=== PATIENT | male | born 1975 | race Caucasian/White ===

== ENCOUNTER 2018-06-05 13:57 | Inpatient (IN) | payer MEDICAID, OTHER ==
[~2018-06-05] VITALS: Ht 162.6 cm; Wt 69.9 kg
[2018-06-05] MEDS ORDERED: SODIUM CHLORIDE 0.9% 1,000 ML IV ONE (17:51)
[2018-06-05] MEDS ORDERED: PANTOPRAZOLE SODIUM 40 MG/VIAL IV STA (17:51)
[2018-06-05] MEDS ORDERED: ONDANSETRON HCL 4MG/2ML INJ IV STA (17:51)
[2018-06-05] MEDS ORDERED: MORPHINE SULFATE 4 MG/ML CPJ (NOT FOR IM USE) IV STA (17:51)
[2018-06-05] MEDS ORDERED: FAMOTIDINE 20MG/2ML VIAL IV STA (17:51)
[2018-06-05 18:40] LABS: HEMATOCRIT. 26.5 % (42.0-52.0); HEMOGLOBIN. 8.4 g/dL (14.0-18.0); MEAN CORPUSCULAR HEMOGLOBIN 24.9 pg (28.0-32.0); MEAN CORPUSCULAR VOLUME 78.3 fL (80.0-94.0); MEAN PLATELET VOLUME 8.2 fl (7.4-10.4); RED BLOOD CELL COUNT 3.38 mill/uL (4.7-6.1); RED CELL DISTRIBUTION WIDTH 23.9 % (11.6-14.6)
[2018-06-05 18:44] LABS: CHLORIDE 105 mEq/L (98-107)
[2018-06-05 18:48] LABS: PLATELET 13 x1000/uL (130-400)
[2018-06-05 19:12] LABS: ETHANOL BLOOD 320 mg/dL; INR 1.3; PARTIAL THROMBOPLASTIN TIME 31.5 sec (23.4-31.0); PROTHROMBIN TIME 12.8 sec (9.1-11.1)
[2018-06-05 19:55] LABS: CLARITY URINE CLEAR (CLEAR); COLOR URINE YELLOW (YELLOW); KETONES URINE NEGATIVE (NEGATIVE); LEUKOCYTE ESTERASE URINE NEGATIVE (NEGATIVE); NITRITE URINE NEGATIVE (NEGATIVE); OCCULT BLOOD URINE NEGATIVE (NEGATIVE); PROTEIN URINE NEGATIVE (NEGATIVE); SPECIFIC GRAVITY URINE 1.011 (1.005-1.030)
[2018-06-05 20:18] LABS: PLATELET ESTIMATE MARKEDLY DECREASED
[2018-06-05] MEDS ORDERED: CLONIDINE 0.1MG TABLET PO PRN (20:45)
[2018-06-05] MEDS ORDERED: GUAIFENESIN 200MG/10ML SUGAR FREE UDC PO PRN (20:45)
[2018-06-05] MEDS ORDERED: ACETAMINOPHEN 325MG TABLET PO PRN (20:45)
[2018-06-05] MEDS ORDERED: MVI, ADULT NO.1 10 ML, FOLIC ACID 1 MG, THIAMINE HCL 100 MG in SODIUM CHLORIDE 0.9% 1,0... IV SCH ×4 (20:45)
[2018-06-05] MEDS ORDERED: MAGNESIUM/ALUMINUM HYDROXIDE/SIMETHICONE 30ML UDC PO PRN (20:45)
[2018-06-05] MEDS ORDERED: NA PHOS,M-B/NA PHOS,DI-BA ENEMA 118ML PR PRN (20:45)
[2018-06-05] MEDS ORDERED: NITROGLYCERIN 0.4MG TABLET SL SL PRN (20:45)
[2018-06-05] MEDS ORDERED: ONDANSETRON HCL 4MG/2ML INJ IV PRN (20:45)
[2018-06-05] MEDS ORDERED: KETOROLAC 15MG/ML VIAL IV PRN (20:45)
[2018-06-05] MEDS ORDERED: FILGRASTIM 300 MCG/ML VIAL SUBCUT SCH (20:45)
[2018-06-05] MEDS ORDERED: IPRATROPIUM/ALBUTEROL 0.5-3(2.5)MG/3ML NEB INH PRN (20:45)
[2018-06-05] MEDS ORDERED: ZOLPIDEM TARTRATE 5MG TABLET PO PRN (21:00)
[2018-06-05] MEDS ORDERED: MVI, ADULT NO.1 10 ML, FOLIC ACID 1 MG, THIAMINE HCL 100 MG in SODIUM CHLORIDE 0.9% 1,0... IV NR ×4 (22:00)
[2018-06-06] MEDS: METOPROLOL TARTRATE 25MG TABLET PO SCH ×2 (00:35→09:00)
[2018-06-06] MEDS ORDERED: FILGRASTIM-TBO 300 MCG/0.5 ML SYRINGE SQ SCH (01:00)
[2018-06-06] MEDS: SUCRALFATE 1 G/10 ML UDC PO SCH ×3 (04:15→12:20)
[2018-06-06] MEDS: FAMOTIDINE 20MG TABLET PO SCH ×2 (08:50→09:00)
[2018-06-06 09:00] VITALS: BP 130/67
[2018-06-06 09:50] VITALS: BP 130/67
[2018-06-06 12:00] VITALS: BP 135/73
[2018-06-06 15:44] VITALS: BP 135/73
== END 2018-06-06 16:02 | disposition home or self-care (01) | DRG 241 ==
LOC: ER 13:57 → 6EST 20:26 → ENRESERV 06-06 08:47
PROVIDERS: ADMIT Internal Medicine; ATTEND Internal Medicine
DX: K29.70 Gastritis, unspecified, without bleeding (principal); D61.818 Other pancytopenia; K70.30 Alcoholic cirrhosis of liver without ascites; D63.8 Anemia in other chronic diseases classified elsewhere; F10.120 Alcohol abuse with intoxication, uncomplicated; Y90.8 Blood alcohol level of 240 mg/100 ml or more; F17.210 Nicotine dependence, cigarettes, uncomplicated; Z88.6 Allergy status to analgesic agent; Z88.8 Allergy status to other drugs, medicaments and biological substances; Z79.899 Other long term (current) drug therapy
CPT/HCPCS: 36415; 71045; 74176; 83036; 93005; 96361; 96365; 96366; 96375; 96376; 99285; 99406; C9113; G0482; J1442; J1885; J2270; J2405; J3411; J3490; J7030

== ENCOUNTER 2018-06-22 17:01 | Emergency (ER) | payer MEDICAID ==
[~2018-06-22] VITALS: Ht 165.1 cm; Wt 82.0 kg
[2018-06-22] MEDS ORDERED: MORPHINE SULFATE 4 MG/ML CPJ (NOT FOR IM USE) IV STA (18:52)
[2018-06-22] MEDS ORDERED: ONDANSETRON HCL 4MG/2ML INJ IV STA (18:52)
[2018-06-22] MEDS ORDERED: FAMOTIDINE 20MG/2ML VIAL IV STA (18:52)
[2018-06-22] MEDS ORDERED: FOLIC ACID 1 MG, THIAMINE HCL 100 MG, MVI, ADULT NO.1 10 ML in DEXTROSE 5% WATER 1,000 ML IV ONE ×4 (19:00)
[2018-06-22 19:15] LABS: CHLORIDE 109 mEq/L (98-107)
[2018-06-22 19:18] LABS: HEMATOCRIT. 26.8 % (42.0-52.0); HEMOGLOBIN. 8.4 g/dL (14.0-18.0); MEAN CORPUSCULAR HEMOGLOBIN 24.7 pg (28.0-32.0); MEAN CORPUSCULAR VOLUME 78.8 fL (80.0-94.0); MEAN PLATELET VOLUME 8.1 fl (7.4-10.4); RED BLOOD CELL COUNT 3.41 mill/uL (4.7-6.1); RED CELL DISTRIBUTION WIDTH 23.7 % (11.6-14.6)
[2018-06-22 19:21] LABS: PLATELET 23 x1000/uL (130-400)
[2018-06-22 19:54] LABS: PLATELET ESTIMATE MARKEDLY DECREASED
[2018-06-22 19:58] LABS: CLARITY URINE CLEAR (CLEAR); COLOR URINE YELLOW (YELLOW); KETONES URINE NEGATIVE (NEGATIVE); LEUKOCYTE ESTERASE URINE NEGATIVE (NEGATIVE); NITRITE URINE NEGATIVE (NEGATIVE); OCCULT BLOOD URINE NEGATIVE (NEGATIVE); PH URINE 6.5 (4.5-8.0); PROTEIN URINE NEGATIVE (NEGATIVE); SPECIFIC GRAVITY URINE 1.002 (1.005-1.030); UROBILINOGEN URINE 0.2 E.U./dL (0.2-1.0)
[2018-06-22] MEDS ORDERED: IOHEXOL-300 100 ML BOTTLE ONE (21:26)
[2018-06-22 23:33] VITALS: BP 124/74
== END 2018-06-22 23:38 | disposition home or self-care (01) ==
LOC: ER 17:01
DX: K85.90 Acute pancreatitis without necrosis or infection, unspecified (principal); K70.30 Alcoholic cirrhosis of liver without ascites; D61.818 Other pancytopenia; D64.9 Anemia, unspecified; N28.9 Disorder of kidney and ureter, unspecified; Z87.11 Personal history of peptic ulcer disease; Z88.6 Allergy status to analgesic agent
CPT/HCPCS: 36415; 74177; 80053; 81003; 83690; 85025; 96365; 96366; 96375; 99284; J2270; J2405; J3411; J3490; J7070; Q9967

== ENCOUNTER 2018-07-13 15:50 | Emergency (ER) | payer MEDICAID ==
[~2018-07-13] VITALS: Ht 170.2 cm; Wt 80.0 kg
[2018-07-13] MEDS ORDERED: IBUPROFEN 600MG TABLET PO STA (16:05)
[2018-07-13 16:41] LABS: BASOPHILS % 0.6 % (0.0-2.0); EOSINOPHILS % 0.4 % (0.0-5.0); HEMATOCRIT. 28.5 % (42.0-52.0); LYMPHOCYTES % 20.3 % (20.0-50.0); MEAN CORPUSCULAR HEMOGLOBIN 25.3 pg (28.0-32.0); MEAN CORPUSCULAR VOLUME 80.3 fL (80.0-94.0); MEAN PLATELET VOLUME 8.4 fl (7.4-10.4); MONOCYTES % 7.5 % (2.0-8.0); NEUTROPHILS % 71.2 % (40.0-76.0); RED BLOOD CELL COUNT 3.55 mill/uL (4.7-6.1); RED CELL DISTRIBUTION WIDTH 24.3 % (11.6-14.6)
[2018-07-13 16:42] LABS: PLATELET 21 x1000/uL (130-400)
[2018-07-13 16:46] LABS: CHLORIDE 105 mEq/L (98-107); INR 1.3; PROTHROMBIN TIME 12.8 sec (9.1-11.1)
[2018-07-13 17:07] LABS: ETHANOL BLOOD 434 mg/dL
[2018-07-13] MEDS ORDERED: POTASSIUM CHLORIDE 20MEQ TABLET SR PO ONE (17:45)
[2018-07-14 02:54] VITALS: BP 99/52
== END 2018-07-14 03:04 | disposition home or self-care (01) ==
LOC: ER 15:50
DX: T51.0X1A Toxic effect of ethanol, accidental (unintentional), initial encounter (principal); R10.84 Generalized abdominal pain; D64.9 Anemia, unspecified; Y90.8 Blood alcohol level of 240 mg/100 ml or more; K76.9 Liver disease, unspecified; Z88.6 Allergy status to analgesic agent; Y92.488 Other paved roadways as the place of occurrence of the external cause
CPT/HCPCS: 36415; 74176; 80053; 83690; 85025; 85610; 99284; G0482

== ENCOUNTER 2018-08-05 13:22 | Inpatient (IN) | payer MEDICAID ==
[~2018-08-05] VITALS: Ht 162.6 cm; Wt 63.5 kg
[2018-08-06] MEDS ORDERED: ONDANSETRON HCL 4MG/2ML INJ IV STA (04:56)
[2018-08-06] MEDS ORDERED: SODIUM CHLORIDE 0.9% 1,000 ML IV ONE (04:56)
[2018-08-06 05:30] LABS: HEMATOCRIT. 26.7 % (42.0-52.0); HEMOGLOBIN. 8.4 g/dL (14.0-18.0); MEAN CORPUSCULAR VOLUME 79.8 fL (80.0-94.0); MEAN PLATELET VOLUME 10.7 fl (7.4-10.4); RED BLOOD CELL COUNT 3.35 mill/uL (4.7-6.1); RED CELL DISTRIBUTION WIDTH 22.5 % (11.6-14.6)
[2018-08-06 05:35] LABS: CHLORIDE 110 mEq/L (98-107)
[2018-08-06 05:42] LABS: ETHANOL BLOOD 175 mg/dL
[2018-08-06 05:55] LABS: PLATELET 15 x1000/uL (130-400)
[2018-08-06 06:17] LABS: CLARITY URINE CLEAR (CLEAR); KETONES URINE TRACE (NEGATIVE); LEUKOCYTE ESTERASE URINE 1+ (NEGATIVE); NITRITE URINE POSITIVE (NEGATIVE); OCCULT BLOOD URINE NEGATIVE (NEGATIVE); PROTEIN URINE 2+ (NEGATIVE); SPECIFIC GRAVITY URINE 1.035 (1.005-1.030)
[2018-08-06 06:23] LABS: COLOR URINE AMBER (YELLOW)
[2018-08-06] MEDS ORDERED: ACETAMINOPHEN 325MG TABLET PO SCH (07:36)
[2018-08-06 08:08] LABS: PLATELET ESTIMATE MARKEDLY DECREASED
[2018-08-06] MEDS ORDERED: CEFTRIAXONE 1 G PREMIX 50 ML IV ONE (08:45)
[2018-08-06] MEDS ORDERED: HYDROMORPHONE HCL/PF 2MG/ML CPJ IV PRN (13:15)
[2018-08-06] MEDS ORDERED: CLONIDINE 0.1MG TABLET PO PRN (13:15)
[2018-08-06] MEDS ORDERED: HYDROCODONE/ACETAMINOPHEN 5/325MG TABLET PO PRN (13:15)
[2018-08-06 15:17] VITALS: BP 128/68
[2018-08-06 15:34] VITALS: BP 124/66
[2018-08-06] MEDS ORDERED: LEVOFLOXACIN 500MG PREMIX 100 ML IV SCH (17:00)
[2018-08-06 20:00] VITALS: BP 123/48
[2018-08-07] VITALS: BP 131/68
[2018-08-07 04:00] VITALS: BP 122/66
[2018-08-07] MEDS: ONDANSETRON HCL 4MG/2ML INJ IV PRN ×3 (04:08→20:53)
[2018-08-07 05:54] LABS: HEMATOCRIT. 25.7 % (42.0-52.0); HEMOGLOBIN. 8.2 g/dL (14.0-18.0); MEAN CORPUSCULAR HEMOGLOBIN 25.4 pg (28.0-32.0); MEAN CORPUSCULAR VOLUME 79.5 fL (80.0-94.0); MEAN PLATELET VOLUME 10.6 fl (7.4-10.4); RED BLOOD CELL COUNT 3.23 mill/uL (4.7-6.1); RED CELL DISTRIBUTION WIDTH 22.6 % (11.6-14.6)
[2018-08-07 06:19] LABS: CHLORIDE 105 mEq/L (98-107)
[2018-08-07 06:43] LABS: PLATELET 15 x1000/uL (130-400)
[2018-08-07 08:00] VITALS: BP 132/71
[2018-08-07 12:00] VITALS: BP 138/70
[2018-08-07 13:10] LABS: PLATELET ESTIMATE MARKEDLY DECREASED
[2018-08-07] MEDS ORDERED: POTASSIUM CHLORIDE 20MEQ TABLET SR PO SCH (14:00)
[2018-08-07 16:00] VITALS: BP 125/67
[2018-08-07] MEDS: LEVOFLOXACIN 500MG PREMIX 100 ML IV SCH (17:14)
[2018-08-07 20:00] VITALS: BP 116/65
[2018-08-08] VITALS: BP 111/56
[2018-08-08 04:00] VITALS: BP 99/54
[2018-08-08] MEDS: ONDANSETRON HCL 4MG/2ML INJ IV PRN (09:14)
[2018-08-08 12:00] VITALS: BP 125/79
[2018-08-08 13:34] LABS: BASOPHILS % 0.3 % (0.0-2.0); EOSINOPHILS % 0.7 % (0.0-5.0); HEMATOCRIT. 27.2 % (42.0-52.0); HEMOGLOBIN. 8.5 g/dL (14.0-18.0); LYMPHOCYTES % 14.3 % (20.0-50.0); MEAN CORPUSCULAR HEMOGLOBIN 25.4 pg (28.0-32.0); MEAN CORPUSCULAR VOLUME 81.7 fL (80.0-94.0); MEAN PLATELET VOLUME 11.3 fl (7.4-10.4); MONOCYTES % 10.2 % (2.0-8.0); NEUTROPHILS % 74.5 % (40.0-76.0); RED BLOOD CELL COUNT 3.33 mill/uL (4.7-6.1); RED CELL DISTRIBUTION WIDTH 22.2 % (11.6-14.6)
[2018-08-08 13:48] LABS: PLATELET 17 x1000/uL (130-400)
[2018-08-08 14:00] LABS: CHLORIDE 106 mEq/L (98-107)
[2018-08-08] MEDS: LEVOFLOXACIN 500MG PREMIX 100 ML IV SCH (17:00)
== END 2018-08-08 19:40 | disposition home or self-care (01) | DRG 251 ==
LOC: ER 13:22 → 6EST 08-06 10:19 → ENRESERV 08-06 11:53
PROVIDERS: ADMIT Hospitalist; ATTEND Hospitalist
DX: R10.9 Unspecified abdominal pain (principal); D61.818 Other pancytopenia; E44.1 Mild protein-calorie malnutrition; E83.42 Hypomagnesemia; E87.0 Hyperosmolality and hypernatremia; N39.0 Urinary tract infection, site not specified; K74.60 Unspecified cirrhosis of liver; E83.51 Hypocalcemia; G89.29 Other chronic pain; F10.20 Alcohol dependence, uncomplicated; D72.825 Bandemia; I10 Essential (primary) hypertension; Z87.891 Personal history of nicotine dependence; Z88.6 Allergy status to analgesic agent; Z91.14 Patient's other noncompliance with medication regimen; E87.8 Other disorders of electrolyte and fluid balance, not elsewhere classified
CPT/HCPCS: 36415; 83735; 96361; 96374; 99285; G0482; J0696; J1170; J1956; J2405; J7030; J7040

== ENCOUNTER 2018-08-16 15:00 | Emergency (ER) | payer MEDICAID ==
[~2018-08-16] VITALS: Ht 165.1 cm; Wt 66.0 kg
[2018-08-16 15:05] VITALS: BP 116/72
== END 2018-08-16 17:35 | disposition left against medical advice (07) ==
LOC: ER 15:00
DX: F10.129 Alcohol abuse with intoxication, unspecified (principal); Z53.21 Procedure and treatment not carried out due to patient leaving prior to being seen by health care provider

== ENCOUNTER 2018-08-21 12:55 | Emergency (ER) | payer MEDICAID ==
[~2018-08-21] VITALS: Ht 170.2 cm; Wt 72.0 kg
[2018-08-21] MEDS ORDERED: MORPHINE SULFATE 4 MG/ML CPJ (NOT FOR IM USE) IV STA (13:10)
[2018-08-21] MEDS ORDERED: MAGNESIUM/ALUMINUM HYDROXIDE/SIMETHICONE 30ML UDC PO STA (13:10)
[2018-08-21] MEDS ORDERED: FAMOTIDINE 20MG/2ML VIAL IV STA (13:10)
[2018-08-21] MEDS ORDERED: ONDANSETRON HCL 4MG/2ML INJ IV STA (13:10)
[2018-08-21] MEDS ORDERED: SODIUM CHLORIDE 0.9% 1,000 ML IV ONE (13:10)
[2018-08-21 14:29] LABS: CHLORIDE 110 mEq/L (98-107)
[2018-08-21 14:30] LABS: INR 1.3; PROTHROMBIN TIME 12.7 sec (9.1-11.1)
[2018-08-21 14:34] LABS: HEMATOCRIT. 29.3 % (42.0-52.0); HEMOGLOBIN. 9.2 g/dL (14.0-18.0); MEAN CORPUSCULAR HEMOGLOBIN 24.8 pg (28.0-32.0); MEAN PLATELET VOLUME 8.5 fl (7.4-10.4); RED CELL DISTRIBUTION WIDTH 23.4 % (11.6-14.6)
[2018-08-21 14:48] LABS: ETHANOL BLOOD 428 mg/dL
[2018-08-21 14:51] LABS: PLATELET 22 x1000/uL (130-400)
[2018-08-21 15:40] LABS: PLATELET ESTIMATE MARKEDLY DECREASED
[2018-08-21 16:02] LABS: CLARITY URINE CLEAR (CLEAR); COLOR URINE YELLOW (YELLOW); KETONES URINE NEGATIVE (NEGATIVE); LEUKOCYTE ESTERASE URINE NEGATIVE (NEGATIVE); NITRITE URINE NEGATIVE (NEGATIVE); OCCULT BLOOD URINE NEGATIVE (NEGATIVE); PROTEIN URINE NEGATIVE (NEGATIVE); SPECIFIC GRAVITY URINE 1.002 (1.005-1.030); UROBILINOGEN URINE 0.2 E.U./dL (0.2-1.0)
[2018-08-21 16:13] LABS: *AMPHETAMINES SCREEN URINE NEGATIVE (NEGATIVE); *BENZODIAZEPINES SCREEN URINE NEGATIVE (NEGATIVE); *COCAINE SCREEN URINE NEGATIVE (NEGATIVE); METHADONE URINE SCREEN NEGATIVE (NEGATIVE); OPIATES URINE SCREEN NEGATIVE (NEGATIVE)
[2018-08-21 16:14] LABS: CANNABINOID URINE SCREEN NEGATIVE (NEGATIVE); PHENCYCLIDINE URINE SCREEN NEGATIVE (NEGATIVE)
[2018-08-21 16:17] LABS: *BARBITURATES SCREEN URINE NEGATIVE (NEGATIVE)
[2018-08-21 20:48] VITALS: BP 125/59
== END 2018-08-21 20:49 | disposition home or self-care (01) ==
LOC: ER 12:55
DX: K29.20 Alcoholic gastritis without bleeding (principal); F10.10 Alcohol abuse, uncomplicated; D69.6 Thrombocytopenia, unspecified; D72.819 Decreased white blood cell count, unspecified; D64.9 Anemia, unspecified; E11.9 Type 2 diabetes mellitus without complications; K74.60 Unspecified cirrhosis of liver; Z88.6 Allergy status to analgesic agent
CPT/HCPCS: 36415; 80053; 80305; 81003; 83690; 83880; 84484; 85025; 85610; 87186; 96361; 96374; 96375; 99283; J2270; J2405; J3490; J7030; Z7610

== ENCOUNTER 2018-08-23 11:34 | Emergency (ER) | payer MEDICAID ==
[~2018-08-23] VITALS: Ht 162.6 cm; Wt 70.0 kg
[2018-08-23 12:09] VITALS: BP 135/80
[2018-08-23 16:08] LABS: BASOPHILS % 0.8 % (0.0-2.0); EOSINOPHILS % 0.2 % (0.0-5.0); HEMATOCRIT. 28.2 % (42.0-52.0); LYMPHOCYTES % 29.8 % (20.0-50.0); MEAN CORPUSCULAR HEMOGLOBIN 25.1 pg (28.0-32.0); MEAN CORPUSCULAR VOLUME 79.1 fL (80.0-94.0); MEAN PLATELET VOLUME 8.5 fl (7.4-10.4); MONOCYTES % 6.3 % (2.0-8.0); NEUTROPHILS % 62.9 % (40.0-76.0); RED BLOOD CELL COUNT 3.57 mill/uL (4.7-6.1); RED CELL DISTRIBUTION WIDTH 23.2 % (11.6-14.6)
[2018-08-23 16:10] LABS: CHLORIDE 106 mEq/L (98-107)
[2018-08-23 16:11] LABS: INR 1.3; PROTHROMBIN TIME 12.6 sec (9.1-11.1)
[2018-08-23 16:14] LABS: PLATELET 21 x1000/uL (130-400)
[2018-08-23 16:33] LABS: PLATELET ESTIMATE MARKEDLY DECREASED
[2018-08-23 16:45] LABS: ETHANOL BLOOD 362 mg/dL
[2018-08-23] MEDS ORDERED: DICYCLOMINE 10 MG/5 ML ORAL SYR PO STA (18:32)
[2018-08-23] MEDS ORDERED: MAGNESIUM/ALUMINUM HYDROXIDE/SIMETHICONE 30ML UDC PO STA (18:32)
[2018-08-23] MEDS ORDERED: ONDANSETRON 4MG ODT PO STA (18:32)
[2018-08-23] MEDS ORDERED: VISCOUS LIDOCAINE 2% 15 ML UDC PO STA (18:32)
== END 2018-08-23 20:50 | disposition home or self-care (01) ==
LOC: ER 11:42
DX: F10.229 Alcohol dependence with intoxication, unspecified (principal); R10.9 Unspecified abdominal pain; R51 Headache; M54.9 Dorsalgia, unspecified; E11.9 Type 2 diabetes mellitus without complications; N28.9 Disorder of kidney and ureter, unspecified; D69.6 Thrombocytopenia, unspecified; D64.9 Anemia, unspecified; K74.60 Unspecified cirrhosis of liver; K92.2 Gastrointestinal hemorrhage, unspecified; Z88.6 Allergy status to analgesic agent; W01.0XXA Fall on same level from slipping, tripping and stumbling without subsequent striking against object, initial encounter; Y93.89 Activity, other specified; Y92.89 Other specified places as the place of occurrence of the external cause; Y99.8 Other external cause status; Y90.8 Blood alcohol level of 240 mg/100 ml or more
CPT/HCPCS: 36415; 70450; 80053; 83690; 85025; 85610; 87186; 99284; Q0162

== ENCOUNTER 2018-08-26 11:30 | Emergency (ER) | payer MEDICAID ==
[~2018-08-26] VITALS: Ht 165.1 cm; Wt 61.0 kg
[2018-08-26 12:17] LABS: HEMATOCRIT. 27.8 % (42.0-52.0); HEMOGLOBIN. 8.7 g/dL (14.0-18.0); MEAN CORPUSCULAR HEMOGLOBIN 25.8 pg (28.0-32.0); MEAN CORPUSCULAR VOLUME 82.7 fL (80.0-94.0); MEAN PLATELET VOLUME 8.4 fl (7.4-10.4); RED BLOOD CELL COUNT 3.36 mill/uL (4.7-6.1); RED CELL DISTRIBUTION WIDTH 23.5 % (11.6-14.6)
[2018-08-26 12:25] LABS: CHLORIDE 105 mEq/L (98-107); INR 1.4; PROTHROMBIN TIME 14.2 sec (9.1-11.1)
[2018-08-26 12:28] LABS: ETHANOL BLOOD < 10 mg/dL
[2018-08-26 12:31] LABS: CLARITY URINE CLOUDY (CLEAR); COLOR URINE DARK YELLOW (YELLOW); KETONES URINE TRACE (NEGATIVE); LEUKOCYTE ESTERASE URINE TRACE (NEGATIVE); NITRITE URINE NEGATIVE (NEGATIVE); OCCULT BLOOD URINE TRACE (NEGATIVE); PH URINE 6.5 (4.5-8.0); PROTEIN URINE 2+ (NEGATIVE); SPECIFIC GRAVITY URINE 1.016 (1.005-1.030)
[2018-08-26 12:59] LABS: PLATELET ESTIMATE MARKEDLY DECREASED
[2018-08-26 13:00] LABS: PLATELET 17 x1000/uL (130-400)
[2018-08-26] MEDS ORDERED: LORAZEPAM 1MG TABLET PO ONE (14:00)
[2018-08-26 16:30] VITALS: BP 116/68
== END 2018-08-26 16:37 | disposition home or self-care (01) ==
LOC: ER 11:30
DX: S09.8XXA Other specified injuries of head, initial encounter (principal); F10.239 Alcohol dependence with withdrawal, unspecified; Y90.0 Blood alcohol level of less than 20 mg/100 ml; K74.60 Unspecified cirrhosis of liver; D61.818 Other pancytopenia; K70.9 Alcoholic liver disease, unspecified; E87.6 Hypokalemia; E87.2 Acidosis; D64.9 Anemia, unspecified; D69.6 Thrombocytopenia, unspecified; D72.819 Decreased white blood cell count, unspecified; R55 Syncope and collapse; E11.9 Type 2 diabetes mellitus without complications; K92.2 Gastrointestinal hemorrhage, unspecified; F17.200 Nicotine dependence, unspecified, uncomplicated; W18.39XA Other fall on same level, initial encounter; Y93.89 Activity, other specified; Y92.89 Other specified places as the place of occurrence of the external cause; Y99.8 Other external cause status; Z88.6 Allergy status to analgesic agent
CPT/HCPCS: 36415; 70450; 80053; 81003; 83690; 85025; 85610; 87186; 93005; 99284; Z7610

== ENCOUNTER 2018-09-08 13:55 | Emergency (ER) | payer MEDICAID ==
[~2018-09-08] VITALS: Ht 172.7 cm; Wt 5.0 kg
[2018-09-08 15:58] VITALS: BP 116/59
== END 2018-09-08 18:58 | disposition left against medical advice (07) ==
LOC: ER 13:55
DX: Z53.21 Procedure and treatment not carried out due to patient leaving prior to being seen by health care provider (principal)

== ENCOUNTER 2018-09-09 10:05 | Emergency (ER) | payer MEDICAID ==
[~2018-09-09] VITALS: Ht 162.6 cm; Wt 73.0 kg
[2018-09-09 14:50] VITALS: BP 129/57
== END 2018-09-09 20:08 | disposition left against medical advice (07) ==
LOC: ER 10:05
DX: R10.9 Unspecified abdominal pain (principal); Z53.21 Procedure and treatment not carried out due to patient leaving prior to being seen by health care provider

== ENCOUNTER 2018-10-05 13:05 | Emergency (ER) | payer MEDICAID ==
[~2018-10-05] VITALS: Ht 162.6 cm; Wt 70.0 kg
[2018-10-05 14:13] LABS: CLARITY URINE CLEAR (CLEAR); COLOR URINE DARK YELLOW (YELLOW); KETONES URINE TRACE (NEGATIVE); LEUKOCYTE ESTERASE URINE NEGATIVE (NEGATIVE); NITRITE URINE NEGATIVE (NEGATIVE); OCCULT BLOOD URINE NEGATIVE (NEGATIVE); PROTEIN URINE NEGATIVE (NEGATIVE); SPECIFIC GRAVITY URINE 1.019 (1.005-1.030)
[2018-10-05] MEDS ORDERED: SODIUM CHLORIDE 0.9% 1,000 ML IV ONE (14:21)
[2018-10-05] MEDS ORDERED: FAMOTIDINE 20MG/2ML VIAL IV STA (14:21)
[2018-10-05 14:36] LABS: HEMATOCRIT. 25.5 % (42.0-52.0); MEAN CORPUSCULAR HEMOGLOBIN 24.8 pg (28.0-32.0); MEAN PLATELET VOLUME 8.6 fl (7.4-10.4); RED BLOOD CELL COUNT 3.22 mill/uL (4.7-6.1); RED CELL DISTRIBUTION WIDTH 26.4 % (11.6-14.6)
[2018-10-05 14:43] LABS: CHLORIDE 112 mEq/L (98-107)
[2018-10-05 14:50] LABS: PLATELET 27 x1000/uL (130-400)
[2018-10-05 15:22] LABS: PLATELET ESTIMATE MARKEDLY DECREASED
[2018-10-05 15:44] LABS: ETHANOL BLOOD 431 mg/dL
[2018-10-05 22:40] VITALS: BP 127/84
[2018-10-06 10:57] LABS: *BARBITURATES SCREEN URINE NEGATIVE (NEGATIVE)
[2018-10-06 10:58] LABS: *BENZODIAZEPINES SCREEN URINE PRESUMTIVE POSITIVE (NEGATIVE); *COCAINE SCREEN URINE NEGATIVE (NEGATIVE); METHADONE URINE SCREEN NEGATIVE (NEGATIVE)
[2018-10-06 10:59] LABS: *AMPHETAMINES SCREEN URINE NEGATIVE (NEGATIVE); CANNABINOID URINE SCREEN NEGATIVE (NEGATIVE); OPIATES URINE SCREEN NEGATIVE (NEGATIVE); PHENCYCLIDINE URINE SCREEN NEGATIVE (NEGATIVE)
== END 2018-10-05 22:40 | disposition home or self-care (01) ==
LOC: ER 13:24
DX: K85.90 Acute pancreatitis without necrosis or infection, unspecified (principal); F10.129 Alcohol abuse with intoxication, unspecified; N28.9 Disorder of kidney and ureter, unspecified; Z88.6 Allergy status to analgesic agent; Y90.9 Presence of alcohol in blood, level not specified
CPT/HCPCS: 36415; 80053; 80305; 80320; 81003; 83690; 85025; 96361; 96374; 99283; J3490; J7030; G0480

== ENCOUNTER 2018-10-06 14:15 | Emergency (ER) | payer MEDICAID ==
[~2018-10-06] VITALS: Ht 170.2 cm; Wt 75.0 kg
[2018-10-06] MEDS ORDERED: ONDANSETRON HCL 4MG/2ML INJ IV ONE (15:00)
[2018-10-06] MEDS ORDERED: SODIUM CHLORIDE 0.9% 1,000 ML IV ONE (15:00)
[2018-10-06 15:18] LABS: HEMATOCRIT. 28.4 % (42.0-52.0); HEMOGLOBIN. 8.8 g/dL (14.0-18.0); MEAN CORPUSCULAR HEMOGLOBIN 24.5 pg (28.0-32.0); MEAN PLATELET VOLUME 8.2 fl (7.4-10.4); RED BLOOD CELL COUNT 3.59 mill/uL (4.7-6.1); RED CELL DISTRIBUTION WIDTH 26.4 % (11.6-14.6)
[2018-10-06 15:21] LABS: CHLORIDE 111 mEq/L (98-107)
[2018-10-06 15:26] LABS: PLATELET 25 x1000/uL (130-400)
[2018-10-06 15:55] LABS: PLATELET ESTIMATE MARKEDLY DECREASED
[2018-10-06 16:23] VITALS: BP 153/75
== END 2018-10-06 16:33 | disposition home or self-care (01) ==
LOC: ER 14:15
DX: R53.1 Weakness (principal); D69.6 Thrombocytopenia, unspecified; F10.20 Alcohol dependence, uncomplicated; N28.9 Disorder of kidney and ureter, unspecified; Z88.6 Allergy status to analgesic agent; Y90.9 Presence of alcohol in blood, level not specified
CPT/HCPCS: 36415; 71045; 80053; 83880; 84484; 85025; 93005; 96374; 99284; J2405

== ENCOUNTER 2018-10-09 18:52 | Emergency (ER) | payer MEDICAID ==
[~2018-10-09] VITALS: Ht 162.6 cm; Wt 70.3 kg
[2018-10-09] MEDS ORDERED: ONDANSETRON HCL 4MG/2ML INJ IV STA (23:52)
[2018-10-09] MEDS ORDERED: MORPHINE SULFATE 4 MG/ML CPJ (NOT FOR IM USE) IV STA (23:52)
[2018-10-10 00:18] LABS: HEMATOCRIT. 26.1 % (42.0-52.0); HEMOGLOBIN. 8.2 g/dL (14.0-18.0); MEAN CORPUSCULAR HEMOGLOBIN 24.8 pg (28.0-32.0); MEAN CORPUSCULAR VOLUME 78.7 fL (80.0-94.0); MEAN PLATELET VOLUME 8.5 fl (7.4-10.4); RED BLOOD CELL COUNT 3.31 mill/uL (4.7-6.1); RED CELL DISTRIBUTION WIDTH 26.9 % (11.6-14.6)
[2018-10-10 00:24] LABS: CLARITY URINE CLEAR (CLEAR); COLOR URINE DARK YELLOW (YELLOW); KETONES URINE TRACE (NEGATIVE); LEUKOCYTE ESTERASE URINE NEGATIVE (NEGATIVE); NITRITE URINE NEGATIVE (NEGATIVE); OCCULT BLOOD URINE NEGATIVE (NEGATIVE); PROTEIN URINE NEGATIVE (NEGATIVE); SPECIFIC GRAVITY URINE 1.024 (1.005-1.030)
[2018-10-10 00:25] LABS: PLATELET 21 x1000/uL (130-400)
[2018-10-10 00:26] LABS: CHLORIDE 110 mEq/L (98-107)
[2018-10-10 02:10] LABS: PLATELET ESTIMATE DECREASED
[2018-10-10] MEDS ORDERED: IOHEXOL-300 100 ML BOTTLE ONE (02:24)
[2018-10-10 04:30] VITALS: BP 121/67
== END 2018-10-10 04:56 | disposition home or self-care (01) ==
LOC: ER 18:52
DX: R10.0 Acute abdomen (principal); R11.0 Nausea; R03.0 Elevated blood-pressure reading, without diagnosis of hypertension; F15.10 Other stimulant abuse, uncomplicated; Z87.891 Personal history of nicotine dependence; F10.20 Alcohol dependence, uncomplicated; Y90.9 Presence of alcohol in blood, level not specified
CPT/HCPCS: 36415; 74177; 80053; 81003; 83690; 85025; 96374; 96375; 99284; J2270; J2405; Q9967

== ENCOUNTER 2018-10-12 13:00 | Emergency (ER) | payer MEDICAID ==
[~2018-10-12] VITALS: Ht 162.6 cm; Wt 70.0 kg
[2018-10-12] MEDS ORDERED: FAMOTIDINE 20MG/2ML VIAL IV STA (14:55)
[2018-10-12] MEDS ORDERED: SODIUM CHLORIDE 0.9% 1,000 ML IV ONE (14:55)
[2018-10-12] MEDS ORDERED: ONDANSETRON HCL 4MG/2ML INJ IV STA (14:55)
[2018-10-12 15:40] LABS: CHLORIDE 110 mEq/L (98-107); HEMATOCRIT. 29.3 % (42.0-52.0); HEMOGLOBIN. 9.1 g/dL (14.0-18.0); MEAN CORPUSCULAR HEMOGLOBIN 24.7 pg (28.0-32.0); MEAN CORPUSCULAR VOLUME 79.4 fL (80.0-94.0); MEAN PLATELET VOLUME 10.2 fl (7.4-10.4); RED CELL DISTRIBUTION WIDTH 26.9 % (11.6-14.6)
[2018-10-12 15:41] LABS: INR 1.2; PROTHROMBIN TIME 12.3 sec (9.6-11.0)
[2018-10-12 15:43] LABS: CLARITY URINE CLEAR (CLEAR); COLOR URINE YELLOW (YELLOW); KETONES URINE NEGATIVE (NEGATIVE); LEUKOCYTE ESTERASE URINE NEGATIVE (NEGATIVE); NITRITE URINE NEGATIVE (NEGATIVE); OCCULT BLOOD URINE NEGATIVE (NEGATIVE); PH URINE 6.5 (4.5-8.0); PROTEIN URINE NEGATIVE (NEGATIVE); SPECIFIC GRAVITY URINE 1.006 (1.005-1.030); UROBILINOGEN URINE 0.2 E.U./dL (0.2-1.0)
[2018-10-12 15:43] LABS: PLATELET 19 x1000/uL (130-400)
[2018-10-12 15:52] LABS: *AMPHETAMINES SCREEN URINE NEGATIVE (NEGATIVE); *BARBITURATES SCREEN URINE NEGATIVE (NEGATIVE); *BENZODIAZEPINES SCREEN URINE NEGATIVE (NEGATIVE); *COCAINE SCREEN URINE NEGATIVE (NEGATIVE)
[2018-10-12 15:53] LABS: CANNABINOID URINE SCREEN NEGATIVE (NEGATIVE); METHADONE URINE SCREEN NEGATIVE (NEGATIVE); OPIATES URINE SCREEN NEGATIVE (NEGATIVE); PHENCYCLIDINE URINE SCREEN NEGATIVE (NEGATIVE)
[2018-10-12 15:54] LABS: ETHANOL BLOOD 440 mg/dL
[2018-10-12 16:21] LABS: PLATELET ESTIMATE MARKEDLY DECREASED
[2018-10-12 21:10] VITALS: BP 112/62
== END 2018-10-12 21:20 | disposition home or self-care (01) ==
LOC: ER 13:00
DX: K29.20 Alcoholic gastritis without bleeding (principal); F10.229 Alcohol dependence with intoxication, unspecified; Y90.8 Blood alcohol level of 240 mg/100 ml or more; M25.561 Pain in right knee; D61.818 Other pancytopenia; F17.210 Nicotine dependence, cigarettes, uncomplicated; F15.10 Other stimulant abuse, uncomplicated
CPT/HCPCS: 36415; 71045; 73562; 80053; 80305; 80320; 81003; 83690; 84484; 85025; 85610; 93005; 93971; 96361; 96374; 96375; 99284; J2405; J3490; J7030; Z7610; G0480

== ENCOUNTER 2018-10-14 17:27 | Emergency (ER) | payer MEDICAID ==
[~2018-10-14] VITALS: Ht 162.6 cm; Wt 69.0 kg
[2018-10-14] MEDS ORDERED: LORAZEPAM 2MG/ML CPJ IV ONE (19:15)
[2018-10-14] MEDS ORDERED: FOLIC ACID 1 MG, THIAMINE HCL 100 MG, MVI, ADULT NO.1 10 ML in DEXTROSE 5% WATER 1,000 ML IV ONE ×4 (19:15)
[2018-10-14] MEDS ORDERED: FAMOTIDINE 20MG/2ML VIAL IV ONE (19:15)
[2018-10-14 19:48] LABS: *AMPHETAMINES SCREEN URINE NEGATIVE (NEGATIVE); *BARBITURATES SCREEN URINE NEGATIVE (NEGATIVE); *BENZODIAZEPINES SCREEN URINE NEGATIVE (NEGATIVE); *COCAINE SCREEN URINE NEGATIVE (NEGATIVE); METHADONE URINE SCREEN NEGATIVE (NEGATIVE); OPIATES URINE SCREEN NEGATIVE (NEGATIVE); PHENCYCLIDINE URINE SCREEN NEGATIVE (NEGATIVE)
[2018-10-14 19:49] LABS: CANNABINOID URINE SCREEN NEGATIVE (NEGATIVE)
[2018-10-14 20:16] LABS: CHLORIDE 110 mEq/L (98-107)
[2018-10-14 20:19] LABS: INR 1.2; PARTIAL THROMBOPLASTIN TIME 31.1 sec (23.4-31.0); PROTHROMBIN TIME 12.7 sec (9.6-11.0)
[2018-10-14 20:20] LABS: BASOPHILS % 0.4 % (0.0-2.0); EOSINOPHILS % 0.2 % (0.0-5.0); HEMATOCRIT. 27.2 % (42.0-52.0); HEMOGLOBIN. 8.7 g/dL (14.0-18.0); LYMPHOCYTES % 27.4 % (20.0-50.0); MEAN CORPUSCULAR HEMOGLOBIN 25.2 pg (28.0-32.0); MEAN CORPUSCULAR VOLUME 78.5 fL (80.0-94.0); MEAN PLATELET VOLUME 8.3 fl (7.4-10.4); MONOCYTES % 6.3 % (2.0-8.0); NEUTROPHILS % 65.7 % (40.0-76.0); RED BLOOD CELL COUNT 3.47 mill/uL (4.7-6.1); RED CELL DISTRIBUTION WIDTH 26.8 % (11.6-14.6)
[2018-10-14 20:32] LABS: PLATELET 14 x1000/uL (130-400)
[2018-10-14 20:36] LABS: ETHANOL BLOOD 432 mg/dL
[2018-10-14] MEDS ORDERED: MAGNESIUM/ALUMINUM HYDROXIDE/SIMETHICONE 30ML UDC PO ONE (21:45)
[2018-10-14] MEDS ORDERED: ONDANSETRON 4MG ODT PO ONE (21:45)
[2018-10-14 22:35] VITALS: BP 118/69
== END 2018-10-14 22:43 | disposition home or self-care (01) ==
LOC: ER 17:27
DX: F10.229 Alcohol dependence with intoxication, unspecified (principal); D72.819 Decreased white blood cell count, unspecified; D53.9 Nutritional anemia, unspecified; D69.6 Thrombocytopenia, unspecified; F15.10 Other stimulant abuse, uncomplicated; N28.9 Disorder of kidney and ureter, unspecified; K76.9 Liver disease, unspecified; Z87.11 Personal history of peptic ulcer disease; Z88.6 Allergy status to analgesic agent; Y90.8 Blood alcohol level of 240 mg/100 ml or more
CPT/HCPCS: 36415; 71045; 80053; 80305; 80320; 83690; 83735; 83880; 84484; 85025; 85610; 85730; 93005; 96365; 96366; 96375; 99284; J2060; J3411; J3490; J7070; Q0162; Z7610; G0480

== ENCOUNTER 2018-10-25 11:58 | Emergency (ER) | payer MEDICAID ==
[~2018-10-25] VITALS: Ht 162.6 cm; Wt 70.0 kg
[2018-10-25] MEDS ORDERED: ONDANSETRON HCL 4MG/2ML INJ IV STA (15:24)
[2018-10-25] MEDS ORDERED: SODIUM CHLORIDE 0.9% 1,000 ML IV ONE (15:24)
[2018-10-25] MEDS ORDERED: MORPHINE SULFATE 4 MG/ML CPJ (NOT FOR IM USE) IV ONE (15:30)
[2018-10-25] MEDS ORDERED: FAMOTIDINE 20MG/2ML VIAL IV ONE (15:30)
[2018-10-25 16:09] LABS: CHLORIDE 114 mEq/L (98-107); HEMATOCRIT. 28.3 % (42.0-52.0); HEMOGLOBIN. 9.2 g/dL (14.0-18.0); MEAN CORPUSCULAR HEMOGLOBIN 26.3 pg (28.0-32.0); MEAN CORPUSCULAR VOLUME 81.5 fL (80.0-94.0); MEAN PLATELET VOLUME 9.1 fl (7.4-10.4); RED BLOOD CELL COUNT 3.48 mill/uL (4.7-6.1); RED CELL DISTRIBUTION WIDTH 25.1 % (11.6-14.6)
[2018-10-25 16:11] LABS: PLATELET 37 x1000/uL (130-400)
[2018-10-25 16:13] LABS: ETHANOL BLOOD 60 mg/dL
[2018-10-25 16:15] LABS: INR 1.3; PARTIAL THROMBOPLASTIN TIME 34.5 sec (23.4-31.0); PROTHROMBIN TIME 12.7 sec (9.6-11.0)
[2018-10-25 16:37] LABS: PLATELET ESTIMATE MARKEDLY DECREASED
[2018-10-25 16:56] LABS: CLARITY URINE CLEAR (CLEAR); COLOR URINE DARK YELLOW (YELLOW); KETONES URINE TRACE (NEGATIVE); LEUKOCYTE ESTERASE URINE NEGATIVE (NEGATIVE); NITRITE URINE NEGATIVE (NEGATIVE); OCCULT BLOOD URINE NEGATIVE (NEGATIVE); PROTEIN URINE NEGATIVE (NEGATIVE); SPECIFIC GRAVITY URINE 1.023 (1.005-1.030)
[2018-10-25 17:05] LABS: *BARBITURATES SCREEN URINE NEGATIVE (NEGATIVE); *BENZODIAZEPINES SCREEN URINE PRESUMTIVE POSITIVE (NEGATIVE); *COCAINE SCREEN URINE NEGATIVE (NEGATIVE)
[2018-10-25 17:06] LABS: *AMPHETAMINES SCREEN URINE NEGATIVE (NEGATIVE); CANNABINOID URINE SCREEN NEGATIVE (NEGATIVE); METHADONE URINE SCREEN NEGATIVE (NEGATIVE); OPIATES URINE SCREEN NEGATIVE (NEGATIVE); PHENCYCLIDINE URINE SCREEN NEGATIVE (NEGATIVE)
[2018-10-25 17:27] VITALS: BP 115/85
== END 2018-10-25 19:02 | disposition home or self-care (01) ==
LOC: ER 12:14
DX: K29.20 Alcoholic gastritis without bleeding (principal); F10.20 Alcohol dependence, uncomplicated; D61.818 Other pancytopenia; N28.9 Disorder of kidney and ureter, unspecified; Z79.899 Other long term (current) drug therapy; Y90.9 Presence of alcohol in blood, level not specified
CPT/HCPCS: 36415; 71045; 80053; 80305; 80320; 81003; 83880; 84484; 85025; 85610; 85730; 93005; 96361; 96374; 96375; 99284; J2270; J2405; J3490; J7030; G0480

== ENCOUNTER 2018-10-26 15:43 | Emergency (ER) | payer MEDICAID ==
[~2018-10-26] VITALS: Ht 167.6 cm; Wt 75.0 kg
[2018-10-26 16:48] LABS: HEMATOCRIT. 27.3 % (42.0-52.0); HEMOGLOBIN. 8.7 g/dL (14.0-18.0); MEAN CORPUSCULAR HEMOGLOBIN 25.8 pg (28.0-32.0); MEAN CORPUSCULAR VOLUME 80.4 fL (80.0-94.0); MEAN PLATELET VOLUME 8.7 fl (7.4-10.4); RED BLOOD CELL COUNT 3.39 mill/uL (4.7-6.1); RED CELL DISTRIBUTION WIDTH 25.1 % (11.6-14.6)
[2018-10-26 16:49] LABS: PLATELET 47 x1000/uL (130-400)
[2018-10-26 16:50] LABS: CHLORIDE 114 mEq/L (98-107)
[2018-10-26 16:54] LABS: ETHANOL BLOOD 130 mg/dL
[2018-10-26 17:14] LABS: PLATELET ESTIMATE MARKEDLY DECREASED
[2018-10-26 19:19] LABS: CLARITY URINE CLEAR (CLEAR); COLOR URINE YELLOW (YELLOW); KETONES URINE NEGATIVE (NEGATIVE); LEUKOCYTE ESTERASE URINE NEGATIVE (NEGATIVE); NITRITE URINE NEGATIVE (NEGATIVE); OCCULT BLOOD URINE NEGATIVE (NEGATIVE); PROTEIN URINE NEGATIVE (NEGATIVE); SPECIFIC GRAVITY URINE 1.014 (1.005-1.030); UROBILINOGEN URINE 0.2 E.U./dL (0.2-1.0)
[2018-10-26 19:43] LABS: *AMPHETAMINES SCREEN URINE NEGATIVE (NEGATIVE); *BARBITURATES SCREEN URINE NEGATIVE (NEGATIVE)
[2018-10-26 19:44] LABS: *BENZODIAZEPINES SCREEN URINE PRESUMTIVE POSITIVE (NEGATIVE); *COCAINE SCREEN URINE NEGATIVE (NEGATIVE); CANNABINOID URINE SCREEN NEGATIVE (NEGATIVE); METHADONE URINE SCREEN NEGATIVE (NEGATIVE); OPIATES URINE SCREEN NEGATIVE (NEGATIVE); PHENCYCLIDINE URINE SCREEN NEGATIVE (NEGATIVE)
[2018-10-27 01:41] VITALS: BP 128/72
== END 2018-10-27 02:07 | disposition home or self-care (01) ==
LOC: ER 15:58
DX: F10.20 Alcohol dependence, uncomplicated (principal); R45.851 Suicidal ideations; R44.0 Auditory hallucinations; Y90.6 Blood alcohol level of 120-199 mg/100 ml; F15.10 Other stimulant abuse, uncomplicated; D64.9 Anemia, unspecified; D69.6 Thrombocytopenia, unspecified; D72.819 Decreased white blood cell count, unspecified
CPT/HCPCS: 36415; 80305; 80320; 99283; G0480

== ENCOUNTER 2018-10-29 17:39 | Emergency (ER) | payer MEDICAID ==
[~2018-10-29] VITALS: Ht 162.6 cm; Wt 70.0 kg
[2018-10-29] MEDS ORDERED: ONDANSETRON 4MG ODT PO STA (19:02)
[2018-10-29] MEDS ORDERED: MAGNESIUM/ALUMINUM HYDROXIDE/SIMETHICONE 30ML UDC PO ONE (19:15)
[2018-10-29] MEDS ORDERED: VISCOUS LIDOCAINE 2% 15 ML UDC PO ONE (19:15)
[2018-10-29] MEDS ORDERED: SODIUM CHLORIDE 0.9% 1,000 ML IV ONE (19:17)
[2018-10-29 19:35] LABS: BASOPHILS % 1.1 % (0.0-2.0); EOSINOPHILS % 0.9 % (0.0-5.0); HEMATOCRIT. 26.6 % (42.0-52.0); HEMOGLOBIN. 8.5 g/dL (14.0-18.0); LYMPHOCYTES % 25.6 % (20.0-50.0); MEAN CORPUSCULAR HEMOGLOBIN 25.4 pg (28.0-32.0); MEAN CORPUSCULAR VOLUME 79.4 fL (80.0-94.0); MEAN PLATELET VOLUME 8.5 fl (7.4-10.4); NEUTROPHILS % 62.4 % (40.0-76.0); RED BLOOD CELL COUNT 3.35 mill/uL (4.7-6.1); RED CELL DISTRIBUTION WIDTH 24.6 % (11.6-14.6)
[2018-10-29 19:36] LABS: CHLORIDE 116 mEq/L (98-107)
[2018-10-29 19:40] LABS: INR 1.3; PLATELET 44 x1000/uL (130-400); PROTHROMBIN TIME 12.7 sec (9.6-11.0)
[2018-10-29 20:26] LABS: CLARITY URINE CLEAR (CLEAR); COLOR URINE YELLOW (YELLOW); KETONES URINE NEGATIVE (NEGATIVE); LEUKOCYTE ESTERASE URINE NEGATIVE (NEGATIVE); NITRITE URINE NEGATIVE (NEGATIVE); OCCULT BLOOD URINE NEGATIVE (NEGATIVE); PROTEIN URINE NEGATIVE (NEGATIVE); SPECIFIC GRAVITY URINE 1.006 (1.005-1.030); UROBILINOGEN URINE 0.2 E.U./dL (0.2-1.0)
[2018-10-30] MEDS ORDERED: SODIUM CHLORIDE 0.9% 1,000 ML IV NR (00:45)
[2018-10-30 05:20] VITALS: BP 112/68
== END 2018-10-30 05:31 | disposition home or self-care (01) ==
LOC: ER 17:39
DX: F10.129 Alcohol abuse with intoxication, unspecified (principal); D69.6 Thrombocytopenia, unspecified; R10.9 Unspecified abdominal pain; Y90.9 Presence of alcohol in blood, level not specified; Z87.19 Personal history of other diseases of the digestive system; Z88.6 Allergy status to analgesic agent
CPT/HCPCS: 36415; 80053; 81003; 83690; 85025; 85610; 96360; 96361; 99284; J7030; Q0162; Z7610

== ENCOUNTER 2018-12-26 08:34 | Inpatient (IN) | payer MEDICAID ==
[~2018-12-26] VITALS: Ht 162.6 cm; Wt 66.7 kg
[2018-12-26 09:52] LABS: HEMATOCRIT. 26.4 % (42.0-52.0); HEMOGLOBIN. 8.4 g/dL (14.0-18.0); MEAN CORPUSCULAR HEMOGLOBIN 25.2 pg (28.0-32.0); MEAN CORPUSCULAR VOLUME 78.8 fL (80.0-94.0); MEAN PLATELET VOLUME 8.4 fl (7.4-10.4); RED BLOOD CELL COUNT 3.36 mill/uL (4.7-6.1); RED CELL DISTRIBUTION WIDTH 24.5 % (11.6-14.6)
[2018-12-26 09:53] LABS: CHLORIDE 112 mEq/L (98-107)
[2018-12-26 10:03] LABS: INR 1.3; PROTHROMBIN TIME 13.4 sec (9.6-11.0)
[2018-12-26 10:07] LABS: ETHANOL BLOOD 501 mg/dL
[2018-12-26 10:25] LABS: PLATELET 27 x1000/uL (130-400)
[2018-12-26 11:04] LABS: CLARITY URINE CLEAR (CLEAR); COLOR URINE YELLOW (YELLOW); KETONES URINE NEGATIVE (NEGATIVE); LEUKOCYTE ESTERASE URINE NEGATIVE (NEGATIVE); NITRITE URINE NEGATIVE (NEGATIVE); OCCULT BLOOD URINE NEGATIVE (NEGATIVE); PH URINE 6.5 (4.5-8.0); PROTEIN URINE NEGATIVE (NEGATIVE); SPECIFIC GRAVITY URINE 1.003 (1.005-1.030); UROBILINOGEN URINE 0.2 E.U./dL (0.2-1.0)
[2018-12-26 11:35] LABS: PLATELET ESTIMATE MARKEDLY DECREASED
[2018-12-26] MEDS ORDERED: SODIUM CHLORIDE 0.9% 1,000 ML IV ONE (12:24)
[2018-12-26] MEDS ORDERED: LORAZEPAM 2MG/ML CPJ IV ONE (12:30)
[2018-12-26] MEDS ORDERED: SODIUM CHLORIDE 0.9% 1,000 ML IV SCH (13:56)
[2018-12-26] MEDS ORDERED: MAGNESIUM/ALUMINUM HYDROXIDE/SIMETHICONE 30ML UDC PO PRN (14:00)
[2018-12-26] MEDS ORDERED: DIPHENHYDRAMINE 50MG/ML VIAL IV PRN (14:00)
[2018-12-26] MEDS ORDERED: CLONIDINE 0.1MG TABLET PO PRN (14:00)
[2018-12-26 14:32] LABS: PHOSPHORUS 3.6 mg/dL (2.5-4.9)
[2018-12-26] MEDS ORDERED: MVI, ADULT NO.1 10 ML, FOLIC ACID 1 MG, THIAMINE HCL 100 MG in SODIUM CHLORIDE 0.9% 1,0... IV ONE ×4 (15:00)
[2018-12-26 16:08] VITALS: BP 108/57
[2018-12-26 17:18] VITALS: BP 108/57
[2018-12-26] MEDS ORDERED: FERR-71 PO (17:26)
[2018-12-26] MEDS ORDERED: FAMO-135 PO (17:26)
[2018-12-26 20:00] VITALS: BP 135/69
[2018-12-26] MEDS: FAMOTIDINE 20MG/2ML VIAL IV SCH (21:27)
[2018-12-27] VITALS: BP 123/62
[2018-12-27 04:00] VITALS: BP 109/58
[2018-12-27 06:11] LABS: HEMATOCRIT. 23.2 % (42.0-52.0); HEMOGLOBIN. 7.4 g/dL (14.0-18.0); MEAN CORPUSCULAR HEMOGLOBIN 24.9 pg (28.0-32.0); MEAN CORPUSCULAR VOLUME 78.5 fL (80.0-94.0); MEAN PLATELET VOLUME 8.5 fl (7.4-10.4); RED BLOOD CELL COUNT 2.96 mill/uL (4.7-6.1); RED CELL DISTRIBUTION WIDTH 24.4 % (11.6-14.6)
[2018-12-27 06:13] LABS: CHLORIDE 111 mEq/L (98-107)
[2018-12-27] MEDS: ONDANSETRON HCL 4MG/2ML INJ IV PRN ×2 (06:50→14:10)
[2018-12-27 07:02] LABS: PLATELET 16 x1000/uL (130-400)
[2018-12-27 08:00] VITALS: BP 100/55
[2018-12-27] MEDS: FAMOTIDINE 20MG/2ML VIAL IV SCH ×2 (08:57→21:28)
[2018-12-27] MEDS ORDERED: POTASSIUM CHLORIDE 20MEQ TABLET SR PO NR (09:30)
[2018-12-27] MEDS: DEXT 5%/0.45% NACL KCL 20MEQ/L 1,000 ML IV SCH (11:17)
[2018-12-27 11:47] VITALS: BP 111/70
[2018-12-27 14:01] LABS: PLATELET ESTIMATE MARKEDLY DECREASED
[2018-12-27] MEDS: CHLORDIAZEPOXIDE 25MG CAPSULE PO SCH ×2 (15:56→21:28)
[2018-12-27 16:26] VITALS: BP 120/65
[2018-12-27 20:00] VITALS: BP 111/69
[2018-12-28] VITALS: BP 114/61
[2018-12-28 04:00] VITALS: BP 112/61
[2018-12-28] MEDS: ONDANSETRON HCL 4MG/2ML INJ IV PRN ×2 (05:28→22:01)
[2018-12-28] MEDS: CHLORDIAZEPOXIDE 25MG CAPSULE PO SCH ×3 (05:28→21:52)
[2018-12-28 06:59] LABS: HEMATOCRIT. 23.8 % (42.0-52.0); HEMOGLOBIN. 7.8 g/dL (14.0-18.0); MEAN CORPUSCULAR HEMOGLOBIN 25.3 pg (28.0-32.0); MEAN CORPUSCULAR VOLUME 77.6 fL (80.0-94.0); MEAN PLATELET VOLUME 8.2 fl (7.4-10.4); RED BLOOD CELL COUNT 3.07 mill/uL (4.7-6.1); RED CELL DISTRIBUTION WIDTH 23.9 % (11.6-14.6)
[2018-12-28 07:27] LABS: CHLORIDE 106 mEq/L (98-107)
[2018-12-28 08:00] LABS: PLATELET 14 x1000/uL (130-400)
[2018-12-28] MEDS: FAMOTIDINE 20MG/2ML VIAL IV SCH ×2 (08:45→21:52)
[2018-12-28] MEDS: DEXT 5%/0.45% NACL KCL 20MEQ/L 1,000 ML IV SCH (08:45)
[2018-12-28] MEDS ORDERED: POTASSIUM CHLORIDE 20MEQ/PACKET PO NR (09:15)
[2018-12-28] MEDS: ACETAMINOPHEN 325MG TABLET PO PRN (10:51)
[2018-12-28 12:00] VITALS: BP 107/66
[2018-12-28] MEDS ORDERED: POTASSIUM CHLORIDE 20MEQ/PACKET PO SCH (12:00)
[2018-12-28 16:00] VITALS: BP 120/61
[2018-12-28 16:50] LABS: PLATELET ESTIMATE MARKEDLY DECREASED
[2018-12-28 20:00] VITALS: BP 105/63
[2018-12-29] VITALS: BP 111/63
[2018-12-29] MEDS: LORAZEPAM 2MG/ML CPJ IV PRN ×2 (01:51→22:36)
[2018-12-29] MEDS: DEXT 5%/0.45% NACL KCL 20MEQ/L 1,000 ML IV SCH ×2 (03:22→15:58)
[2018-12-29 04:00] VITALS: BP 109/71
[2018-12-29] MEDS: CHLORDIAZEPOXIDE 25MG CAPSULE PO SCH ×3 (05:38→22:36)
[2018-12-29 06:18] LABS: CHLORIDE 109 mEq/L (98-107)
[2018-12-29 06:31] LABS: HEMATOCRIT. 23.7 % (42.0-52.0); HEMOGLOBIN. 7.7 g/dL (14.0-18.0); MEAN CORPUSCULAR HEMOGLOBIN 25.5 pg (28.0-32.0); MEAN CORPUSCULAR VOLUME 78.6 fL (80.0-94.0); MEAN PLATELET VOLUME 8.5 fl (7.4-10.4); RED BLOOD CELL COUNT 3.02 mill/uL (4.7-6.1); RED CELL DISTRIBUTION WIDTH 23.5 % (11.6-14.6)
[2018-12-29 08:00] VITALS: BP 103/58
[2018-12-29 08:39] LABS: PLATELET 15 x1000/uL (130-400)
[2018-12-29] MEDS: FAMOTIDINE 20MG TABLET PO SCH ×2 (09:05→17:57)
[2018-12-29] MEDS: ACETAMINOPHEN 325MG TABLET PO PRN (09:05)
[2018-12-29] MEDS ORDERED: MAGNESIUM 2 G PREMIX 50 ML IV NR (11:00)
[2018-12-29 11:31] VITALS: BP 104/64
[2018-12-29] MEDS ORDERED: FOLIC ACID 1 MG, THIAMINE HCL 100 MG, MVI, ADULT NO.1 10 ML in DEXTROSE 5% WATER 1,000 ML IV NR ×4 (15:00)
[2018-12-29 16:28] VITALS: BP 110/65
[2018-12-29 17:52] LABS: PLATELET ESTIMATE MARKEDLY DECREASED
[2018-12-29 20:00] VITALS: BP 100/69
[2018-12-30] VITALS (7 sets, daily range): BP systolic 99–122; BP diastolic 55–97
[2018-12-30] MEDS: ONDANSETRON HCL 4MG/2ML INJ IV PRN ×2 (02:08→15:24)
[2018-12-30] MEDS: DEXT 5%/0.45% NACL KCL 20MEQ/L 1,000 ML IV SCH ×3 (05:23→18:30)
[2018-12-30] MEDS: CHLORDIAZEPOXIDE 25MG CAPSULE PO SCH ×2 (05:23→13:06)
[2018-12-30 06:09] LABS: HEMOGLOBIN. 7.8 g/dL (14.0-18.0); MEAN CORPUSCULAR HEMOGLOBIN 25.3 pg (28.0-32.0); MEAN CORPUSCULAR VOLUME 78.1 fL (80.0-94.0); MEAN PLATELET VOLUME 8.6 fl (7.4-10.4); RED BLOOD CELL COUNT 3.08 mill/uL (4.7-6.1); RED CELL DISTRIBUTION WIDTH 23.8 % (11.6-14.6)
[2018-12-30 06:19] LABS: PLATELET 17 x1000/uL (130-400)
[2018-12-30 06:37] LABS: CHLORIDE 108 mEq/L (98-107)
[2018-12-30 06:51] LABS: PHOSPHORUS 4.8 mg/dL (2.5-4.9)
[2018-12-30] MEDS: FAMOTIDINE 20MG TABLET PO SCH ×2 (08:53→17:00)
[2018-12-31 05:20] LABS: PLATELET ESTIMATE MARKEDLY DECREASED
[2019-01-10] MEDS ORDERED: FERR325T23 MT (18:33)
[2019-01-10] MEDS ORDERED: FAMO-135 MT (18:33)
== END 2018-12-30 23:25 | disposition home or self-care (01) | DRG 775 ==
LOC: ER 08:34 → 8WST 13:01 → EDBEDREQ 13:03 → ENRESERV 15:15 → 8WST 12-30 08:27
PROVIDERS: ADMIT Internal Medicine; ATTEND Internal Medicine
DX: F10.239 Alcohol dependence with withdrawal, unspecified (principal); F10.229 Alcohol dependence with intoxication, unspecified; G92 Toxic encephalopathy; D61.818 Other pancytopenia; K74.60 Unspecified cirrhosis of liver; E83.42 Hypomagnesemia; Z87.11 Personal history of peptic ulcer disease; Z88.8 Allergy status to other drugs, medicaments and biological substances
CPT/HCPCS: 36415; 74176; 80048; 80320; 83735; 84100; 96361; 96365; 96375; 97162; 99285; J2060; J2405; J3411; J3475; J3490; J7030; J7070; G0480

== ENCOUNTER 2019-01-07 12:41 | Emergency (ER) | payer MEDICAID ==
[~2019-01-07] VITALS: Ht 165.1 cm; Wt 68.0 kg
[~2019-01-07 12:41] MED LIST: FAMO-135 PO; FERR-71 PO
[2019-01-07 14:06] LABS: HEMATOCRIT. 24.4 % (42.0-52.0); HEMOGLOBIN. 7.7 g/dL (14.0-18.0); MEAN CORPUSCULAR HEMOGLOBIN 24.7 pg (28.0-32.0); MEAN CORPUSCULAR VOLUME 78.4 fL (80.0-94.0); MEAN PLATELET VOLUME 8.6 fl (7.4-10.4); PLATELET 51 x1000/uL (130-400); RED BLOOD CELL COUNT 3.11 mill/uL (4.7-6.1); RED CELL DISTRIBUTION WIDTH 24.6 % (11.6-14.6)
[2019-01-07 14:09] LABS: CHLORIDE 116 mEq/L (98-107)
[2019-01-07 14:10] LABS: CLARITY URINE CLEAR (CLEAR); COLOR URINE YELLOW (YELLOW); KETONES URINE NEGATIVE (NEGATIVE); LEUKOCYTE ESTERASE URINE NEGATIVE (NEGATIVE); NITRITE URINE NEGATIVE (NEGATIVE); OCCULT BLOOD URINE NEGATIVE (NEGATIVE); PROTEIN URINE NEGATIVE (NEGATIVE); SPECIFIC GRAVITY URINE 1.006 (1.005-1.030); UROBILINOGEN URINE 0.2 E.U./dL (0.2-1.0)
[2019-01-07 14:11] LABS: INR 1.3; PROTHROMBIN TIME 13.1 sec (9.6-11.0)
[2019-01-07] MEDS ORDERED: SODIUM CHLORIDE 0.9% 1,000 ML IV ONE (14:11)
[2019-01-07] MEDS ORDERED: ONDANSETRON HCL 4MG/2ML INJ IV STA (14:11)
[2019-01-07] MEDS ORDERED: FAMOTIDINE 20MG/2ML VIAL IV ONE (14:15)
[2019-01-07] MEDS ORDERED: LORAZEPAM 2MG/ML CPJ IV ONE ×2 (14:15→18:00)
[2019-01-07] MEDS ORDERED: MAGNESIUM/ALUMINUM HYDROXIDE/SIMETHICONE 30ML UDC PO ONE (14:15)
[2019-01-07 14:24] LABS: *AMPHETAMINES SCREEN URINE NEGATIVE (NEGATIVE); *BARBITURATES SCREEN URINE NEGATIVE (NEGATIVE); *BENZODIAZEPINES SCREEN URINE PRESUMTIVE POSITIVE (NEGATIVE); *COCAINE SCREEN URINE NEGATIVE (NEGATIVE); METHADONE URINE SCREEN NEGATIVE (NEGATIVE)
[2019-01-07 14:25] LABS: CANNABINOID URINE SCREEN NEGATIVE (NEGATIVE); OPIATES URINE SCREEN NEGATIVE (NEGATIVE); PHENCYCLIDINE URINE SCREEN NEGATIVE (NEGATIVE)
[2019-01-07 14:51] LABS: ETHANOL BLOOD 428 mg/dL
[2019-01-07 14:54] LABS: PLATELET ESTIMATE DECREASED
[2019-01-07 19:30] VITALS: BP 131/74
[2019-01-10] MEDS ORDERED: FAMO-135 MT (18:33)
[2019-01-10] MEDS ORDERED: FERR325T23 MT (18:33)
== END 2019-01-07 21:31 | disposition home or self-care (01) ==
LOC: ER 12:41
DX: K29.20 Alcoholic gastritis without bleeding (principal); D61.818 Other pancytopenia; K76.9 Liver disease, unspecified; F10.20 Alcohol dependence, uncomplicated; Y90.8 Blood alcohol level of 240 mg/100 ml or more; Z88.6 Allergy status to analgesic agent; Z87.11 Personal history of peptic ulcer disease
CPT/HCPCS: 36415; 71045; 80053; 80305; 80320; 81003; 83690; 85025; 85610; 93005; 96361; 96374; 96375; 96376; 99284; J2060; J2405; J3490; J7030; G0480

== ENCOUNTER 2019-01-08 15:54 | Emergency (ER) | payer MEDICAID ==
[~2019-01-08] VITALS: Ht 170.2 cm; Wt 75.0 kg
[2019-01-08] MEDS ORDERED: ONDANSETRON HCL 4MG/2ML INJ IV STA (16:47)
[2019-01-08] MEDS ORDERED: SODIUM CHLORIDE 0.9% 1,000 ML IV ONE ×2 (16:47→18:10)
[2019-01-08] MEDS ORDERED: MORPHINE SULFATE 4 MG/ML CPJ (NOT FOR IM USE) IV STA (16:47)
[2019-01-08] MEDS ORDERED: MAGNESIUM/ALUMINUM HYDROXIDE/SIMETHICONE 30ML UDC PO ONE (17:00)
[2019-01-08] MEDS ORDERED: FAMOTIDINE 20MG/2ML VIAL IV ONE (17:00)
[2019-01-08 17:10] LABS: CHLORIDE 113 mEq/L (98-107)
[2019-01-08 17:19] LABS: *AMPHETAMINES SCREEN URINE NEGATIVE (NEGATIVE); *BARBITURATES SCREEN URINE NEGATIVE (NEGATIVE); *BENZODIAZEPINES SCREEN URINE PRESUMTIVE POSITIVE (NEGATIVE); *COCAINE SCREEN URINE NEGATIVE (NEGATIVE); CANNABINOID URINE SCREEN NEGATIVE (NEGATIVE); METHADONE URINE SCREEN NEGATIVE (NEGATIVE); OPIATES URINE SCREEN NEGATIVE (NEGATIVE); PHENCYCLIDINE URINE SCREEN NEGATIVE (NEGATIVE)
[2019-01-08 17:25] LABS: ETHANOL BLOOD 352 mg/dL
[2019-01-08] MEDS ORDERED: LORAZEPAM 2MG/ML CPJ IV ONE (18:15)
[2019-01-08 18:30] LABS: HEMATOCRIT. 23.6 % (42.0-52.0); HEMOGLOBIN. 7.4 g/dL (14.0-18.0); MEAN CORPUSCULAR HEMOGLOBIN 24.6 pg (28.0-32.0); MEAN CORPUSCULAR VOLUME 78.1 fL (80.0-94.0); MEAN PLATELET VOLUME 9.3 fl (7.4-10.4); RED BLOOD CELL COUNT 3.02 mill/uL (4.7-6.1); RED CELL DISTRIBUTION WIDTH 25.2 % (11.6-14.6)
[2019-01-08 18:34] LABS: PLATELET 24 x1000/uL (130-400)
[2019-01-08 19:46] LABS: PLATELET ESTIMATE MARKEDLY DECREASED
[2019-01-09 00:30] VITALS: BP 131/74
[2019-01-10] MEDS ORDERED: FAMO-135 MT (18:33)
[2019-01-10] MEDS ORDERED: FERR325T23 MT (18:33)
== END 2019-01-09 00:33 | disposition home or self-care (01) ==
LOC: ER 15:54
DX: K29.20 Alcoholic gastritis without bleeding (principal); F10.20 Alcohol dependence, uncomplicated; D69.6 Thrombocytopenia, unspecified; D61.818 Other pancytopenia; Z88.6 Allergy status to analgesic agent; Z79.899 Other long term (current) drug therapy; Y90.9 Presence of alcohol in blood, level not specified
CPT/HCPCS: 36415; 71045; 80053; 80305; 80320; 83690; 84484; 85025; 96361; 96374; 96375; 99284; J2060; J2270; J2405; J3490; J7030; Z7610; G0480

== ENCOUNTER 2019-01-09 17:17 | Emergency (ER) | payer MEDICAID ==
[~2019-01-09] VITALS: Ht 170.2 cm; Wt 68.0 kg
[2019-01-09 17:26] VITALS: BP 150/90
[2019-01-10] MEDS ORDERED: FERR325T23 MT (18:33)
[2019-01-10] MEDS ORDERED: FAMO-135 MT (18:33)
== END 2019-01-09 19:00 | disposition home or self-care (01) ==
LOC: ER 17:17
DX: B35.6 Tinea cruris (principal); K76.9 Liver disease, unspecified; N28.9 Disorder of kidney and ureter, unspecified; F10.20 Alcohol dependence, uncomplicated; Z87.19 Personal history of other diseases of the digestive system; Z86.2 Personal history of diseases of the blood and blood-forming organs and certain disorders involving the immune mechanism; Z87.11 Personal history of peptic ulcer disease; Z88.6 Allergy status to analgesic agent; Y90.9 Presence of alcohol in blood, level not specified
CPT/HCPCS: 99283

== ENCOUNTER 2019-01-16 00:12 | Emergency (ER) | payer MEDICAID ==
[~2019-01-16] VITALS: Ht 152.4 cm; Wt 65.0 kg
[~2019-01-16 00:12] MED LIST changes: +FAMO-135 MT; +FERR325T23 MT
[2019-01-16] MEDS ORDERED: MAGNESIUM/ALUMINUM HYDROXIDE/SIMETHICONE 30ML UDC PO STA (03:57)
[2019-01-16] MEDS ORDERED: VISCOUS LIDOCAINE 2% 15 ML UDC PO STA (03:57)
[2019-01-16] MEDS ORDERED: ONDANSETRON 4MG ODT PO ONE (04:00)
[2019-01-16 04:17] LABS: HEMATOCRIT. 25.6 % (42.0-52.0); HEMOGLOBIN. 8.2 g/dL (14.0-18.0); MEAN CORPUSCULAR HEMOGLOBIN 26.1 pg (28.0-32.0); MEAN CORPUSCULAR VOLUME 81.6 fL (80.0-94.0); MEAN PLATELET VOLUME 8.4 fl (7.4-10.4); RED BLOOD CELL COUNT 3.14 mill/uL (4.7-6.1); RED CELL DISTRIBUTION WIDTH 26.8 % (11.6-14.6)
[2019-01-16 04:22] LABS: CHLORIDE 120 mEq/L (98-107)
[2019-01-16 04:40] LABS: PLATELET 28 x1000/uL (130-400)
[2019-01-16] MEDS ORDERED: SODIUM CHLORIDE 0.9% 1,000 ML IV ONE (04:45)
[2019-01-16] MEDS ORDERED: POTASSIUM CHLORIDE 20MEQ TABLET SR PO SCH (04:47)
[2019-01-16 05:55] LABS: PLATELET ESTIMATE DECREASED
[2019-01-16 06:32] VITALS: BP 110/65
== END 2019-01-16 06:42 | disposition home or self-care (01) ==
LOC: ER 00:12
DX: K29.20 Alcoholic gastritis without bleeding (principal); F10.288 Alcohol dependence with other alcohol-induced disorder; Y90.9 Presence of alcohol in blood, level not specified; D61.818 Other pancytopenia; E87.8 Other disorders of electrolyte and fluid balance, not elsewhere classified; F17.210 Nicotine dependence, cigarettes, uncomplicated; Z88.6 Allergy status to analgesic agent; Z79.899 Other long term (current) drug therapy; Z87.11 Personal history of peptic ulcer disease; Z87.19 Personal history of other diseases of the digestive system; D64.9 Anemia, unspecified
CPT/HCPCS: 36415; 80053; 83690; 85025; 99284; Q0162; Z7610

== ENCOUNTER 2019-01-16 23:59 | Emergency (ER) | payer MEDICAID ==
[~2019-01-16] VITALS: Ht 154.9 cm; Wt 64.0 kg
[2019-01-17] MEDS ORDERED: ACETAMINOPHEN 325MG TABLET PO ONE (03:00)
[2019-01-17 06:01] VITALS: BP 109/79
== END 2019-01-17 07:25 | disposition home or self-care (01) ==
LOC: ER 23:59
DX: M25.562 Pain in left knee (principal); M25.561 Pain in right knee; Z59.0 Homelessness; F17.200 Nicotine dependence, unspecified, uncomplicated; Z79.899 Other long term (current) drug therapy; Z88.6 Allergy status to analgesic agent
CPT/HCPCS: 99283

== ENCOUNTER 2019-01-23 15:50 | Emergency (ER) | payer MEDICAID ==
[~2019-01-23] VITALS: Ht 167.6 cm; Wt 68.0 kg
[2019-01-23 15:54] VITALS: BP 104/60
== END 2019-01-23 23:55 | disposition left against medical advice (07) ==
LOC: ER 15:50
DX: Z53.21 Procedure and treatment not carried out due to patient leaving prior to being seen by health care provider (principal)

== ENCOUNTER 2019-01-25 16:39 | Emergency (ER) | payer MEDICAID ==
[~2019-01-25] VITALS: Ht 167.6 cm; Wt 69.0 kg
[2019-01-25 16:42] VITALS: BP 125/86
== END 2019-01-25 18:43 | disposition left against medical advice (07) ==
LOC: ER 16:39
DX: Z53.21 Procedure and treatment not carried out due to patient leaving prior to being seen by health care provider (principal)

== ENCOUNTER 2019-01-25 23:54 | Emergency (ER) | payer MEDICAID ==
[~2019-01-25] VITALS: Ht 157.5 cm; Wt 70.0 kg
[2019-01-26] MEDS ORDERED: ACETAMINOPHEN 325MG TABLET PO ONE (04:15)
[2019-01-26 07:31] VITALS: BP 130/73
== END 2019-01-26 07:35 | disposition home or self-care (01) ==
LOC: ER 23:54
DX: S80.02XA Contusion of left knee, initial encounter (principal); R60.0 Localized edema; K74.60 Unspecified cirrhosis of liver; Z88.6 Allergy status to analgesic agent; W01.0XXA Fall on same level from slipping, tripping and stumbling without subsequent striking against object, initial encounter; W22.8XXA Striking against or struck by other objects, initial encounter; Z91.81 History of falling; Y93.89 Activity, other specified; Y92.512 Supermarket, store or market as the place of occurrence of the external cause
CPT/HCPCS: 73562; 73590; 73610; 93971; 99284

== ENCOUNTER 2019-01-27 07:04 | Emergency (ER) | payer MEDICAID ==
[~2019-01-27] VITALS: Ht 162.6 cm; Wt 73.0 kg
[2019-01-27] MEDS ORDERED: FAMOTIDINE 20MG/2ML VIAL IV STA (07:38)
[2019-01-27 08:26] LABS: CLARITY URINE CLEAR (CLEAR); COLOR URINE ORANGE (YELLOW); KETONES URINE TRACE (NEGATIVE); LEUKOCYTE ESTERASE URINE TRACE (NEGATIVE); NITRITE URINE NEGATIVE (NEGATIVE); OCCULT BLOOD URINE 3+ (NEGATIVE); PROTEIN URINE TRACE (NEGATIVE); SPECIFIC GRAVITY URINE 1.025 (1.005-1.030)
[2019-01-27 08:28] LABS: MEAN CORPUSCULAR HEMOGLOBIN 26.4 pg (28.0-32.0); MEAN PLATELET VOLUME 8.8 fl (7.4-10.4); RED BLOOD CELL COUNT 3.41 mill/uL (4.7-6.1); RED CELL DISTRIBUTION WIDTH 25.7 % (11.6-14.6)
[2019-01-27 08:33] LABS: CHLORIDE 114 mEq/L (98-107)
[2019-01-27 08:35] LABS: INR 1.2; PROTHROMBIN TIME 12.6 sec (9.6-11.0)
[2019-01-27 08:46] LABS: PLATELET 13 x1000/uL (130-400)
[2019-01-27] MEDS ORDERED: PANTOPRAZOLE SODIUM 40 MG/VIAL IV STA (09:00)
[2019-01-27 09:28] LABS: PLATELET ESTIMATE MARKEDLY DECREASED
[2019-01-27] MEDS ORDERED: FLUCONAZOLE 100MG TABLET PO ONE (10:30)
[2019-01-27] MEDS ORDERED: POTASSIUM CHLORIDE 20MEQ TABLET SR PO ONE (11:00)
[2019-01-27] MEDS ORDERED: PANTOPRAZOLE 80 MG in SODIUM CHLORIDE 0.9% 100 ML IV SCH (11:00)
[2019-01-27 11:15] VITALS: BP 120/84
== END 2019-01-27 11:28 | disposition home or self-care (01) ==
LOC: ER 07:11 → CANBEDREQ 11:08 → ER 11:28
DX: K92.2 Gastrointestinal hemorrhage, unspecified (principal); D61.818 Other pancytopenia; K74.60 Unspecified cirrhosis of liver; Z88.6 Allergy status to analgesic agent
CPT/HCPCS: 36415; 71045; 80053; 81003; 82270; 83690; 85025; 85610; 93005; 96374; 96375; 99284; C9113; J3490; J7050

== ENCOUNTER 2019-01-27 21:09 | Inpatient (IN) | payer MEDICAID ==
[~2019-01-27] VITALS: Ht 162.6 cm; Wt 72.6 kg
[2019-01-28] MEDS ORDERED: ONDANSETRON HCL 4MG/2ML INJ IV STA (06:37)
[2019-01-28] MEDS ORDERED: SODIUM CHLORIDE 0.9% 500 ML IV ONE (06:37)
[2019-01-28] MEDS ORDERED: PANTOPRAZOLE SODIUM 40 MG/VIAL IV ONE (06:45)
[2019-01-28] MEDS ORDERED: LORAZEPAM 2MG/ML CPJ IV ONE (06:45)
[2019-01-28 07:28] LABS: CLARITY URINE CLEAR (CLEAR); COLOR URINE DARK YELLOW (YELLOW); KETONES URINE TRACE (NEGATIVE); LEUKOCYTE ESTERASE URINE TRACE (NEGATIVE); NITRITE URINE NEGATIVE (NEGATIVE); OCCULT BLOOD URINE NEGATIVE (NEGATIVE); PH URINE 5.5 (4.5-8.0); PROTEIN URINE NEGATIVE (NEGATIVE); SPECIFIC GRAVITY URINE 1.018 (1.005-1.030)
[2019-01-28 07:53] LABS: *BARBITURATES SCREEN URINE NEGATIVE (NEGATIVE); *BENZODIAZEPINES SCREEN URINE PRESUMTIVE POSITIVE (NEGATIVE); *COCAINE SCREEN URINE NEGATIVE (NEGATIVE)
[2019-01-28 07:54] LABS: *AMPHETAMINES SCREEN URINE NEGATIVE (NEGATIVE); CANNABINOID URINE SCREEN NEGATIVE (NEGATIVE); METHADONE URINE SCREEN NEGATIVE (NEGATIVE); OPIATES URINE SCREEN NEGATIVE (NEGATIVE); PHENCYCLIDINE URINE SCREEN NEGATIVE (NEGATIVE)
[2019-01-28 08:18] LABS: CHLORIDE 116 mEq/L (98-107); HEMATOCRIT. 26.5 % (42.0-52.0); HEMOGLOBIN. 8.4 g/dL (14.0-18.0); MEAN CORPUSCULAR VOLUME 81.8 fL (80.0-94.0); MEAN PLATELET VOLUME 8.8 fl (7.4-10.4); RED BLOOD CELL COUNT 3.24 mill/uL (4.7-6.1); RED CELL DISTRIBUTION WIDTH 25.5 % (11.6-14.6)
[2019-01-28 08:22] LABS: INR 1.3; PLATELET 12 x1000/uL (130-400); PROTHROMBIN TIME 13.1 sec (9.6-11.0)
[2019-01-28 08:23] LABS: ETHANOL BLOOD 278 mg/dL
[2019-01-28] MEDS ORDERED: POTASSIUM CHLORIDE 20MEQ TABLET SR PO ONE (08:45)
[2019-01-28 08:48] LABS: PLATELET ESTIMATE MARKEDLY DECREASED
[2019-01-28] MEDS ORDERED: DOCUSATE SODIUM 100MG CAPSULE PO PRN (09:30)
[2019-01-28] MEDS ORDERED: NA PHOS,M-B/NA PHOS,DI-BA ENEMA 118ML PR PRN (09:30)
[2019-01-28] MEDS ORDERED: DIPHENHYDRAMINE 50MG/ML VIAL IV PRN (09:30)
[2019-01-28] MEDS ORDERED: MAGNESIUM/ALUMINUM HYDROXIDE/SIMETHICONE 30ML UDC PO PRN (09:30)
[2019-01-28] MEDS ORDERED: ACETAMINOPHEN 650MG SUPP PR PRN (09:30)
[2019-01-28] MEDS ORDERED: ONDANSETRON HCL 4MG/2ML INJ IV PRN (09:30)
[2019-01-28] MEDS ORDERED: ACETAMINOPHEN 325MG TABLET PO PRN (09:30)
[2019-01-28] MEDS ORDERED: GUAIFENESIN 200MG/10ML SUGAR FREE UDC PO PRN (09:30)
[2019-01-28] MEDS ORDERED: ACETAMINOPHEN 650MG/20.3ML UDC GT PRN (09:30)
[2019-01-28] MEDS ORDERED: CLONIDINE 0.1MG TABLET PO PRN (09:30)
[2019-01-28 11:03] VITALS: BP 110/74
[2019-01-28 11:47] VITALS: BP 110/74
[2019-01-28 16:08] VITALS: BP 114/64
[2019-01-28] MEDS ORDERED: PNEUMOCOCCAL 23-VAL P-SAC VAC 0.5 ML IM ONE (17:00)
[2019-01-28] MEDS ORDERED: DEXTROSE 5% WATER 1,000 ML IV SCH (19:30)
[2019-01-28 20:00] VITALS: BP 111/56
[2019-01-28 23:37] LABS: HEMATOCRIT. 25.3 % (42.0-52.0); HEMOGLOBIN. 8.2 g/dL (14.0-18.0); MEAN CORPUSCULAR HEMOGLOBIN 26.3 pg (28.0-32.0); MEAN CORPUSCULAR VOLUME 81.5 fL (80.0-94.0); MEAN PLATELET VOLUME 11.1 fl (7.4-10.4); RED CELL DISTRIBUTION WIDTH 25.4 % (11.6-14.6)
[2019-01-29] VITALS: BP 156/86
[2019-01-29 00:24] LABS: PLATELET 20 x1000/uL (130-400)
[2019-01-29 03:28] LABS: PLATELET ESTIMATE DECREASED
[2019-01-29 04:00] VITALS: BP 122/68
[2019-01-29 07:28] LABS: HEMATOCRIT. 25.7 % (42.0-52.0); HEMOGLOBIN. 8.4 g/dL (14.0-18.0); MEAN CORPUSCULAR HEMOGLOBIN 26.4 pg (28.0-32.0); MEAN CORPUSCULAR VOLUME 80.8 fL (80.0-94.0); MEAN PLATELET VOLUME 11.2 fl (7.4-10.4); RED BLOOD CELL COUNT 3.18 mill/uL (4.7-6.1); RED CELL DISTRIBUTION WIDTH 25.6 % (11.6-14.6)
[2019-01-29 07:38] LABS: CHLORIDE 107 mEq/L (98-107)
[2019-01-29 07:45] LABS: LDL CHOLESTEROL 33 mg/dL (5-100)
[2019-01-29 07:47] LABS: HDL CHOLESTEROL 54 mg/dL (40-59)
[2019-01-29 08:05] VITALS: BP 114/49
[2019-01-29 09:37] LABS: PLATELET ESTIMATE MARKEDLY DECREASED
[2019-01-29 09:38] LABS: PLATELET 20 x1000/uL (130-400)
[2019-01-29] MEDS ORDERED: FOLIC ACID 1MG TABLET PO SCH (11:00)
[2019-01-29] MEDS ORDERED: THIAMINE HCL 100MG TABLET PO SCH (11:00)
[2019-01-29 12:20] VITALS: BP 126/50
[2019-01-29 13:45] VITALS: BP 126/50
[2019-01-29 13:56] LABS: HEMATOCRIT 28.5 % (42.0-52.0); HEMOGLOBIN 9.2 g/dL (14.0-18.0)
== END 2019-01-29 14:57 | disposition home or self-care (01) | DRG 775 ==
LOC: ER 21:09 → EDBEDREQ 01-28 09:02 → ENRESERV 01-28 09:42 → EDBEDREQSVC 01-28 09:52 → 5WST 01-28 11:10
PROVIDERS: ADMIT Family Medicine; ATTEND Family Medicine
DX: F10.229 Alcohol dependence with intoxication, unspecified (principal); D69.6 Thrombocytopenia, unspecified; I85.10 Secondary esophageal varices without bleeding; K74.60 Unspecified cirrhosis of liver; D64.9 Anemia, unspecified; D72.819 Decreased white blood cell count, unspecified; F32.9 Major depressive disorder, single episode, unspecified; F41.9 Anxiety disorder, unspecified; Z88.6 Allergy status to analgesic agent; Z87.11 Personal history of peptic ulcer disease; Z79.899 Other long term (current) drug therapy
CPT/HCPCS: 36415; 80061; 80305; 80320; 85014; 85018; 86850; 86900; 90732; 96374; 99285; C9113; J2060; J2405; J7030; J7040; J7070; G0480

== ENCOUNTER 2019-01-30 14:22 | Emergency (ER) | payer MEDICAID ==
[~2019-01-30] VITALS: Ht 165.1 cm; Wt 80.0 kg
[~2019-01-30 14:22] MED LIST changes: -FAMO-135 PO; -FERR-71 PO
[2019-01-30] MEDS ORDERED: SODIUM CHLORIDE 0.9% 1000ML BAG (SEPSIS BOLUS) IV ONE (15:15)
[2019-01-30 15:47] LABS: HEMATOCRIT. 25.7 % (42.0-52.0); HEMOGLOBIN. 8.5 g/dL (14.0-18.0); MEAN CORPUSCULAR HEMOGLOBIN 26.9 pg (28.0-32.0); MEAN CORPUSCULAR VOLUME 81.6 fL (80.0-94.0); MEAN PLATELET VOLUME 8.8 fl (7.4-10.4); RED BLOOD CELL COUNT 3.15 mill/uL (4.7-6.1); RED CELL DISTRIBUTION WIDTH 25.8 % (11.6-14.6)
[2019-01-30 15:48] LABS: CHLORIDE 109 mEq/L (98-107)
[2019-01-30 15:52] LABS: ETHANOL BLOOD 263 mg/dL
[2019-01-30 15:56] LABS: PLATELET 13 x1000/uL (130-400)
[2019-01-30 17:16] LABS: CLARITY URINE CLEAR (CLEAR); COLOR URINE DARK YELLOW (YELLOW); KETONES URINE TRACE (NEGATIVE); LEUKOCYTE ESTERASE URINE NEGATIVE (NEGATIVE); NITRITE URINE NEGATIVE (NEGATIVE); OCCULT BLOOD URINE 2+ (NEGATIVE); PH URINE 6.5 (4.5-8.0); PROTEIN URINE NEGATIVE (NEGATIVE); SPECIFIC GRAVITY URINE 1.018 (1.005-1.030)
[2019-01-30 17:25] LABS: PLATELET ESTIMATE MARKEDLY DECREASED
[2019-01-30] MEDS ORDERED: CHLORDIAZEPOXIDE 25MG CAPSULE PO ONE ×2 (18:04→19:00)
[2019-01-31] VITALS: BP 124/50
== END 2019-01-31 00:13 | disposition home or self-care (01) ==
LOC: ER 14:22
DX: T51.0X1A Toxic effect of ethanol, accidental (unintentional), initial encounter (principal); D69.6 Thrombocytopenia, unspecified; R53.1 Weakness; R50.9 Fever, unspecified; R42 Dizziness and giddiness; Z87.19 Personal history of other diseases of the digestive system; Z79.899 Other long term (current) drug therapy; Z88.6 Allergy status to analgesic agent; Y92.89 Other specified places as the place of occurrence of the external cause
CPT/HCPCS: 36415; 71045; 80053; 80320; 81003; 83605; 85025; 86850; 86900; 86901; 87040; 96360; 96361; 99284; J7030; G0480

== ENCOUNTER 2019-02-03 13:41 | Emergency (ER) | payer MEDICAID ==
[~2019-02-03] VITALS: Ht 167.6 cm; Wt 69.0 kg
[2019-02-03] MEDS ORDERED: SODIUM CHLORIDE 0.9% 1,000 ML IV ONE (14:25)
[2019-02-03] MEDS ORDERED: FAMOTIDINE 20MG/2ML VIAL IV ONE (14:30)
[2019-02-03 14:59] LABS: CHLORIDE 109 mEq/L (98-107); HEMATOCRIT. 25.9 % (42.0-52.0); HEMOGLOBIN. 8.5 g/dL (14.0-18.0); INR 1.3; MEAN CORPUSCULAR HEMOGLOBIN 26.5 pg (28.0-32.0); MEAN CORPUSCULAR VOLUME 80.8 fL (80.0-94.0); PROTHROMBIN TIME 12.7 sec (9.6-11.0)
[2019-02-03] MEDS ORDERED: ONDANSETRON HCL 4MG/2ML INJ IV ONE ×2 (15:00→21:15)
[2019-02-03 15:35] LABS: PLATELET 16 x1000/uL (130-400)
[2019-02-03 17:07] LABS: PLATELET ESTIMATE MARKEDLY DECREASED
[2019-02-03 21:35] VITALS: BP 101/62
== END 2019-02-03 21:40 | disposition home or self-care (01) ==
LOC: ER 13:41
DX: F10.229 Alcohol dependence with intoxication, unspecified (principal); Y90.8 Blood alcohol level of 240 mg/100 ml or more; D61.818 Other pancytopenia; R11.0 Nausea; R10.13 Epigastric pain; F17.200 Nicotine dependence, unspecified, uncomplicated; F15.10 Other stimulant abuse, uncomplicated; I10 Essential (primary) hypertension; Z88.6 Allergy status to analgesic agent
CPT/HCPCS: 36415; 80053; 80320; 83690; 85025; 85610; 93005; 96374; 96375; 96376; 99284; J2405; J3490; J7030; G0480

== ENCOUNTER 2019-02-06 22:16 | Emergency (ER) | payer MEDICAID ==
[~2019-02-06] VITALS: Ht 170.2 cm; Wt 73.0 kg
[2019-02-07] MEDS ORDERED: SODIUM CHLORIDE 0.9% 1,000 ML IV ONE (01:29)
[2019-02-07] MEDS ORDERED: ONDANSETRON HCL 4MG/2ML INJ IV STA (01:29)
[2019-02-07 02:03] LABS: HEMATOCRIT. 28.4 % (42.0-52.0); HEMOGLOBIN. 9.2 g/dL (14.0-18.0); MEAN CORPUSCULAR HEMOGLOBIN 26.6 pg (28.0-32.0); MEAN CORPUSCULAR VOLUME 81.7 fL (80.0-94.0); MEAN PLATELET VOLUME 8.9 fl (7.4-10.4); RED BLOOD CELL COUNT 3.47 mill/uL (4.7-6.1); RED CELL DISTRIBUTION WIDTH 26.5 % (11.6-14.6)
[2019-02-07 02:09] LABS: CHLORIDE 113 mEq/L (98-107)
[2019-02-07 02:13] LABS: INR 1.3; PROTHROMBIN TIME 13.1 sec (9.6-11.0)
[2019-02-07 02:14] LABS: PLATELET 30 x1000/uL (130-400)
[2019-02-07] MEDS ORDERED: ONDANSETRON HCL 4MG/2ML INJ IV ONE (03:30)
[2019-02-07] MEDS ORDERED: FAMOTIDINE 20MG/2ML VIAL IV ONE (03:30)
[2019-02-07] MEDS: FOLIC ACID 1 MG, THIAMINE HCL 100 MG, MVI, ADULT NO.1 10 ML in DEXTROSE 5% WATER 1,000 ML IV NR ×8 (04:00→07:15)
[2019-02-07 05:51] LABS: ATYPICAL LYMPHOCYTES 1
[2019-02-07 05:52] LABS: PLATELET ESTIMATE DECREASED
[2019-02-07 10:37] VITALS: BP 110/57
== END 2019-02-07 10:43 | disposition home or self-care (01) ==
LOC: ER 22:16
DX: D72.819 Decreased white blood cell count, unspecified (principal); D61.818 Other pancytopenia; D69.6 Thrombocytopenia, unspecified; F10.229 Alcohol dependence with intoxication, unspecified; I10 Essential (primary) hypertension; F15.10 Other stimulant abuse, uncomplicated; Y90.8 Blood alcohol level of 240 mg/100 ml or more; Z88.6 Allergy status to analgesic agent; Z87.19 Personal history of other diseases of the digestive system; Z79.899 Other long term (current) drug therapy
CPT/HCPCS: 36415; 80053; 80320; 83690; 85025; 85610; 96365; 96366; 96375; 96376; 99283; J2405; J3411; J3490; J7030; J7070; G0480

== ENCOUNTER 2019-02-08 14:53 | Emergency (ER) | payer MEDICAID ==
[~2019-02-08] VITALS: Ht 167.6 cm; Wt 80.0 kg
[2019-02-08] MEDS ORDERED: ONDANSETRON HCL 4MG/2ML INJ IV STA (16:16)
[2019-02-08 16:49] LABS: HEMATOCRIT. 28.2 % (42.0-52.0); HEMOGLOBIN. 9.2 g/dL (14.0-18.0); MEAN CORPUSCULAR HEMOGLOBIN 26.5 pg (28.0-32.0); MEAN CORPUSCULAR VOLUME 81.2 fL (80.0-94.0); MEAN PLATELET VOLUME 8.8 fl (7.4-10.4); RED BLOOD CELL COUNT 3.47 mill/uL (4.7-6.1)
[2019-02-08 16:51] LABS: CHLORIDE 111 mEq/L (98-107)
[2019-02-08 16:56] LABS: PLATELET 27 x1000/uL (130-400)
[2019-02-08 17:18] LABS: PLATELET ESTIMATE MARKEDLY DECREASED
[2019-02-08 22:25] VITALS: BP 119/68
== END 2019-02-08 22:28 | disposition home or self-care (01) ==
LOC: ER 14:53
DX: R10.9 Unspecified abdominal pain (principal); G89.29 Other chronic pain; F10.229 Alcohol dependence with intoxication, unspecified; Y90.9 Presence of alcohol in blood, level not specified; K70.9 Alcoholic liver disease, unspecified; D69.6 Thrombocytopenia, unspecified; F17.210 Nicotine dependence, cigarettes, uncomplicated; Z71.6 Tobacco abuse counseling
CPT/HCPCS: 36415; 80053; 83690; 85025; 93005; 96374; 99284; 99406; J2405

== ENCOUNTER 2019-02-09 11:47 | Emergency (ER) | payer MEDICAID ==
[~2019-02-09] VITALS: Ht 170.2 cm; Wt 75.0 kg
[~2019-02-09 11:47] MED LIST changes: +FAMO-135 PO; +FERR-71 PO
[2019-02-09] MEDS ORDERED: MORPHINE SULFATE 4 MG/ML CPJ (NOT FOR IM USE) IV STA (12:46)
[2019-02-09] MEDS ORDERED: SODIUM CHLORIDE 0.9% 1,000 ML IV ONE (12:46)
[2019-02-09] MEDS ORDERED: FAMOTIDINE 20MG/2ML VIAL IV STA (12:46)
[2019-02-09] MEDS ORDERED: ONDANSETRON HCL 4MG/2ML INJ IV STA (12:46)
[2019-02-09 13:10] LABS: HEMATOCRIT. 28.2 % (42.0-52.0); HEMOGLOBIN. 9.1 g/dL (14.0-18.0); MEAN CORPUSCULAR HEMOGLOBIN 26.3 pg (28.0-32.0); MEAN CORPUSCULAR VOLUME 81.2 fL (80.0-94.0); MEAN PLATELET VOLUME 8.2 fl (7.4-10.4); RED BLOOD CELL COUNT 3.47 mill/uL (4.7-6.1); RED CELL DISTRIBUTION WIDTH 26.1 % (11.6-14.6)
[2019-02-09 13:11] LABS: CHLORIDE 108 mEq/L (98-107)
[2019-02-09 13:14] LABS: INR 1.3; PROTHROMBIN TIME 12.8 sec (9.6-11.0)
[2019-02-09 13:21] LABS: PLATELET 22 x1000/uL (130-400)
[2019-02-09 13:24] LABS: CLARITY URINE CLEAR (CLEAR); COLOR URINE AMBER (YELLOW); KETONES URINE TRACE (NEGATIVE); LEUKOCYTE ESTERASE URINE NEGATIVE (NEGATIVE); NITRITE URINE NEGATIVE (NEGATIVE); OCCULT BLOOD URINE NEGATIVE (NEGATIVE); PH URINE 6.5 (4.5-8.0); PROTEIN URINE NEGATIVE (NEGATIVE); SPECIFIC GRAVITY URINE 1.016 (1.005-1.030)
[2019-02-09 13:34] LABS: ETHANOL BLOOD 405 mg/dL
[2019-02-09 13:47] LABS: METHADONE URINE SCREEN NEGATIVE (NEGATIVE); OPIATES URINE SCREEN NEGATIVE (NEGATIVE)
[2019-02-09 13:48] LABS: PHENCYCLIDINE URINE SCREEN NEGATIVE (NEGATIVE)
[2019-02-09 13:49] LABS: *AMPHETAMINES SCREEN URINE NEGATIVE (NEGATIVE); *BARBITURATES SCREEN URINE NEGATIVE (NEGATIVE); *BENZODIAZEPINES SCREEN URINE PRESUMTIVE POSITIVE (NEGATIVE); *COCAINE SCREEN URINE NEGATIVE (NEGATIVE); CANNABINOID URINE SCREEN NEGATIVE (NEGATIVE)
[2019-02-09 13:58] LABS: PLATELET ESTIMATE MARKEDLY DECREASED
[2019-02-09 14:44] VITALS: BP 130/95
== END 2019-02-09 15:09 | disposition home or self-care (01) ==
LOC: ER 11:47
DX: D61.818 Other pancytopenia (principal); F10.20 Alcohol dependence, uncomplicated; Y90.8 Blood alcohol level of 240 mg/100 ml or more; K70.9 Alcoholic liver disease, unspecified
CPT/HCPCS: 36415; 71045; 80053; 80305; 80320; 81003; 83690; 85025; 85610; 86850; 86900; 86901; 93005; 96374; 96375; 99284; J2270; J2405; J3490; J7030; G0480

== ENCOUNTER 2019-02-22 16:45 | Emergency (ER) | payer MEDICAID ==
[~2019-02-22] VITALS: Ht 157.5 cm; Wt 89.0 kg
[~2019-02-22 16:45] MED LIST changes: -FAMO-135 PO; -FERR-71 PO
[2019-02-23 00:30] VITALS: BP 113/66
== END 2019-02-23 00:30 | disposition home or self-care (01) ==
LOC: ER 16:45
DX: R18.8 Other ascites (principal); N50.89 Other specified disorders of the male genital organs; K76.9 Liver disease, unspecified; F10.20 Alcohol dependence, uncomplicated; Z88.6 Allergy status to analgesic agent; Y90.9 Presence of alcohol in blood, level not specified
CPT/HCPCS: 76870; 93976; 99284

== ENCOUNTER 2019-03-02 10:18 | Emergency (ER) | payer MEDICAID ==
[~2019-03-02] VITALS: Ht 162.6 cm; Wt 72.0 kg
[2019-03-02 11:02] LABS: CHLORIDE 108 mEq/L (98-107)
[2019-03-02 11:05] LABS: BASOPHILS % 0.7 % (0.0-2.0); EOSINOPHILS % 0.9 % (0.0-5.0); HEMATOCRIT. 26.5 % (42.0-52.0); HEMOGLOBIN. 8.9 g/dL (14.0-18.0); LYMPHOCYTES % 32.4 % (20.0-50.0); MEAN CORPUSCULAR HEMOGLOBIN 28.3 pg (28.0-32.0); MEAN CORPUSCULAR VOLUME 84.6 fL (80.0-94.0); MEAN PLATELET VOLUME 8.4 fl (7.4-10.4); RED BLOOD CELL COUNT 3.13 mill/uL (4.7-6.1); RED CELL DISTRIBUTION WIDTH 26.1 % (11.6-14.6)
[2019-03-02 11:08] LABS: PLATELET 39 x1000/uL (130-400)
[2019-03-02 11:21] LABS: ETHANOL BLOOD 425 mg/dL
[2019-03-02] MEDS ORDERED: POTASSIUM CHLORIDE 20MEQ TABLET SR PO ONE (12:00)
[2019-03-02 13:45] LABS: PLATELET ESTIMATE MARKEDLY DECREASED
[2019-03-02 14:51] VITALS: BP 133/84
== END 2019-03-02 15:19 | disposition home or self-care (01) ==
LOC: ER 10:18
DX: F10.229 Alcohol dependence with intoxication, unspecified (principal); Y90.8 Blood alcohol level of 240 mg/100 ml or more
CPT/HCPCS: 36415; 80320; 99283; G0480

== ENCOUNTER 2019-03-11 13:23 | Emergency (ER) | payer MEDICAID ==
[~2019-03-11] VITALS: Ht 162.6 cm; Wt 66.0 kg
[~2019-03-11 13:23] MED LIST changes: -FAMO-135 MT; +FERR324T4 PO; -FERR325T23 MT; +FOLI-43 MT; +OMEP20TA15 PO; +ONDA4TAB5 MT; +TRAZ-213 MT
[2019-03-11] MEDS ORDERED: SODIUM CHLORIDE 0.9% 1,000 ML IV ONE (14:47)
[2019-03-11] MEDS ORDERED: FAMOTIDINE 20MG/2ML VIAL IV STA (14:47)
[2019-03-11] MEDS ORDERED: MORPHINE SULFATE 4 MG/ML CPJ (NOT FOR IM USE) IV STA (14:47)
[2019-03-11] MEDS ORDERED: MAGNESIUM/ALUMINUM HYDROXIDE/SIMETHICONE 30ML UDC PO STA (14:47)
[2019-03-11 15:09] LABS: CHLORIDE 113 mEq/L (98-107)
[2019-03-11 15:10] LABS: INR 1.2; PROTHROMBIN TIME 12.5 sec (9.6-11.0)
[2019-03-11 15:20] LABS: BASOPHILS % 0.7 % (0.0-2.0); EOSINOPHILS % 0.8 % (0.0-5.0); HEMATOCRIT. 25.2 % (42.0-52.0); HEMOGLOBIN. 8.6 g/dL (14.0-18.0); LYMPHOCYTES % 33.7 % (20.0-50.0); MEAN CORPUSCULAR VOLUME 87.8 fL (80.0-94.0); MEAN PLATELET VOLUME 8.5 fl (7.4-10.4); MONOCYTES % 12.7 % (2.0-8.0); NEUTROPHILS % 52.1 % (40.0-76.0); RED BLOOD CELL COUNT 2.87 mill/uL (4.7-6.1); RED CELL DISTRIBUTION WIDTH 26.1 % (11.6-14.6)
[2019-03-11 15:30] LABS: PLATELET 33 x1000/uL (130-400)
[2019-03-11 16:36] LABS: PLATELET ESTIMATE MARKEDLY DECREASED
[2019-03-11 17:29] VITALS: BP 122/85
== END 2019-03-11 17:40 | disposition home or self-care (01) ==
LOC: ER 13:31
DX: R10.13 Epigastric pain (principal); R19.7 Diarrhea, unspecified; R03.0 Elevated blood-pressure reading, without diagnosis of hypertension; E87.5 Hyperkalemia; D69.6 Thrombocytopenia, unspecified; D72.819 Decreased white blood cell count, unspecified; Z59.0 Homelessness
CPT/HCPCS: 36415; 80053; 83690; 85025; 85610; 96374; 96375; 99283; J2270; J3490; J7030

== ENCOUNTER 2019-03-14 15:58 | Emergency (ER) | payer MEDICAID, SELFPAY ==
[~2019-03-14] VITALS: Ht 170.2 cm; Wt 70.0 kg
[2019-03-15] MEDS ORDERED: ONDANSETRON HCL 4MG/2ML INJ IV STA (06:35)
[2019-03-15] MEDS ORDERED: OXYCODONE HCL/ACETAMINOPHEN 5/325MG TABLET PO ONE (06:45)
[2019-03-15 06:54] LABS: HEMATOCRIT. 27.6 % (42.0-52.0); HEMOGLOBIN. 9.3 g/dL (14.0-18.0); MEAN CORPUSCULAR HEMOGLOBIN 29.7 pg (28.0-32.0); MEAN CORPUSCULAR VOLUME 88.3 fL (80.0-94.0); MEAN PLATELET VOLUME 8.6 fl (7.4-10.4); RED BLOOD CELL COUNT 3.13 mill/uL (4.7-6.1)
[2019-03-15 06:59] LABS: CHLORIDE 110 mEq/L (98-107)
[2019-03-15 07:04] LABS: PLATELET 34 x1000/uL (130-400)
[2019-03-15 07:11] LABS: INR 1.2; PROTHROMBIN TIME 12.5 sec (9.6-11.0)
[2019-03-15 07:33] LABS: CLARITY URINE CLEAR (CLEAR); COLOR URINE YELLOW (YELLOW); KETONES URINE NEGATIVE (NEGATIVE); LEUKOCYTE ESTERASE URINE NEGATIVE (NEGATIVE); NITRITE URINE NEGATIVE (NEGATIVE); OCCULT BLOOD URINE NEGATIVE (NEGATIVE); PH URINE 6.5 (4.5-8.0); PROTEIN URINE NEGATIVE (NEGATIVE); SPECIFIC GRAVITY URINE 1.009 (1.005-1.030)
[2019-03-15 07:54] LABS: PLATELET ESTIMATE MARKEDLY DECREASED
[2019-03-15 08:00] VITALS: BP 148/76
== END 2019-03-15 08:24 | disposition home or self-care (01) ==
LOC: ER 15:58
DX: R10.31 Right lower quadrant pain (principal)
CPT/HCPCS: 36415; 74176; 80053; 81003; 83690; 85025; 85610; 96374; 99284; J2405

== ENCOUNTER 2019-03-22 14:24 | Emergency (ER) | payer MEDICAID, SELFPAY ==
[~2019-03-22] VITALS: Ht 172.7 cm; Wt 70.0 kg
[2019-03-22] MEDS ORDERED: SODIUM CHLORIDE 0.9% 1,000 ML IV ONE (17:39)
[2019-03-22] MEDS ORDERED: ONDANSETRON HCL 4MG/2ML INJ IV STA (17:39)
[2019-03-22] MEDS ORDERED: FAMOTIDINE 20MG/2ML VIAL IV STA (17:39)
[2019-03-22] MEDS ORDERED: PANTOPRAZOLE SODIUM 40 MG/VIAL IV STA (17:39)
[2019-03-22 17:59] LABS: BASOPHILS % 0.8 % (0.0-2.0); EOSINOPHILS % 0.5 % (0.0-5.0); HEMATOCRIT. 27.9 % (42.0-52.0); HEMOGLOBIN. 9.2 g/dL (14.0-18.0); LYMPHOCYTES % 30.7 % (20.0-50.0); MEAN CORPUSCULAR HEMOGLOBIN 30.4 pg (28.0-32.0); MEAN CORPUSCULAR VOLUME 91.8 fL (80.0-94.0); MEAN PLATELET VOLUME 8.3 fl (7.4-10.4); MONOCYTES % 5.7 % (2.0-8.0); NEUTROPHILS % 62.3 % (40.0-76.0); RED BLOOD CELL COUNT 3.04 mill/uL (4.7-6.1); RED CELL DISTRIBUTION WIDTH 23.9 % (11.6-14.6)
[2019-03-22 18:04] LABS: CHLORIDE 114 mEq/L (98-107)
[2019-03-22 18:07] LABS: INR 1.2; PLATELET 20 x1000/uL (130-400); PROTHROMBIN TIME 12.4 sec (9.6-11.0)
[2019-03-22] MEDS ORDERED: TRAMADOL 50MG TABLET PO ONE (18:15)
[2019-03-22 18:27] LABS: ETHANOL BLOOD 344 mg/dL
[2019-03-22 18:39] LABS: CLARITY URINE CLEAR (CLEAR); COLOR URINE YELLOW (YELLOW); KETONES URINE NEGATIVE (NEGATIVE); LEUKOCYTE ESTERASE URINE NEGATIVE (NEGATIVE); NITRITE URINE NEGATIVE (NEGATIVE); OCCULT BLOOD URINE NEGATIVE (NEGATIVE); PROTEIN URINE NEGATIVE (NEGATIVE); SPECIFIC GRAVITY URINE 1.012 (1.005-1.030); UROBILINOGEN URINE 0.2 E.U./dL (0.2-1.0)
[2019-03-22 18:48] LABS: *AMPHETAMINES SCREEN URINE NEGATIVE (NEGATIVE)
[2019-03-22 18:49] LABS: *BARBITURATES SCREEN URINE NEGATIVE (NEGATIVE); *BENZODIAZEPINES SCREEN URINE PRESUMTIVE POSITIVE (NEGATIVE); *COCAINE SCREEN URINE NEGATIVE (NEGATIVE); METHADONE URINE SCREEN NEGATIVE (NEGATIVE); OPIATES URINE SCREEN NEGATIVE (NEGATIVE); PHENCYCLIDINE URINE SCREEN NEGATIVE (NEGATIVE)
[2019-03-22 18:50] LABS: CANNABINOID URINE SCREEN NEGATIVE (NEGATIVE)
[2019-03-22] MEDS ORDERED: MAGNESIUM OXIDE 400MG TABLET PO SCH (19:00)
[2019-03-22] MEDS ORDERED: POTASSIUM CHLORIDE 20MEQ TABLET SR PO ONE (19:00)
[2019-03-22] MEDS ORDERED: FAMOTIDINE 20MG TABLET PO ONE (19:00)
[2019-03-22 22:15] VITALS: BP 150/73
== END 2019-03-22 22:15 | disposition home or self-care (01) ==
LOC: ER 14:24
DX: R10.12 Left upper quadrant pain (principal); F10.229 Alcohol dependence with intoxication, unspecified; Y90.8 Blood alcohol level of 240 mg/100 ml or more; K70.30 Alcoholic cirrhosis of liver without ascites; K85.90 Acute pancreatitis without necrosis or infection, unspecified; F15.10 Other stimulant abuse, uncomplicated; R03.0 Elevated blood-pressure reading, without diagnosis of hypertension; D72.819 Decreased white blood cell count, unspecified; E87.6 Hypokalemia; E83.42 Hypomagnesemia; D69.6 Thrombocytopenia, unspecified; D64.9 Anemia, unspecified; Z71.41 Alcohol abuse counseling and surveillance of alcoholic
CPT/HCPCS: 36415; 74018; 76705; 80053; 80305; 80320; 81003; 83690; 83735; 85025; 85610; 86850; 86900; 86901; 99284; J7030; G0480

== ENCOUNTER 2019-03-23 12:22 | Emergency (ER) | payer MEDICAID ==
[~2019-03-23] VITALS: Ht 167.6 cm; Wt 73.0 kg
[2019-03-23 13:00] LABS: BASOPHILS % 0.6 % (0.0-2.0); EOSINOPHILS % 0.5 % (0.0-5.0); HEMATOCRIT. 23.9 % (42.0-52.0); HEMOGLOBIN. 8.2 g/dL (14.0-18.0); LYMPHOCYTES % 24.5 % (20.0-50.0); MEAN CORPUSCULAR HEMOGLOBIN 31.1 pg (28.0-32.0); MEAN CORPUSCULAR VOLUME 91.4 fL (80.0-94.0); MEAN PLATELET VOLUME 8.2 fl (7.4-10.4); MONOCYTES % 8.1 % (2.0-8.0); NEUTROPHILS % 66.3 % (40.0-76.0); RED BLOOD CELL COUNT 2.62 mill/uL (4.7-6.1); RED CELL DISTRIBUTION WIDTH 23.9 % (11.6-14.6)
[2019-03-23 13:02] LABS: PLATELET 16 x1000/uL (130-400)
[2019-03-23 13:07] LABS: INR 1.3
[2019-03-23 13:08] LABS: CHLORIDE 111 mEq/L (98-107)
[2019-03-23 13:23] LABS: ETHANOL BLOOD 324 mg/dL
[2019-03-23 13:41] LABS: PLATELET ESTIMATE MARKEDLY DECREASED
[2019-03-23] MEDS ORDERED: CHLORDIAZEPOXIDE 25MG CAPSULE PO ONE (18:15)
[2019-03-23 21:39] VITALS: BP 123/70
== END 2019-03-23 21:44 | disposition home or self-care (01) ==
LOC: ER 12:22
DX: R04.0 Epistaxis (principal); F10.229 Alcohol dependence with intoxication, unspecified; D69.6 Thrombocytopenia, unspecified; Y90.8 Blood alcohol level of 240 mg/100 ml or more; K76.9 Liver disease, unspecified; Z87.11 Personal history of peptic ulcer disease; Z88.6 Allergy status to analgesic agent
CPT/HCPCS: 36415; 80053; 80320; 85025; 85610; 86850; 86900; 86901; 99283; Z7610; G0480

== ENCOUNTER 2019-03-31 15:53 | Emergency (ER) | payer MEDICAID ==
[~2019-03-31] VITALS: Ht 162.6 cm; Wt 74.0 kg
[2019-03-31 16:09] VITALS: BP 111/77
== END 2019-03-31 22:00 | disposition left against medical advice (07) ==
LOC: ER 15:53
DX: R10.9 Unspecified abdominal pain (principal); Z53.21 Procedure and treatment not carried out due to patient leaving prior to being seen by health care provider

== ENCOUNTER 2019-04-03 15:25 | Emergency (ER) | payer MEDICAID ==
[~2019-04-03] VITALS: Ht 170.2 cm; Wt 75.0 kg
[2019-04-03] MEDS ORDERED: SODIUM CHLORIDE 0.9% 1,000 ML IV ONE (17:26)
[2019-04-03 18:31] LABS: CLARITY URINE CLEAR (CLEAR); COLOR URINE YELLOW (YELLOW); KETONES URINE NEGATIVE (NEGATIVE); LEUKOCYTE ESTERASE URINE NEGATIVE (NEGATIVE); NITRITE URINE NEGATIVE (NEGATIVE); OCCULT BLOOD URINE NEGATIVE (NEGATIVE); PH URINE 6.5 (4.5-8.0); PROTEIN URINE NEGATIVE (NEGATIVE); SPECIFIC GRAVITY URINE 1.004 (1.005-1.030); UROBILINOGEN URINE 0.2 E.U./dL (0.2-1.0)
[2019-04-03 18:44] LABS: *AMPHETAMINES SCREEN URINE NEGATIVE (NEGATIVE); *BARBITURATES SCREEN URINE NEGATIVE (NEGATIVE); *BENZODIAZEPINES SCREEN URINE PRESUMTIVE POSITIVE (NEGATIVE)
[2019-04-03 18:45] LABS: *COCAINE SCREEN URINE NEGATIVE (NEGATIVE); CANNABINOID URINE SCREEN NEGATIVE (NEGATIVE); METHADONE URINE SCREEN NEGATIVE (NEGATIVE); OPIATES URINE SCREEN NEGATIVE (NEGATIVE); PHENCYCLIDINE URINE SCREEN NEGATIVE (NEGATIVE)
[2019-04-03 18:51] LABS: HEMATOCRIT. 26.2 % (42.0-52.0); HEMOGLOBIN. 8.7 g/dL (14.0-18.0); MEAN CORPUSCULAR HEMOGLOBIN 30.2 pg (28.0-32.0); MEAN CORPUSCULAR VOLUME 91.1 fL (80.0-94.0); MEAN PLATELET VOLUME 8.2 fl (7.4-10.4); RED BLOOD CELL COUNT 2.88 mill/uL (4.7-6.1); RED CELL DISTRIBUTION WIDTH 19.1 % (11.6-14.6)
[2019-04-03 18:54] LABS: PLATELET 20 x1000/uL (130-400)
[2019-04-03 18:55] LABS: CHLORIDE 112 mEq/L (98-107)
[2019-04-03 18:57] LABS: INR 1.2; PARTIAL THROMBOPLASTIN TIME 30.6 sec (23.4-31.0); PROTHROMBIN TIME 12.3 sec (9.6-11.0)
[2019-04-03 19:27] LABS: ETHANOL BLOOD 387 mg/dL
[2019-04-03] MEDS ORDERED: TRAMADOL 50MG TABLET PO ONE (19:30)
[2019-04-03 19:44] LABS: PLATELET ESTIMATE MARKEDLY DECREASED
[2019-04-03 20:56] VITALS: BP 136/80
== END 2019-04-03 20:59 | disposition home or self-care (01) ==
LOC: ER 15:55
DX: F10.229 Alcohol dependence with intoxication, unspecified (principal); K70.9 Alcoholic liver disease, unspecified; Y90.8 Blood alcohol level of 240 mg/100 ml or more; F15.10 Other stimulant abuse, uncomplicated; D69.6 Thrombocytopenia, unspecified; D72.819 Decreased white blood cell count, unspecified; Z59.0 Homelessness
CPT/HCPCS: 36415; 71045; 80053; 80305; 80320; 81003; 83690; 85025; 85610; 85730; 93005; 99284; J7030; Z7610; G0480

== ENCOUNTER 2019-04-07 09:39 | Emergency (ER) | payer MEDICAID ==
[~2019-04-07] VITALS: Ht 165.1 cm; Wt 73.0 kg
[2019-04-07 10:33] VITALS: BP 117/72
== END 2019-04-07 10:41 | disposition home or self-care (01) ==
LOC: ER 09:39
DX: R53.1 Weakness (principal); R11.0 Nausea; D64.9 Anemia, unspecified; F10.20 Alcohol dependence, uncomplicated; Y90.0 Blood alcohol level of less than 20 mg/100 ml
CPT/HCPCS: 99283; Z7610

== ENCOUNTER 2019-04-16 16:26 | Emergency (ER) | payer MEDICAID ==
[~2019-04-16] VITALS: Ht 167.6 cm; Wt 65.0 kg
[2019-04-16] MEDS ORDERED: VISCOUS LIDOCAINE 2% 15 ML UDC PO STA (18:12)
[2019-04-16] MEDS ORDERED: FAMOTIDINE 20MG/2ML VIAL IV STA (18:12)
[2019-04-16] MEDS ORDERED: MAGNESIUM/ALUMINUM HYDROXIDE/SIMETHICONE 30ML UDC PO STA (18:12)
[2019-04-16] MEDS ORDERED: SODIUM CHLORIDE 0.9% 1,000 ML IV ONE (18:12)
[2019-04-16 18:50] LABS: HEMATOCRIT. 25.3 % (42.0-52.0); HEMOGLOBIN. 8.2 g/dL (14.0-18.0); MEAN CORPUSCULAR HEMOGLOBIN 29.3 pg (28.0-32.0); MEAN CORPUSCULAR VOLUME 90.8 fL (80.0-94.0); MEAN PLATELET VOLUME 8.5 fl (7.4-10.4); RED BLOOD CELL COUNT 2.79 mill/uL (4.7-6.1); RED CELL DISTRIBUTION WIDTH 17.4 % (11.6-14.6)
[2019-04-16 18:53] LABS: CHLORIDE 113 mEq/L (98-107)
[2019-04-16 19:01] LABS: PLATELET 20 x1000/uL (130-400)
[2019-04-16 19:29] LABS: CLARITY URINE CLEAR (CLEAR); COLOR URINE YELLOW (YELLOW); KETONES URINE NEGATIVE (NEGATIVE); LEUKOCYTE ESTERASE URINE NEGATIVE (NEGATIVE); NITRITE URINE NEGATIVE (NEGATIVE); OCCULT BLOOD URINE NEGATIVE (NEGATIVE); PH URINE 6.5 (4.5-8.0); PROTEIN URINE NEGATIVE (NEGATIVE); SPECIFIC GRAVITY URINE 1.009 (1.005-1.030)
[2019-04-16 20:24] LABS: PLATELET ESTIMATE MARKEDLY DECREASED
[2019-04-16 22:11] VITALS: BP 124/61
== END 2019-04-16 22:16 | disposition home or self-care (01) ==
LOC: ER 16:26
DX: R10.13 Epigastric pain (principal); D64.9 Anemia, unspecified; F17.290 Nicotine dependence, other tobacco product, uncomplicated; K76.9 Liver disease, unspecified; Z88.6 Allergy status to analgesic agent; Z79.899 Other long term (current) drug therapy; Z88.8 Allergy status to other drugs, medicaments and biological substances
CPT/HCPCS: 36415; 80053; 81003; 83690; 85025; 96374; 99283; 99406; J3490; J7030

== ENCOUNTER 2019-04-22 14:43 | Emergency (ER) | payer MEDICAID ==
[~2019-04-22] VITALS: Ht 167.6 cm; Wt 75.0 kg
[2019-04-22] MEDS ORDERED: SODIUM CHLORIDE 0.9% 1,000 ML IV ONE (15:19)
[2019-04-22] MEDS ORDERED: MAGNESIUM/ALUMINUM HYDROXIDE/SIMETHICONE 30ML UDC PO STA (15:19)
[2019-04-22] MEDS ORDERED: FAMOTIDINE 20MG/2ML VIAL IV STA (15:19)
[2019-04-22] MEDS ORDERED: ONDANSETRON HCL 4MG/2ML INJ IV STA (15:19)
[2019-04-22] MEDS ORDERED: VISCOUS LIDOCAINE 2% 15 ML UDC PO STA (15:19)
[2019-04-22 15:57] LABS: HEMATOCRIT. 24.4 % (42.0-52.0); MEAN CORPUSCULAR VOLUME 88.7 fL (80.0-94.0); MEAN PLATELET VOLUME 9.9 fl (7.4-10.4); RED BLOOD CELL COUNT 2.76 mill/uL (4.7-6.1); RED CELL DISTRIBUTION WIDTH 17.2 % (11.6-14.6)
[2019-04-22 16:03] LABS: CHLORIDE 111 mEq/L (98-107); PLATELET 17 x1000/uL (130-400)
[2019-04-22 17:18] LABS: CLARITY URINE CLEAR (CLEAR); COLOR URINE YELLOW (YELLOW); KETONES URINE NEGATIVE (NEGATIVE); LEUKOCYTE ESTERASE URINE NEGATIVE (NEGATIVE); NITRITE URINE NEGATIVE (NEGATIVE); OCCULT BLOOD URINE NEGATIVE (NEGATIVE); PROTEIN URINE NEGATIVE (NEGATIVE); SPECIFIC GRAVITY URINE 1.005 (1.005-1.030)
[2019-04-22 18:51] LABS: ATYPICAL LYMPHOCYTES 4; PLATELET ESTIMATE MARKEDLY DECREASED
[2019-04-22 23:45] VITALS: BP 125/80
== END 2019-04-23 00:07 | disposition home or self-care (01) ==
LOC: ER 14:54
DX: R11.2 Nausea with vomiting, unspecified (principal); R10.13 Epigastric pain; D64.9 Anemia, unspecified; K76.9 Liver disease, unspecified; F10.10 Alcohol abuse, uncomplicated; Z79.899 Other long term (current) drug therapy; Z88.6 Allergy status to analgesic agent; Z88.8 Allergy status to other drugs, medicaments and biological substances
CPT/HCPCS: 36415; 80053; 81003; 83690; 85025; 96361; 96374; 96375; 99283; J2405; J3490; J7030

== ENCOUNTER 2019-04-28 18:02 | Emergency (ER) | payer MEDICAID ==
[~2019-04-28] VITALS: Ht 162.6 cm; Wt 73.0 kg
[2019-04-28] MEDS ORDERED: MAGNESIUM/ALUMINUM HYDROXIDE/SIMETHICONE 30ML UDC PO STA ×2 (20:19)
[2019-04-28] MEDS ORDERED: VISCOUS LIDOCAINE 2% 15 ML UDC PO STA (20:19)
[2019-04-28] MEDS ORDERED: FAMOTIDINE 20MG/2ML VIAL IV STA (20:19)
[2019-04-28] MEDS ORDERED: SODIUM CHLORIDE 0.9% 1,000 ML IV ONE (20:19)
[2019-04-28 21:45] LABS: HEMATOCRIT. 23.4 % (42.0-52.0); HEMOGLOBIN. 7.6 g/dL (14.0-18.0); MEAN CORPUSCULAR HEMOGLOBIN 28.3 pg (28.0-32.0); MEAN CORPUSCULAR VOLUME 87.5 fL (80.0-94.0); MEAN PLATELET VOLUME 10.4 fl (7.4-10.4); RED BLOOD CELL COUNT 2.68 mill/uL (4.7-6.1); RED CELL DISTRIBUTION WIDTH 17.5 % (11.6-14.6)
[2019-04-28 21:46] LABS: CHLORIDE 115 mEq/L (98-107)
[2019-04-28 21:55] LABS: PLATELET 13 x1000/uL (130-400)
[2019-04-28 22:35] LABS: CLARITY URINE CLEAR (CLEAR); COLOR URINE YELLOW (YELLOW); KETONES URINE NEGATIVE (NEGATIVE); LEUKOCYTE ESTERASE URINE NEGATIVE (NEGATIVE); NITRITE URINE NEGATIVE (NEGATIVE); OCCULT BLOOD URINE NEGATIVE (NEGATIVE); PH URINE 6.5 (4.5-8.0); PROTEIN URINE NEGATIVE (NEGATIVE); SPECIFIC GRAVITY URINE 1.011 (1.005-1.030)
[2019-04-29 01:30] VITALS: BP 119/68
[2019-04-29 04:05] LABS: PLATELET ESTIMATE MARKEDLY DECREASED
== END 2019-04-29 01:30 | disposition home or self-care (01) ==
LOC: ER 18:02
DX: R11.2 Nausea with vomiting, unspecified (principal); R10.13 Epigastric pain; F10.20 Alcohol dependence, uncomplicated; Y90.9 Presence of alcohol in blood, level not specified; K70.9 Alcoholic liver disease, unspecified; Z87.19 Personal history of other diseases of the digestive system
CPT/HCPCS: 36415; 80053; 81003; 83690; 85025; 96374; 99283; J3490; J7030

== ENCOUNTER 2019-04-29 15:04 | Emergency (ER) | payer MEDICAID ==
[~2019-04-29] VITALS: Ht 167.6 cm; Wt 66.0 kg
[2019-04-29] MEDS ORDERED: SODIUM CHLORIDE 0.9% 1,000 ML IV ONE (15:54)
[2019-04-29] MEDS ORDERED: FAMOTIDINE 20MG/2ML VIAL IV STA (15:54)
[2019-04-29 16:05] LABS: CLARITY URINE CLEAR (CLEAR); COLOR URINE YELLOW (YELLOW); KETONES URINE NEGATIVE (NEGATIVE); LEUKOCYTE ESTERASE URINE NEGATIVE (NEGATIVE); NITRITE URINE NEGATIVE (NEGATIVE); OCCULT BLOOD URINE NEGATIVE (NEGATIVE); PH URINE 6.5 (4.5-8.0); PROTEIN URINE NEGATIVE (NEGATIVE); SPECIFIC GRAVITY URINE 1.003 (1.005-1.030); UROBILINOGEN URINE 0.2 E.U./dL (0.2-1.0)
[2019-04-29 16:21] LABS: HEMATOCRIT. 24.3 % (42.0-52.0); HEMOGLOBIN. 7.9 g/dL (14.0-18.0); MEAN CORPUSCULAR HEMOGLOBIN 28.2 pg (28.0-32.0); MEAN CORPUSCULAR VOLUME 87.1 fL (80.0-94.0); MEAN PLATELET VOLUME 10.4 fl (7.4-10.4); RED BLOOD CELL COUNT 2.79 mill/uL (4.7-6.1); RED CELL DISTRIBUTION WIDTH 17.5 % (11.6-14.6)
[2019-04-29 16:23] LABS: CHLORIDE 112 mEq/L (98-107)
[2019-04-29 16:24] LABS: INR 1.3; PROTHROMBIN TIME 12.8 sec (9.6-11.0)
[2019-04-29 16:33] LABS: PLATELET 16 x1000/uL (130-400)
[2019-04-29 17:15] VITALS: BP 112/75
[2019-04-29 20:24] LABS: PLATELET ESTIMATE MARKEDLY DECREASED
== END 2019-04-29 17:54 | disposition home or self-care (01) ==
LOC: ER 15:13
DX: K29.20 Alcoholic gastritis without bleeding (principal); D61.818 Other pancytopenia; F10.20 Alcohol dependence, uncomplicated; Y90.9 Presence of alcohol in blood, level not specified; K70.30 Alcoholic cirrhosis of liver without ascites; R03.0 Elevated blood-pressure reading, without diagnosis of hypertension; F15.10 Other stimulant abuse, uncomplicated; Z87.891 Personal history of nicotine dependence
CPT/HCPCS: 36415; 80053; 81003; 83690; 85025; 85610; 93005; 96361; 96374; 99284; J3490; J7030

== ENCOUNTER 2019-05-01 07:33 | Emergency (ER) | payer MEDICAID ==
[~2019-05-01] VITALS: Ht 162.6 cm; Wt 70.0 kg
[2019-05-01 07:38] VITALS: BP 138/70
== END 2019-05-01 08:29 | disposition home or self-care (01) ==
LOC: ER 07:33
DX: R04.0 Epistaxis (principal); R03.0 Elevated blood-pressure reading, without diagnosis of hypertension
CPT/HCPCS: 30901; 99284; A4217; Z7610

== ENCOUNTER 2019-05-05 09:55 | Inpatient (IN) | payer MEDICAID ==
[~2019-05-05] VITALS: Ht 162.6 cm; Wt 68.0 kg
[2019-05-05] MEDS ORDERED: SODIUM CHLORIDE 0.9% 1,000 ML IV ONE (10:28)
[2019-05-05 11:07] LABS: BASOPHILS % 0.7 % (0.0-2.0); HEMATOCRIT. 24.7 % (42.0-52.0); LYMPHOCYTES % 9.3 % (20.0-50.0); MEAN CORPUSCULAR VOLUME 86.6 fL (80.0-94.0); MEAN PLATELET VOLUME 9.7 fl (7.4-10.4); MONOCYTES % 7.4 % (2.0-8.0); NEUTROPHILS % 82.6 % (40.0-76.0); RED BLOOD CELL COUNT 2.86 mill/uL (4.7-6.1); RED CELL DISTRIBUTION WIDTH 17.8 % (11.6-14.6)
[2019-05-05 11:12] LABS: INR 1.2; PROTHROMBIN TIME 12.2 sec (9.6-11.0)
[2019-05-05 11:13] LABS: CHLORIDE 107 mEq/L (98-107)
[2019-05-05 11:23] LABS: PLATELET 20 x1000/uL (130-400)
[2019-05-05] MEDS ORDERED: POTASSIUM CHLORIDE 20MEQ TABLET SR PO ONE (11:45)
[2019-05-05 11:53] LABS: PLATELET ESTIMATE MARKEDLY DECREASED
[2019-05-05 11:55] LABS: *BARBITURATES SCREEN URINE NEGATIVE (NEGATIVE); *BENZODIAZEPINES SCREEN URINE NEGATIVE (NEGATIVE); *COCAINE SCREEN URINE NEGATIVE (NEGATIVE); METHADONE URINE SCREEN NEGATIVE (NEGATIVE); OPIATES URINE SCREEN NEGATIVE (NEGATIVE)
[2019-05-05 11:56] LABS: *AMPHETAMINES SCREEN URINE NEGATIVE (NEGATIVE); CANNABINOID URINE SCREEN NEGATIVE (NEGATIVE); PHENCYCLIDINE URINE SCREEN NEGATIVE (NEGATIVE)
[2019-05-05 12:49] LABS: ETHANOL BLOOD 409 mg/dL
[2019-05-05] MEDS ORDERED: PANTOPRAZOLE SODIUM 40 MG/VIAL IV ONE (14:00)
[2019-05-05] MEDS: SODIUM CHLORIDE 0.45% 1,000 ML IV SCH (17:44)
[2019-05-05] MEDS ORDERED: GUAIFENESIN 200MG/10ML SUGAR FREE UDC PO PRN (17:45)
[2019-05-05] MEDS ORDERED: MAGNESIUM/ALUMINUM HYDROXIDE/SIMETHICONE 30ML UDC PO PRN (17:45)
[2019-05-05] MEDS ORDERED: IPRATROPIUM/ALBUTEROL 0.5-3(2.5)MG/3ML NEB HHN PRN (17:45)
[2019-05-05] MEDS ORDERED: CLONIDINE 0.1MG TABLET PO PRN (17:45)
[2019-05-05] MEDS ORDERED: HYDRALAZINE 20MG/ML VIAL IV PRN (17:45)
[2019-05-05] MEDS ORDERED: DEXTROSE 50% WATER 50ML SYRINGE IV PRN (17:45)
[2019-05-05] MEDS ORDERED: FOLIC ACID 1 MG, THIAMINE HCL 100 MG, MVI, ADULT NO.1 10 ML in DEXTROSE 5% WATER 1,000 ML IV ONE ×4 (18:00)
[2019-05-05 20:00] VITALS: BP 134/69
[2019-05-05] MEDS ORDERED: MVI, ADULT NO.1 10 ML, FOLIC ACID 1 MG, THIAMINE HCL 100 MG in SODIUM CHLORIDE 0.9% 1,0... IV SCH ×4 (21:00)
[2019-05-05] MEDS: PROPRANOLOL HCL 10MG TABLET PO SCH ×2 (21:00→22:16)
[2019-05-05 21:24] VITALS: BP 134/69
[2019-05-05] MEDS: SODIUM CHLORIDE 0.9% INJ 3ML FLUSH IVF SCH (22:17)
[2019-05-05] MEDS ORDERED: INFLUENZA VIRUS VACCINE(AFLURIA) 0.5ML SYR IM ONE (23:00)
[2019-05-06] VITALS (10 sets, daily range): BP systolic 110–138; BP diastolic 54–71
[2019-05-06] MEDS: PANTOPRAZOLE SODIUM 40 MG/VIAL IV SCH ×3 (02:52→15:22)
[2019-05-06] MEDS: SODIUM CHLORIDE 0.9% INJ 3ML FLUSH IVF SCH ×3 (06:15→22:14)
[2019-05-06] MEDS: SODIUM CHLORIDE 0.45% 1,000 ML IV SCH (06:46)
[2019-05-06 07:23] LABS: HEMATOCRIT. 23.1 % (42.0-52.0); HEMOGLOBIN. 7.4 g/dL (14.0-18.0); MEAN CORPUSCULAR HEMOGLOBIN 28.2 pg (28.0-32.0); MEAN CORPUSCULAR VOLUME 88.8 fL (80.0-94.0); MEAN PLATELET VOLUME 10.4 fl (7.4-10.4); RED CELL DISTRIBUTION WIDTH 17.7 % (11.6-14.6)
[2019-05-06 07:39] LABS: CHLORIDE 115 mEq/L (98-107)
[2019-05-06] MEDS: PROPRANOLOL HCL 10MG TABLET PO SCH ×2 (08:26→22:14)
[2019-05-06] MEDS: MORPHINE SULFATE 2 MG/ML CPJ (NOT FOR IM USE) IV PRN ×2 (08:31→22:15)
[2019-05-06] MEDS: ONDANSETRON HCL 4MG/2ML INJ IV PRN ×2 (10:10→22:15)
[2019-05-06] MEDS: LORAZEPAM 2MG/ML CPJ IV PRN (11:35)
[2019-05-06 21:03] LABS: PLATELET ESTIMATE MARKEDLY DECREASED
[2019-05-06 21:07] LABS: PLATELET 14 x1000/uL (130-400)
[2019-05-06] MEDS: MVI, ADULT NO.1 10 ML, FOLIC ACID 1 MG, THIAMINE HCL 100 MG in SODIUM CHLORIDE 0.9% 1,0... IV SCH ×4 (22:13)
[2019-05-07] VITALS: BP 133/71
[2019-05-07] MEDS: PANTOPRAZOLE SODIUM 40 MG/VIAL IV SCH ×2 (03:16→13:36)
[2019-05-07 04:00] VITALS: BP 136/69
[2019-05-07] MEDS: SODIUM CHLORIDE 0.9% INJ 3ML FLUSH IVF SCH ×3 (06:31→21:46)
[2019-05-07 07:58] LABS: CHLORIDE 106 mEq/L (98-107)
[2019-05-07] MEDS: MORPHINE SULFATE 2 MG/ML CPJ (NOT FOR IM USE) IV PRN (08:00)
[2019-05-07] MEDS: PROPRANOLOL HCL 10MG TABLET PO SCH ×2 (08:00→21:42)
[2019-05-07 08:11] VITALS: BP 131/71
[2019-05-07 08:18] LABS: HEMATOCRIT. 25.5 % (42.0-52.0); HEMOGLOBIN. 8.3 g/dL (14.0-18.0); MEAN CORPUSCULAR HEMOGLOBIN 28.8 pg (28.0-32.0); MEAN CORPUSCULAR VOLUME 88.3 fL (80.0-94.0); RED BLOOD CELL COUNT 2.89 mill/uL (4.7-6.1); RED CELL DISTRIBUTION WIDTH 17.4 % (11.6-14.6)
[2019-05-07 09:04] LABS: PLATELET 17 x1000/uL (130-400)
[2019-05-07] MEDS ORDERED: POTASSIUM CHLORIDE 20MEQ TABLET SR PO NR (09:30)
[2019-05-07] MEDS: ONDANSETRON HCL 4MG/2ML INJ IV PRN (09:37)
[2019-05-07] MEDS: SODIUM CHLORIDE 0.45% 1,000 ML IV SCH ×2 (09:37→19:18)
[2019-05-07 10:37] LABS: PLATELET ESTIMATE MARKEDLY DECREASED
[2019-05-07 12:09] VITALS: BP 131/71
[2019-05-07 14:21] LABS: TOTAL IRON BINDING CAPACITY 311 ug/dL (250-450)
[2019-05-07 15:58] VITALS: BP 115/68
[2019-05-07 20:00] VITALS: BP 140/76
[2019-05-07] MEDS: MVI, ADULT NO.1 10 ML, FOLIC ACID 1 MG, THIAMINE HCL 100 MG in SODIUM CHLORIDE 0.9% 1,0... IV SCH ×4 (23:09)
[2019-05-08] VITALS (9 sets, daily range): BP systolic 96–138; BP diastolic 41–86
[2019-05-08] MEDS: LORAZEPAM 2MG/ML CPJ IV PRN ×9 (02:12→19:36)
[2019-05-08] MEDS: DIPHENHYDRAMINE 50MG/ML VIAL IV PRN (02:13)
[2019-05-08] MEDS: PANTOPRAZOLE SODIUM 40 MG/VIAL IV SCH ×2 (02:13→14:53)
[2019-05-08] MEDS ORDERED: LORAZEPAM 2MG/ML CPJ IV SCH (03:15)
[2019-05-08] MEDS: SODIUM CHLORIDE 0.45% 1,000 ML IV SCH ×2 (04:42→15:47)
[2019-05-08] MEDS: SODIUM CHLORIDE 0.9% INJ 3ML FLUSH IVF SCH ×3 (04:44→22:27)
[2019-05-08 07:17] LABS: BASOPHILS % 0.2 % (0.0-2.0); EOSINOPHILS % 0.1 % (0.0-5.0); HEMATOCRIT. 32.8 % (42.0-52.0); HEMOGLOBIN. 10.7 g/dL (14.0-18.0); LYMPHOCYTES % 7.9 % (20.0-50.0); MEAN CORPUSCULAR HEMOGLOBIN 28.5 pg (28.0-32.0); MEAN CORPUSCULAR VOLUME 87.7 fL (80.0-94.0); MEAN PLATELET VOLUME 9.3 fl (7.4-10.4); MONOCYTES % 11.2 % (2.0-8.0); NEUTROPHILS % 80.6 % (40.0-76.0); PLATELET 54 x1000/uL (130-400); RED BLOOD CELL COUNT 3.74 mill/uL (4.7-6.1); RED CELL DISTRIBUTION WIDTH 17.9 % (11.6-14.6)
[2019-05-08 07:21] LABS: CHLORIDE 106 mEq/L (98-107)
[2019-05-08] MEDS: PROPRANOLOL HCL 10MG TABLET PO SCH ×2 (09:00→21:00)
[2019-05-08] MEDS: LACTULOSE 20G/30ML UDC PO SCH ×2 (14:00→22:00)
[2019-05-08] MEDS: CHLORDIAZEPOXIDE 5 MG CAPSULE PO SCH ×2 (14:00→22:00)
[2019-05-08] MEDS: RIFAXIMIN 550 MG TABLET PO SCH ×2 (14:00→21:00)
[2019-05-08] MEDS ORDERED: LACTULOSE 300 ML in WATER FOR IRRIGATION,STERILE 700 ML IR SCH (21:30)
[2019-05-08] MEDS ORDERED: PHENYTOIN SODIUM 500 MG in SODIUM CHLORIDE 0.9% 100 ML IV SCH (23:00)
[2019-05-08] MEDS: MVI, ADULT NO.1 10 ML, FOLIC ACID 1 MG, THIAMINE HCL 100 MG in SODIUM CHLORIDE 0.9% 1,0... IV SCH ×4 (23:26)
[2019-05-09] VITALS (12 sets, daily range): BP systolic 95–136; BP diastolic 60–97
[2019-05-09] MEDS: LORAZEPAM 2MG/ML CPJ IV PRN ×8 (00:46→23:24)
[2019-05-09] MEDS: SODIUM CHLORIDE 0.45% 1,000 ML IV SCH (01:44)
[2019-05-09] MEDS: PANTOPRAZOLE SODIUM 40 MG/VIAL IV SCH ×2 (02:55→13:08)
[2019-05-09] MEDS: DIPHENHYDRAMINE 50MG/ML VIAL IV PRN ×2 (02:55→22:00)
[2019-05-09] MEDS: ONDANSETRON HCL 4MG/2ML INJ IV PRN ×2 (03:59→23:24)
[2019-05-09] MEDS: CHLORDIAZEPOXIDE 5 MG CAPSULE PO SCH ×3 (05:00→20:56)
[2019-05-09] MEDS: LACTULOSE 20G/30ML UDC PO SCH ×3 (05:00→17:42)
[2019-05-09] MEDS: SODIUM CHLORIDE 0.9% INJ 3ML FLUSH IVF SCH ×3 (05:00→20:58)
[2019-05-09 07:23] LABS: BASOPHILS % 0.7 % (0.0-2.0); EOSINOPHILS % 0.5 % (0.0-5.0); HEMATOCRIT. 29.6 % (42.0-52.0); HEMOGLOBIN. 9.6 g/dL (14.0-18.0); MEAN CORPUSCULAR HEMOGLOBIN 28.8 pg (28.0-32.0); MEAN CORPUSCULAR VOLUME 88.6 fL (80.0-94.0); MEAN PLATELET VOLUME 8.9 fl (7.4-10.4); MONOCYTES % 14.8 % (2.0-8.0); RED BLOOD CELL COUNT 3.34 mill/uL (4.7-6.1); RED CELL DISTRIBUTION WIDTH 18.3 % (11.6-14.6)
[2019-05-09 07:25] LABS: CHLORIDE 118 mEq/L (98-107)
[2019-05-09] MEDS ORDERED: POTASSIUM CHLORIDE INJ 40 MEQ in DEXT 5% WATER 250 ML IV ONE (08:00)
[2019-05-09 08:03] LABS: PLATELET 48 x1000/uL (130-400)
[2019-05-09] MEDS ORDERED: POTASSIUM CHLORIDE 20MEQ/PACKET NG SCH (08:30)
[2019-05-09] MEDS: RIFAXIMIN 550 MG TABLET PO SCH ×2 (09:04→20:59)
[2019-05-09] MEDS: PROPRANOLOL HCL 10MG TABLET PO SCH ×2 (09:04→20:55)
[2019-05-09] MEDS ORDERED: POTASSIUM CHLORIDE 20MEQ/PACKET PO NR (10:13)
[2019-05-09] MEDS: DEXT 5%/0.45% NACL 1000ML 1,000 ML IV SCH ×2 (10:18→21:20)
[2019-05-09 15:50] LABS: PLATELET ESTIMATE MARKEDLY DECREASED
[2019-05-09] MEDS: MVI, ADULT NO.1 10 ML, FOLIC ACID 1 MG, THIAMINE HCL 100 MG in SODIUM CHLORIDE 0.9% 1,0... IV SCH ×4 (20:59)
[2019-05-10] VITALS (16 sets, daily range): BP systolic 106–143; BP diastolic 54–92
[2019-05-10] MEDS: PANTOPRAZOLE SODIUM 40 MG/VIAL IV SCH ×2 (00:39→16:56)
[2019-05-10] MEDS: LORAZEPAM 2MG/ML CPJ IV PRN ×3 (02:12→16:56)
[2019-05-10] MEDS: DIPHENHYDRAMINE 50MG/ML VIAL IV PRN (02:13)
[2019-05-10] MEDS: SODIUM CHLORIDE 0.9% INJ 3ML FLUSH IVF SCH ×3 (04:29→22:23)
[2019-05-10] MEDS: CHLORDIAZEPOXIDE 5 MG CAPSULE PO SCH ×3 (04:29→22:22)
[2019-05-10 06:30] LABS: CHLORIDE 126 mEq/L (98-107)
[2019-05-10 07:13] LABS: HEMATOCRIT. 29.3 % (42.0-52.0); HEMOGLOBIN. 9.2 g/dL (14.0-18.0); MEAN CORPUSCULAR HEMOGLOBIN 28.6 pg (28.0-32.0); MEAN CORPUSCULAR VOLUME 91.3 fL (80.0-94.0); MEAN PLATELET VOLUME 8.7 fl (7.4-10.4); RED BLOOD CELL COUNT 3.21 mill/uL (4.7-6.1); RED CELL DISTRIBUTION WIDTH 19.5 % (11.6-14.6)
[2019-05-10] MEDS ORDERED: POTASSIUM CHLORIDE 20MEQ TABLET SR PO NR (08:30)
[2019-05-10] MEDS: LACTULOSE 20G/30ML UDC PO SCH ×2 (08:42→16:55)
[2019-05-10] MEDS: PROPRANOLOL HCL 10MG TABLET PO SCH ×2 (08:44→20:31)
[2019-05-10] MEDS: DOCUSATE SODIUM 100MG CAPSULE PO PRN (08:45)
[2019-05-10 09:00] LABS: PLATELET 42 x1000/uL (130-400)
[2019-05-10] MEDS: RIFAXIMIN 550 MG TABLET PO SCH ×2 (09:01→20:29)
[2019-05-10] MEDS: DEXTROSE 5% WATER 1,000 ML IV SCH (09:05)
[2019-05-10 11:41] LABS: ATYPICAL LYMPHOCYTES 1; PLATELET ESTIMATE MARKEDLY DECREASED
[2019-05-10] MEDS: MVI, ADULT NO.1 10 ML, FOLIC ACID 1 MG, THIAMINE HCL 100 MG in SODIUM CHLORIDE 0.9% 1,0... IV SCH ×4 (20:30)
[2019-05-10] MEDS: ONDANSETRON HCL 4MG/2ML INJ IV PRN (20:32)
[2019-05-11] VITALS (12 sets, daily range): BP systolic 88–125; BP diastolic 50–86
[2019-05-11] MEDS: PANTOPRAZOLE SODIUM 40 MG/VIAL IV SCH ×2 (01:08→14:14)
[2019-05-11] MEDS: LORAZEPAM 2MG/ML CPJ IV PRN ×2 (01:08→08:55)
[2019-05-11] MEDS: CHLORDIAZEPOXIDE 5 MG CAPSULE PO SCH ×2 (06:05→14:14)
[2019-05-11] MEDS: SODIUM CHLORIDE 0.9% INJ 3ML FLUSH IVF SCH ×2 (06:06→14:14)
[2019-05-11] MEDS: DEXTROSE 5% WATER 1,000 ML IV SCH ×2 (06:07→11:18)
[2019-05-11 07:52] LABS: HEMOGLOBIN. 9.5 g/dL (14.0-18.0); MEAN CORPUSCULAR HEMOGLOBIN 28.8 pg (28.0-32.0); MEAN CORPUSCULAR VOLUME 90.6 fL (80.0-94.0); MEAN PLATELET VOLUME 8.8 fl (7.4-10.4); RED BLOOD CELL COUNT 3.31 mill/uL (4.7-6.1); RED CELL DISTRIBUTION WIDTH 19.3 % (11.6-14.6)
[2019-05-11 08:10] LABS: CHLORIDE 119 mEq/L (98-107)
[2019-05-11 08:23] LABS: PLATELET 36 x1000/uL (130-400)
[2019-05-11] MEDS: LACTULOSE 20G/30ML UDC PO SCH ×2 (08:55→16:47)
[2019-05-11] MEDS: PROPRANOLOL HCL 10MG TABLET PO SCH ×2 (08:56→20:59)
[2019-05-11] MEDS: RIFAXIMIN 550 MG TABLET PO SCH ×2 (08:56→20:59)
[2019-05-11 09:11] LABS: NUCLEATED RED BLOOD CELLS 1 /100 WBC; PLATELET ESTIMATE MARKEDLY DECREASED
[2019-05-11] MEDS ORDERED: POTASSIUM CHLORIDE INJ 40 MEQ in DEXT 5% WATER 250 ML IV SCH (11:00)
[2019-05-11] MEDS: MVI, ADULT NO.1 10 ML, FOLIC ACID 1 MG, THIAMINE HCL 100 MG in SODIUM CHLORIDE 0.9% 1,0... IV SCH ×4 (20:39)
[2019-05-12] VITALS (11 sets, daily range): BP systolic 98–122; BP diastolic 60–78
[2019-05-12] MEDS: PANTOPRAZOLE SODIUM 40 MG/VIAL IV SCH ×2 (02:53→14:39)
[2019-05-12] MEDS: SODIUM CHLORIDE 0.9% INJ 3ML FLUSH IVF SCH ×4 (05:34→20:54)
[2019-05-12] MEDS: PROPRANOLOL HCL 10MG TABLET PO SCH ×2 (08:44→20:52)
[2019-05-12] MEDS: CHLORDIAZEPOXIDE 5 MG CAPSULE PO SCH ×2 (08:50→16:54)
[2019-05-12] MEDS: RIFAXIMIN 550 MG TABLET PO SCH ×2 (08:50→20:52)
[2019-05-12] MEDS: LACTULOSE 20G/30ML UDC PO SCH ×2 (08:51→16:55)
[2019-05-12 08:59] LABS: BASOPHILS % 0.7 % (0.0-2.0); EOSINOPHILS % 0.9 % (0.0-5.0); HEMOGLOBIN. 9.6 g/dL (14.0-18.0); LYMPHOCYTES % 15.7 % (20.0-50.0); MEAN CORPUSCULAR HEMOGLOBIN 28.4 pg (28.0-32.0); MEAN CORPUSCULAR VOLUME 88.5 fL (80.0-94.0); MEAN PLATELET VOLUME 9.5 fl (7.4-10.4); MONOCYTES % 11.6 % (2.0-8.0); NEUTROPHILS % 71.1 % (40.0-76.0); RED BLOOD CELL COUNT 3.39 mill/uL (4.7-6.1); RED CELL DISTRIBUTION WIDTH 20.1 % (11.6-14.6)
[2019-05-12 09:04] LABS: CHLORIDE 111 mEq/L (98-107)
[2019-05-12 09:05] LABS: PLATELET 37 x1000/uL (130-400)
[2019-05-12] MEDS ORDERED: POTASSIUM CHLORIDE 20MEQ/PACKET NG NR (09:45)
[2019-05-12] MEDS ORDERED: POTASSIUM CHLORIDE INJ 40 MEQ in DEXT 5% WATER 250 ML IV ONE (11:30)
[2019-05-12 12:23] LABS: PLATELET ESTIMATE MARKEDLY DECREASED
[2019-05-12] MEDS ORDERED: MAGNESIUM 2 G PREMIX 50 ML IV NR (14:00)
[2019-05-12] MEDS: DEXTROSE 5% WATER 1,000 ML IV SCH (14:39)
[2019-05-12] MEDS: MVI, ADULT NO.1 10 ML, FOLIC ACID 1 MG, THIAMINE HCL 100 MG in SODIUM CHLORIDE 0.9% 1,0... IV SCH ×4 (21:39)
[2019-05-13] VITALS (16 sets, daily range): BP systolic 103–130; BP diastolic 53–78
[2019-05-13] MEDS: PANTOPRAZOLE SODIUM 40 MG/VIAL IV SCH ×2 (03:31→13:55)
[2019-05-13] MEDS: SODIUM CHLORIDE 0.9% INJ 3ML FLUSH IVF SCH ×3 (06:27→22:00)
[2019-05-13 06:52] LABS: HEMATOCRIT. 27.5 % (42.0-52.0); HEMOGLOBIN. 8.9 g/dL (14.0-18.0); MEAN CORPUSCULAR HEMOGLOBIN 29.2 pg (28.0-32.0); MEAN CORPUSCULAR VOLUME 89.8 fL (80.0-94.0); MEAN PLATELET VOLUME 10.5 fl (7.4-10.4); RED BLOOD CELL COUNT 3.06 mill/uL (4.7-6.1); RED CELL DISTRIBUTION WIDTH 20.5 % (11.6-14.6)
[2019-05-13 07:15] LABS: CHLORIDE 108 mEq/L (98-107)
[2019-05-13 07:36] LABS: PLATELET 16 x1000/uL (130-400)
[2019-05-13] MEDS: CHLORDIAZEPOXIDE 5 MG CAPSULE PO SCH ×2 (08:49→16:51)
[2019-05-13] MEDS: RIFAXIMIN 550 MG TABLET PO SCH ×2 (08:49→23:26)
[2019-05-13] MEDS: PROPRANOLOL HCL 10MG TABLET PO SCH ×2 (08:49→23:21)
[2019-05-13] MEDS: LACTULOSE 20G/30ML UDC PO SCH ×2 (08:50→16:52)
[2019-05-13 10:24] LABS: PLATELET ESTIMATE MARKEDLY DECREASED
[2019-05-13] MEDS ORDERED: POTASSIUM CHLORIDE 20MEQ TABLET SR PO NR (11:00)
[2019-05-13] MEDS: ACETAMINOPHEN 325MG TABLET PO PRN ×2 (12:20→19:52)
[2019-05-13] MEDS: DEXTROSE 5% WATER 1,000 ML IV SCH ×2 (15:22→15:47)
[2019-05-13] MEDS: MVI, ADULT NO.1 10 ML, FOLIC ACID 1 MG, THIAMINE HCL 100 MG in SODIUM CHLORIDE 0.9% 1,0... IV SCH ×4 (23:22)
[2019-05-14] VITALS (12 sets, daily range): BP systolic 99–138; BP diastolic 54–88
[2019-05-14] MEDS: PANTOPRAZOLE SODIUM 40 MG/VIAL IV SCH ×2 (02:19→13:49)
[2019-05-14] MEDS: LEVOFLOXACIN 500MG PREMIX 100 ML IV SCH (02:19)
[2019-05-14] MEDS: SODIUM CHLORIDE 0.9% INJ 3ML FLUSH IVF SCH ×3 (05:01→20:46)
[2019-05-14] MEDS: DEXTROSE 5% WATER 1,000 ML IV SCH (05:44)
[2019-05-14 07:22] LABS: CHLORIDE 102 mEq/L (98-107)
[2019-05-14 07:53] LABS: BASOPHILS % 0.5 % (0.0-2.0); EOSINOPHILS % 0.1 % (0.0-5.0); HEMATOCRIT. 30.5 % (42.0-52.0); HEMOGLOBIN. 9.9 g/dL (14.0-18.0); MEAN CORPUSCULAR HEMOGLOBIN 28.9 pg (28.0-32.0); MEAN CORPUSCULAR VOLUME 89.1 fL (80.0-94.0); MEAN PLATELET VOLUME 10.7 fl (7.4-10.4); MONOCYTES % 13.2 % (2.0-8.0); NEUTROPHILS % 77.2 % (40.0-76.0); RED BLOOD CELL COUNT 3.42 mill/uL (4.7-6.1); RED CELL DISTRIBUTION WIDTH 20.1 % (11.6-14.6)
[2019-05-14 08:15] LABS: PLATELET 45 x1000/uL (130-400)
[2019-05-14] MEDS: CHLORDIAZEPOXIDE 5 MG CAPSULE PO SCH ×2 (08:44→16:30)
[2019-05-14] MEDS: PROPRANOLOL HCL 10MG TABLET PO SCH ×2 (08:44→20:46)
[2019-05-14] MEDS: RIFAXIMIN 550 MG TABLET PO SCH ×2 (08:44→20:46)
[2019-05-14] MEDS: ACETAMINOPHEN 325MG TABLET PO PRN (08:45)
[2019-05-14] MEDS: LACTULOSE 20G/30ML UDC PO SCH ×2 (08:46→16:31)
[2019-05-14] MEDS: DEXT 5%/0.45% NACL 1000ML 1,000 ML IV SCH (16:31)
[2019-05-14] MEDS: MVI, ADULT NO.1 10 ML, FOLIC ACID 1 MG, THIAMINE HCL 100 MG in SODIUM CHLORIDE 0.9% 1,0... IV SCH ×4 (20:46)
[2019-05-15] VITALS (12 sets, daily range): BP systolic 78–117; BP diastolic 37–72
[2019-05-15] MEDS: PANTOPRAZOLE SODIUM 40 MG/VIAL IV SCH ×2 (01:17→15:54)
[2019-05-15] MEDS: LEVOFLOXACIN 500MG PREMIX 100 ML IV SCH (01:18)
[2019-05-15] MEDS: SODIUM CHLORIDE 0.9% INJ 3ML FLUSH IVF SCH ×3 (05:06→21:31)
[2019-05-15] MEDS: PROPRANOLOL HCL 10MG TABLET PO SCH ×2 (09:00→21:00)
[2019-05-15] MEDS: LACTULOSE 20G/30ML UDC PO SCH ×2 (09:20→17:29)
[2019-05-15] MEDS: DOCUSATE SODIUM 100MG CAPSULE PO PRN (09:20)
[2019-05-15] MEDS: CHLORDIAZEPOXIDE 5 MG CAPSULE PO SCH ×2 (09:20→17:29)
[2019-05-15] MEDS: ACETAMINOPHEN 325MG TABLET PO PRN (09:22)
[2019-05-15] MEDS: RIFAXIMIN 550 MG TABLET PO SCH ×2 (09:29→21:31)
[2019-05-15] MEDS: MVI, ADULT NO.1 10 ML, FOLIC ACID 1 MG, THIAMINE HCL 100 MG in SODIUM CHLORIDE 0.9% 1,0... IV SCH ×4 (21:31)
[2019-05-16] VITALS (10 sets, daily range): BP systolic 89–123; BP diastolic 49–78
[2019-05-16] MEDS: PANTOPRAZOLE SODIUM 40 MG/VIAL IV SCH ×2 (02:06→13:53)
[2019-05-16] MEDS: LEVOFLOXACIN 500MG PREMIX 100 ML IV SCH (02:06)
[2019-05-16] MEDS: ONDANSETRON HCL 4MG/2ML INJ IV PRN (03:34)
[2019-05-16] MEDS: SODIUM CHLORIDE 0.9% INJ 3ML FLUSH IVF SCH ×2 (05:27→14:00)
[2019-05-16] MEDS: DEXT 5%/0.45% NACL 1000ML 1,000 ML IV SCH (07:48)
[2019-05-16] MEDS: RIFAXIMIN 550 MG TABLET PO SCH (08:36)
[2019-05-16] MEDS: CHLORDIAZEPOXIDE 5 MG CAPSULE PO SCH ×2 (08:36→16:35)
[2019-05-16] MEDS: LACTULOSE 20G/30ML UDC PO SCH ×2 (08:36→16:35)
[2019-05-16] MEDS: PROPRANOLOL HCL 10MG TABLET PO SCH (09:00)
== END 2019-05-16 17:15 | disposition home or self-care (01) | DRG 282 ==
LOC: ER 09:55 → 6WST 14:59 → EDBEDREQ 15:02 → ENRESERV 16:54 → CANRESERV 16:54 → ENRESERV 17:21 → 5EST 05-08 16:05
PROVIDERS: ADMIT Internal Medicine; ATTEND Internal Medicine
PROC: 30233N1 Transfusion of Nonautologous Red Blood Cells into Peripheral Vein, Percutaneous Approach (ICD-10-PCS; 2019-05-06)
PROC: 30233R1 Transfusion of Nonautologous Platelets into Peripheral Vein, Percutaneous Approach (ICD-10-PCS; principal; 2019-05-13)
DX: K85.20 Alcohol induced acute pancreatitis without necrosis or infection (principal); D61.818 Other pancytopenia; F10.231 Alcohol dependence with withdrawal delirium; E46 Unspecified protein-calorie malnutrition; E72.20 Disorder of urea cycle metabolism, unspecified; K29.20 Alcoholic gastritis without bleeding; D69.6 Thrombocytopenia, unspecified; E88.09 Other disorders of plasma-protein metabolism, not elsewhere classified; G31.2 Degeneration of nervous system due to alcohol; K76.6 Portal hypertension; F10.229 Alcohol dependence with intoxication, unspecified; K70.30 Alcoholic cirrhosis of liver without ascites; E87.6 Hypokalemia; K64.9 Unspecified hemorrhoids; I10 Essential (primary) hypertension; D63.8 Anemia in other chronic diseases classified elsewhere; K29.50 Unspecified chronic gastritis without bleeding; K59.00 Constipation, unspecified; F17.210 Nicotine dependence, cigarettes, uncomplicated; Y90.8 Blood alcohol level of 240 mg/100 ml or more; S90.512A Abrasion, left ankle, initial encounter; W18.39XA Other fall on same level, initial encounter; E87.0 Hyperosmolality and hypernatremia; G47.00 Insomnia, unspecified; G62.1 Alcoholic polyneuropathy; Z88.9 Allergy status to unspecified drugs, medicaments and biological substances; Y93.89 Activity, other specified; Y92.89 Other specified places as the place of occurrence of the external cause; Y99.8 Other external cause status; Z59.0 Homelessness; Z88.6 Allergy status to analgesic agent; Z68.25 Body mass index [BMI] 25.0-25.9, adult
CPT/HCPCS: 36415; 80048; 80305; 80320; 82140; 82270; 82728; 82962; 83540; 83550; 83605; 83735; 86850; 86900; 86920; 90686; 92610; 95816; 96361; 96374; 96376; 99285; C9113; J1165; J1200; J1956; J2060; J2270; J2405; J3411; J3475; J3480; J3490; J7030; J7040; J7050; J7060; J7070; P9016; P9034; G0480

== ENCOUNTER 2019-06-13 10:04 | Emergency (ER) | payer MEDICAID, OTHER ==
[~2019-06-13] VITALS: Ht 157.5 cm; Wt 54.0 kg
[2019-06-13 12:48] VITALS: BP 131/74
== END 2019-06-13 13:04 | disposition home or self-care (01) ==
LOC: ER 10:04
DX: L03.115 Cellulitis of right lower limb (principal); I10 Essential (primary) hypertension; F15.10 Other stimulant abuse, uncomplicated; F10.20 Alcohol dependence, uncomplicated; Z87.891 Personal history of nicotine dependence; Z88.6 Allergy status to analgesic agent; Z88.3 Allergy status to other anti-infective agents; Y90.9 Presence of alcohol in blood, level not specified; Z79.899 Other long term (current) drug therapy
CPT/HCPCS: 99282; 99283

== ENCOUNTER 2019-06-19 14:08 | Emergency (ER) | payer OTHER ==
[~2019-06-19] VITALS: Ht 165.1 cm; Wt 90.0 kg
[2019-06-19] MEDS ORDERED: FAMOTIDINE 20MG/2ML VIAL IV STA (21:47)
[2019-06-19] MEDS ORDERED: SODIUM CHLORIDE 0.9% 1,000 ML IV ONE (21:47)
[2019-06-19] MEDS ORDERED: ONDANSETRON HCL 4MG/2ML INJ IV STA (21:47)
[2019-06-19 22:33] LABS: HEMATOCRIT. 28.3 % (42.0-52.0); HEMOGLOBIN. 9.2 g/dL (14.0-18.0); MEAN CORPUSCULAR HEMOGLOBIN 28.3 pg (28.0-32.0); MEAN PLATELET VOLUME 8.5 fl (7.4-10.4); RED BLOOD CELL COUNT 3.25 mill/uL (4.7-6.1); RED CELL DISTRIBUTION WIDTH 20.1 % (11.6-14.6)
[2019-06-19 22:37] LABS: CHLORIDE 113 mEq/L (98-107); INR 1.2; PLATELET 19 x1000/uL (130-400); PROTHROMBIN TIME 12.5 sec (9.6-11.0)
[2019-06-19 22:42] LABS: ETHANOL BLOOD 166 mg/dL
[2019-06-19 22:53] LABS: PLATELET ESTIMATE MARKEDLY DECREASED
[2019-06-19 23:54] VITALS: BP 141/71
== END 2019-06-19 23:35 | disposition home or self-care (01) ==
LOC: ER 14:08
DX: F10.129 Alcohol abuse with intoxication, unspecified (principal); Y90.6 Blood alcohol level of 120-199 mg/100 ml; G89.29 Other chronic pain; R10.13 Epigastric pain; D61.818 Other pancytopenia
CPT/HCPCS: 36415; 80053; 80320; 83690; 85025; 85610; 86850; 86900; 86901; 96374; 96375; 99283; J2405; J3490; J7030; Z7610; G0480

== ENCOUNTER 2019-07-05 11:45 | Inpatient (IN) | payer OTHER ==
[~2019-07-05] VITALS: Ht 162.6 cm; Wt 68.9 kg
[~2019-07-05 11:45] MED LIST changes: -TRAZ-213 MT; +TRAZ-252 MT
[2019-07-05] MEDS ORDERED: SODIUM CHLORIDE 0.9% 1,000 ML IV ONE (22:06)
[2019-07-05] MEDS ORDERED: ONDANSETRON HCL 4MG/2ML INJ IV STA (22:06)
[2019-07-05] MEDS ORDERED: MORPHINE SULFATE 4 MG/ML CPJ (NOT FOR IM USE) IV STA (22:06)
[2019-07-05 23:08] LABS: HEMATOCRIT. 29.4 % (42.0-52.0); HEMOGLOBIN. 9.6 g/dL (14.0-18.0); MEAN CORPUSCULAR HEMOGLOBIN 27.4 pg (28.0-32.0); MEAN PLATELET VOLUME 8.8 fl (7.4-10.4); RED CELL DISTRIBUTION WIDTH 17.5 % (11.6-14.6)
[2019-07-05 23:11] LABS: PLATELET 13 x1000/uL (130-400)
[2019-07-05 23:12] LABS: INR 1.3; PARTIAL THROMBOPLASTIN TIME 31.3 sec (23.4-31.0); PROTHROMBIN TIME 13.3 sec (9.6-11.0)
[2019-07-05 23:13] LABS: CHLORIDE 111 mEq/L (98-107)
[2019-07-05 23:28] LABS: PLATELET ESTIMATE MARKEDLY DECREASED
[2019-07-05] MEDS ORDERED: PANTOPRAZOLE SODIUM 40 MG/VIAL IV ONE (23:30)
[2019-07-05 23:45] LABS: CLARITY URINE CLEAR (CLEAR); COLOR URINE DARK YELLOW (YELLOW); KETONES URINE 1+ (NEGATIVE); LEUKOCYTE ESTERASE URINE NEGATIVE (NEGATIVE); NITRITE URINE NEGATIVE (NEGATIVE); OCCULT BLOOD URINE TRACE (NEGATIVE); PH URINE 6.5 (4.5-8.0); PROTEIN URINE TRACE (NEGATIVE); SPECIFIC GRAVITY URINE 1.022 (1.005-1.030)
[2019-07-06 05:27] LABS: HEMATOCRIT 27.6 % (42.0-52.0); HEMOGLOBIN 9.1 g/dL (14.0-18.0); MEAN CORPUSCULAR HEMOGLOBIN 27.7 pg (28.0-32.0); MEAN CORPUSCULAR VOLUME 84.5 fL (80.0-94.0); RED BLOOD CELL COUNT 3.27 mill/uL (4.7-6.1); RED CELL DISTRIBUTION WIDTH 17.1 % (11.6-14.6)
[2019-07-06 05:36] LABS: PLATELET 17 x1000/uL (130-400)
[2019-07-06 16:00] VITALS: BP 145/75
[2019-07-06] MEDS ORDERED: ONDANSETRON HCL 4MG/2ML INJ IV PRN (16:30)
[2019-07-06] MEDS: PANTOPRAZOLE SODIUM 40 MG/VIAL IV SCH (17:36)
[2019-07-06 18:00] VITALS: BP 140/72
[2019-07-06] MEDS ORDERED: MVI, ADULT NO.1 10 ML, FOLIC ACID 1 MG, THIAMINE HCL 100 MG in SODIUM CHLORIDE 0.9% 1,0... IV SCH ×4 (18:00)
[2019-07-06 20:00] VITALS: BP 116/56
[2019-07-06] MEDS ORDERED: PNEUMOCOCCAL 23-VAL P-SAC VAC 0.5 ML IM ONE (21:00)
[2019-07-06] MEDS ORDERED: INFLUENZA VIRUS VACCINE(AFLURIA) 0.5ML SYR IM ONE (21:00)
[2019-07-06] MEDS ORDERED: ZOLPIDEM TARTRATE 5MG TABLET PO PRN (23:00)
[2019-07-07 00:45] VITALS: BP 123/73
[2019-07-07 04:00] VITALS: BP 122/63
[2019-07-07 07:44] LABS: HEMATOCRIT. 26.9 % (42.0-52.0); HEMOGLOBIN. 8.9 g/dL (14.0-18.0); MEAN CORPUSCULAR HEMOGLOBIN 27.6 pg (28.0-32.0); MEAN CORPUSCULAR VOLUME 83.6 fL (80.0-94.0); RED BLOOD CELL COUNT 3.21 mill/uL (4.7-6.1); RED CELL DISTRIBUTION WIDTH 16.6 % (11.6-14.6)
[2019-07-07 08:00] VITALS: BP 117/55
[2019-07-07 08:32] LABS: PLATELET 17 x1000/uL (130-400)
[2019-07-07] MEDS: PANTOPRAZOLE SODIUM 40 MG/VIAL IV SCH (09:13)
[2019-07-07] MEDS: MORPHINE SULFATE 2 MG/ML CPJ (NOT FOR IM USE) IV PRN (11:41)
[2019-07-07 12:08] VITALS: BP 102/51
[2019-07-07 13:02] LABS: PLATELET ESTIMATE MARKEDLY DECREASED
[2019-07-07 15:12] VITALS: BP 94/44
[2019-07-07 20:00] VITALS: BP 113/67
[2019-07-07] MEDS ORDERED: TRAZODONE HCL 50MG TABLET PO SCH (21:00)
[2019-07-08] VITALS: BP 112/59
[2019-07-08] MEDS: MORPHINE SULFATE 2 MG/ML CPJ (NOT FOR IM USE) IV PRN ×2 (03:25→11:15)
[2019-07-08 04:00] VITALS: BP 112/53
[2019-07-08 07:41] LABS: BASOPHILS % 0.4 % (0.0-2.0); HEMATOCRIT. 27.3 % (42.0-52.0); LYMPHOCYTES % 15.3 % (20.0-50.0); MEAN CORPUSCULAR HEMOGLOBIN 27.7 pg (28.0-32.0); MEAN CORPUSCULAR VOLUME 84.3 fL (80.0-94.0); MONOCYTES % 9.1 % (2.0-8.0); NEUTROPHILS % 74.2 % (40.0-76.0); RED BLOOD CELL COUNT 3.24 mill/uL (4.7-6.1); RED CELL DISTRIBUTION WIDTH 16.5 % (11.6-14.6)
[2019-07-08 07:54] LABS: PLATELET 20 x1000/uL (130-400)
[2019-07-08 07:55] LABS: CHLORIDE 106 mEq/L (98-107)
[2019-07-08 08:00] VITALS: BP 114/59
[2019-07-08] MEDS: PANTOPRAZOLE SODIUM 40 MG/VIAL IV SCH (09:00)
[2019-07-08 12:00] VITALS: BP 118/58
[2019-07-08 16:00] VITALS: BP 111/62
[2019-07-08 16:18] VITALS: BP 111/62
== END 2019-07-08 17:33 | disposition home or self-care (01) | DRG 241 ==
LOC: ER 11:45 → 6WST 07-06 01:02 → EDBEDREQTM 07-06 01:03 → EDBEDREQ 07-06 01:03 → ENRESERV 07-06 13:41
PROVIDERS: ADMIT Internal Medicine; ATTEND Internal Medicine
DX: K29.71 Gastritis, unspecified, with bleeding (principal); D61.818 Other pancytopenia; K70.30 Alcoholic cirrhosis of liver without ascites; E88.09 Other disorders of plasma-protein metabolism, not elsewhere classified; K86.0 Alcohol-induced chronic pancreatitis; R16.1 Splenomegaly, not elsewhere classified; F10.20 Alcohol dependence, uncomplicated; D50.0 Iron deficiency anemia secondary to blood loss (chronic); F17.200 Nicotine dependence, unspecified, uncomplicated; I10 Essential (primary) hypertension; Z95.1 Presence of aortocoronary bypass graft; Z88.6 Allergy status to analgesic agent; Z88.8 Allergy status to other drugs, medicaments and biological substances; Z71.41 Alcohol abuse counseling and surveillance of alcoholic
CPT/HCPCS: 36415; 71045; 74176; 80048; 80053; 80076; 81003; 82270; 85025; 85027; 86850; 86900; 90686; 90732; 93005; 93970; 96374; 99285; C9113; J2270; J2405; J3411; J3490; J7030; J7040

== ENCOUNTER 2019-07-17 15:54 | Emergency (ER) | payer OTHER ==
[~2019-07-17] VITALS: Ht 172.7 cm; Wt 70.0 kg
[~2019-07-17 15:54] MED LIST changes: +TRAZ-213 MT; -TRAZ-252 MT
[2019-07-17] MEDS ORDERED: SODIUM CHLORIDE 0.9% 1,000 ML IV ONE (23:29)
[2019-07-17] MEDS ORDERED: FAMOTIDINE 20MG/2ML VIAL IV STA (23:29)
[2019-07-17] MEDS ORDERED: ONDANSETRON HCL 4MG/2ML INJ IV STA (23:29)
[2019-07-18 00:43] LABS: BASOPHILS % 1.5 % (0.0-2.0); EOSINOPHILS % 0.5 % (0.0-5.0); HEMATOCRIT. 33.3 % (42.0-52.0); HEMOGLOBIN. 10.6 g/dL (14.0-18.0); LYMPHOCYTES % 38.5 % (20.0-50.0); MEAN CORPUSCULAR HEMOGLOBIN 26.4 pg (28.0-32.0); MEAN CORPUSCULAR VOLUME 82.6 fL (80.0-94.0); MEAN PLATELET VOLUME 8.5 fl (7.4-10.4); MONOCYTES % 10.3 % (2.0-8.0); NEUTROPHILS % 49.2 % (40.0-76.0); RED BLOOD CELL COUNT 4.03 mill/uL (4.7-6.1); RED CELL DISTRIBUTION WIDTH 18.2 % (11.6-14.6)
[2019-07-18 00:46] LABS: PLATELET 38 x1000/uL (130-400)
[2019-07-18 00:47] LABS: CHLORIDE 113 mEq/L (98-107)
[2019-07-18 00:48] LABS: INR 1.2; PROTHROMBIN TIME 12.6 sec (9.6-11.0)
[2019-07-18 01:11] LABS: CLARITY URINE CLEAR (CLEAR); COLOR URINE DARK YELLOW (YELLOW); KETONES URINE TRACE (NEGATIVE); LEUKOCYTE ESTERASE URINE NEGATIVE (NEGATIVE); NITRITE URINE NEGATIVE (NEGATIVE); OCCULT BLOOD URINE NEGATIVE (NEGATIVE); PROTEIN URINE TRACE (NEGATIVE); SPECIFIC GRAVITY URINE 1.021 (1.005-1.030)
[2019-07-18 02:30] VITALS: BP 115/61
== END 2019-07-18 02:30 | disposition home or self-care (01) ==
LOC: ER 15:54
DX: K29.20 Alcoholic gastritis without bleeding (principal); R10.9 Unspecified abdominal pain; D61.818 Other pancytopenia; K70.9 Alcoholic liver disease, unspecified; F10.20 Alcohol dependence, uncomplicated; Y90.0 Blood alcohol level of less than 20 mg/100 ml; Z79.899 Other long term (current) drug therapy; Z88.6 Allergy status to analgesic agent; Z88.3 Allergy status to other anti-infective agents
CPT/HCPCS: 36415; 74176; 80053; 81003; 83690; 85025; 85610; 96361; 96374; 96375; 99284; J2405; J3490; J7030

== ENCOUNTER 2019-07-18 16:58 | Emergency (ER) | payer OTHER ==
[~2019-07-18] VITALS: Ht 170.2 cm; Wt 73.0 kg
[~2019-07-18 16:58] MED LIST changes: -TRAZ-213 MT; +TRAZ-252 MT
[2019-07-18 17:01] VITALS: BP 135/73
[2019-07-19] MEDS ORDERED: ONDANSETRON 4MG ODT PO STA (00:17)
[2019-07-19] MEDS ORDERED: VISCOUS LIDOCAINE 2% 15 ML UDC PO ONE (00:30)
[2019-07-19] MEDS ORDERED: MAGNESIUM/ALUMINUM HYDROXIDE/SIMETHICONE 30ML UDC PO ONE (00:30)
== END 2019-07-19 01:14 | disposition home or self-care (01) ==
LOC: ER 16:58
DX: K29.70 Gastritis, unspecified, without bleeding (principal); F10.20 Alcohol dependence, uncomplicated; Y90.9 Presence of alcohol in blood, level not specified
CPT/HCPCS: 99284; Q0162

== ENCOUNTER 2019-07-23 13:45 | Inpatient (IN) | payer OTHER ==
[~2019-07-23] VITALS: Ht 162.6 cm; Wt 68.1 kg
[2019-07-23] MEDS ORDERED: SODIUM CHLORIDE 0.9% 1,000 ML IV ONE (19:33)
[2019-07-23] MEDS ORDERED: ONDANSETRON HCL 4MG/2ML INJ IV STA (19:33)
[2019-07-23] MEDS ORDERED: PANTOPRAZOLE SODIUM 40 MG/VIAL IV STA (19:33)
[2019-07-23] MEDS ORDERED: MORPHINE SULFATE 4 MG/ML CPJ (NOT FOR IM USE) IV STA (19:33)
[2019-07-23 20:31] LABS: BASOPHILS % 0.6 % (0.0-2.0); EOSINOPHILS % 0.3 % (0.0-5.0); HEMATOCRIT. 32.7 % (42.0-52.0); HEMOGLOBIN. 10.4 g/dL (14.0-18.0); LYMPHOCYTES % 31.2 % (20.0-50.0); MEAN CORPUSCULAR HEMOGLOBIN 26.4 pg (28.0-32.0); MEAN CORPUSCULAR VOLUME 82.5 fL (80.0-94.0); MEAN PLATELET VOLUME 10.1 fl (7.4-10.4); MONOCYTES % 7.3 % (2.0-8.0); NEUTROPHILS % 60.6 % (40.0-76.0); RED BLOOD CELL COUNT 3.96 mill/uL (4.7-6.1); RED CELL DISTRIBUTION WIDTH 19.1 % (11.6-14.6)
[2019-07-23 20:37] LABS: CHLORIDE 110 mEq/L (98-107)
[2019-07-23 20:38] LABS: PLATELET 27 x1000/uL (130-400)
[2019-07-23 20:40] LABS: INR 1.3; PARTIAL THROMBOPLASTIN TIME 32.3 sec (23.4-31.0); PROTHROMBIN TIME 13.6 sec (9.6-11.0)
[2019-07-23 23:02] LABS: CLARITY URINE CLEAR (CLEAR); COLOR URINE DK YELLOW (YELLOW); KETONES URINE NEGATIVE (NEGATIVE); LEUKOCYTE ESTERASE URINE NEGATIVE (NEGATIVE); NITRITE URINE NEGATIVE (NEGATIVE); OCCULT BLOOD URINE NEGATIVE (NEGATIVE); PH URINE 6.5 (4.5-8.0); PROTEIN URINE NEGATIVE (NEGATIVE); SPECIFIC GRAVITY URINE 1.016 (1.005-1.030)
[2019-07-24] MEDS ORDERED: ONDANSETRON HCL 4MG/2ML INJ IV PRN (10:15)
[2019-07-24] MEDS: MORPHINE SULFATE 2 MG/ML CPJ (NOT FOR IM USE) IV PRN ×3 (10:28→23:11)
[2019-07-24] MEDS ORDERED: DOCUSATE SODIUM 100MG CAPSULE PO PRN (14:30)
[2019-07-24] MEDS ORDERED: MORPHINE SULFATE 2 MG/ML CPJ (NOT FOR IM USE) IV PRN (14:30)
[2019-07-24] MEDS ORDERED: CLONIDINE 0.1MG TABLET PO PRN (14:30)
[2019-07-24 16:00] VITALS: BP 158/68
[2019-07-24 16:25] VITALS: BP 158/68
[2019-07-24] MEDS: PANTOPRAZOLE SODIUM 40 MG/VIAL IV SCH (17:45)
[2019-07-24] MEDS: ONDANSETRON HCL 4MG/2ML INJ IV PRN ×2 (17:46→23:09)
[2019-07-24] MEDS: SODIUM CHLORIDE 0.9% 1,000 ML IV SCH (18:42)
[2019-07-24 20:00] VITALS: BP 154/57
[2019-07-24 23:34] LABS: CREATINE KINASE 325 IU/L (39-308)
[2019-07-24 23:35] LABS: CREATINE KINASE MB FRACTION 3.9 ng/mL (0.5-3.6)
[2019-07-25] VITALS: BP 149/67
[2019-07-25] MEDS: SODIUM CHLORIDE 0.9% 1,000 ML IV SCH ×3 (01:59→21:36)
[2019-07-25 04:00] VITALS: BP 160/86
[2019-07-25] MEDS: ONDANSETRON HCL 4MG/2ML INJ IV PRN ×4 (06:02→23:35)
[2019-07-25] MEDS: MORPHINE SULFATE 2 MG/ML CPJ (NOT FOR IM USE) IV PRN ×3 (06:03→23:44)
[2019-07-25 06:33] LABS: HEMATOCRIT. 25.9 % (42.0-52.0); HEMOGLOBIN. 8.7 g/dL (14.0-18.0); MEAN CORPUSCULAR HEMOGLOBIN 27.6 pg (28.0-32.0); MEAN CORPUSCULAR VOLUME 82.6 fL (80.0-94.0); MEAN PLATELET VOLUME 10.4 fl (7.4-10.4); RED BLOOD CELL COUNT 3.14 mill/uL (4.7-6.1); RED CELL DISTRIBUTION WIDTH 18.4 % (11.6-14.6)
[2019-07-25 07:18] LABS: CHLORIDE 108 mEq/L (98-107)
[2019-07-25 07:28] LABS: CREATINE KINASE 297 IU/L (39-308)
[2019-07-25 07:30] LABS: CREATINE KINASE MB FRACTION 3.7 ng/mL (0.5-3.6)
[2019-07-25 08:16] LABS: PLATELET 14 x1000/uL (130-400)
[2019-07-25] MEDS: PANTOPRAZOLE SODIUM 40 MG/VIAL IV SCH ×2 (09:44→21:36)
[2019-07-25] MEDS ORDERED: POTASSIUM CHLORIDE INJ 40 MEQ in DEXT 5% WATER 250 ML IV NR (11:30)
[2019-07-25 17:03] LABS: PLATELET ESTIMATE MARKEDLY DECREASED
[2019-07-25 20:00] VITALS: BP 119/58
[2019-07-26] VITALS (10 sets, daily range): BP systolic 117–147; BP diastolic 54–77
[2019-07-26 01:22] LABS: HEMATOCRIT 25.6 % (42.0-52.0); HEMOGLOBIN 8.4 g/dL (14.0-18.0); MEAN CORPUSCULAR HEMOGLOBIN 27.2 pg (28.0-32.0); MEAN CORPUSCULAR VOLUME 83.4 fL (80.0-94.0); RED BLOOD CELL COUNT 3.08 mill/uL (4.7-6.1); RED CELL DISTRIBUTION WIDTH 18.2 % (11.6-14.6)
[2019-07-26 01:47] LABS: PLATELET 16 x1000/uL (130-400)
[2019-07-26 06:05] LABS: HEMATOCRIT. 25.5 % (42.0-52.0); HEMOGLOBIN. 8.4 g/dL (14.0-18.0); MEAN CORPUSCULAR HEMOGLOBIN 27.5 pg (28.0-32.0); MEAN CORPUSCULAR VOLUME 83.2 fL (80.0-94.0); MEAN PLATELET VOLUME 10.5 fl (7.4-10.4); RED BLOOD CELL COUNT 3.07 mill/uL (4.7-6.1); RED CELL DISTRIBUTION WIDTH 18.6 % (11.6-14.6)
[2019-07-26 06:09] LABS: CHLORIDE 107 mEq/L (98-107)
[2019-07-26 06:13] LABS: PLATELET 14 x1000/uL (130-400)
[2019-07-26] MEDS: SODIUM CHLORIDE 0.9% 1,000 ML IV SCH ×2 (06:52→17:12)
[2019-07-26] MEDS: PANTOPRAZOLE SODIUM 40 MG/VIAL IV SCH ×2 (09:24→21:41)
[2019-07-26] MEDS ORDERED: POTASSIUM CHLORIDE 20MEQ TABLET SR PO SCH (10:30)
[2019-07-26 11:22] LABS: PLATELET ESTIMATE MARKEDLY DECREASED
[2019-07-26 12:27] LABS: HEMATOCRIT 25.4 % (42.0-52.0); HEMOGLOBIN 8.4 g/dL (14.0-18.0); MEAN CORPUSCULAR HEMOGLOBIN 27.8 pg (28.0-32.0); MEAN CORPUSCULAR VOLUME 84.4 fL (80.0-94.0); RED BLOOD CELL COUNT 3.02 mill/uL (4.7-6.1); RED CELL DISTRIBUTION WIDTH 18.4 % (11.6-14.6)
[2019-07-26] MEDS: LACTULOSE 20G/30ML UDC PO SCH ×2 (12:34→18:05)
[2019-07-26 12:37] LABS: PLATELET 16 x1000/uL (130-400)
[2019-07-26] MEDS: MORPHINE SULFATE 2 MG/ML CPJ (NOT FOR IM USE) IV PRN (12:57)
[2019-07-26 19:38] LABS: HEMATOCRIT 25.6 % (42.0-52.0); HEMOGLOBIN 8.2 g/dL (14.0-18.0); MEAN CORPUSCULAR HEMOGLOBIN 26.9 pg (28.0-32.0); MEAN CORPUSCULAR VOLUME 83.6 fL (80.0-94.0); RED BLOOD CELL COUNT 3.07 mill/uL (4.7-6.1); RED CELL DISTRIBUTION WIDTH 19.4 % (11.6-14.6)
[2019-07-26 19:45] LABS: PLATELET 22 x1000/uL (130-400)
[2019-07-26] MEDS: FOLIC ACID 1 MG, THIAMINE HCL 100 MG, MVI, ADULT NO.1 10 ML in DEXTROSE 5% WATER 1,000 ML IV SCH ×4 (21:41)
[2019-07-26] MEDS: LORAZEPAM 2MG/ML CPJ IM PRN (21:42)
[2019-07-26] MEDS: CHLORDIAZEPOXIDE 25MG CAPSULE PO SCH (21:42)
[2019-07-26] MEDS ORDERED: HALOPERIDOL LACTATE 5MG/ML VIAL IM PRN (23:15)
[2019-07-26] MEDS ORDERED: DIPHENHYDRAMINE 50MG/ML VIAL IV NR (23:19)
[2019-07-26] MEDS: LORAZEPAM 2MG/ML CPJ IV NR (23:36)
[2019-07-27] VITALS (12 sets, daily range): BP systolic 110–145; BP diastolic 61–98
[2019-07-27] MEDS ORDERED: DILTIAZEM HCL 5MG/ML 5ML VIAL IV NR (00:15)
[2019-07-27] MEDS ORDERED: LORAZEPAM 2MG/ML CPJ IV NR (01:30)
[2019-07-27] MEDS: LORAZEPAM 2MG/ML CPJ IV NR (01:44)
[2019-07-27] MEDS ORDERED: CHLORPROMAZINE HCL 25MG/1ML AMP IM NR (03:00)
[2019-07-27] MEDS: CHLORDIAZEPOXIDE 25MG CAPSULE PO SCH ×3 (05:26→21:01)
[2019-07-27] MEDS: LORAZEPAM 2MG/ML CPJ IM PRN (06:39)
[2019-07-27 08:51] LABS: HEMATOCRIT. 23.9 % (42.0-52.0); HEMOGLOBIN. 7.9 g/dL (14.0-18.0); MEAN CORPUSCULAR HEMOGLOBIN 27.5 pg (28.0-32.0); MEAN CORPUSCULAR VOLUME 83.2 fL (80.0-94.0); MEAN PLATELET VOLUME 8.5 fl (7.4-10.4); RED BLOOD CELL COUNT 2.87 mill/uL (4.7-6.1)
[2019-07-27] MEDS: PANTOPRAZOLE SODIUM 40 MG/VIAL IV SCH ×2 (09:00→09:10)
[2019-07-27] MEDS: LACTULOSE 20G/30ML UDC PO SCH ×3 (09:00→17:28)
[2019-07-27 09:02] LABS: CHLORIDE 111 mEq/L (98-107)
[2019-07-27 09:13] LABS: PLATELET 16 x1000/uL (130-400)
[2019-07-27] MEDS: LORAZEPAM 2MG/ML CPJ IV PRN ×3 (10:23→20:52)
[2019-07-27] MEDS: DILTIAZEM HCL 120MG CAPSULE CD 24HR PO SCH ×2 (11:00→15:06)
[2019-07-27] MEDS ORDERED: POTASSIUM CHLORIDE INJ 40 MEQ in DEXT 5% WATER 500 ML IV NR (11:30)
[2019-07-27] MEDS ORDERED: SORBITOL 70% SOLN 30ML PO SCH (13:45)
[2019-07-27 18:17] LABS: NUCLEATED RED BLOOD CELLS 1 /100 WBC; PLATELET ESTIMATE MARKEDL
[2019-07-27 19:24] LABS: CHLORIDE 112 mEq/L (98-107)
[2019-07-27] MEDS: RIFAXIMIN 550 MG TABLET NG SCH (20:11)
[2019-07-27] MEDS: FOLIC ACID 1 MG, THIAMINE HCL 100 MG, MVI, ADULT NO.1 10 ML in DEXTROSE 5% WATER 1,000 ML IV SCH ×4 (20:11)
[2019-07-28] VITALS (12 sets, daily range): BP systolic 91–128; BP diastolic 48–73
[2019-07-28] MEDS: LORAZEPAM 2MG/ML CPJ IV PRN (00:38)
[2019-07-28] MEDS: CHLORDIAZEPOXIDE 25MG CAPSULE PO SCH ×3 (05:05→20:49)
[2019-07-28 09:05] LABS: HEMATOCRIT 25.1 % (42.0-52.0); HEMOGLOBIN 8.1 g/dL (14.0-18.0); MEAN CORPUSCULAR HEMOGLOBIN 27.2 pg (28.0-32.0); MEAN CORPUSCULAR VOLUME 84.7 fL (80.0-94.0); RED BLOOD CELL COUNT 2.96 mill/uL (4.7-6.1); RED CELL DISTRIBUTION WIDTH 20.2 % (11.6-14.6)
[2019-07-28 09:13] LABS: PLATELET 23 x1000/uL (130-400)
[2019-07-28 09:24] LABS: CHLORIDE 108 mEq/L (98-107)
[2019-07-28] MEDS: LACTULOSE 20G/30ML UDC PO SCH ×3 (10:59→18:04)
[2019-07-28] MEDS: ACETAMINOPHEN 325MG TABLET PO PRN (11:00)
[2019-07-28] MEDS: PANTOPRAZOLE SODIUM 40 MG/VIAL IV SCH ×2 (11:00→20:48)
[2019-07-28] MEDS: DILTIAZEM HCL 120MG CAPSULE CD 24HR PO SCH (11:00)
[2019-07-28] MEDS: DEXTROSE 5% WATER 1,000 ML IV SCH ×2 (11:01→22:20)
[2019-07-28] MEDS: RIFAXIMIN 550 MG TABLET NG SCH ×2 (11:07→20:54)
[2019-07-28] MEDS ORDERED: POTASSIUM CHLORIDE 20MEQ TABLET SR PO NR (11:15)
[2019-07-28] MEDS ORDERED: POTASSIUM CHLORIDE INJ 40 MEQ in DEXT 5% WATER 250 ML IV NR (13:00)
[2019-07-28] MEDS: FOLIC ACID 1 MG, THIAMINE HCL 100 MG, MVI, ADULT NO.1 10 ML in DEXTROSE 5% WATER 1,000 ML IV SCH ×4 (20:48)
[2019-07-29] VITALS (14 sets, daily range): BP systolic 101–148; BP diastolic 56–108
[2019-07-29] MEDS: CHLORDIAZEPOXIDE 25MG CAPSULE PO SCH ×3 (05:59→21:22)
[2019-07-29 07:51] LABS: CHLORIDE 111 mEq/L (98-107)
[2019-07-29 08:02] LABS: HEMATOCRIT 25.2 % (42.0-52.0); HEMOGLOBIN 8.3 g/dL (14.0-18.0); MEAN CORPUSCULAR HEMOGLOBIN 27.7 pg (28.0-32.0); MEAN CORPUSCULAR VOLUME 83.6 fL (80.0-94.0); RED BLOOD CELL COUNT 3.02 mill/uL (4.7-6.1); RED CELL DISTRIBUTION WIDTH 20.9 % (11.6-14.6)
[2019-07-29] MEDS: PANTOPRAZOLE SODIUM 40 MG/VIAL IV SCH ×2 (08:20→21:22)
[2019-07-29] MEDS: RIFAXIMIN 550 MG TABLET NG SCH ×2 (08:20→21:22)
[2019-07-29] MEDS: DILTIAZEM HCL 120MG CAPSULE CD 24HR PO SCH (08:21)
[2019-07-29] MEDS: LACTULOSE 20G/30ML UDC PO SCH ×3 (08:22→17:30)
[2019-07-29] MEDS: MORPHINE SULFATE 2 MG/ML CPJ (NOT FOR IM USE) IV PRN (08:54)
[2019-07-29] MEDS: DEXTROSE 5% WATER 1,000 ML IV SCH (13:29)
[2019-07-29] MEDS ORDERED: POTASSIUM CHLORIDE INJ 40 MEQ in DEXT 5% WATER 250 ML IV NR (14:30)
[2019-07-29 15:34] LABS: PLATELET 24 x1000/uL (130-400)
[2019-07-29] MEDS: ONDANSETRON HCL 4MG/2ML INJ IV PRN (17:27)
[2019-07-29] MEDS: FOLIC ACID 1 MG, THIAMINE HCL 100 MG, MVI, ADULT NO.1 10 ML in DEXTROSE 5% WATER 1,000 ML IV SCH ×4 (22:53)
[2019-07-30] VITALS (12 sets, daily range): BP systolic 98–117; BP diastolic 40–73
[2019-07-30] MEDS: DEXTROSE 5% WATER 1,000 ML IV SCH ×2 (01:00→13:38)
[2019-07-30] MEDS: ACETAMINOPHEN 325MG TABLET PO PRN ×2 (03:14→22:19)
[2019-07-30] MEDS: ONDANSETRON HCL 4MG/2ML INJ IV PRN ×2 (03:14→22:19)
[2019-07-30] MEDS: CHLORDIAZEPOXIDE 25MG CAPSULE PO SCH ×3 (05:19→22:08)
[2019-07-30 08:14] LABS: HEMATOCRIT. 25.9 % (42.0-52.0); HEMOGLOBIN. 8.5 g/dL (14.0-18.0); MEAN CORPUSCULAR HEMOGLOBIN 27.3 pg (28.0-32.0); MEAN PLATELET VOLUME 8.9 fl (7.4-10.4); RED BLOOD CELL COUNT 3.11 mill/uL (4.7-6.1); RED CELL DISTRIBUTION WIDTH 21.4 % (11.6-14.6)
[2019-07-30 08:38] LABS: CHLORIDE 110 mEq/L (98-107)
[2019-07-30 08:39] LABS: PLATELET 22 x1000/uL (130-400)
[2019-07-30] MEDS: DILTIAZEM HCL 120MG CAPSULE CD 24HR PO SCH (09:00)
[2019-07-30] MEDS: LACTULOSE 20G/30ML UDC PO SCH ×3 (09:30→16:05)
[2019-07-30] MEDS: RIFAXIMIN 550 MG TABLET NG SCH ×2 (09:31→22:08)
[2019-07-30] MEDS: PANTOPRAZOLE SODIUM 40 MG/VIAL IV SCH ×2 (09:31→22:07)
[2019-07-30 10:13] LABS: PLATELET ESTIMATE MARKEDLY DECREASED
[2019-07-31] VITALS (14 sets, daily range): BP systolic 92–140; BP diastolic 44–73
[2019-07-31] MEDS: FOLIC ACID 1 MG, THIAMINE HCL 100 MG, MVI, ADULT NO.1 10 ML in DEXTROSE 5% WATER 1,000 ML IV SCH ×8 (00:13→21:40)
[2019-07-31] MEDS: DEXTROSE 5% WATER 1,000 ML IV SCH ×2 (03:40→17:24)
[2019-07-31 06:12] LABS: HEMATOCRIT. 25.5 % (42.0-52.0); HEMOGLOBIN. 8.3 g/dL (14.0-18.0); MEAN CORPUSCULAR HEMOGLOBIN 27.3 pg (28.0-32.0); MEAN CORPUSCULAR VOLUME 83.7 fL (80.0-94.0); MEAN PLATELET VOLUME 10.5 fl (7.4-10.4); RED BLOOD CELL COUNT 3.05 mill/uL (4.7-6.1); RED CELL DISTRIBUTION WIDTH 20.8 % (11.6-14.6)
[2019-07-31] MEDS: CHLORDIAZEPOXIDE 25MG CAPSULE PO SCH ×3 (06:16→21:41)
[2019-07-31] MEDS: ONDANSETRON HCL 4MG/2ML INJ IV PRN (06:16)
[2019-07-31 06:17] LABS: CHLORIDE 111 mEq/L (98-107)
[2019-07-31 07:37] LABS: PLATELET 28 x1000/uL (130-400)
[2019-07-31] MEDS: DILTIAZEM HCL 120MG CAPSULE CD 24HR PO SCH (09:00)
[2019-07-31] MEDS: LACTULOSE 20G/30ML UDC PO SCH ×3 (09:04→17:23)
[2019-07-31] MEDS: PANTOPRAZOLE SODIUM 40 MG/VIAL IV SCH ×2 (09:04→21:41)
[2019-07-31] MEDS: RIFAXIMIN 550 MG TABLET NG SCH ×2 (09:04→21:41)
[2019-07-31 09:17] LABS: PLATELET ESTIMATE MARKEDLY DECREASED
[2019-07-31] MEDS: ACETAMINOPHEN 325MG TABLET PO PRN (09:20)
[2019-08-01] VITALS (13 sets, daily range): BP systolic 90–128; BP diastolic 50–78
[2019-08-01] MEDS: ONDANSETRON HCL 4MG/2ML INJ IV PRN ×2 (02:09→22:53)
[2019-08-01] MEDS: LACTULOSE 20G/30ML UDC PO SCH ×3 (09:22→18:26)
[2019-08-01] MEDS: RIFAXIMIN 550 MG TABLET NG SCH ×2 (09:22→22:45)
[2019-08-01] MEDS: PANTOPRAZOLE SODIUM 40 MG/VIAL IV SCH ×2 (09:22→22:45)
[2019-08-01] MEDS: DILTIAZEM HCL 120MG CAPSULE CD 24HR PO SCH (09:23)
[2019-08-01] MEDS: DEXTROSE 5% WATER 1,000 ML IV SCH (11:20)
[2019-08-01] MEDS: ACETAMINOPHEN 325MG TABLET PO PRN (13:27)
[2019-08-01 18:51] LABS: HEMATOCRIT. 25.9 % (42.0-52.0); HEMOGLOBIN. 8.5 g/dL (14.0-18.0); MEAN CORPUSCULAR VOLUME 82.7 fL (80.0-94.0); MEAN PLATELET VOLUME 9.7 fl (7.4-10.4); RED BLOOD CELL COUNT 3.14 mill/uL (4.7-6.1); RED CELL DISTRIBUTION WIDTH 20.6 % (11.6-14.6)
[2019-08-01 18:56] LABS: CHLORIDE 110 mEq/L (98-107)
[2019-08-01 18:57] LABS: PLATELET 32 x1000/uL (130-400)
[2019-08-01 19:15] LABS: PLATELET ESTIMATE MARKEDLY DECREASED
[2019-08-01] MEDS: FOLIC ACID 1 MG, THIAMINE HCL 100 MG, MVI, ADULT NO.1 10 ML in DEXTROSE 5% WATER 1,000 ML IV SCH ×4 (23:21)
[2019-08-02] VITALS (11 sets, daily range): BP systolic 88–138; BP diastolic 46–65
[2019-08-02 07:24] LABS: HEMATOCRIT. 25.7 % (42.0-52.0); HEMOGLOBIN. 8.3 g/dL (14.0-18.0); MEAN CORPUSCULAR HEMOGLOBIN 26.8 pg (28.0-32.0); MEAN PLATELET VOLUME 10.2 fl (7.4-10.4); RED CELL DISTRIBUTION WIDTH 20.5 % (11.6-14.6)
[2019-08-02 08:18] LABS: CHLORIDE 111 mEq/L (98-107)
[2019-08-02] MEDS: LACTULOSE 20G/30ML UDC PO SCH ×3 (09:00→16:07)
[2019-08-02] MEDS: ONDANSETRON HCL 4MG/2ML INJ IV PRN (09:24)
[2019-08-02] MEDS: PANTOPRAZOLE SODIUM 40 MG/VIAL IV SCH (09:24)
[2019-08-02] MEDS: RIFAXIMIN 550 MG TABLET NG SCH (09:24)
[2019-08-02] MEDS: DILTIAZEM HCL 120MG CAPSULE CD 24HR PO SCH (09:25)
[2019-08-02 13:00] LABS: PLATELET ESTIMATE MARKEDLY DECREASED
[2019-08-02 13:01] LABS: PLATELET 36 x1000/uL (130-400)
== END 2019-08-02 18:01 | disposition home or self-care (01) | DRG 660 ==
LOC: ER 13:52 → 5WST 21:27 → ENRESERV 07-24 14:48 → 5WST 07-26 23:12 → 5EST 07-27 03:15
PROVIDERS: ADMIT Internal Medicine; ATTEND Internal Medicine
PROC: 30233N1 Transfusion of Nonautologous Red Blood Cells into Peripheral Vein, Percutaneous Approach (ICD-10-PCS; principal; 2019-07-26)
DX: D61.818 Other pancytopenia (principal); E87.8 Other disorders of electrolyte and fluid balance, not elsewhere classified; I85.10 Secondary esophageal varices without bleeding; K29.21 Alcoholic gastritis with bleeding; I47.1 Supraventricular tachycardia; E44.1 Mild protein-calorie malnutrition; I48.91 Unspecified atrial fibrillation; K76.6 Portal hypertension; K72.90 Hepatic failure, unspecified without coma; K70.30 Alcoholic cirrhosis of liver without ascites; K86.0 Alcohol-induced chronic pancreatitis; E87.6 Hypokalemia; F10.20 Alcohol dependence, uncomplicated; R04.0 Epistaxis; R16.1 Splenomegaly, not elsewhere classified; R07.89 Other chest pain; Z88.6 Allergy status to analgesic agent; Z88.5 Allergy status to narcotic agent
CPT/HCPCS: 36415; 71045; 74176; 80048; 80053; 81003; 82140; 82270; 82550; 82553; 82962; 83735; 83880; 84484; 85025; 85027; 85049; 86850; 86900; 93005; 93306; 96361; 96374; 96375; 96376; 97116; 97162; 99285; A6261; C9113; J1200; J1630; J2060; J2270; J2405; J3230; J3411; J3480; J3490; J7030; J7060; J7070; P9034

== ENCOUNTER 2019-08-12 12:03 | Emergency (ER) | payer OTHER ==
[~2019-08-12] VITALS: Ht 165.1 cm; Wt 78.0 kg
[2019-08-12] MEDS ORDERED: SODIUM CHLORIDE 0.9% 1,000 ML IV ONE (15:54)
[2019-08-12] MEDS ORDERED: FAMOTIDINE 20MG/2ML VIAL IV STA (15:54)
[2019-08-12] MEDS ORDERED: MAGNESIUM/ALUMINUM HYDROXIDE/SIMETHICONE 30ML UDC PO STA (15:54)
[2019-08-12] MEDS ORDERED: MORPHINE SULFATE 4 MG/ML CPJ (NOT FOR IM USE) IV STA (15:54)
[2019-08-12 16:28] LABS: HEMATOCRIT. 25.8 % (42.0-52.0); HEMOGLOBIN. 8.2 g/dL (14.0-18.0); MEAN CORPUSCULAR HEMOGLOBIN 25.2 pg (28.0-32.0); MEAN CORPUSCULAR VOLUME 79.1 fL (80.0-94.0); MEAN PLATELET VOLUME 8.6 fl (7.4-10.4); RED BLOOD CELL COUNT 3.26 mill/uL (4.7-6.1); RED CELL DISTRIBUTION WIDTH 21.3 % (11.6-14.6)
[2019-08-12 16:34] LABS: INR 1.2; PROTHROMBIN TIME 12.6 sec (9.6-11.0)
[2019-08-12 16:35] LABS: PLATELET 29 x1000/uL (130-400)
[2019-08-12 16:37] LABS: CHLORIDE 115 mEq/L (98-107)
[2019-08-12 16:43] LABS: CLARITY URINE CLEAR (CLEAR); COLOR URINE YELLOW (YELLOW); KETONES URINE NEGATIVE (NEGATIVE); LEUKOCYTE ESTERASE URINE NEGATIVE (NEGATIVE); NITRITE URINE NEGATIVE (NEGATIVE); OCCULT BLOOD URINE NEGATIVE (NEGATIVE); PROTEIN URINE NEGATIVE (NEGATIVE); SPECIFIC GRAVITY URINE 1.009 (1.005-1.030); UROBILINOGEN URINE 0.2 E.U./dL (0.2-1.0)
[2019-08-12 16:46] LABS: ETHANOL BLOOD 218 mg/dL
[2019-08-12 17:08] LABS: *AMPHETAMINES SCREEN URINE PRESUMTIVE POSITIVE (NEGATIVE); *BARBITURATES SCREEN URINE NEGATIVE (NEGATIVE); *BENZODIAZEPINES SCREEN URINE PRESUMTIVE POSITIVE (NEGATIVE); *COCAINE SCREEN URINE NEGATIVE (NEGATIVE)
[2019-08-12 17:09] LABS: CANNABINOID URINE SCREEN NEGATIVE (NEGATIVE); METHADONE URINE SCREEN NEGATIVE (NEGATIVE); OPIATES URINE SCREEN NEGATIVE (NEGATIVE); PHENCYCLIDINE URINE SCREEN NEGATIVE (NEGATIVE)
[2019-08-12 17:23] LABS: ATYPICAL LYMPHOCYTES 1; PLATELET ESTIMATE MARKEDLY DECREASED
[2019-08-12 19:23] VITALS: BP 120/70
== END 2019-08-12 19:25 | disposition home or self-care (01) ==
LOC: ER 12:03
DX: R10.84 Generalized abdominal pain (principal); D72.818 Other decreased white blood cell count; D69.6 Thrombocytopenia, unspecified; F10.10 Alcohol abuse, uncomplicated; Y90.7 Blood alcohol level of 200-239 mg/100 ml; Z88.6 Allergy status to analgesic agent
CPT/HCPCS: 36415; 74176; 80053; 80305; 80320; 81003; 83690; 85025; 85610; 96374; 96375; 99284; J2270; J3490; J7030; G0480

== ENCOUNTER 2019-08-15 11:35 | Emergency (ER) | payer OTHER ==
[~2019-08-15] VITALS: Ht 162.6 cm; Wt 75.0 kg
[2019-08-15 15:31] LABS: HEMATOCRIT. 26.8 % (42.0-52.0); HEMOGLOBIN. 8.5 g/dL (14.0-18.0); MEAN CORPUSCULAR HEMOGLOBIN 25.1 pg (28.0-32.0); MEAN CORPUSCULAR VOLUME 79.3 fL (80.0-94.0); MEAN PLATELET VOLUME 8.9 fl (7.4-10.4); RED BLOOD CELL COUNT 3.38 mill/uL (4.7-6.1)
[2019-08-15 15:38] LABS: CHLORIDE 113 mEq/L (98-107)
[2019-08-15 15:42] LABS: INR 1.2; PROTHROMBIN TIME 12.3 sec (9.6-11.0)
[2019-08-15 15:43] LABS: ETHANOL BLOOD 128 mg/dL
[2019-08-15 15:57] LABS: PLATELET 33 x1000/uL (130-400)
[2019-08-15 16:24] LABS: CLARITY URINE CLEAR (CLEAR); COLOR URINE DARK YELLOW (YELLOW); KETONES URINE NEGATIVE (NEGATIVE); LEUKOCYTE ESTERASE URINE NEGATIVE (NEGATIVE); NITRITE URINE NEGATIVE (NEGATIVE); OCCULT BLOOD URINE NEGATIVE (NEGATIVE); PH URINE 6.5 (4.5-8.0); PROTEIN URINE NEGATIVE (NEGATIVE); SPECIFIC GRAVITY URINE 1.021 (1.005-1.030)
[2019-08-15 16:50] LABS: *AMPHETAMINES SCREEN URINE NEGATIVE (NEGATIVE); *BARBITURATES SCREEN URINE NEGATIVE (NEGATIVE); *BENZODIAZEPINES SCREEN URINE PRESUMTIVE POSITIVE (NEGATIVE); *COCAINE SCREEN URINE NEGATIVE (NEGATIVE); METHADONE URINE SCREEN NEGATIVE (NEGATIVE); OPIATES URINE SCREEN NEGATIVE (NEGATIVE)
[2019-08-15 16:51] LABS: CANNABINOID URINE SCREEN NEGATIVE (NEGATIVE); PHENCYCLIDINE URINE SCREEN NEGATIVE (NEGATIVE)
[2019-08-15 17:09] LABS: PLATELET ESTIMATE MARKEDLY DECREASED
[2019-08-15] MEDS ORDERED: TRAMADOL 50MG TABLET PO ONE (17:30)
[2019-08-15 17:53] VITALS: BP 125/89
== END 2019-08-15 17:57 | disposition left against medical advice (07) ==
LOC: ER 11:35
DX: R10.84 Generalized abdominal pain (principal); F10.20 Alcohol dependence, uncomplicated; Z59.0 Homelessness; Z88.6 Allergy status to analgesic agent; Z88.3 Allergy status to other anti-infective agents; Z79.899 Other long term (current) drug therapy; Y90.9 Presence of alcohol in blood, level not specified
CPT/HCPCS: 36415; 80053; 80305; 80320; 81003; 85025; 99283; G0480

== ENCOUNTER 2019-08-17 16:40 | Emergency (ER) | payer MEDICAID, OTHER ==
[~2019-08-17] VITALS: Ht 157.5 cm; Wt 57.0 kg
[2019-08-17] MEDS ORDERED: ONDANSETRON HCL 4MG/2ML INJ IV STA (20:18)
[2019-08-17] MEDS ORDERED: MAGNESIUM/ALUMINUM HYDROXIDE/SIMETHICONE 30ML UDC PO STA (20:18)
[2019-08-17] MEDS ORDERED: FAMOTIDINE 20MG/2ML VIAL IV STA (20:18)
[2019-08-17] MEDS ORDERED: VISCOUS LIDOCAINE 2% 15 ML UDC PO STA (20:18)
[2019-08-17] MEDS ORDERED: FOLIC ACID 1 MG, THIAMINE HCL 100 MG, MVI, ADULT NO.1 10 ML in DEXTROSE 5% WATER 1,000 ML IV ONE ×4 (20:30)
[2019-08-17 21:06] LABS: INR 1.2; PROTHROMBIN TIME 12.7 sec (9.6-11.0)
[2019-08-17 21:08] LABS: CHLORIDE 117 mEq/L (98-107)
[2019-08-17 21:10] LABS: HEMOGLOBIN. 8.4 g/dL (14.0-18.0); MEAN CORPUSCULAR HEMOGLOBIN 24.8 pg (28.0-32.0); MEAN CORPUSCULAR VOLUME 79.3 fL (80.0-94.0); MEAN PLATELET VOLUME 8.3 fl (7.4-10.4); RED CELL DISTRIBUTION WIDTH 22.6 % (11.6-14.6)
[2019-08-17 21:12] LABS: ETHANOL BLOOD 245 mg/dL
[2019-08-17 21:19] LABS: PLATELET 27 x1000/uL (130-400)
[2019-08-17 21:58] LABS: PLATELET ESTIMATE MARKEDLY DECREASED
[2019-08-17] MEDS ORDERED: VISCOUS LIDOCAINE 2% 15 ML UDC MM STA (22:34)
[2019-08-17] MEDS ORDERED: MAGNESIUM/ALUMINUM HYDROXIDE/SIMETHICONE 30ML UDC PO ONE (22:45)
[2019-08-17 23:12] VITALS: BP 100/54
[2019-09-06] MEDS ORDERED: FOLI-43 PO (14:13)
[2019-09-06] MEDS ORDERED: LACT10SO7 PO (14:13)
[2019-09-06] MEDS ORDERED: THIA100T72 PO (14:13)
[2019-09-06] MEDS ORDERED: PROP10TA10 PO (14:13)
[2019-12-14] MEDS ORDERED: L25 MT (11:52)
[2019-12-14] MEDS ORDERED: THIA100T72 PO (11:52)
== END 2019-08-17 23:13 | disposition home or self-care (01) ==
LOC: ER 16:40
DX: F10.229 Alcohol dependence with intoxication, unspecified (principal); Y90.8 Blood alcohol level of 240 mg/100 ml or more; D72.819 Decreased white blood cell count, unspecified; D69.6 Thrombocytopenia, unspecified; D61.818 Other pancytopenia; K70.30 Alcoholic cirrhosis of liver without ascites
CPT/HCPCS: 36415; 71045; 80053; 80320; 83690; 85025; 85610; 99284; J3411; J3490; J7070; G0480

== ENCOUNTER 2019-08-19 18:09 | Emergency (ER) | payer OTHER ==
[~2019-08-19] VITALS: Ht 165.1 cm; Wt 69.0 kg
[2019-08-19] MEDS ORDERED: VISCOUS LIDOCAINE 2% 15 ML UDC PO ONE (22:15)
[2019-08-19] MEDS ORDERED: MAGNESIUM/ALUMINUM HYDROXIDE/SIMETHICONE 30ML UDC PO ONE (22:15)
[2019-08-19 23:07] VITALS: BP 135/75
== END 2019-08-19 23:08 | disposition home or self-care (01) ==
LOC: ER 18:09
DX: K27.9 Peptic ulcer, site unspecified, unspecified as acute or chronic, without hemorrhage or perforation (principal); F10.20 Alcohol dependence, uncomplicated; Y90.9 Presence of alcohol in blood, level not specified; K70.9 Alcoholic liver disease, unspecified; Z79.899 Other long term (current) drug therapy; Z88.8 Allergy status to other drugs, medicaments and biological substances; Z88.6 Allergy status to analgesic agent
CPT/HCPCS: 93005; 99283

== ENCOUNTER 2019-08-21 17:19 | Emergency (ER) | payer OTHER ==
[~2019-08-21] VITALS: Ht 162.6 cm; Wt 66.0 kg
[2019-08-21] MEDS ORDERED: ONDANSETRON 4MG ODT PO ONE (21:15)
[2019-08-21 21:31] LABS: CLARITY URINE CLEAR (CLEAR); COLOR URINE DARK YELLOW (YELLOW); KETONES URINE TRACE (NEGATIVE); LEUKOCYTE ESTERASE URINE NEGATIVE (NEGATIVE); NITRITE URINE NEGATIVE (NEGATIVE); OCCULT BLOOD URINE NEGATIVE (NEGATIVE); PROTEIN URINE NEGATIVE (NEGATIVE)
[2019-08-21 21:33] LABS: BASOPHILS % 0.6 % (0.0-2.0); EOSINOPHILS % 0.4 % (0.0-5.0); HEMOGLOBIN. 8.6 g/dL (14.0-18.0); LYMPHOCYTES % 34.8 % (20.0-50.0); MEAN CORPUSCULAR HEMOGLOBIN 24.4 pg (28.0-32.0); MEAN CORPUSCULAR VOLUME 76.7 fL (80.0-94.0); MEAN PLATELET VOLUME 8.8 fl (7.4-10.4); MONOCYTES % 12.1 % (2.0-8.0); NEUTROPHILS % 52.1 % (40.0-76.0); RED BLOOD CELL COUNT 3.52 mill/uL (4.7-6.1); RED CELL DISTRIBUTION WIDTH 21.9 % (11.6-14.6)
[2019-08-21 21:35] LABS: PLATELET 30 x1000/uL (130-400)
[2019-08-21 21:36] LABS: CHLORIDE 113 mEq/L (98-107)
[2019-08-21 21:39] LABS: INR 1.3; PROTHROMBIN TIME 12.9 sec (9.6-11.0)
[2019-08-22] MEDS ORDERED: SODIUM CHLORIDE 0.9% 1,000 ML IV ONE (00:16)
[2019-08-22] MEDS ORDERED: ONDANSETRON HCL 4MG/2ML INJ IV STA (00:16)
[2019-08-22] MEDS ORDERED: MORPHINE SULFATE 4 MG/ML CPJ (NOT FOR IM USE) IV STA (00:16)
[2019-08-22] MEDS ORDERED: ONDANSETRON 4MG ODT PO ONE (09:30)
[2019-08-22 10:06] VITALS: BP 116/65
== END 2019-08-22 11:47 | disposition home or self-care (01) ==
LOC: ER 17:19
DX: T51.0X1A Toxic effect of ethanol, accidental (unintentional), initial encounter (principal); K29.20 Alcoholic gastritis without bleeding; R11.2 Nausea with vomiting, unspecified; Y90.8 Blood alcohol level of 240 mg/100 ml or more; Z79.899 Other long term (current) drug therapy; Z88.6 Allergy status to analgesic agent; Z88.3 Allergy status to other anti-infective agents; Y92.89 Other specified places as the place of occurrence of the external cause
CPT/HCPCS: 36415; 80053; 80320; 81003; 83690; 85025; 85610; 96361; 96374; 96375; 96376; 99285; J2270; J2405; J7030; Q0162; G0480

== ENCOUNTER 2019-08-23 14:20 | Emergency (ER) | payer OTHER ==
[~2019-08-23] VITALS: Ht 162.6 cm; Wt 70.0 kg
[2019-08-23] MEDS ORDERED: ONDANSETRON HCL 4MG/2ML INJ IV STA (15:54)
[2019-08-23] MEDS ORDERED: FAMOTIDINE 20MG/2ML VIAL IV ONE (16:00)
[2019-08-23 16:30] LABS: BASOPHILS % 0.6 % (0.0-2.0); EOSINOPHILS % 0.4 % (0.0-5.0); HEMATOCRIT. 27.3 % (42.0-52.0); HEMOGLOBIN. 8.7 g/dL (14.0-18.0); LYMPHOCYTES % 33.7 % (20.0-50.0); MEAN CORPUSCULAR HEMOGLOBIN 24.6 pg (28.0-32.0); MEAN CORPUSCULAR VOLUME 77.1 fL (80.0-94.0); MEAN PLATELET VOLUME 8.5 fl (7.4-10.4); MONOCYTES % 7.8 % (2.0-8.0); NEUTROPHILS % 57.5 % (40.0-76.0); RED BLOOD CELL COUNT 3.54 mill/uL (4.7-6.1); RED CELL DISTRIBUTION WIDTH 21.9 % (11.6-14.6)
[2019-08-23 16:33] LABS: PLATELET 23 x1000/uL (130-400)
[2019-08-23 16:38] LABS: CHLORIDE 113 mEq/L (98-107)
[2019-08-23 16:41] LABS: CLARITY URINE CLEAR (CLEAR); COLOR URINE YELLOW (YELLOW); KETONES URINE NEGATIVE (NEGATIVE); LEUKOCYTE ESTERASE URINE NEGATIVE (NEGATIVE); NITRITE URINE NEGATIVE (NEGATIVE); OCCULT BLOOD URINE NEGATIVE (NEGATIVE); PROTEIN URINE NEGATIVE (NEGATIVE); SPECIFIC GRAVITY URINE 1.002 (1.005-1.030); UROBILINOGEN URINE 0.2 E.U./dL (0.2-1.0)
[2019-08-23 17:56] VITALS: BP 113/77
== END 2019-08-23 18:00 | disposition home or self-care (01) ==
LOC: ER 14:20
DX: R10.13 Epigastric pain (principal); K92.1 Melena; R19.7 Diarrhea, unspecified; R11.0 Nausea; D50.9 Iron deficiency anemia, unspecified; R03.0 Elevated blood-pressure reading, without diagnosis of hypertension; D72.819 Decreased white blood cell count, unspecified; F10.20 Alcohol dependence, uncomplicated; Y90.9 Presence of alcohol in blood, level not specified; Z87.19 Personal history of other diseases of the digestive system
CPT/HCPCS: 36415; 80053; 81003; 83690; 85025; 96374; 96375; 99284; J2405; J3490

== ENCOUNTER 2019-08-25 12:04 | Emergency (ER) | payer MEDICAID, OTHER ==
[~2019-08-25] VITALS: Ht 172.7 cm; Wt 75.0 kg
[2019-08-25 18:34] LABS: BASOPHILS % 0.8 % (0.0-2.0); EOSINOPHILS % 0.1 % (0.0-5.0); HEMATOCRIT. 29.5 % (42.0-52.0); HEMOGLOBIN. 9.5 g/dL (14.0-18.0); LYMPHOCYTES % 38.5 % (20.0-50.0); MEAN CORPUSCULAR HEMOGLOBIN 24.8 pg (28.0-32.0); MEAN CORPUSCULAR VOLUME 76.7 fL (80.0-94.0); MEAN PLATELET VOLUME 8.2 fl (7.4-10.4); MONOCYTES % 6.5 % (2.0-8.0); NEUTROPHILS % 54.1 % (40.0-76.0); RED BLOOD CELL COUNT 3.85 mill/uL (4.7-6.1); RED CELL DISTRIBUTION WIDTH 22.1 % (11.6-14.6)
[2019-08-25 18:39] LABS: PLATELET 27 x1000/uL (130-400)
[2019-08-25 18:41] LABS: CHLORIDE 110 mEq/L (98-107)
[2019-08-25 18:43] LABS: INR 1.2; PARTIAL THROMBOPLASTIN TIME 31.3 sec (23.4-31.0)
[2019-08-25 23:20] LABS: CLARITY URINE CLEAR (CLEAR); COLOR URINE DARK YELLOW (YELLOW); KETONES URINE TRACE (NEGATIVE); LEUKOCYTE ESTERASE URINE NEGATIVE (NEGATIVE); NITRITE URINE NEGATIVE (NEGATIVE); OCCULT BLOOD URINE NEGATIVE (NEGATIVE); PROTEIN URINE TRACE (NEGATIVE); SPECIFIC GRAVITY URINE 1.022 (1.005-1.030)
[2019-08-25] MEDS ORDERED: FAMOTIDINE 20MG/2ML VIAL IV ONE (23:45)
[2019-08-26] MEDS ORDERED: PANTOPRAZOLE SODIUM 40 MG/VIAL IV ONE (02:15)
[2019-08-26] MEDS ORDERED: PANTOPRAZOLE 80 MG in SODIUM CHLORIDE 0.9% 100 ML IV SCH ×2 (02:15→03:30)
[2019-08-26] MEDS ORDERED: SODIUM CHLORIDE 0.9% 1,000 ML IV ONE (03:15)
[2019-08-26] MEDS ORDERED: LORAZEPAM 2MG/ML CPJ IV SCH (03:15)
[2019-08-26] MEDS ORDERED: CHLORDIAZEPOXIDE 25MG CAPSULE PO SCH (03:15)
[2019-08-26] MEDS ORDERED: ONDANSETRON 4MG ODT PO SCH (03:30)
[2019-08-26 04:43] VITALS: BP 132/65
[2019-09-06] MEDS ORDERED: PROP10TA10 PO (14:13)
[2019-09-06] MEDS ORDERED: LACT10SO7 PO (14:13)
[2019-09-06] MEDS ORDERED: FOLI-43 PO (14:13)
[2019-09-06] MEDS ORDERED: THIA100T72 PO (14:13)
[2019-12-14] MEDS ORDERED: THIA100T72 PO (11:52)
[2019-12-14] MEDS ORDERED: L25 MT (11:52)
== END 2019-08-26 04:44 | disposition home or self-care (01) ==
LOC: ER 12:26
DX: K29.20 Alcoholic gastritis without bleeding (principal); D61.818 Other pancytopenia; F10.10 Alcohol abuse, uncomplicated; Y90.8 Blood alcohol level of 240 mg/100 ml or more; Z88.6 Allergy status to analgesic agent
CPT/HCPCS: 36415; 80053; 80320; 81003; 83690; 85025; 85610; 85730; 96361; 96374; 96375; 99285; C9113; J2060; J3490; Q0162; J7050; G0480

== ENCOUNTER 2019-08-28 16:54 | Emergency (ER) | payer OTHER ==
[~2019-08-28] VITALS: Ht 160 cm; Wt 79.0 kg
[2019-08-28] MEDS ORDERED: VISCOUS LIDOCAINE 2% 15 ML UDC PO STA (21:25)
[2019-08-28] MEDS ORDERED: DICYCLOMINE 10 MG/5 ML ORAL SYR PO STA (21:25)
[2019-08-28] MEDS ORDERED: MAGNESIUM/ALUMINUM HYDROXIDE/SIMETHICONE 30ML UDC PO STA (21:25)
[2019-08-28 22:07] LABS: HEMATOCRIT. 26.9 % (42.0-52.0); HEMOGLOBIN. 8.7 g/dL (14.0-18.0); MEAN CORPUSCULAR HEMOGLOBIN 25.2 pg (28.0-32.0); MEAN CORPUSCULAR VOLUME 77.7 fL (80.0-94.0); MEAN PLATELET VOLUME 8.8 fl (7.4-10.4); RED BLOOD CELL COUNT 3.46 mill/uL (4.7-6.1); RED CELL DISTRIBUTION WIDTH 23.3 % (11.6-14.6)
[2019-08-28 22:09] LABS: PLATELET 14 x1000/uL (130-400)
[2019-08-28 22:13] LABS: CHLORIDE 110 mEq/L (98-107)
[2019-08-28 22:18] LABS: ETHANOL BLOOD 298 mg/dL
[2019-08-28 23:17] LABS: PLATELET ESTIMATE MARKEDLY DECREASED
[2019-08-29] MEDS ORDERED: ACETAMINOPHEN WITH CODEINE 300/30MG TABLET PO ONE (03:00)
[2019-08-29] MEDS ORDERED: FAMOTIDINE 20MG TABLET PO ONE (03:00)
[2019-08-29] MEDS ORDERED: CHLORDIAZEPOXIDE 25MG CAPSULE PO ONE (03:00)
[2019-08-29 03:15] VITALS: BP 109/59
== END 2019-08-29 03:23 | disposition home or self-care (01) ==
LOC: ER 16:54
DX: R10.13 Epigastric pain (principal); F10.129 Alcohol abuse with intoxication, unspecified; Y90.8 Blood alcohol level of 240 mg/100 ml or more; K70.9 Alcoholic liver disease, unspecified; D64.9 Anemia, unspecified; E87.6 Hypokalemia
CPT/HCPCS: 36415; 80053; 80320; 85025; 99285; G0480

== ENCOUNTER 2019-08-29 12:09 | Emergency (ER) | payer OTHER ==
[~2019-08-29] VITALS: Ht 172.7 cm; Wt 75.0 kg
[2019-08-29] MEDS ORDERED: MAGNESIUM/ALUMINUM HYDROXIDE/SIMETHICONE 30ML UDC PO STA (13:23)
[2019-08-29] MEDS ORDERED: VISCOUS LIDOCAINE 2% 15 ML UDC PO STA (13:23)
[2019-08-29] MEDS ORDERED: FAMOTIDINE 20MG TABLET PO ONE (13:30)
[2019-08-29 19:25] VITALS: BP 120/68
== END 2019-08-29 19:00 | disposition home or self-care (01) ==
LOC: ER 12:09
DX: K29.20 Alcoholic gastritis without bleeding (principal); F10.129 Alcohol abuse with intoxication, unspecified; R10.9 Unspecified abdominal pain; F10.10 Alcohol abuse, uncomplicated; Z88.6 Allergy status to analgesic agent; Z88.3 Allergy status to other anti-infective agents; Z79.899 Other long term (current) drug therapy; Y90.9 Presence of alcohol in blood, level not specified
CPT/HCPCS: 93005; 99285

== ENCOUNTER 2019-08-29 20:32 | Emergency (ER) | payer OTHER ==
[~2019-08-29] VITALS: Ht 162.6 cm; Wt 75.0 kg
[2019-08-29 20:55] VITALS: BP 131/68
== END 2019-08-30 01:00 | disposition home or self-care (01) ==
LOC: ER 20:32
DX: K29.20 Alcoholic gastritis without bleeding (principal); K70.30 Alcoholic cirrhosis of liver without ascites; Z88.6 Allergy status to analgesic agent
CPT/HCPCS: 99283

== ENCOUNTER 2019-09-07 03:55 | Emergency (ER) | payer OTHER ==
[~2019-09-07] VITALS: Ht 162.6 cm; Wt 70.0 kg
[~2019-09-07 03:55] MED LIST changes: +FOLI-43 PO; +LACT10SO7 PO; +PROP10TA10 PO; +THIA100T72 PO
[2019-09-07 06:45] LABS: HEMATOCRIT. 25.5 % (42.0-52.0); HEMOGLOBIN. 8.3 g/dL (14.0-18.0); MEAN CORPUSCULAR HEMOGLOBIN 24.7 pg (28.0-32.0); MEAN CORPUSCULAR VOLUME 76.1 fL (80.0-94.0); MEAN PLATELET VOLUME 8.6 fl (7.4-10.4); RED BLOOD CELL COUNT 3.35 mill/uL (4.7-6.1); RED CELL DISTRIBUTION WIDTH 23.9 % (11.6-14.6)
[2019-09-07 06:49] LABS: CHLORIDE 106 mEq/L (98-107)
[2019-09-07 06:50] LABS: PLATELET 19 x1000/uL (130-400)
[2019-09-07 07:03] LABS: INR 1.4
[2019-09-07 07:26] LABS: PLATELET ESTIMATE MARKEDLY DECREASED
[2019-09-07 07:32] LABS: CLARITY URINE CLEAR (CLEAR); COLOR URINE YELLOW (YELLOW); KETONES URINE NEGATIVE (NEGATIVE); LEUKOCYTE ESTERASE URINE NEGATIVE (NEGATIVE); NITRITE URINE NEGATIVE (NEGATIVE); OCCULT BLOOD URINE NEGATIVE (NEGATIVE); PROTEIN URINE NEGATIVE (NEGATIVE); SPECIFIC GRAVITY URINE 1.003 (1.005-1.030); UROBILINOGEN URINE 0.2 E.U./dL (0.2-1.0)
[2019-09-07 08:13] VITALS: BP 112/76
== END 2019-09-07 08:13 | disposition home or self-care (01) ==
LOC: ER 03:55
DX: R10.84 Generalized abdominal pain (principal); F10.229 Alcohol dependence with intoxication, unspecified; Y90.9 Presence of alcohol in blood, level not specified; K70.9 Alcoholic liver disease, unspecified; S09.90XA Unspecified injury of head, initial encounter; W01.10XA Fall on same level from slipping, tripping and stumbling with subsequent striking against unspecified object, initial encounter; Y93.89 Activity, other specified; Y92.89 Other specified places as the place of occurrence of the external cause; D61.818 Other pancytopenia
CPT/HCPCS: 36415; 74176; 80053; 81003; 85025; 99285

== ENCOUNTER 2019-09-10 14:44 | Emergency (ER) | payer MEDICAID, OTHER ==
[~2019-09-10] VITALS: Ht 167.6 cm; Wt 80.0 kg
[2019-09-10] MEDS ORDERED: PANTOPRAZOLE SODIUM 40 MG/VIAL IV STA (19:32)
[2019-09-10] MEDS ORDERED: SODIUM CHLORIDE 0.9% 1,000 ML IV ONE (19:32)
[2019-09-10] MEDS ORDERED: FAMOTIDINE 20MG/2ML VIAL IV STA (19:32)
[2019-09-10] MEDS ORDERED: ONDANSETRON HCL 4MG/2ML INJ IV STA (19:32)
[2019-09-10 20:15] LABS: HEMATOCRIT. 24.3 % (42.0-52.0); HEMOGLOBIN. 7.6 g/dL (14.0-18.0); MEAN CORPUSCULAR HEMOGLOBIN 24.3 pg (28.0-32.0); MEAN CORPUSCULAR VOLUME 77.5 fL (80.0-94.0); MEAN PLATELET VOLUME 9.4 fl (7.4-10.4); RED BLOOD CELL COUNT 3.14 mill/uL (4.7-6.1); RED CELL DISTRIBUTION WIDTH 23.9 % (11.6-14.6)
[2019-09-10 20:19] LABS: CLARITY URINE CLEAR (CLEAR); COLOR URINE YELLOW (YELLOW); KETONES URINE NEGATIVE (NEGATIVE); LEUKOCYTE ESTERASE URINE NEGATIVE (NEGATIVE); NITRITE URINE NEGATIVE (NEGATIVE); OCCULT BLOOD URINE NEGATIVE (NEGATIVE); PH URINE 5.5 (4.5-8.0); PROTEIN URINE NEGATIVE (NEGATIVE); SPECIFIC GRAVITY URINE 1.019 (1.005-1.030); UROBILINOGEN URINE 0.2 E.U./dL (0.2-1.0)
[2019-09-10 20:21] LABS: CHLORIDE 119 mEq/L (98-107)
[2019-09-10 20:24] LABS: ETHANOL BLOOD 287 mg/dL
[2019-09-10 20:45] LABS: INR 1.2; PROTHROMBIN TIME 12.7 sec (9.6-11.0)
[2019-09-10 20:48] LABS: *COCAINE SCREEN URINE NEGATIVE (NEGATIVE); CANNABINOID URINE SCREEN NEGATIVE (NEGATIVE); METHADONE URINE SCREEN NEGATIVE (NEGATIVE); OPIATES URINE SCREEN NEGATIVE (NEGATIVE); PHENCYCLIDINE URINE SCREEN NEGATIVE (NEGATIVE)
[2019-09-10 20:49] LABS: *AMPHETAMINES SCREEN URINE NEGATIVE (NEGATIVE); *BARBITURATES SCREEN URINE NEGATIVE (NEGATIVE); *BENZODIAZEPINES SCREEN URINE PRESUMTIVE POSITIVE (NEGATIVE)
[2019-09-10 21:08] LABS: PLATELET ESTIMATE MARKEDLY DECREASED
[2019-09-10 21:09] LABS: PLATELET 28 x1000/uL (130-400)
[2019-09-10 22:09] VITALS: BP 107/82
== END 2019-09-10 22:21 | disposition home or self-care (01) ==
LOC: ER 14:44
DX: R10.13 Epigastric pain (principal); F10.129 Alcohol abuse with intoxication, unspecified; Z79.899 Other long term (current) drug therapy; Z88.6 Allergy status to analgesic agent; Z88.3 Allergy status to other anti-infective agents; Y90.8 Blood alcohol level of 240 mg/100 ml or more
CPT/HCPCS: 36415; 70450; 74176; 80053; 80305; 80320; 81003; 83690; 85025; 85610; 96361; 96374; 96375; 99284; C9113; J2405; J3490; J7030; G0480

== ENCOUNTER 2019-09-12 15:51 | Emergency (ER) | payer MEDICAID ==
[~2019-09-12] VITALS: Ht 162.6 cm; Wt 70.0 kg
[2019-09-12 18:18] VITALS: BP 101/54
[2019-09-12] MEDS ORDERED: MAGNESIUM/ALUMINUM HYDROXIDE/SIMETHICONE 30ML UDC PO ONE (18:30)
[2019-09-12] MEDS ORDERED: FAMOTIDINE 20MG TABLET PO ONE (18:30)
[2019-09-12] MEDS ORDERED: ONDANSETRON 4MG ODT PO ONE (18:30)
[2019-09-12] MEDS ORDERED: FOLIC ACID 1 MG, THIAMINE HCL 100 MG, MVI, ADULT NO.1 10 ML in DEXTROSE 5% WATER 1,000 ML IV ONE ×4 (18:30)
[2019-09-12 18:59] LABS: CHLORIDE 115 mEq/L (98-107)
[2019-09-12 19:00] LABS: HEMATOCRIT. 25.1 % (42.0-52.0); HEMOGLOBIN. 7.9 g/dL (14.0-18.0); MEAN PLATELET VOLUME 8.9 fl (7.4-10.4); RED CELL DISTRIBUTION WIDTH 23.9 % (11.6-14.6)
[2019-09-12 19:31] LABS: PLATELET 29 x1000/uL (130-400)
[2019-09-12 20:00] LABS: ETHANOL BLOOD 328 mg/dL
[2019-09-12 20:47] LABS: PLATELET ESTIMATE MARKEDLY DECREASED
== END 2019-09-12 23:46 | disposition home or self-care (01) ==
LOC: ER 15:51
DX: R10.9 Unspecified abdominal pain (principal); D61.818 Other pancytopenia; F10.229 Alcohol dependence with intoxication, unspecified; Y90.8 Blood alcohol level of 240 mg/100 ml or more; Z79.899 Other long term (current) drug therapy; Z88.6 Allergy status to analgesic agent; Z88.3 Allergy status to other anti-infective agents
CPT/HCPCS: 36415; 80053; 80320; 83690; 85025; 96365; 99284; J3411; J3490; J7070; Q0162; G0480

== ENCOUNTER 2019-09-20 10:15 | Emergency (ER) | payer MEDICAID ==
[~2019-09-20] VITALS: Ht 170.2 cm; Wt 72.0 kg
[2019-09-20 10:20] VITALS: BP 114/68
[2019-09-20 11:52] LABS: CLARITY URINE TURBID (CLEAR); COLOR URINE DK YELLOW (YELLOW); KETONES URINE NEGATIVE (NEGATIVE); LEUKOCYTE ESTERASE URINE NEGATIVE (NEGATIVE); NITRITE URINE NEGATIVE (NEGATIVE); OCCULT BLOOD URINE NEGATIVE (NEGATIVE); PROTEIN URINE 2+ (NEGATIVE)
[2019-09-20 13:03] LABS: *AMPHETAMINES SCREEN URINE NEGATIVE (NEGATIVE); *BARBITURATES SCREEN URINE NEGATIVE (NEGATIVE); *BENZODIAZEPINES SCREEN URINE PRESUMTIVE POSITIVE (NEGATIVE); *COCAINE SCREEN URINE NEGATIVE (NEGATIVE); OPIATES URINE SCREEN NEGATIVE (NEGATIVE)
[2019-09-20 13:04] LABS: CANNABINOID URINE SCREEN NEGATIVE (NEGATIVE); PHENCYCLIDINE URINE SCREEN NEGATIVE (NEGATIVE)
[2019-09-20 16:53] LABS: METHADONE URINE SCREEN NEGATIVE (NEGATIVE)
== END 2019-09-20 13:24 | disposition home or self-care (01) ==
LOC: ER 10:15
DX: S09.8XXA Other specified injuries of head, initial encounter (principal); M25.561 Pain in right knee; W01.198A Fall on same level from slipping, tripping and stumbling with subsequent striking against other object, initial encounter; Y93.89 Activity, other specified; Y92.512 Supermarket, store or market as the place of occurrence of the external cause
CPT/HCPCS: 80305; 81003; 99285

== ENCOUNTER 2019-09-20 14:57 | Emergency (ER) | payer MEDICAID ==
[~2019-09-20] VITALS: Ht 167.6 cm; Wt 67.0 kg
[2019-09-20 15:30] VITALS: BP 128/70
== END 2019-09-20 20:24 | disposition home or self-care (01) ==
LOC: ER 14:57
DX: M25.561 Pain in right knee (principal); Z91.81 History of falling
CPT/HCPCS: 73560; 99283

== ENCOUNTER 2019-09-28 17:29 | Emergency (ER) | payer MEDICAID ==
[~2019-09-28] VITALS: Ht 167.6 cm; Wt 78.0 kg
[2019-09-28] MEDS ORDERED: ONDANSETRON 4MG ODT PO ONE (22:00)
[2019-09-28 22:45] LABS: HEMATOCRIT. 30.2 % (42.0-52.0); HEMOGLOBIN. 9.6 g/dL (14.0-18.0); MEAN CORPUSCULAR HEMOGLOBIN 24.2 pg (28.0-32.0); MEAN PLATELET VOLUME 8.5 fl (7.4-10.4); RED BLOOD CELL COUNT 3.97 mill/uL (4.7-6.1); RED CELL DISTRIBUTION WIDTH 24.1 % (11.6-14.6)
[2019-09-28 22:47] LABS: PLATELET 44 x1000/uL (130-400)
[2019-09-28 22:51] LABS: PLATELET ESTIMATE MARKEDLY DECREASED
[2019-09-28 22:52] LABS: CHLORIDE 115 mEq/L (98-107)
[2019-09-28 23:12] LABS: ETHANOL BLOOD 359 mg/dL
[2019-09-28 23:42] LABS: CLARITY URINE CLEAR (CLEAR); COLOR URINE YELLOW (YELLOW); KETONES URINE NEGATIVE (NEGATIVE); LEUKOCYTE ESTERASE URINE NEGATIVE (NEGATIVE); NITRITE URINE NEGATIVE (NEGATIVE); OCCULT BLOOD URINE NEGATIVE (NEGATIVE); PROTEIN URINE NEGATIVE (NEGATIVE); SPECIFIC GRAVITY URINE 1.015 (1.005-1.030); UROBILINOGEN URINE 0.2 E.U./dL (0.2-1.0)
[2019-09-29 00:39] LABS: *AMPHETAMINES SCREEN URINE NEGATIVE (NEGATIVE); *BARBITURATES SCREEN URINE NEGATIVE (NEGATIVE); *BENZODIAZEPINES SCREEN URINE PRESUMTIVE POSITIVE (NEGATIVE); *COCAINE SCREEN URINE NEGATIVE (NEGATIVE); CANNABINOID URINE SCREEN NEGATIVE (NEGATIVE); METHADONE URINE SCREEN NEGATIVE (NEGATIVE); PHENCYCLIDINE URINE SCREEN NEGATIVE (NEGATIVE)
[2019-09-29 00:40] LABS: OPIATES URINE SCREEN NEGATIVE (NEGATIVE)
[2019-09-29 02:00] VITALS: BP 125/74
== END 2019-09-29 03:14 | disposition home or self-care (01) ==
LOC: ER 17:29
DX: F10.229 Alcohol dependence with intoxication, unspecified (principal); K76.9 Liver disease, unspecified; M54.9 Dorsalgia, unspecified; Z88.6 Allergy status to analgesic agent; Z88.3 Allergy status to other anti-infective agents; Z79.899 Other long term (current) drug therapy; Y90.8 Blood alcohol level of 240 mg/100 ml or more
CPT/HCPCS: 36415; 73610; 80053; 80305; 80320; 81003; 83690; 85025; 87086; 99284; Q0162; G0480

== ENCOUNTER 2019-10-01 12:36 | Emergency (ER) | payer MEDICAID ==
[~2019-10-01] VITALS: Ht 162.6 cm; Wt 74.3 kg
[2019-10-01 17:31] VITALS: BP 137/62
== END 2019-10-01 17:37 | disposition home or self-care (01) ==
LOC: ER 12:36
DX: M25.572 Pain in left ankle and joints of left foot (principal); Z87.11 Personal history of peptic ulcer disease; Z87.19 Personal history of other diseases of the digestive system; Z79.899 Other long term (current) drug therapy; Z88.8 Allergy status to other drugs, medicaments and biological substances; Z88.6 Allergy status to analgesic agent; W01.0XXA Fall on same level from slipping, tripping and stumbling without subsequent striking against object, initial encounter; Y93.89 Activity, other specified; Y92.89 Other specified places as the place of occurrence of the external cause; Y99.8 Other external cause status
CPT/HCPCS: 99283

== ENCOUNTER 2019-10-14 17:01 | Emergency (ER) | payer MEDICAID ==
[~2019-10-14] VITALS: Ht 162.6 cm; Wt 70.0 kg
[2019-10-14] MEDS ORDERED: TRAMADOL 50MG TABLET PO ONE (21:45)
[2019-10-14 21:53] VITALS: BP 133/69
== END 2019-10-15 00:05 | disposition home or self-care (01) ==
LOC: ER 17:01
DX: S20.212A Contusion of left front wall of thorax, initial encounter (principal); R06.00 Dyspnea, unspecified; J06.9 Acute upper respiratory infection, unspecified; F10.129 Alcohol abuse with intoxication, unspecified; Z88.6 Allergy status to analgesic agent; Z79.899 Other long term (current) drug therapy; Y04.0XXA Assault by unarmed brawl or fight, initial encounter; Y93.89 Activity, other specified; Y92.89 Other specified places as the place of occurrence of the external cause; Y99.8 Other external cause status; Y90.9 Presence of alcohol in blood, level not specified
CPT/HCPCS: 71250; 99284

== ENCOUNTER 2019-10-20 18:41 | Emergency (ER) | payer MEDICAID ==
[~2019-10-20] VITALS: Ht 167.6 cm; Wt 70.0 kg
[2019-10-21 06:00] VITALS: BP 102/61
== END 2019-10-21 06:52 | disposition home or self-care (01) ==
LOC: ER 18:41
DX: F10.229 Alcohol dependence with intoxication, unspecified (principal); K70.30 Alcoholic cirrhosis of liver without ascites; Y90.9 Presence of alcohol in blood, level not specified; Z71.41 Alcohol abuse counseling and surveillance of alcoholic; Z87.19 Personal history of other diseases of the digestive system; Z79.899 Other long term (current) drug therapy; Z88.6 Allergy status to analgesic agent; Z88.8 Allergy status to other drugs, medicaments and biological substances
CPT/HCPCS: 99285

== ENCOUNTER 2019-10-22 17:45 | Emergency (ER) | payer MEDICAID ==
[~2019-10-22] VITALS: Ht 162.6 cm; Wt 73.0 kg
[2019-10-22] MEDS ORDERED: ONDANSETRON 4MG ODT PO STA (18:10)
[2019-10-22] MEDS ORDERED: MAGNESIUM/ALUMINUM HYDROXIDE/SIMETHICONE 30ML UDC PO STA (18:10)
[2019-10-22 19:57] LABS: HEMATOCRIT. 30.1 % (42.0-52.0); HEMOGLOBIN. 9.8 g/dL (14.0-18.0); MEAN CORPUSCULAR HEMOGLOBIN 25.8 pg (28.0-32.0); MEAN CORPUSCULAR VOLUME 79.8 fL (80.0-94.0); MEAN PLATELET VOLUME 8.8 fl (7.4-10.4); RED BLOOD CELL COUNT 3.77 mill/uL (4.7-6.1); RED CELL DISTRIBUTION WIDTH 27.8 % (11.6-14.6)
[2019-10-22 19:59] LABS: CHLORIDE 108 mEq/L (98-107)
[2019-10-22 20:04] LABS: INR 1.3; PROTHROMBIN TIME 14.3 sec (9.6-11.0)
[2019-10-22 20:12] LABS: CLARITY URINE CLEAR (CLEAR); COLOR URINE YELLOW (YELLOW); KETONES URINE NEGATIVE (NEGATIVE); LEUKOCYTE ESTERASE URINE NEGATIVE (NEGATIVE); NITRITE URINE NEGATIVE (NEGATIVE); OCCULT BLOOD URINE NEGATIVE (NEGATIVE); PROTEIN URINE NEGATIVE (NEGATIVE); SPECIFIC GRAVITY URINE 1.009 (1.005-1.030)
[2019-10-22 20:21] LABS: ETHANOL BLOOD 443 mg/dL
[2019-10-22 21:04] LABS: PLATELET ESTIMATE MARKEDLY DECREASED
[2019-10-22 21:05] LABS: PLATELET 18 x1000/uL (130-400)
[2019-10-22 21:23] LABS: *BARBITURATES SCREEN URINE NEGATIVE (NEGATIVE); *BENZODIAZEPINES SCREEN URINE NEGATIVE (NEGATIVE); *COCAINE SCREEN URINE NEGATIVE (NEGATIVE)
[2019-10-22 21:25] LABS: *AMPHETAMINES SCREEN URINE NEGATIVE (NEGATIVE); CANNABINOID URINE SCREEN NEGATIVE (NEGATIVE); METHADONE URINE SCREEN NEGATIVE (NEGATIVE); OPIATES URINE SCREEN NEGATIVE (NEGATIVE); PHENCYCLIDINE URINE SCREEN NEGATIVE (NEGATIVE)
[2019-10-23 06:34] VITALS: BP 135/78
== END 2019-10-23 06:36 | disposition home or self-care (01) ==
LOC: ER 17:45
DX: F10.229 Alcohol dependence with intoxication, unspecified (principal); K70.30 Alcoholic cirrhosis of liver without ascites; Y90.8 Blood alcohol level of 240 mg/100 ml or more; R10.9 Unspecified abdominal pain; S01.81XA Laceration without foreign body of other part of head, initial encounter; M54.2 Cervicalgia; Z71.41 Alcohol abuse counseling and surveillance of alcoholic; W01.10XA Fall on same level from slipping, tripping and stumbling with subsequent striking against unspecified object, initial encounter; Y93.89 Activity, other specified; Y92.89 Other specified places as the place of occurrence of the external cause; Z87.19 Personal history of other diseases of the digestive system; Z87.11 Personal history of peptic ulcer disease
CPT/HCPCS: 12011; 36415; 70450; 71045; 72125; 76700; 80053; 80305; 80320; 81003; 83690; 85025; 85610; 93005; 99285; Q0162; G0480

== ENCOUNTER 2019-10-25 13:04 | Emergency (ER) | payer MEDICAID ==
[~2019-10-25] VITALS: Ht 167.6 cm; Wt 70.0 kg
[2019-10-25] MEDS ORDERED: SODIUM CHLORIDE 0.9% 1,000 ML IV ONE (14:23)
[2019-10-25] MEDS ORDERED: FAMOTIDINE 20MG/2ML VIAL IV ONE (14:30)
[2019-10-25 14:41] LABS: HEMATOCRIT. 27.2 % (42.0-52.0); HEMOGLOBIN. 8.8 g/dL (14.0-18.0); MEAN CORPUSCULAR HEMOGLOBIN 25.9 pg (28.0-32.0); MEAN CORPUSCULAR VOLUME 79.8 fL (80.0-94.0); MEAN PLATELET VOLUME 8.5 fl (7.4-10.4); RED BLOOD CELL COUNT 3.41 mill/uL (4.7-6.1)
[2019-10-25 14:43] LABS: CHLORIDE 107 mEq/L (98-107)
[2019-10-25 14:45] LABS: PLATELET 13 x1000/uL (130-400)
[2019-10-25 15:03] LABS: ETHANOL BLOOD 529 mg/dL
[2019-10-25 16:26] LABS: PLATELET ESTIMATE MARKEDLY DECREASED
[2019-10-25 20:10] VITALS: BP 122/61
== END 2019-10-25 20:10 | disposition home or self-care (01) ==
LOC: ER 13:13
DX: F10.129 Alcohol abuse with intoxication, unspecified (principal); Y90.8 Blood alcohol level of 240 mg/100 ml or more; R03.0 Elevated blood-pressure reading, without diagnosis of hypertension; D61.818 Other pancytopenia; K70.10 Alcoholic hepatitis without ascites
CPT/HCPCS: 36415; 71045; 80053; 80320; 83690; 85025; 96374; 99285; J3490; J7030; G0480

== ENCOUNTER 2019-10-29 13:48 | Inpatient (IN) | payer MEDICAID ==
[~2019-10-29] VITALS: Ht 162.6 cm; Wt 64.4 kg
[2019-10-29] MEDS ORDERED: SODIUM CHLORIDE 0.9% 1,000 ML IV ONE (14:30)
[2019-10-29] MEDS ORDERED: LORAZEPAM 2MG/ML CPJ IV ONE (14:30)
[2019-10-29 15:10] LABS: HEMATOCRIT. 31.9 % (42.0-52.0); HEMOGLOBIN. 10.3 g/dL (14.0-18.0); MEAN CORPUSCULAR HEMOGLOBIN 26.3 pg (28.0-32.0); MEAN CORPUSCULAR VOLUME 81.2 fL (80.0-94.0); MEAN PLATELET VOLUME 8.2 fl (7.4-10.4); RED BLOOD CELL COUNT 3.93 mill/uL (4.7-6.1); RED CELL DISTRIBUTION WIDTH 28.3 % (11.6-14.6)
[2019-10-29 15:13] LABS: CHLORIDE 107 mEq/L (98-107)
[2019-10-29 15:18] LABS: INR 1.3; PROTHROMBIN TIME 14.3 sec (9.6-11.0)
[2019-10-29 15:40] LABS: PLATELET 13 x1000/uL (130-400)
[2019-10-29] MEDS ORDERED: CHLORDIAZEPOXIDE 25MG CAPSULE PO ONE (16:45)
[2019-10-29 17:13] LABS: PLATELET ESTIMATE MARKEDLY DECREASED
[2019-10-29 17:21] LABS: CLARITY URINE CLOUDY (CLEAR); COLOR URINE DARK YELLOW (YELLOW); KETONES URINE TRACE (NEGATIVE); LEUKOCYTE ESTERASE URINE 1+ (NEGATIVE); NITRITE URINE POSITIVE (NEGATIVE); OCCULT BLOOD URINE TRACE (NEGATIVE); PH URINE 5.5 (4.5-8.0); PROTEIN URINE 2+ (NEGATIVE); SPECIFIC GRAVITY URINE 1.036 (1.005-1.030)
[2019-10-29] MEDS ORDERED: IPRATROPIUM/ALBUTEROL 0.5-3(2.5)MG/3ML NEB HHN PRN (21:15)
[2019-10-29] MEDS ORDERED: ACETAMINOPHEN 325MG TABLET PO PRN (21:15)
[2019-10-29] MEDS ORDERED: CLONIDINE 0.1MG TABLET PO PRN (21:15)
[2019-10-29] MEDS ORDERED: LORAZEPAM 2MG/ML CPJ IV PRN (21:15)
[2019-10-29] MEDS ORDERED: PANTOPRAZOLE SODIUM 40 MG/VIAL IV NR (21:45)
[2019-10-29] MEDS ORDERED: MVI, ADULT NO.1 10 ML, FOLIC ACID 1 MG, THIAMINE HCL 100 MG in SODIUM CHLORIDE 0.9% 1,0... IV NR ×4 (22:00)
[2019-10-29 23:41] LABS: HEMATOCRIT 26.6 % (42.0-52.0); HEMOGLOBIN 8.6 g/dL (14.0-18.0); MEAN CORPUSCULAR HEMOGLOBIN 26.5 pg (28.0-32.0); MEAN CORPUSCULAR VOLUME 82.3 fL (80.0-94.0); RED BLOOD CELL COUNT 3.23 mill/uL (4.7-6.1); RED CELL DISTRIBUTION WIDTH 27.1 % (11.6-14.6)
[2019-10-29 23:47] LABS: PLATELET 15 x1000/uL (130-400)
[2019-10-30 00:14] LABS: AMYLASE 82 IU/L (25-115)
[2019-10-30 00:19] LABS: CREATINE KINASE 277 IU/L (39-308)
[2019-10-30] MEDS ORDERED: CHLORDIAZEPOXIDE 25MG CAPSULE PO SCH (03:00)
[2019-10-30 05:01] LABS: HEMATOCRIT. 25.8 % (42.0-52.0); HEMOGLOBIN. 8.3 g/dL (14.0-18.0); MEAN CORPUSCULAR HEMOGLOBIN 26.4 pg (28.0-32.0); MEAN CORPUSCULAR VOLUME 82.3 fL (80.0-94.0); MEAN PLATELET VOLUME 11.8 fl (7.4-10.4); RED BLOOD CELL COUNT 3.14 mill/uL (4.7-6.1); RED CELL DISTRIBUTION WIDTH 27.2 % (11.6-14.6)
[2019-10-30 05:04] LABS: PLATELET 13 x1000/uL (130-400)
[2019-10-30 05:28] LABS: CHLORIDE 111 mEq/L (98-107)
[2019-10-30 05:38] LABS: CREATINE KINASE 276 IU/L (39-308)
[2019-10-30 06:34] LABS: PLATELET ESTIMATE MARKEDLY DECREASED
[2019-10-30] MEDS: SODIUM CHLORIDE 0.45% 1,000 ML IV SCH ×2 (06:57→18:51)
[2019-10-30] MEDS: PANTOPRAZOLE SODIUM 40 MG/VIAL IV SCH ×2 (09:00→17:13)
[2019-10-30] MEDS: CHLORDIAZEPOXIDE 25MG CAPSULE PO SCH ×2 (10:14→18:50)
[2019-10-30 14:15] LABS: *AMPHETAMINES SCREEN URINE NEGATIVE (NEGATIVE); *BARBITURATES SCREEN URINE NEGATIVE (NEGATIVE)
[2019-10-30 14:16] LABS: *BENZODIAZEPINES SCREEN URINE PRESUMTIVE POSITIVE (NEGATIVE); *COCAINE SCREEN URINE NEGATIVE (NEGATIVE); CANNABINOID URINE SCREEN NEGATIVE (NEGATIVE); METHADONE URINE SCREEN NEGATIVE (NEGATIVE); OPIATES URINE SCREEN NEGATIVE (NEGATIVE); PHENCYCLIDINE URINE SCREEN NEGATIVE (NEGATIVE)
[2019-10-31] VITALS (9 sets, daily range): BP systolic 93–132; BP diastolic 45–73
[2019-10-31] MEDS: LACTULOSE 20G/30ML UDC PO SCH ×3 (01:31→17:11)
[2019-10-31] MEDS: SODIUM CHLORIDE 0.45% 1,000 ML IV SCH ×2 (01:35→18:42)
[2019-10-31] MEDS: PROPRANOLOL HCL 10MG TABLET PO SCH ×3 (01:41→20:49)
[2019-10-31] MEDS: CHLORDIAZEPOXIDE 25MG CAPSULE PO SCH ×3 (01:51→17:11)
[2019-10-31 04:06] LABS: HIV SCREEN 4G Non Reactive (Non Reactive)
[2019-10-31 07:20] LABS: CHLORIDE 105 mEq/L (98-107)
[2019-10-31 07:26] LABS: PHOSPHORUS 3.7 mg/dL (2.5-4.9)
[2019-10-31 07:27] LABS: HEMATOCRIT. 24.9 % (42.0-52.0); HEMOGLOBIN. 8.2 g/dL (14.0-18.0); MEAN CORPUSCULAR HEMOGLOBIN 26.8 pg (28.0-32.0); MEAN CORPUSCULAR VOLUME 81.6 fL (80.0-94.0); MEAN PLATELET VOLUME 11.3 fl (7.4-10.4); RED BLOOD CELL COUNT 3.05 mill/uL (4.7-6.1); RED CELL DISTRIBUTION WIDTH 27.5 % (11.6-14.6)
[2019-10-31 08:53] LABS: PLATELET 17 x1000/uL (130-400)
[2019-10-31] MEDS ORDERED: MAGNESIUM 4 G PREMIX 100 ML IV NR (09:00)
[2019-10-31] MEDS ORDERED: POTASSIUM CHLORIDE 20MEQ TABLET SR PO NR (12:00)
[2019-10-31 14:13] LABS: PLATELET ESTIMATE MARKEDLY DECREASED
[2019-10-31] MEDS: PANTOPRAZOLE SODIUM 40 MG/VIAL IV SCH (17:12)
[2019-10-31] MEDS: CEFTRIAXONE 1 G PREMIX 50 ML IV SCH (20:48)
[2019-10-31] MEDS: TRAZODONE HCL 50MG TABLET PO SCH (20:49)
[2019-11-01] VITALS (8 sets, daily range): BP systolic 89–113; BP diastolic 47–87
[2019-11-01] MEDS: LACTULOSE 20G/30ML UDC PO SCH ×3 (01:10→18:16)
[2019-11-01] MEDS: CHLORDIAZEPOXIDE 25MG CAPSULE PO SCH ×3 (01:13→18:16)
[2019-11-01 07:22] LABS: HEMATOCRIT. 25.9 % (42.0-52.0); HEMOGLOBIN. 8.1 g/dL (14.0-18.0); MEAN CORPUSCULAR HEMOGLOBIN 26.9 pg (28.0-32.0); MEAN CORPUSCULAR VOLUME 85.7 fL (80.0-94.0); RED BLOOD CELL COUNT 3.02 mill/uL (4.7-6.1)
[2019-11-01 07:35] LABS: PLATELET 15 x1000/uL (130-400)
[2019-11-01 07:45] LABS: CHLORIDE 111 mEq/L (98-107)
[2019-11-01] MEDS: PROPRANOLOL HCL 10MG TABLET PO SCH ×2 (09:10→22:09)
[2019-11-01] MEDS: PANTOPRAZOLE SODIUM 40 MG/VIAL IV SCH ×2 (09:10→18:17)
[2019-11-01 12:09] LABS: PLATELET ESTIMATE MARKEDLY DECREASED
[2019-11-01] MEDS: TRAZODONE HCL 50MG TABLET PO SCH (22:09)
[2019-11-01] MEDS: CEFTRIAXONE 1 G PREMIX 50 ML IV SCH (22:09)
[2019-11-02] MEDS: LACTULOSE 20G/30ML UDC PO SCH ×3 (01:08→17:49)
[2019-11-02] MEDS: CHLORDIAZEPOXIDE 25MG CAPSULE PO SCH ×3 (01:08→17:49)
[2019-11-02] MEDS: SODIUM CHLORIDE 0.45% 1,000 ML IV SCH ×2 (01:08→09:00)
[2019-11-02] MEDS: TRAMADOL 50MG TABLET PO PRN (01:08)
[2019-11-02 03:55] VITALS: BP 127/71
[2019-11-02 07:14] LABS: HEMOGLOBIN. 8.4 g/dL (14.0-18.0); MEAN CORPUSCULAR HEMOGLOBIN 26.9 pg (28.0-32.0); MEAN CORPUSCULAR VOLUME 83.3 fL (80.0-94.0); MEAN PLATELET VOLUME 8.9 fl (7.4-10.4); RED BLOOD CELL COUNT 3.12 mill/uL (4.7-6.1); RED CELL DISTRIBUTION WIDTH 27.6 % (11.6-14.6)
[2019-11-02 07:46] LABS: CHLORIDE 110 mEq/L (98-107)
[2019-11-02 10:06] LABS: INR 1.4
[2019-11-02] MEDS: PANTOPRAZOLE SODIUM 40 MG/VIAL IV SCH ×2 (10:07→17:49)
[2019-11-02] MEDS: PROPRANOLOL HCL 10MG TABLET PO SCH ×2 (10:08→21:44)
[2019-11-02 10:37] LABS: PLATELET ESTIMATE MARKEDLY DECREASED
[2019-11-02 10:38] LABS: PLATELET 13 x1000/uL (130-400)
[2019-11-02 12:00] VITALS: BP 105/67
[2019-11-02 16:00] VITALS: BP 138/75
[2019-11-02 16:04] VITALS: BP 138/75
[2019-11-02 20:00] VITALS: BP 121/71
[2019-11-02] MEDS: CEFTRIAXONE 1 G PREMIX 50 ML IV SCH (20:00)
[2019-11-02] MEDS: RIFAXIMIN 550 MG TABLET PO SCH (21:43)
[2019-11-02] MEDS: TRAZODONE HCL 50MG TABLET PO SCH (21:43)
[2019-11-03] VITALS: BP 122/69
[2019-11-03] MEDS: LACTULOSE 20G/30ML UDC PO SCH ×4 (00:26→23:40)
[2019-11-03] MEDS: TRAMADOL 50MG TABLET PO PRN ×2 (00:41→20:30)
[2019-11-03] MEDS: CHLORDIAZEPOXIDE 25MG CAPSULE PO SCH ×3 (01:16→17:16)
[2019-11-03 04:00] VITALS: BP 130/64
[2019-11-03 07:13] LABS: HEMATOCRIT. 28.7 % (42.0-52.0); HEMOGLOBIN. 9.1 g/dL (14.0-18.0); MEAN CORPUSCULAR HEMOGLOBIN 27.1 pg (28.0-32.0); MEAN CORPUSCULAR VOLUME 85.3 fL (80.0-94.0); MEAN PLATELET VOLUME 8.5 fl (7.4-10.4); RED BLOOD CELL COUNT 3.37 mill/uL (4.7-6.1)
[2019-11-03 07:35] LABS: PLATELET 18 x1000/uL (130-400)
[2019-11-03 07:47] LABS: CHLORIDE 112 mEq/L (98-107)
[2019-11-03 08:00] VITALS: BP 105/60
[2019-11-03] MEDS: PANTOPRAZOLE SODIUM 40 MG/VIAL IV SCH ×2 (09:00→20:22)
[2019-11-03] MEDS: RIFAXIMIN 550 MG TABLET PO SCH ×2 (09:09→20:29)
[2019-11-03] MEDS: PROPRANOLOL HCL 10MG TABLET PO SCH ×2 (09:14→20:30)
[2019-11-03 10:03] LABS: PLATELET ESTIMATE MARKEDLY DECREASED
[2019-11-03] MEDS ORDERED: LEVOFLOXACIN 250MG TABLET PO SCH (11:00)
[2019-11-03 12:00] VITALS: BP 100/59
[2019-11-03] MEDS: LEVOFLOXACIN 500MG TABLET PO SCH (12:33)
[2019-11-03 16:00] VITALS: BP 95/58
[2019-11-03 20:00] VITALS: BP 123/74
[2019-11-03] MEDS: TRAZODONE HCL 50MG TABLET PO SCH (20:30)
[2019-11-03] MEDS: SODIUM CHLORIDE 0.45% 1,000 ML IV SCH ×2 (21:30→22:30)
[2019-11-04] VITALS: BP 106/67
[2019-11-04] MEDS: CHLORDIAZEPOXIDE 25MG CAPSULE PO SCH ×2 (01:13→09:08)
[2019-11-04 04:00] VITALS: BP 99/49
[2019-11-04 06:58] LABS: CHLORIDE 112 mEq/L (98-107)
[2019-11-04 07:20] LABS: HEMATOCRIT. 26.4 % (42.0-52.0); HEMOGLOBIN. 8.5 g/dL (14.0-18.0); MEAN CORPUSCULAR HEMOGLOBIN 27.2 pg (28.0-32.0); MEAN CORPUSCULAR VOLUME 84.9 fL (80.0-94.0); MEAN PLATELET VOLUME 9.4 fl (7.4-10.4); RED BLOOD CELL COUNT 3.11 mill/uL (4.7-6.1); RED CELL DISTRIBUTION WIDTH 27.7 % (11.6-14.6)
[2019-11-04 08:00] VITALS: BP_SYST 98
[2019-11-04 08:03] LABS: PLATELET 17 x1000/uL (130-400)
[2019-11-04] MEDS: PANTOPRAZOLE SODIUM 40 MG/VIAL IV SCH ×2 (09:00→16:52)
[2019-11-04] MEDS: PROPRANOLOL HCL 10MG TABLET PO SCH ×2 (09:00→21:00)
[2019-11-04] MEDS: LACTULOSE 20G/30ML UDC PO SCH ×2 (09:08→15:56)
[2019-11-04] MEDS: RIFAXIMIN 550 MG TABLET PO SCH ×2 (09:09→21:24)
[2019-11-04] MEDS: SODIUM CHLORIDE 0.45% 1,000 ML IV SCH (11:00)
[2019-11-04 11:04] LABS: PLATELET ESTIMATE MARKEDLY DECREASED
[2019-11-04 12:00] VITALS: BP 110/61
[2019-11-04] MEDS: LEVOFLOXACIN 500MG TABLET PO SCH (15:15)
[2019-11-04 16:00] VITALS: BP 135/60
[2019-11-04 20:00] VITALS: BP_SYST 126; BP_SYST 95; BP_DIAS 52; BP_DIAS 62
[2019-11-04] MEDS: TRAZODONE HCL 50MG TABLET PO SCH (21:24)
[2019-11-05] VITALS: BP_SYST 100; BP_SYST 110; BP_DIAS 56; BP_DIAS 58
[2019-11-05] MEDS: LACTULOSE 20G/30ML UDC PO SCH ×3 (02:08→16:50)
[2019-11-05 04:00] VITALS: BP 90/50
[2019-11-05 07:21] LABS: HEMATOCRIT. 25.7 % (42.0-52.0); HEMOGLOBIN. 8.2 g/dL (14.0-18.0); MEAN CORPUSCULAR HEMOGLOBIN 27.1 pg (28.0-32.0); MEAN PLATELET VOLUME 9.8 fl (7.4-10.4); RED BLOOD CELL COUNT 3.03 mill/uL (4.7-6.1); RED CELL DISTRIBUTION WIDTH 27.7 % (11.6-14.6)
[2019-11-05 07:39] LABS: PLATELET 17 x1000/uL (130-400)
[2019-11-05 07:41] LABS: CHLORIDE 111 mEq/L (98-107)
[2019-11-05 08:00] VITALS: BP 101/52
[2019-11-05] MEDS: PROPRANOLOL HCL 10MG TABLET PO SCH (08:08)
[2019-11-05] MEDS: RIFAXIMIN 550 MG TABLET PO SCH (08:08)
[2019-11-05] MEDS: PANTOPRAZOLE SODIUM 40 MG/VIAL IV SCH ×2 (08:09→16:50)
[2019-11-05] MEDS: LEVOFLOXACIN 500MG TABLET PO SCH (11:38)
[2019-11-05 12:00] VITALS: BP 98/52
[2019-11-05] MEDS: SODIUM CHLORIDE 0.45% 1,000 ML IV SCH (12:14)
[2019-11-05 13:31] LABS: PLATELET ESTIMATE MARKEDLY DECREASED
[2019-11-05] MEDS ORDERED: LACT10SO7 PO (14:42)
[2019-11-05 15:56] VITALS: BP 100/60
[2019-11-05 16:00] VITALS: BP 100/60
[2019-12-14] MEDS ORDERED: THIA100T72 PO (11:52)
[2019-12-14] MEDS ORDERED: L25 MT (11:52)
== END 2019-11-05 20:00 | disposition home or self-care (01) | DRG 279 ==
LOC: ER 13:48 → EDBEDREQ 17:36 → ENRESERV 10-30 22:30 → 5WST 10-30 23:29
PROVIDERS: ADMIT Internal Medicine; ATTEND Internal Medicine
PROC: 30233R1 Transfusion of Nonautologous Platelets into Peripheral Vein, Percutaneous Approach (ICD-10-PCS; principal; 2019-10-30)
DX: K72.90 Hepatic failure, unspecified without coma (principal); I85.11 Secondary esophageal varices with bleeding; K85.20 Alcohol induced acute pancreatitis without necrosis or infection; D61.818 Other pancytopenia; K27.4 Chronic or unspecified peptic ulcer, site unspecified, with hemorrhage; K70.30 Alcoholic cirrhosis of liver without ascites; E88.09 Other disorders of plasma-protein metabolism, not elsewhere classified; K76.6 Portal hypertension; R16.1 Splenomegaly, not elsewhere classified; Y90.9 Presence of alcohol in blood, level not specified; E87.6 Hypokalemia; I86.8 Varicose veins of other specified sites; D63.8 Anemia in other chronic diseases classified elsewhere; K21.9 Gastro-esophageal reflux disease without esophagitis; F10.20 Alcohol dependence, uncomplicated; Z79.899 Other long term (current) drug therapy; Z88.6 Allergy status to analgesic agent; Z88.8 Allergy status to other drugs, medicaments and biological substances; Z91.5 Personal history of self-harm
CPT/HCPCS: 36415; 71045; 76700; 80048; 80053; 80076; 80305; 80320; 81003; 82140; 82150; 82248; 82270; 82550; 83735; 84100; 84145; 85025; 85027; 85049; 86850; 86900; 86945; 87389; 96365; 96366; 96375; 99285; C9113; J0696; J2060; J3411; J3475; J3490; J7030; P9034

== ENCOUNTER 2019-11-14 13:25 | Emergency (ER) | payer MEDICAID ==
[~2019-11-14] VITALS: Ht 160 cm; Wt 67.0 kg
[2019-11-14] MEDS ORDERED: VISCOUS LIDOCAINE 2% 15 ML UDC PO STA (14:22)
[2019-11-14] MEDS ORDERED: MAGNESIUM/ALUMINUM HYDROXIDE/SIMETHICONE 30ML UDC PO STA (14:22)
[2019-11-14] MEDS ORDERED: FAMOTIDINE 20MG TABLET PO ONE (14:30)
[2019-11-14 14:37] LABS: HEMATOCRIT. 27.2 % (42.0-52.0); HEMOGLOBIN. 8.8 g/dL (14.0-18.0); MEAN CORPUSCULAR HEMOGLOBIN 26.9 pg (28.0-32.0); MEAN CORPUSCULAR VOLUME 83.7 fL (80.0-94.0); PLATELET 54 x1000/uL (130-400); RED BLOOD CELL COUNT 3.25 mill/uL (4.7-6.1); RED CELL DISTRIBUTION WIDTH 25.6 % (11.6-14.6)
[2019-11-14 14:44] LABS: CHLORIDE 116 mEq/L (98-107)
[2019-11-14 15:04] LABS: ETHANOL BLOOD 317 mg/dL
[2019-11-14 15:05] LABS: PLATELET ESTIMATE DECREASED
[2019-11-14] MEDS ORDERED: ONDANSETRON 4MG ODT PO ONE (16:15)
[2019-11-14 16:37] VITALS: BP 124/77
[2019-12-14] MEDS ORDERED: L25 MT (11:52)
[2019-12-14] MEDS ORDERED: THIA100T72 PO (11:52)
== END 2019-11-14 16:38 | disposition home or self-care (01) ==
LOC: ER 13:25
DX: K29.20 Alcoholic gastritis without bleeding (principal); F10.129 Alcohol abuse with intoxication, unspecified; D61.818 Other pancytopenia; Z88.6 Allergy status to analgesic agent; Z88.3 Allergy status to other anti-infective agents; Z79.899 Other long term (current) drug therapy; Y90.8 Blood alcohol level of 240 mg/100 ml or more
CPT/HCPCS: 36415; 80053; 80320; 83690; 85025; 93005; 99284; Q0162; G0480

== ENCOUNTER 2019-11-20 13:23 | Inpatient (IN) | payer MEDICAID ==
[~2019-11-20] VITALS: Ht 162.6 cm; Wt 67.6 kg
[2019-11-20 15:29] LABS: HEMATOCRIT 26.7 % (42.0-52.0); HEMOGLOBIN 8.7 g/dL (14.0-18.0); MEAN CORPUSCULAR HEMOGLOBIN 27.1 pg (28.0-32.0); MEAN CORPUSCULAR VOLUME 83.3 fL (80.0-94.0); RED BLOOD CELL COUNT 3.21 mill/uL (4.7-6.1); RED CELL DISTRIBUTION WIDTH 24.7 % (11.6-14.6)
[2019-11-20 15:33] LABS: CHLORIDE 112 mEq/L (98-107)
[2019-11-20 15:35] LABS: INR 1.2; PARTIAL THROMBOPLASTIN TIME 31.7 sec (23.4-31.0); PROTHROMBIN TIME 13.2 sec (9.6-11.0)
[2019-11-20 15:47] LABS: ETHANOL BLOOD 372 mg/dL
[2019-11-20] MEDS ORDERED: FAMOTIDINE 20MG/2ML VIAL IV ONE (17:00)
[2019-11-20] MEDS ORDERED: LORAZEPAM 2MG/ML CPJ IV PRN (17:15)
[2019-11-20] MEDS ORDERED: THIAMINE HCL 100MG TABLET PO SCH (17:15)
[2019-11-20] MEDS ORDERED: FOLIC ACID 1 MG, MVI, ADULT NO.1 10 ML in DEXTROSE 5% WATER 1,000 ML IV NR ×3 (18:00)
[2019-11-21 00:47] VITALS: BP 134/82
[2019-11-21 04:30] VITALS: BP 129/59
[2019-11-21 06:58] LABS: HEMATOCRIT. 27.6 % (42.0-52.0); HEMOGLOBIN. 8.8 g/dL (14.0-18.0); MEAN CORPUSCULAR HEMOGLOBIN 27.1 pg (28.0-32.0); MEAN CORPUSCULAR VOLUME 84.6 fL (80.0-94.0); MEAN PLATELET VOLUME 8.6 fl (7.4-10.4); RED BLOOD CELL COUNT 3.26 mill/uL (4.7-6.1); RED CELL DISTRIBUTION WIDTH 24.5 % (11.6-14.6)
[2019-11-21 08:00] VITALS: BP_SYST 123; BP_SYST 124; BP_DIAS 51; BP_DIAS 73
[2019-11-21 08:23] LABS: PLATELET 15 x1000/uL (130-400)
[2019-11-21] MEDS: PANTOPRAZOLE SODIUM 40 MG/VIAL IV SCH ×2 (08:43→17:56)
[2019-11-21] MEDS: ONDANSETRON HCL 4MG/2ML INJ IV PRN ×2 (08:48→17:56)
[2019-11-21 10:51] LABS: PLATELET 18 x1000/uL (130-400)
[2019-11-21 12:00] VITALS: BP 111/64
[2019-11-21] MEDS ORDERED: POTASSIUM CHLORIDE 20MEQ TABLET SR PO SCH (12:30)
[2019-11-21] MEDS: CHLORDIAZEPOXIDE 25MG CAPSULE PO SCH ×2 (13:31→22:13)
[2019-11-21 16:00] VITALS: BP 113/58
[2019-11-21 16:25] LABS: CHLORIDE 107 mEq/L (98-107)
[2019-11-21 17:25] LABS: HEMATOCRIT 26.8 % (42.0-52.0); HEMOGLOBIN 8.8 g/dL (14.0-18.0)
[2019-11-21 17:56] LABS: PLATELET ESTIMATE MARKEDLY DECREASED
[2019-11-21] MEDS: LACTULOSE 20G/30ML UDC PO SCH ×2 (17:56→22:13)
[2019-11-21] MEDS ORDERED: FOLIC ACID 1 MG, THIAMINE HCL 100 MG, MVI, ADULT NO.1 10 ML in DEXTROSE 5% WATER 1,000 ML IV SCH ×4 (18:00)
[2019-11-21] MEDS: FOLIC ACID 1 MG, MVI, ADULT NO.1 10 ML in DEXTROSE 5% WATER 1,000 ML IV SCH ×3 (18:44)
[2019-11-21] MEDS: OCTREOTIDE 1,000 MCG in SODIUM CHLORIDE 0.9% 98 ML IV SCH (18:44)
[2019-11-21 20:00] VITALS: BP 107/57
[2019-11-22] VITALS: BP 105/64
[2019-11-22] MEDS: ONDANSETRON HCL 4MG/2ML INJ IV PRN (00:37)
[2019-11-22] MEDS: PHENYLEPHRINE/SHK LV/MO/PET,WH RECTAL OINT 57GM PR SCH ×4 (00:37→18:00)
[2019-11-22] MEDS: MORPHINE SULFATE 2 MG/ML CPJ (NOT FOR IM USE) IV PRN (00:38)
[2019-11-22 01:14] LABS: HEMATOCRIT 26.4 % (42.0-52.0); HEMOGLOBIN 8.6 g/dL (14.0-18.0)
[2019-11-22 04:00] VITALS: BP 140/83
[2019-11-22] MEDS: LACTULOSE 20G/30ML UDC PO SCH ×3 (05:36→20:57)
[2019-11-22] MEDS: CHLORDIAZEPOXIDE 25MG CAPSULE PO SCH ×3 (05:37→21:01)
[2019-11-22 06:27] LABS: CHLORIDE 107 mEq/L (98-107)
[2019-11-22 06:28] LABS: INR 1.3; PARTIAL THROMBOPLASTIN TIME 33.4 sec (23.4-31.0); PROTHROMBIN TIME 14.1 sec (9.6-11.0)
[2019-11-22 06:46] LABS: HEMATOCRIT. 26.9 % (42.0-52.0); HEMOGLOBIN. 8.7 g/dL (14.0-18.0); MEAN CORPUSCULAR HEMOGLOBIN 27.4 pg (28.0-32.0); MEAN CORPUSCULAR VOLUME 84.3 fL (80.0-94.0); MEAN PLATELET VOLUME 10.9 fl (7.4-10.4); RED BLOOD CELL COUNT 3.19 mill/uL (4.7-6.1); RED CELL DISTRIBUTION WIDTH 23.6 % (11.6-14.6)
[2019-11-22 06:56] LABS: PLATELET 20 x1000/uL (130-400)
[2019-11-22 08:00] VITALS: BP 97/55
[2019-11-22] MEDS: PANTOPRAZOLE SODIUM 40 MG/VIAL IV SCH ×2 (08:58→18:01)
[2019-11-22 11:56] VITALS: BP 118/59
[2019-11-22] MEDS ORDERED: POTASSIUM CHLORIDE INJ 40 MEQ in DEXT 5% WATER 250 ML IV ONE (12:30)
[2019-11-22 12:51] LABS: HEMATOCRIT 26.3 % (42.0-52.0); HEMOGLOBIN 8.5 g/dL (14.0-18.0)
[2019-11-22 16:21] LABS: PLATELET ESTIMATE MARKEDLY DECREASED
[2019-11-22] MEDS ORDERED: ACETAMINOPHEN 325MG TABLET PO PRN ×2 (16:30)
[2019-11-22] MEDS: OCTREOTIDE 1,000 MCG in SODIUM CHLORIDE 0.9% 98 ML IV SCH (17:57)
[2019-11-22] MEDS: FOLIC ACID 1 MG, MVI, ADULT NO.1 10 ML in DEXTROSE 5% WATER 1,000 ML IV SCH ×3 (18:00)
[2019-11-22] MEDS ORDERED: CEFTRIAXONE 1 G PREMIX 50 ML IV SCH (18:00)
[2019-11-22 20:47] VITALS: BP 110/64
[2019-11-23] VITALS (14 sets, daily range): BP systolic 102–139; BP diastolic 42–72
[2019-11-23 00:45] LABS: CLARITY URINE CLEAR (CLEAR); COLOR URINE YELLOW (YELLOW); KETONES URINE NEGATIVE (NEGATIVE); LEUKOCYTE ESTERASE URINE TRACE (NEGATIVE); NITRITE URINE NEGATIVE (NEGATIVE); OCCULT BLOOD URINE NEGATIVE (NEGATIVE); PROTEIN URINE NEGATIVE (NEGATIVE); SPECIFIC GRAVITY URINE 1.007 (1.005-1.030)
[2019-11-23] MEDS: PHENYLEPHRINE/SHK LV/MO/PET,WH RECTAL OINT 57GM PR SCH ×4 (01:02→18:51)
[2019-11-23] MEDS: CHLORDIAZEPOXIDE 25MG CAPSULE PO SCH ×4 (06:00→22:21)
[2019-11-23] MEDS: LACTULOSE 20G/30ML UDC PO SCH ×5 (06:00→22:22)
[2019-11-23 07:20] LABS: HEMOGLOBIN. 8.1 g/dL (14.0-18.0); MEAN CORPUSCULAR HEMOGLOBIN 27.3 pg (28.0-32.0); MEAN PLATELET VOLUME 8.8 fl (7.4-10.4); RED BLOOD CELL COUNT 2.98 mill/uL (4.7-6.1); RED CELL DISTRIBUTION WIDTH 22.7 % (11.6-14.6)
[2019-11-23 07:38] LABS: CHLORIDE 110 mEq/L (98-107); PLATELET 24 x1000/uL (130-400)
[2019-11-23] MEDS: PANTOPRAZOLE SODIUM 40 MG/VIAL IV SCH ×2 (09:55→14:38)
[2019-11-23] MEDS: OCTREOTIDE 1,000 MCG in SODIUM CHLORIDE 0.9% 98 ML IV SCH (10:11)
[2019-11-23] MEDS ORDERED: POTASSIUM CHLORIDE INJ 40 MEQ in DEXT 5% WATER 250 ML IV SCH (12:00)
[2019-11-23 13:51] LABS: PLATELET ESTIMATE MARKEDLY DECREASED
[2019-11-23] MEDS: FOLIC ACID 1 MG, MVI, ADULT NO.1 10 ML in DEXTROSE 5% WATER 1,000 ML IV SCH ×3 (18:50)
[2019-11-23] MEDS: CEFTRIAXONE 1 G PREMIX 50 ML IV SCH ×2 (20:02)
[2019-11-23] MEDS: MORPHINE SULFATE 2 MG/ML CPJ (NOT FOR IM USE) IV PRN (20:07)
[2019-11-24] VITALS (11 sets, daily range): BP systolic 102–131; BP diastolic 61–75
[2019-11-24] MEDS: PHENYLEPHRINE/SHK LV/MO/PET,WH RECTAL OINT 57GM PR SCH ×4 (00:45→18:39)
[2019-11-24] MEDS: OCTREOTIDE 1,000 MCG in SODIUM CHLORIDE 0.9% 98 ML IV SCH (04:46)
[2019-11-24] MEDS: LACTULOSE 20G/30ML UDC PO SCH ×2 (05:40→13:29)
[2019-11-24] MEDS: MORPHINE SULFATE 2 MG/ML CPJ (NOT FOR IM USE) IV PRN (05:40)
[2019-11-24] MEDS: CHLORDIAZEPOXIDE 25MG CAPSULE PO SCH ×2 (05:40→13:28)
[2019-11-24 06:23] LABS: HEMATOCRIT. 27.4 % (42.0-52.0); HEMOGLOBIN. 8.8 g/dL (14.0-18.0); MEAN CORPUSCULAR HEMOGLOBIN 27.8 pg (28.0-32.0); MEAN CORPUSCULAR VOLUME 86.4 fL (80.0-94.0); MEAN PLATELET VOLUME 8.6 fl (7.4-10.4); RED BLOOD CELL COUNT 3.18 mill/uL (4.7-6.1); RED CELL DISTRIBUTION WIDTH 22.8 % (11.6-14.6)
[2019-11-24 06:32] LABS: CHLORIDE 107 mEq/L (98-107)
[2019-11-24] MEDS: PANTOPRAZOLE SODIUM 40 MG/VIAL IV SCH ×2 (09:51→17:08)
[2019-11-24] MEDS ORDERED: FENTANYL CITRATE/PF 50MCG/ML 2ML VIAL ONE (11:12)
[2019-11-24] MEDS ORDERED: MIDAZOLAM HCL 5 MG/5 ML VIAL ONE (11:12)
[2019-11-24] MEDS ORDERED: MIDAZOLAM HCL 5 MG/5 ML VIAL IV ONE (11:50)
[2019-11-24 13:01] LABS: PLATELET ESTIMATE MARKEDLY DECREASED
[2019-11-24 13:02] LABS: PLATELET 29 x1000/uL (130-400)
[2019-11-24] MEDS ORDERED: LACT10SO7 PO (13:51)
[2019-11-24] MEDS ORDERED: THIA100T72 PO (13:51)
[2019-11-24] MEDS ORDERED: FOLI-43 MT (13:51)
[2019-11-24] MEDS ORDERED: OMEP20TA15 PO (13:51)
[2019-11-24] MEDS ORDERED: CEPH-569 MT (13:51)
[2019-12-14] MEDS ORDERED: THIA100T72 PO (11:52)
[2019-12-14] MEDS ORDERED: L25 MT (11:52)
== END 2019-11-24 19:10 | disposition home or self-care (01) | DRG 720 ==
LOC: ER 13:23 → 6WST 16:49 → EDBEDREQTM 16:54 → EDBEDREQ 16:54 → ENRESERV 23:54
PROVIDERS: ADMIT Internal Medicine; ATTEND Internal Medicine
PROC: 0DJ08ZZ Inspection of Upper Intestinal Tract, Via Natural or Artificial Opening Endoscopic (ICD-10-PCS; principal; 2019-11-24)
DX: A41.9 Sepsis, unspecified organism (principal); D61.818 Other pancytopenia; K22.6 Gastro-esophageal laceration-hemorrhage syndrome; E44.0 Moderate protein-calorie malnutrition; K29.71 Gastritis, unspecified, with bleeding; N39.0 Urinary tract infection, site not specified; F10.239 Alcohol dependence with withdrawal, unspecified; K76.6 Portal hypertension; K70.30 Alcoholic cirrhosis of liver without ascites; E87.6 Hypokalemia; F41.9 Anxiety disorder, unspecified; Y90.8 Blood alcohol level of 240 mg/100 ml or more; I86.8 Varicose veins of other specified sites; K44.9 Diaphragmatic hernia without obstruction or gangrene; K31.89 Other diseases of stomach and duodenum; K21.9 Gastro-esophageal reflux disease without esophagitis; I85.10 Secondary esophageal varices without bleeding; K76.9 Liver disease, unspecified; R16.1 Splenomegaly, not elsewhere classified; Z88.8 Allergy status to other drugs, medicaments and biological substances; Z79.899 Other long term (current) drug therapy; Z71.41 Alcohol abuse counseling and surveillance of alcoholic; Z03.818 Encounter for observation for suspected exposure to other biological agents ruled out
CPT/HCPCS: 36415; 80048; 80076; 80320; 81003; 82140; 84484; 85014; 85018; 85025; 85027; 86850; 86900; 86945; 99285; C9113; J0696; J2250; J2270; J2354; J2405; J3010; J3480; J3490; J7050; J7060; J7070; P9034; U0003; G0480

== ENCOUNTER 2019-11-30 12:35 | Emergency (ER) | payer MEDICAID ==
[~2019-11-30] VITALS: Ht 170.2 cm; Wt 75.0 kg
[~2019-11-30 12:35] MED LIST changes: +CEPH-569 MT; -FERR324T4 PO; -PROP10TA10 PO
[2019-11-30 12:52] VITALS: BP 124/67
[2019-11-30] MEDS ORDERED: DICYCLOMINE 10 MG/5 ML ORAL SYR PO STA (13:35)
[2019-11-30] MEDS ORDERED: VISCOUS LIDOCAINE 2% 15 ML UDC PO STA (13:35)
[2019-11-30] MEDS ORDERED: MAGNESIUM/ALUMINUM HYDROXIDE/SIMETHICONE 30ML UDC PO STA (13:35)
[2019-11-30 15:49] LABS: HEMATOCRIT. 25.6 % (42.0-52.0); HEMOGLOBIN. 8.2 g/dL (14.0-18.0); MEAN CORPUSCULAR HEMOGLOBIN 26.9 pg (28.0-32.0); MEAN CORPUSCULAR VOLUME 84.2 fL (80.0-94.0); MEAN PLATELET VOLUME 8.5 fl (7.4-10.4); RED BLOOD CELL COUNT 3.04 mill/uL (4.7-6.1); RED CELL DISTRIBUTION WIDTH 23.7 % (11.6-14.6)
[2019-11-30 15:54] LABS: CHLORIDE 117 mEq/L (98-107)
[2019-11-30 15:55] LABS: PLATELET 16 x1000/uL (130-400)
[2019-11-30 15:56] LABS: INR 1.2; PROTHROMBIN TIME 13.1 sec (9.6-11.0)
[2019-11-30 16:12] LABS: ETHANOL BLOOD 335 mg/dL
[2019-11-30 16:42] LABS: PLATELET ESTIMATE MARKEDLY DECREASED
[2019-11-30 17:14] LABS: *AMPHETAMINES SCREEN URINE NEGATIVE (NEGATIVE); *BARBITURATES SCREEN URINE NEGATIVE (NEGATIVE)
[2019-11-30 17:15] LABS: *BENZODIAZEPINES SCREEN URINE PRESUMTIVE POSITIVE (NEGATIVE); *COCAINE SCREEN URINE NEGATIVE (NEGATIVE); CANNABINOID URINE SCREEN NEGATIVE (NEGATIVE); METHADONE URINE SCREEN NEGATIVE (NEGATIVE); OPIATES URINE SCREEN NEGATIVE (NEGATIVE); PHENCYCLIDINE URINE SCREEN NEGATIVE (NEGATIVE)
[2019-12-14] MEDS ORDERED: THIA100T72 PO (11:52)
[2019-12-14] MEDS ORDERED: L25 MT (11:52)
== END 2019-11-30 17:06 | disposition home or self-care (01) ==
LOC: ER 12:35
DX: F10.229 Alcohol dependence with intoxication, unspecified (principal); Y90.8 Blood alcohol level of 240 mg/100 ml or more; K21.9 Gastro-esophageal reflux disease without esophagitis; Z79.899 Other long term (current) drug therapy; Z88.6 Allergy status to analgesic agent
CPT/HCPCS: 36415; 80053; 80305; 80320; 85025; 99284; G0480

== ENCOUNTER 2019-12-01 13:22 | Emergency (ER) | payer MEDICAID ==
[~2019-12-01] VITALS: Ht 172.7 cm; Wt 81.0 kg
[2019-12-01] MEDS ORDERED: ONDANSETRON HCL 4MG/2ML INJ IV STA (14:54)
[2019-12-01] MEDS ORDERED: SODIUM CHLORIDE 0.9% 1,000 ML IV ONE (14:54)
[2019-12-01 15:31] LABS: CHLORIDE 118 mEq/L (98-107)
[2019-12-01 15:36] LABS: HEMATOCRIT. 25.9 % (42.0-52.0); HEMOGLOBIN. 8.4 g/dL (14.0-18.0); MEAN CORPUSCULAR HEMOGLOBIN 26.9 pg (28.0-32.0); MEAN CORPUSCULAR VOLUME 82.7 fL (80.0-94.0); MEAN PLATELET VOLUME 9.2 fl (7.4-10.4); RED BLOOD CELL COUNT 3.14 mill/uL (4.7-6.1); RED CELL DISTRIBUTION WIDTH 23.3 % (11.6-14.6)
[2019-12-01 15:46] LABS: PLATELET 21 x1000/uL (130-400)
[2019-12-01 16:45] LABS: PLATELET ESTIMATE MARKEDLY DECREASED
[2019-12-01 20:32] VITALS: BP 109/65
[2019-12-14] MEDS ORDERED: L25 MT (11:52)
[2019-12-14] MEDS ORDERED: THIA100T72 PO (11:52)
== END 2019-12-01 20:32 | disposition home or self-care (01) ==
LOC: ER 13:30
DX: F10.229 Alcohol dependence with intoxication, unspecified (principal); Y90.8 Blood alcohol level of 240 mg/100 ml or more; K21.9 Gastro-esophageal reflux disease without esophagitis; D61.818 Other pancytopenia; Z79.899 Other long term (current) drug therapy; Z88.6 Allergy status to analgesic agent; Z88.3 Allergy status to other anti-infective agents
CPT/HCPCS: 36415; 70450; 80053; 80320; 84484; 85025; 93005; 96361; 96374; 99285; J2405; J7030; G0480

== ENCOUNTER 2019-12-02 17:00 | Emergency (ER) | payer MEDICAID ==
[~2019-12-02] VITALS: Ht 167.6 cm; Wt 68.0 kg
[2019-12-02 20:30] VITALS: BP 132/64
[2019-12-14] MEDS ORDERED: THIA100T72 PO (11:52)
[2019-12-14] MEDS ORDERED: L25 MT (11:52)
== END 2019-12-02 20:32 | disposition home or self-care (01) ==
LOC: ER 17:00
DX: K70.9 Alcoholic liver disease, unspecified (principal); F10.229 Alcohol dependence with intoxication, unspecified; K21.9 Gastro-esophageal reflux disease without esophagitis; K76.9 Liver disease, unspecified; K74.60 Unspecified cirrhosis of liver; F17.200 Nicotine dependence, unspecified, uncomplicated; Z88.5 Allergy status to narcotic agent; Z79.899 Other long term (current) drug therapy; Z88.8 Allergy status to other drugs, medicaments and biological substances; Y90.9 Presence of alcohol in blood, level not specified
CPT/HCPCS: 99283

== ENCOUNTER 2019-12-03 19:11 | Emergency (ER) | payer MEDICAID ==
[~2019-12-03] VITALS: Ht 167.6 cm; Wt 59.0 kg
[2019-12-03 20:08] LABS: CLARITY URINE CLEAR (CLEAR); COLOR URINE YELLOW (YELLOW); KETONES URINE NEGATIVE (NEGATIVE); LEUKOCYTE ESTERASE URINE NEGATIVE (NEGATIVE); NITRITE URINE NEGATIVE (NEGATIVE); OCCULT BLOOD URINE NEGATIVE (NEGATIVE); PROTEIN URINE NEGATIVE (NEGATIVE); SPECIFIC GRAVITY URINE 1.006 (1.005-1.030); UROBILINOGEN URINE 0.2 E.U./dL (0.2-1.0)
[2019-12-03 20:26] LABS: *AMPHETAMINES SCREEN URINE NEGATIVE (NEGATIVE); *BARBITURATES SCREEN URINE NEGATIVE (NEGATIVE); *BENZODIAZEPINES SCREEN URINE PRESUMTIVE POSITIVE (NEGATIVE); *COCAINE SCREEN URINE NEGATIVE (NEGATIVE); METHADONE URINE SCREEN NEGATIVE (NEGATIVE); OPIATES URINE SCREEN NEGATIVE (NEGATIVE); PHENCYCLIDINE URINE SCREEN NEGATIVE (NEGATIVE)
[2019-12-03 20:28] LABS: CANNABINOID URINE SCREEN NEGATIVE (NEGATIVE)
[2019-12-03] MEDS ORDERED: SODIUM CHLORIDE 0.9% 1,000 ML IV ONE (20:32)
[2019-12-03] MEDS ORDERED: ONDANSETRON HCL 4MG/2ML INJ IV STA (20:32)
[2019-12-03 20:54] LABS: EOSINOPHILS % 0.5 % (0.0-5.0); HEMATOCRIT. 29.6 % (42.0-52.0); HEMOGLOBIN. 9.6 g/dL (14.0-18.0); LYMPHOCYTES % 35.7 % (20.0-50.0); MEAN CORPUSCULAR HEMOGLOBIN 26.7 pg (28.0-32.0); MEAN PLATELET VOLUME 8.7 fl (7.4-10.4); MONOCYTES % 5.8 % (2.0-8.0); RED BLOOD CELL COUNT 3.61 mill/uL (4.7-6.1); RED CELL DISTRIBUTION WIDTH 22.9 % (11.6-14.6)
[2019-12-03 20:58] LABS: CHLORIDE 113 mEq/L (98-107)
[2019-12-03 21:00] LABS: INR 1.2; PROTHROMBIN TIME 12.5 sec (9.6-11.0)
[2019-12-03 21:05] LABS: PLATELET 27 x1000/uL (130-400)
[2019-12-03] MEDS ORDERED: POTASSIUM CHLORIDE 20MEQ TABLET SR PO ONE ×2 (21:15)
[2019-12-03 21:16] LABS: ETHANOL BLOOD 412 mg/dL
[2019-12-03] MEDS ORDERED: PANTOPRAZOLE SODIUM 40 MG/VIAL IV ONE (21:30)
[2019-12-04 04:16] VITALS: BP 135/77
== END 2019-12-04 04:19 | disposition home or self-care (01) ==
LOC: ER 19:11
DX: F10.229 Alcohol dependence with intoxication, unspecified (principal); K29.20 Alcoholic gastritis without bleeding; Y90.8 Blood alcohol level of 240 mg/100 ml or more; F13.20 Sedative, hypnotic or anxiolytic dependence, uncomplicated
CPT/HCPCS: 36415; 70450; 71045; 80053; 80305; 80320; 81003; 83690; 83880; 85025; 85610; 93005; 96361; 96374; 96375; 99285; C9113; J2405; J7030; G0480

== ENCOUNTER 2019-12-04 12:04 | Emergency (ER) | payer MEDICAID ==
[~2019-12-04] VITALS: Ht 162.6 cm; Wt 60.0 kg
[2019-12-04 12:30] LABS: BASOPHILS % 0.7 % (0.0-2.0); EOSINOPHILS % 0.2 % (0.0-5.0); HEMATOCRIT. 25.2 % (42.0-52.0); HEMOGLOBIN. 8.3 g/dL (14.0-18.0); LYMPHOCYTES % 22.8 % (20.0-50.0); MEAN CORPUSCULAR HEMOGLOBIN 27.1 pg (28.0-32.0); MEAN CORPUSCULAR VOLUME 82.4 fL (80.0-94.0); MEAN PLATELET VOLUME 8.8 fl (7.4-10.4); MONOCYTES % 7.7 % (2.0-8.0); NEUTROPHILS % 68.6 % (40.0-76.0); RED BLOOD CELL COUNT 3.06 mill/uL (4.7-6.1)
[2019-12-04 12:37] LABS: PLATELET 17 x1000/uL (130-400)
[2019-12-04 12:38] LABS: CHLORIDE 111 mEq/L (98-107)
[2019-12-04 12:50] LABS: ETHANOL BLOOD 461 mg/dL
[2019-12-04 13:16] LABS: PLATELET ESTIMATE MARKEDLY DECREASED
[2019-12-04 22:05] VITALS: BP 125/76
== END 2019-12-04 22:05 | disposition home or self-care (01) ==
LOC: ER 12:04
DX: T51.0X1A Toxic effect of ethanol, accidental (unintentional), initial encounter (principal); F10.229 Alcohol dependence with intoxication, unspecified; Y90.8 Blood alcohol level of 240 mg/100 ml or more; Y92.9 Unspecified place or not applicable; D61.818 Other pancytopenia
CPT/HCPCS: 36415; 80053; 80320; 85025; 99285; G0480

== ENCOUNTER 2019-12-05 15:58 | Emergency (ER) | payer MEDICAID ==
[~2019-12-05] VITALS: Ht 175.3 cm; Wt 68.0 kg
[2019-12-05 19:09] LABS: CHLORIDE 108 mEq/L (98-107)
[2019-12-05] MEDS ORDERED: FAMOTIDINE 20MG TABLET PO ONE (19:15)
[2019-12-05] MEDS ORDERED: ONDANSETRON 4MG ODT PO ONE (19:15)
[2019-12-05] MEDS ORDERED: TRAMADOL 50MG TABLET PO ONE (19:15)
[2019-12-05] MEDS ORDERED: MAGNESIUM/ALUMINUM HYDROXIDE/SIMETHICONE 30ML UDC PO ONE (19:15)
[2019-12-05 19:17] LABS: CLARITY URINE CLEAR (CLEAR); COLOR URINE YELLOW (YELLOW); KETONES URINE NEGATIVE (NEGATIVE); LEUKOCYTE ESTERASE URINE NEGATIVE (NEGATIVE); NITRITE URINE NEGATIVE (NEGATIVE); OCCULT BLOOD URINE NEGATIVE (NEGATIVE); PH URINE 6.5 (4.5-8.0); PROTEIN URINE NEGATIVE (NEGATIVE); SPECIFIC GRAVITY URINE 1.008 (1.005-1.030)
[2019-12-05 19:21] LABS: BASOPHILS % 0.7 % (0.0-2.0); EOSINOPHILS % 0.1 % (0.0-5.0); HEMOGLOBIN. 9.8 g/dL (14.0-18.0); LYMPHOCYTES % 24.8 % (20.0-50.0); MEAN CORPUSCULAR HEMOGLOBIN 27.2 pg (28.0-32.0); MEAN CORPUSCULAR VOLUME 82.6 fL (80.0-94.0); MEAN PLATELET VOLUME 8.6 fl (7.4-10.4); MONOCYTES % 4.8 % (2.0-8.0); NEUTROPHILS % 69.6 % (40.0-76.0); RED BLOOD CELL COUNT 3.62 mill/uL (4.7-6.1); RED CELL DISTRIBUTION WIDTH 23.4 % (11.6-14.6)
[2019-12-05 19:34] LABS: PLATELET 25 x1000/uL (130-400)
[2019-12-05 23:23] VITALS: BP 128/64
== END 2019-12-05 23:24 | disposition home or self-care (01) ==
LOC: ER 15:58
DX: R10.84 Generalized abdominal pain (principal); D63.8 Anemia in other chronic diseases classified elsewhere; Z88.6 Allergy status to analgesic agent; Z88.3 Allergy status to other anti-infective agents; Z79.899 Other long term (current) drug therapy
CPT/HCPCS: 36415; 80053; 81003; 83690; 85025; 99285; Q0162

== ENCOUNTER 2019-12-08 16:05 | Emergency (ER) | payer MEDICAID ==
[~2019-12-08] VITALS: Ht 162.6 cm; Wt 70.0 kg
[2019-12-08 19:12] VITALS: BP 136/84
[2019-12-14] MEDS ORDERED: THIA100T72 PO (11:52)
[2019-12-14] MEDS ORDERED: L25 MT (11:52)
== END 2019-12-08 19:12 | disposition home or self-care (01) ==
LOC: ER 16:05
DX: B35.6 Tinea cruris (principal); L53.9 Erythematous condition, unspecified; N28.9 Disorder of kidney and ureter, unspecified; F10.20 Alcohol dependence, uncomplicated; Z88.6 Allergy status to analgesic agent; Z88.8 Allergy status to other drugs, medicaments and biological substances; Z79.899 Other long term (current) drug therapy; Y90.9 Presence of alcohol in blood, level not specified
CPT/HCPCS: 99282

== ENCOUNTER 2019-12-11 12:46 | Emergency (ER) | payer MEDICAID ==
[~2019-12-11] VITALS: Ht 175.3 cm; Wt 64.0 kg
[2019-12-11] MEDS ORDERED: SODIUM CHLORIDE 0.9% 1,000 ML IV ONE (14:17)
[2019-12-11 14:47] LABS: HEMATOCRIT. 26.5 % (42.0-52.0); HEMOGLOBIN. 8.8 g/dL (14.0-18.0); MEAN CORPUSCULAR HEMOGLOBIN 27.6 pg (28.0-32.0); MEAN CORPUSCULAR VOLUME 82.9 fL (80.0-94.0); MEAN PLATELET VOLUME 8.9 fl (7.4-10.4); RED BLOOD CELL COUNT 3.19 mill/uL (4.7-6.1); RED CELL DISTRIBUTION WIDTH 23.6 % (11.6-14.6)
[2019-12-11 14:55] LABS: CHLORIDE 113 mEq/L (98-107)
[2019-12-11 14:56] LABS: PLATELET 16 x1000/uL (130-400)
[2019-12-11 15:15] LABS: ETHANOL BLOOD 511 mg/dL
[2019-12-11 16:03] LABS: PLATELET ESTIMATE MARKEDLY DECREASED
[2019-12-11] MEDS ORDERED: POTASSIUM CHLORIDE 20MEQ TABLET SR PO ONE (16:30)
[2019-12-11 16:59] LABS: *AMPHETAMINES SCREEN URINE NEGATIVE (NEGATIVE); *BARBITURATES SCREEN URINE NEGATIVE (NEGATIVE); *BENZODIAZEPINES SCREEN URINE PRESUMTIVE POSITIVE (NEGATIVE); *COCAINE SCREEN URINE NEGATIVE (NEGATIVE); METHADONE URINE SCREEN NEGATIVE (NEGATIVE); OPIATES URINE SCREEN NEGATIVE (NEGATIVE)
[2019-12-11 17:00] LABS: CANNABINOID URINE SCREEN NEGATIVE (NEGATIVE); PHENCYCLIDINE URINE SCREEN NEGATIVE (NEGATIVE)
[2019-12-12 05:38] VITALS: BP 121/65
== END 2019-12-12 05:52 | disposition home or self-care (01) ==
LOC: ER 12:54
DX: F10.229 Alcohol dependence with intoxication, unspecified (principal); Y90.8 Blood alcohol level of 240 mg/100 ml or more; G92 Toxic encephalopathy; D61.818 Other pancytopenia; E87.8 Other disorders of electrolyte and fluid balance, not elsewhere classified; Z79.899 Other long term (current) drug therapy; Z88.6 Allergy status to analgesic agent
CPT/HCPCS: 36415; 70450; 80053; 80305; 80307; 80320; 80329; 85025; 99285; J7030; G0480

== ENCOUNTER 2019-12-17 19:38 | Emergency (ER) | payer MEDICAID ==
[~2019-12-17] VITALS: Ht 170.2 cm; Wt 73.0 kg
[~2019-12-17 19:38] MED LIST changes: -CEPH-569 MT; +L25 MT; -LACT10SO7 PO
[2019-12-17] MEDS ORDERED: MAGNESIUM/ALUMINUM HYDROXIDE/SIMETHICONE 30ML UDC PO ONE (23:00)
[2019-12-17] MEDS ORDERED: VISCOUS LIDOCAINE 2% 15 ML UDC PO ONE (23:00)
[2019-12-17 23:22] LABS: HEMATOCRIT. 23.3 % (42.0-52.0); HEMOGLOBIN. 7.8 g/dL (14.0-18.0); MEAN CORPUSCULAR VOLUME 83.9 fL (80.0-94.0); MEAN PLATELET VOLUME 8.6 fl (7.4-10.4); RED BLOOD CELL COUNT 2.78 mill/uL (4.7-6.1)
[2019-12-17 23:28] LABS: CHLORIDE 114 mEq/L (98-107)
[2019-12-17 23:40] LABS: PLATELET 16 x1000/uL (130-400)
[2019-12-18 02:06] VITALS: BP 104/64
[2019-12-18 04:55] LABS: PLATELET ESTIMATE DECREASED
== END 2019-12-18 02:07 | disposition home or self-care (01) ==
LOC: ER 19:38
DX: R10.13 Epigastric pain (principal); D72.819 Decreased white blood cell count, unspecified; D69.6 Thrombocytopenia, unspecified; K72.10 Chronic hepatic failure without coma; Z87.11 Personal history of peptic ulcer disease
CPT/HCPCS: 36415; 80053; 84484; 85025; 99285

== ENCOUNTER 2020-01-08 11:57 | Emergency (ER) | payer MEDICAID ==
[~2020-01-08] VITALS: Ht 165.1 cm; Wt 60.0 kg
[2020-01-08 15:15] VITALS: BP 99/51
== END 2020-01-08 16:07 | disposition home or self-care (01) ==
LOC: ER 11:57
DX: S93.401A Sprain of unspecified ligament of right ankle, initial encounter (principal); S50.312A Abrasion of left elbow, initial encounter; F10.20 Alcohol dependence, uncomplicated; K70.9 Alcoholic liver disease, unspecified; Y90.9 Presence of alcohol in blood, level not specified; W01.0XXA Fall on same level from slipping, tripping and stumbling without subsequent striking against object, initial encounter; Y93.89 Activity, other specified; Y92.89 Other specified places as the place of occurrence of the external cause
CPT/HCPCS: 73070; 73600; 99284

== ENCOUNTER 2020-01-09 10:53 | Emergency (ER) | payer MEDICAID ==
[~2020-01-09] VITALS: Ht 165.1 cm; Wt 70.0 kg
[2020-01-09] MEDS ORDERED: MAGNESIUM/ALUMINUM HYDROXIDE/SIMETHICONE 30ML UDC PO STA (12:50)
[2020-01-09] MEDS ORDERED: VISCOUS LIDOCAINE 2% 15 ML UDC PO STA (12:50)
[2020-01-09] MEDS ORDERED: FAMOTIDINE 20MG TABLET PO ONE (13:00)
[2020-01-09] MEDS ORDERED: BACITRACIN ZINC OINT UDPKT TOP ONE (13:00)
[2020-01-09 14:30] VITALS: BP 118/65
== END 2020-01-09 15:18 | disposition home or self-care (01) ==
LOC: ER 11:03
DX: S51.012D Laceration without foreign body of left elbow, subsequent encounter (principal); K29.20 Alcoholic gastritis without bleeding; F10.229 Alcohol dependence with intoxication, unspecified; Z88.6 Allergy status to analgesic agent; Z88.8 Allergy status to other drugs, medicaments and biological substances; Z79.899 Other long term (current) drug therapy; Y90.9 Presence of alcohol in blood, level not specified; X58.XXXD Exposure to other specified factors, subsequent encounter
CPT/HCPCS: 99283

== ENCOUNTER 2020-01-19 15:28 | Emergency (ER) | payer MEDICAID ==
[~2020-01-19] VITALS: Ht 162.6 cm; Wt 75.0 kg
[2020-01-19] MEDS ORDERED: FAMOTIDINE 20MG TABLET PO ONE (17:30)
[2020-01-19] MEDS ORDERED: ONDANSETRON 4MG ODT PO ONE (17:30)
[2020-01-19] MEDS ORDERED: LORAZEPAM 0.5MG TABLET PO ONE (17:30)
[2020-01-19 19:09] VITALS: BP 110/57
== END 2020-01-19 19:11 | disposition home or self-care (01) ==
LOC: ER 15:28
DX: R10.13 Epigastric pain (principal); R11.2 Nausea with vomiting, unspecified
CPT/HCPCS: 99284; Q0162

== ENCOUNTER 2020-01-24 14:54 | Emergency (ER) | payer MEDICAID ==
[~2020-01-24] VITALS: Ht 162.6 cm; Wt 70.0 kg
[2020-01-24] MEDS ORDERED: ONDANSETRON HCL 4MG/2ML INJ IV STA (15:24)
[2020-01-24] MEDS ORDERED: FAMOTIDINE 20MG TABLET PO ONE (15:45)
[2020-01-24 16:25] LABS: HEMATOCRIT. 25.5 % (42.0-52.0); HEMOGLOBIN. 8.3 g/dL (14.0-18.0); MEAN CORPUSCULAR HEMOGLOBIN 25.6 pg (28.0-32.0); MEAN CORPUSCULAR VOLUME 78.6 fL (80.0-94.0); MEAN PLATELET VOLUME 8.8 fl (7.4-10.4); RED BLOOD CELL COUNT 3.24 mill/uL (4.7-6.1); RED CELL DISTRIBUTION WIDTH 25.7 % (11.6-14.6)
[2020-01-24 16:30] LABS: CHLORIDE 111 mEq/L (98-107)
[2020-01-24 16:37] LABS: PLATELET 21 x1000/uL (130-400)
[2020-01-24 16:43] LABS: CLARITY URINE CLEAR (CLEAR); COLOR URINE YELLOW (YELLOW); KETONES URINE NEGATIVE (NEGATIVE); LEUKOCYTE ESTERASE URINE TRACE (NEGATIVE); NITRITE URINE NEGATIVE (NEGATIVE); OCCULT BLOOD URINE NEGATIVE (NEGATIVE); PH URINE 6.5 (4.5-8.0); PROTEIN URINE NEGATIVE (NEGATIVE); SPECIFIC GRAVITY URINE 1.005 (1.005-1.030); UROBILINOGEN URINE 0.2 E.U./dL (0.2-1.0)
[2020-01-24 16:56] LABS: INR 1.3; PROTHROMBIN TIME 13.8 sec (9.6-11.0)
[2020-01-24 17:14] LABS: PLATELET ESTIMATE MARKEDLY DECREASED
[2020-01-24 19:15] VITALS: BP 121/68
== END 2020-01-24 19:21 | disposition home or self-care (01) ==
LOC: ER 14:54
DX: R10.9 Unspecified abdominal pain (principal); R11.2 Nausea with vomiting, unspecified; F10.20 Alcohol dependence, uncomplicated; Y90.9 Presence of alcohol in blood, level not specified
CPT/HCPCS: 36415; 80053; 81003; 83690; 85025; 85610; 96374; 99283; J2405

== ENCOUNTER 2020-01-28 18:21 | Emergency (ER) | payer MEDICAID ==
[~2020-01-28] VITALS: Ht 167.6 cm; Wt 59.0 kg
[2020-01-28] MEDS ORDERED: FAMOTIDINE 20MG TABLET PO ONE (19:00)
[2020-01-28 19:58] LABS: HEMATOCRIT. 30.2 % (42.0-52.0); HEMOGLOBIN. 9.5 g/dL (14.0-18.0); MEAN CORPUSCULAR HEMOGLOBIN 24.8 pg (28.0-32.0); MEAN PLATELET VOLUME 8.3 fl (7.4-10.4); RED BLOOD CELL COUNT 3.83 mill/uL (4.7-6.1); RED CELL DISTRIBUTION WIDTH 26.1 % (11.6-14.6)
[2020-01-28 20:00] LABS: PLATELET 21 x1000/uL (130-400)
[2020-01-28 20:04] LABS: CHLORIDE 109 mEq/L (98-107)
[2020-01-28 20:07] LABS: INR 1.3; PROTHROMBIN TIME 13.7 sec (9.6-11.0)
[2020-01-28 20:45] LABS: CLARITY URINE CLEAR (CLEAR); COLOR URINE YELLOW (YELLOW); KETONES URINE NEGATIVE (NEGATIVE); LEUKOCYTE ESTERASE URINE NEGATIVE (NEGATIVE); NITRITE URINE NEGATIVE (NEGATIVE); OCCULT BLOOD URINE NEGATIVE (NEGATIVE); PROTEIN URINE NEGATIVE (NEGATIVE); SPECIFIC GRAVITY URINE 1.008 (1.005-1.030)
[2020-01-28 21:17] LABS: PLATELET ESTIMATE MARKEDLY DECREASED
[2020-01-28 22:10] VITALS: BP 135/63
== END 2020-01-28 22:50 | disposition home or self-care (01) ==
LOC: ER 18:21
DX: F10.229 Alcohol dependence with intoxication, unspecified (principal); R10.9 Unspecified abdominal pain; Z79.899 Other long term (current) drug therapy; Z88.6 Allergy status to analgesic agent
CPT/HCPCS: 36415; 80053; 81003; 85025; 93005; 99284

== ENCOUNTER 2020-01-31 16:54 | Inpatient (IN) | payer MEDICAID ==
[~2020-01-31] VITALS: Ht 162.6 cm; Wt 70.3 kg
[2020-01-31 18:29] LABS: CLARITY URINE CLEAR (CLEAR); COLOR URINE YELLOW (YELLOW); KETONES URINE NEGATIVE (NEGATIVE); LEUKOCYTE ESTERASE URINE NEGATIVE (NEGATIVE); NITRITE URINE NEGATIVE (NEGATIVE); OCCULT BLOOD URINE NEGATIVE (NEGATIVE); PROTEIN URINE NEGATIVE (NEGATIVE)
[2020-01-31 18:58] LABS: CHLORIDE 108 mEq/L (98-107)
[2020-01-31 19:00] LABS: INR 1.3; PROTHROMBIN TIME 13.8 sec (9.6-11.0)
[2020-01-31 19:06] LABS: HEMATOCRIT. 27.5 % (42.0-52.0); HEMOGLOBIN. 8.7 g/dL (14.0-18.0); MEAN CORPUSCULAR HEMOGLOBIN 25.1 pg (28.0-32.0); MEAN CORPUSCULAR VOLUME 79.3 fL (80.0-94.0); RED BLOOD CELL COUNT 3.46 mill/uL (4.7-6.1); RED CELL DISTRIBUTION WIDTH 25.3 % (11.6-14.6)
[2020-01-31 19:08] LABS: PLATELET 14 x1000/uL (130-400)
[2020-01-31 19:58] LABS: PLATELET ESTIMATE MARKEDLY DECREASED
[2020-01-31] MEDS ORDERED: KCL 20MEQ/100ML PREMIX 100 ML IV ONE (23:00)
[2020-02-01 00:30] VITALS: BP 146/72
[2020-02-01] MEDS ORDERED: MORPHINE SULFATE 2 MG/ML CPJ (NOT FOR IM USE) IV PRN (02:00)
[2020-02-01 04:00] VITALS: BP 103/48
[2020-02-01] MEDS: PANTOPRAZOLE 40MG DR TABLET PO SCH (06:20)
[2020-02-01] MEDS: ONDANSETRON HCL 4MG/2ML INJ IV PRN ×3 (06:20→21:45)
[2020-02-01] MEDS: CHLORDIAZEPOXIDE 25MG CAPSULE PO SCH ×3 (06:20→21:39)
[2020-02-01 08:00] VITALS: BP 90/40
[2020-02-01] MEDS ORDERED: LORAZEPAM 2MG/ML CPJ IV PRN (08:30)
[2020-02-01] MEDS: THIAMINE HCL 100MG TABLET PO SCH (08:49)
[2020-02-01] MEDS: FOLIC ACID 1MG TABLET PO SCH (08:49)
[2020-02-01 09:51] LABS: CHLORIDE 111 mEq/L (98-107)
[2020-02-01 10:20] LABS: HEMOGLOBIN. 7.4 g/dL (14.0-18.0); MEAN CORPUSCULAR HEMOGLOBIN 24.5 pg (28.0-32.0); MEAN CORPUSCULAR VOLUME 79.2 fL (80.0-94.0); MEAN PLATELET VOLUME 11.6 fl (7.4-10.4); RED BLOOD CELL COUNT 3.03 mill/uL (4.7-6.1); RED CELL DISTRIBUTION WIDTH 25.1 % (11.6-14.6)
[2020-02-01 10:23] LABS: PLATELET 20 x1000/uL (130-400)
[2020-02-01 12:00] VITALS: BP 116/78
[2020-02-01] MEDS ORDERED: ACETAMINOPHEN 325MG TABLET PO NR (13:45)
[2020-02-01] MEDS ORDERED: IOHEXOL-300 100 ML BOTTLE ONE (13:49)
[2020-02-01 14:14] LABS: PLATELET ESTIMATE MARKEDLY DECREASED
[2020-02-01] MEDS: CEFEPIME 1,000 MG in DEXTROSE 5% WATER 50 ML IV SCH (15:34)
[2020-02-01 16:00] VITALS: BP 119/82
[2020-02-01 20:00] VITALS: BP 130/82
[2020-02-01] MEDS ORDERED: TRAZODONE HCL 50MG TABLET PO SCH (21:00)
[2020-02-02] VITALS: BP 105/55
[2020-02-02 04:00] VITALS: BP 114/55
[2020-02-02] MEDS: CEFEPIME 1,000 MG in DEXTROSE 5% WATER 50 ML IV SCH (04:20)
[2020-02-02] MEDS: CHLORDIAZEPOXIDE 25MG CAPSULE PO SCH ×2 (06:55→14:17)
[2020-02-02] MEDS: PANTOPRAZOLE 40MG DR TABLET PO SCH (06:56)
[2020-02-02 08:09] VITALS: BP 99/46
[2020-02-02] MEDS ORDERED: MORPHINE SULFATE 2 MG/ML CPJ (NOT FOR IM USE) IV PRN (08:15)
[2020-02-02 08:40] LABS: HEMATOCRIT. 23.7 % (42.0-52.0); HEMOGLOBIN. 7.5 g/dL (14.0-18.0); LYMPHOCYTES % 24.7 % (20.0-50.0); MEAN CORPUSCULAR HEMOGLOBIN 24.9 pg (28.0-32.0); MEAN PLATELET VOLUME 11.6 fl (7.4-10.4); NEUTROPHILS % 58.9 % (40.0-76.0); RED BLOOD CELL COUNT 2.99 mill/uL (4.7-6.1); RED CELL DISTRIBUTION WIDTH 24.7 % (11.6-14.6)
[2020-02-02 08:41] LABS: BASOPHILS % 0.9 % (0.0-2.0); MONOCYTES % 14.5 % (2.0-8.0)
[2020-02-02 08:46] LABS: PLATELET 17 x1000/uL (130-400)
[2020-02-02 08:53] LABS: CHLORIDE 106 mEq/L (98-107)
[2020-02-02] MEDS: THIAMINE HCL 100MG TABLET PO SCH (09:14)
[2020-02-02] MEDS: ONDANSETRON HCL 4MG/2ML INJ IV PRN (09:15)
[2020-02-02] MEDS: FOLIC ACID 1MG TABLET PO SCH (09:15)
[2020-02-02] MEDS ORDERED: HYDROCODONE/ACETAMINOPHEN 5/325MG TABLET PO PRN (09:45)
[2020-02-02 12:02] VITALS: BP 100/57
[2020-02-02] MEDS ORDERED: ONDA4TAB5 MT (13:09)
[2020-02-02] MEDS ORDERED: L25 MT (13:09)
[2020-02-02] MEDS ORDERED: FOLI-43 MT (13:09)
[2020-02-02] MEDS ORDERED: THIA100T72 PO (13:09)
[2020-02-02] MEDS ORDERED: POTASSIUM CHLORIDE 20MEQ TABLET SR PO NR (14:00)
[2020-02-02 15:02] VITALS: BP 100/57
== END 2020-02-02 16:20 | disposition home or self-care (01) | DRG 720 ==
LOC: ER 16:54 → 6WST 19:16 → EDBEDREQ 20:51 → ENRESERV 21:48
PROVIDERS: ADMIT Internal Medicine; ATTEND Internal Medicine
DX: A41.9 Sepsis, unspecified organism (principal); M94.0 Chondrocostal junction syndrome [Tietze]; D61.818 Other pancytopenia; E87.6 Hypokalemia; E87.8 Other disorders of electrolyte and fluid balance, not elsewhere classified; I35.0 Nonrheumatic aortic (valve) stenosis; F32.9 Major depressive disorder, single episode, unspecified; K74.60 Unspecified cirrhosis of liver; Z88.8 Allergy status to other drugs, medicaments and biological substances; Z79.899 Other long term (current) drug therapy; Z87.19 Personal history of other diseases of the digestive system
CPT/HCPCS: 36415; 71045; 74177; 80048; 80053; 81003; 84145; 84484; 85025; 93005; 99285; J0692; J2270; J2405; J3480; J7060; Q9967

== ENCOUNTER 2020-02-07 15:44 | Inpatient (IN) | payer MEDICAID ==
[~2020-02-07] VITALS: Ht 162.6 cm; Wt 71.8 kg
[~2020-02-07 15:44] MED LIST changes: -FOLI-43 PO; -OMEP20TA15 PO
[2020-02-07 17:26] LABS: HEMOGLOBIN. 7.6 g/dL (14.0-18.0); MEAN CORPUSCULAR HEMOGLOBIN 25.3 pg (28.0-32.0); MEAN CORPUSCULAR VOLUME 79.4 fL (80.0-94.0); MEAN PLATELET VOLUME 8.3 fl (7.4-10.4); RED BLOOD CELL COUNT 3.02 mill/uL (4.7-6.1); RED CELL DISTRIBUTION WIDTH 25.3 % (11.6-14.6)
[2020-02-07 17:33] LABS: CHLORIDE 115 mEq/L (98-107)
[2020-02-07 17:37] LABS: INR 1.3; PROTHROMBIN TIME 13.6 sec (9.6-11.0)
[2020-02-07 17:39] LABS: PLATELET 22 x1000/uL (130-400)
[2020-02-07 18:11] LABS: CLARITY URINE CLEAR (CLEAR); COLOR URINE YELLOW (YELLOW); KETONES URINE NEGATIVE (NEGATIVE); LEUKOCYTE ESTERASE URINE NEGATIVE (NEGATIVE); NITRITE URINE NEGATIVE (NEGATIVE); OCCULT BLOOD URINE NEGATIVE (NEGATIVE); PROTEIN URINE NEGATIVE (NEGATIVE); SPECIFIC GRAVITY URINE 1.005 (1.005-1.030); UROBILINOGEN URINE 0.2 E.U./dL (0.2-1.0)
[2020-02-07 18:39] LABS: PLATELET ESTIMATE MARKEDLY DECREASED
[2020-02-07 22:00] VITALS: BP 149/94
[2020-02-07] MEDS ORDERED: OCTREOTIDE ACETATE 50 MCG/ML 1ML IV SCH (23:45)
[2020-02-08] VITALS: BP 111/54
[2020-02-08] MEDS ORDERED: PANTOPRAZOLE 80 MG in SODIUM CHLORIDE 0.9% 100 ML IV SCH ×5 (01:00)
[2020-02-08] MEDS ORDERED: OCTREOTIDE ACETATE 50 MCG/ML 1ML IV SCH (01:00)
[2020-02-08] MEDS: ONDANSETRON HCL 4MG/2ML INJ IV PRN ×3 (01:18→17:41)
[2020-02-08] MEDS: MORPHINE SULFATE 2 MG/ML CPJ (NOT FOR IM USE) IV PRN ×2 (01:19→11:00)
[2020-02-08] MEDS: OCTREOTIDE 1,000 MCG in SODIUM CHLORIDE 0.9% 100 ML IV SCH ×2 (01:19→23:28)
[2020-02-08] MEDS: PANTOPRAZOLE 80 MG in SODIUM CHLORIDE 0.9% 100 ML IV SCH ×2 (01:20→12:14)
[2020-02-08 01:36] LABS: HEMATOCRIT 24.1 % (42.0-52.0); HEMOGLOBIN 7.6 g/dL (14.0-18.0)
[2020-02-08 04:00] VITALS: BP 124/59
[2020-02-08 06:31] LABS: CHLORIDE 113 mEq/L (98-107)
[2020-02-08 06:56] LABS: HEMATOCRIT 23.5 % (42.0-52.0); HEMOGLOBIN 7.3 g/dL (14.0-18.0); MEAN CORPUSCULAR HEMOGLOBIN 24.6 pg (28.0-32.0); MEAN CORPUSCULAR VOLUME 79.4 fL (80.0-94.0); RED BLOOD CELL COUNT 2.96 mill/uL (4.7-6.1); RED CELL DISTRIBUTION WIDTH 25.8 % (11.6-14.6)
[2020-02-08 07:08] LABS: PLATELET 15 x1000/uL (130-400)
[2020-02-08 08:00] VITALS: BP 106/58
[2020-02-08] MEDS ORDERED: POTASSIUM CHLORIDE INJ 40 MEQ in DEXT 5% WATER 250 ML IV SCH (09:00)
[2020-02-08] MEDS ORDERED: SODIUM BICARBONATE 4% (2.4MEQ) 5ML VIAL IV ONE (10:49)
[2020-02-08] MEDS ORDERED: LIDOCAINE HCL 1% 20ML VIAL (Pyxis) INJ ONE (10:49)
[2020-02-08 12:00] VITALS: BP 122/73
[2020-02-08 12:56] LABS: HEMATOCRIT 29.7 % (42.0-52.0); HEMOGLOBIN 8.4 g/dL (14.0-18.0)
[2020-02-08 16:00] VITALS: BP 120/69
[2020-02-08] MEDS: FOLIC ACID 1 MG, THIAMINE HCL 100 MG, MVI, ADULT NO.1 10 ML in DEXTROSE 5% WATER 1,000 ML IV SCH ×4 (17:27)
[2020-02-08] MEDS: HYDROCODONE/ACETAMINOPHEN 5/325MG TABLET PO PRN (17:35)
[2020-02-08 20:16] LABS: TOTAL IRON BINDING CAPACITY 410 ug/dL (250-450)
[2020-02-08 20:31] VITALS: BP 130/64
[2020-02-08] MEDS: PANTOPRAZOLE SODIUM 40 MG/VIAL IV SCH (21:28)
[2020-02-08] MEDS: RIFAXIMIN 550 MG TABLET PO SCH (21:28)
[2020-02-08] MEDS: LACTULOSE 20G/30ML UDC PO SCH (21:28)
[2020-02-08] MEDS: DEXT 5%/0.45% NACL 1000ML 1,000 ML IV SCH (21:28)
[2020-02-09 00:40] VITALS: BP 127/72
[2020-02-09 04:00] VITALS: BP 130/64
[2020-02-09] MEDS: LACTULOSE 20G/30ML UDC PO SCH ×3 (06:16→21:16)
[2020-02-09] MEDS: DEXT 5%/0.45% NACL 1000ML 1,000 ML IV SCH ×2 (06:25→17:10)
[2020-02-09 07:16] LABS: CHLORIDE 105 mEq/L (98-107)
[2020-02-09 07:24] LABS: INR 1.4; PROTHROMBIN TIME 14.2 sec (9.6-11.0)
[2020-02-09 08:00] VITALS: BP 116/63
[2020-02-09] MEDS: PANTOPRAZOLE SODIUM 40 MG/VIAL IV SCH ×2 (08:29→21:17)
[2020-02-09] MEDS: FOLIC ACID 1 MG, THIAMINE HCL 100 MG, MVI, ADULT NO.1 10 ML in DEXTROSE 5% WATER 1,000 ML IV SCH ×4 (08:29)
[2020-02-09] MEDS: RIFAXIMIN 550 MG TABLET PO SCH ×2 (08:29→21:16)
[2020-02-09 08:36] LABS: HEMATOCRIT. 24.4 % (42.0-52.0); HEMOGLOBIN. 7.6 g/dL (14.0-18.0); MEAN CORPUSCULAR HEMOGLOBIN 24.6 pg (28.0-32.0); MEAN CORPUSCULAR VOLUME 79.3 fL (80.0-94.0); MEAN PLATELET VOLUME 7.3 fl (7.4-10.4); RED BLOOD CELL COUNT 3.08 mill/uL (4.7-6.1); RED CELL DISTRIBUTION WIDTH 24.9 % (11.6-14.6)
[2020-02-09 09:47] LABS: PLATELET 17 x1000/uL (130-400)
[2020-02-09 12:00] VITALS: BP 113/56
[2020-02-09] MEDS ORDERED: MAGNESIUM 2 G PREMIX 50 ML IV SCH (12:00)
[2020-02-09 12:48] LABS: PLATELET ESTIMATE MARKEDLY DECREASED
[2020-02-09 16:00] VITALS: BP 110/53
[2020-02-09] MEDS: FERROUS SULFATE 325MG TABLET PO SCH (18:08)
[2020-02-09] MEDS: ONDANSETRON HCL 4MG/2ML INJ IV PRN (18:08)
[2020-02-09 20:30] VITALS: BP 116/58
[2020-02-09] MEDS: ACETAMINOPHEN 325MG TABLET PO PRN (21:17)
[2020-02-09 21:49] LABS: HEMATOCRIT. 24.2 % (42.0-52.0); HEMOGLOBIN. 7.6 g/dL (14.0-18.0); MEAN CORPUSCULAR HEMOGLOBIN 24.5 pg (28.0-32.0); MEAN CORPUSCULAR VOLUME 78.1 fL (80.0-94.0); RED CELL DISTRIBUTION WIDTH 24.6 % (11.6-14.6)
[2020-02-09] MEDS ORDERED: PIPERACILLIN/TAZOBACTAM 3.375 G/VIAL IV SCH (22:00)
[2020-02-09 22:04] LABS: PLATELET 18 x1000/uL (130-400)
[2020-02-09] MEDS ORDERED: VANCOMYCIN 1500MG in DEXTROSE 5% WATER 250ML IV NR (23:00)
[2020-02-09 23:10] LABS: PLATELET ESTIMATE MARKEDLY DECREASED
[2020-02-09] MEDS: PIPERACILLIN/TAZOBACTAM 3.375 G in DEXT 5% WATER 100 ML IV SCH (23:26)
[2020-02-10 00:26] VITALS: BP 115/57
[2020-02-10 04:24] VITALS: BP 113/67
[2020-02-10] MEDS: HYDROCODONE/ACETAMINOPHEN 5/325MG TABLET PO PRN (04:26)
[2020-02-10] MEDS: PIPERACILLIN/TAZOBACTAM 3.375 G in DEXT 5% WATER 100 ML IV SCH (06:13)
[2020-02-10] MEDS: LACTULOSE 20G/30ML UDC PO SCH ×2 (06:13→13:31)
[2020-02-10] MEDS: DEXT 5%/0.45% NACL 1000ML 1,000 ML IV SCH ×2 (06:13→21:46)
[2020-02-10] MEDS: VANCOMYCIN 1 G PREMIX 200 ML IV SCH ×3 (06:26→21:47)
[2020-02-10 06:40] LABS: HEMATOCRIT. 24.2 % (42.0-52.0); HEMOGLOBIN. 7.6 g/dL (14.0-18.0); MEAN CORPUSCULAR HEMOGLOBIN 24.6 pg (28.0-32.0); MEAN CORPUSCULAR VOLUME 78.1 fL (80.0-94.0); MEAN PLATELET VOLUME 9.1 fl (7.4-10.4); RED CELL DISTRIBUTION WIDTH 24.3 % (11.6-14.6)
[2020-02-10 06:50] LABS: CHLORIDE 105 mEq/L (98-107)
[2020-02-10 08:00] VITALS: BP 109/63
[2020-02-10] MEDS: PANTOPRAZOLE SODIUM 40 MG/VIAL IV SCH ×2 (08:33→21:46)
[2020-02-10] MEDS: FERROUS SULFATE 325MG TABLET PO SCH ×3 (08:33→16:59)
[2020-02-10] MEDS: RIFAXIMIN 550 MG TABLET PO SCH (08:33)
[2020-02-10 08:37] LABS: PLATELET 19 x1000/uL (130-400)
[2020-02-10] MEDS ORDERED: POTASSIUM CHLORIDE 20MEQ TABLET SR PO SCH (08:45)
[2020-02-10] MEDS: FOLIC ACID 1 MG, THIAMINE HCL 100 MG, MVI, ADULT NO.1 10 ML in DEXTROSE 5% WATER 1,000 ML IV SCH ×4 (08:54)
[2020-02-10] MEDS: CEFEPIME 1,000 MG in DEXTROSE 5% WATER 50 ML IV SCH ×2 (11:35→21:47)
[2020-02-10 12:00] VITALS: BP 112/82
[2020-02-10 12:47] LABS: PLATELET ESTIMATE MARKEDLY DECREASED
[2020-02-10 16:00] VITALS: BP 102/58
[2020-02-10 20:11] VITALS: BP 110/58
[2020-02-11] MEDS: ACETAMINOPHEN 325MG TABLET PO PRN (00:15)
[2020-02-11 00:48] VITALS: BP 111/62
[2020-02-11 04:00] VITALS: BP 101/50
[2020-02-11] MEDS: VANCOMYCIN 1 G PREMIX 200 ML IV SCH ×3 (05:01→21:25)
[2020-02-11 07:11] LABS: HEMATOCRIT. 24.1 % (42.0-52.0); HEMOGLOBIN. 7.5 g/dL (14.0-18.0); MEAN CORPUSCULAR HEMOGLOBIN 24.8 pg (28.0-32.0); MEAN CORPUSCULAR VOLUME 79.5 fL (80.0-94.0); MEAN PLATELET VOLUME 9.2 fl (7.4-10.4); RED BLOOD CELL COUNT 3.03 mill/uL (4.7-6.1); RED CELL DISTRIBUTION WIDTH 25.7 % (11.6-14.6)
[2020-02-11 07:24] LABS: CHLORIDE 107 mEq/L (98-107)
[2020-02-11 07:54] LABS: PLATELET 21 x1000/uL (130-400)
[2020-02-11 08:00] VITALS: BP 103/51
[2020-02-11] MEDS: LACTULOSE 20G/30ML UDC PO SCH (09:10)
[2020-02-11] MEDS: DEXT 5%/0.45% NACL 1000ML 1,000 ML IV SCH ×2 (09:10→21:27)
[2020-02-11] MEDS: PANTOPRAZOLE SODIUM 40 MG/VIAL IV SCH ×2 (09:10→21:25)
[2020-02-11] MEDS: FERROUS SULFATE 325MG TABLET PO SCH ×3 (09:10→17:31)
[2020-02-11] MEDS: ONDANSETRON HCL 4MG/2ML INJ IV PRN (09:10)
[2020-02-11] MEDS: FOLIC ACID 1 MG, THIAMINE HCL 100 MG, MVI, ADULT NO.1 10 ML in DEXTROSE 5% WATER 1,000 ML IV SCH ×4 (09:10)
[2020-02-11 09:51] LABS: PLATELET ESTIMATE MARKEDLY DECREASED
[2020-02-11] MEDS: CEFEPIME 1,000 MG in DEXTROSE 5% WATER 50 ML IV SCH ×2 (10:00→21:25)
[2020-02-11 12:31] VITALS: BP 104/52
[2020-02-11 20:27] VITALS: BP 113/57
[2020-02-12 00:48] VITALS: BP 99/47
[2020-02-12 04:00] VITALS: BP 105/61
[2020-02-12] MEDS: VANCOMYCIN 1 G PREMIX 200 ML IV SCH (04:55)
[2020-02-12] MEDS: ONDANSETRON HCL 4MG/2ML INJ IV PRN (06:46)
[2020-02-12 06:49] LABS: HEMATOCRIT. 23.7 % (42.0-52.0); HEMOGLOBIN. 7.4 g/dL (14.0-18.0); MEAN CORPUSCULAR VOLUME 79.9 fL (80.0-94.0); MEAN PLATELET VOLUME 7.3 fl (7.4-10.4); RED BLOOD CELL COUNT 2.97 mill/uL (4.7-6.1)
[2020-02-12 07:48] LABS: CHLORIDE 107 mEq/L (98-107)
[2020-02-12 07:53] LABS: PLATELET 16 x1000/uL (130-400)
[2020-02-12 08:00] VITALS: BP 109/60
[2020-02-12] MEDS ORDERED: CEPH-569 MT (08:24)
[2020-02-12] MEDS ORDERED: POTASSIUM CHLORIDE 20MEQ TABLET SR PO NR (08:30)
[2020-02-12] MEDS: PANTOPRAZOLE SODIUM 40 MG/VIAL IV SCH (08:38)
[2020-02-12] MEDS: LACTULOSE 20G/30ML UDC PO SCH (08:38)
[2020-02-12] MEDS: FERROUS SULFATE 325MG TABLET PO SCH ×2 (08:38→13:26)
[2020-02-12] MEDS: FOLIC ACID 1 MG, THIAMINE HCL 100 MG, MVI, ADULT NO.1 10 ML in DEXTROSE 5% WATER 1,000 ML IV SCH ×4 (08:39)
[2020-02-12] MEDS ORDERED: POTASSIUM CHLORIDE 20MEQ TABLET SR PO SCH (09:00)
[2020-02-12] MEDS: CEFEPIME 1,000 MG in DEXTROSE 5% WATER 50 ML IV SCH (09:46)
[2020-02-12] MEDS ORDERED: MAGNESIUM 2 G PREMIX 50 ML IV NR (10:00)
[2020-02-12 11:36] VITALS: BP 109/60
[2020-02-12] MEDS: DEXT 5%/0.45% NACL 1000ML 1,000 ML IV SCH (11:50)
[2020-02-12 11:59] LABS: PLATELET ESTIMATE MARKEDLY DECREASED
[2020-02-12 12:00] VITALS: BP 96/46
[2020-02-12 14:00] VITALS: BP 100/60
== END 2020-02-12 15:05 | disposition home or self-care (01) | DRG 254 ==
LOC: ER 15:48 → 6WST 18:49 → EDBEDREQTM 18:56 → EDBEDREQ 18:56 → ENRESERV 20:41
PROVIDERS: ADMIT Internal Medicine; ATTEND Internal Medicine
PROC: 02HV33Z Insertion of Infusion Device into Superior Vena Cava, Percutaneous Approach (ICD-10-PCS; principal; 2020-02-08)
PROC: B548ZZA Ultrasonography of Superior Vena Cava, Guidance (ICD-10-PCS; 2020-02-08)
PROC: B5181ZA Fluoroscopy of Superior Vena Cava using Low Osmolar Contrast, Guidance (ICD-10-PCS; 2020-02-08)
DX: K92.1 Melena (principal); D61.818 Other pancytopenia; E87.8 Other disorders of electrolyte and fluid balance, not elsewhere classified; E44.1 Mild protein-calorie malnutrition; E87.6 Hypokalemia; F32.9 Major depressive disorder, single episode, unspecified; F41.9 Anxiety disorder, unspecified; K76.6 Portal hypertension; D69.6 Thrombocytopenia, unspecified; K70.31 Alcoholic cirrhosis of liver with ascites; F10.120 Alcohol abuse with intoxication, uncomplicated; K44.9 Diaphragmatic hernia without obstruction or gangrene; R16.1 Splenomegaly, not elsewhere classified; Z60.2 Problems related to living alone; E72.20 Disorder of urea cycle metabolism, unspecified; K92.0 Hematemesis; K65.2 Spontaneous bacterial peritonitis; Z59.0 Homelessness; Z91.19 Patient's noncompliance with other medical treatment and regimen; Z71.41 Alcohol abuse counseling and surveillance of alcoholic; Z68.27 Body mass index [BMI] 27.0-27.9, adult; Z88.8 Allergy status to other drugs, medicaments and biological substances; Z79.899 Other long term (current) drug therapy; Z87.19 Personal history of other diseases of the digestive system
CPT/HCPCS: 36415; 36573; 76937; 80048; 80053; 80076; 80202; 81003; 82140; 82270; 82728; 83540; 83550; 83735; 85014; 85018; 85025; 85027; 86850; 86900; 86920; 93005; 99285; C1725; C9113; J0692; J2270; J2354; J2405; J2543; J3370; J3411; J3475; J3480; J3490; J7050; J7060; J7070

== ENCOUNTER 2020-02-20 15:25 | Emergency (ER) | payer MEDICAID ==
[~2020-02-20] VITALS: Ht 170.2 cm; Wt 59.0 kg
[~2020-02-20 15:25] MED LIST changes: +CEPH-569 MT; -L25 MT
[2020-02-20 18:31] LABS: CLARITY URINE CLEAR (CLEAR); COLOR URINE YELLOW (YELLOW); KETONES URINE NEGATIVE (NEGATIVE); LEUKOCYTE ESTERASE URINE NEGATIVE (NEGATIVE); NITRITE URINE NEGATIVE (NEGATIVE); OCCULT BLOOD URINE NEGATIVE (NEGATIVE); PROTEIN URINE NEGATIVE (NEGATIVE); SPECIFIC GRAVITY URINE 1.007 (1.005-1.030)
[2020-02-20 18:38] LABS: *AMPHETAMINES SCREEN URINE NEGATIVE (NEGATIVE); *BARBITURATES SCREEN URINE NEGATIVE (NEGATIVE)
[2020-02-20 18:39] LABS: *BENZODIAZEPINES SCREEN URINE PRESUMTIVE POSITIVE (NEGATIVE); *COCAINE SCREEN URINE NEGATIVE (NEGATIVE); CANNABINOID URINE SCREEN NEGATIVE (NEGATIVE); METHADONE URINE SCREEN NEGATIVE (NEGATIVE); OPIATES URINE SCREEN NEGATIVE (NEGATIVE); PHENCYCLIDINE URINE SCREEN NEGATIVE (NEGATIVE)
[2020-02-20 18:51] LABS: CHLORIDE 110 mEq/L (98-107)
[2020-02-20 18:52] LABS: HEMATOCRIT. 29.5 % (42.0-52.0); HEMOGLOBIN. 9.2 g/dL (14.0-18.0); MEAN CORPUSCULAR HEMOGLOBIN 24.1 pg (28.0-32.0); MEAN CORPUSCULAR VOLUME 77.2 fL (80.0-94.0); MEAN PLATELET VOLUME 8.5 fl (7.4-10.4); RED BLOOD CELL COUNT 3.83 mill/uL (4.7-6.1); RED CELL DISTRIBUTION WIDTH 25.4 % (11.6-14.6)
[2020-02-20 18:54] LABS: PLATELET 22 x1000/uL (130-400)
[2020-02-20] MEDS ORDERED: CHLORDIAZEPOXIDE 25MG CAPSULE PO ONE (19:15)
[2020-02-20 19:28] LABS: ETHANOL BLOOD 474 mg/dL
[2020-02-20 20:04] LABS: PLATELET ESTIMATE MARKEDLY DECREASED
[2020-02-21] MEDS ORDERED: LORAZEPAM 2MG/ML CPJ IV NR (01:30)
[2020-02-21] MEDS ORDERED: ONDANSETRON HCL 4MG/2ML INJ IV NR (01:30)
[2020-02-21 06:50] VITALS: BP 104/69
== END 2020-02-21 07:01 | disposition home or self-care (01) ==
LOC: ER 15:25
DX: F10.129 Alcohol abuse with intoxication, unspecified (principal); Y90.8 Blood alcohol level of 240 mg/100 ml or more; R03.0 Elevated blood-pressure reading, without diagnosis of hypertension; R10.9 Unspecified abdominal pain; F13.10 Sedative, hypnotic or anxiolytic abuse, uncomplicated; S00.81XA Abrasion of other part of head, initial encounter; D61.818 Other pancytopenia; D69.6 Thrombocytopenia, unspecified; F10.229 Alcohol dependence with intoxication, unspecified; K70.9 Alcoholic liver disease, unspecified; D72.819 Decreased white blood cell count, unspecified; X58.XXXA Exposure to other specified factors, initial encounter; Y93.89 Activity, other specified; Y92.89 Other specified places as the place of occurrence of the external cause; Z79.899 Other long term (current) drug therapy
CPT/HCPCS: 36415; 70450; 71045; 80053; 80305; 80320; 81003; 83690; 83880; 84484; 85025; 93005; 96374; 96375; 99285; J2060; J2405; G0480

== ENCOUNTER 2020-02-27 17:29 | Emergency (ER) | payer MEDICAID ==
[~2020-02-27] VITALS: Ht 154.9 cm; Wt 70.0 kg
[2020-02-27] MEDS ORDERED: MORPHINE SULFATE 4 MG/ML CPJ (NOT FOR IM USE) IV STA (23:55)
[2020-02-27] MEDS ORDERED: ONDANSETRON HCL 4MG/2ML INJ IV STA (23:55)
[2020-02-27] MEDS ORDERED: FAMOTIDINE 20MG/2ML VIAL IV STA (23:55)
[2020-02-28 01:04] LABS: CHLORIDE 106 mEq/L (98-107)
[2020-02-28 01:07] LABS: HEMATOCRIT. 28.7 % (42.0-52.0); MEAN CORPUSCULAR HEMOGLOBIN 25.1 pg (28.0-32.0); MEAN CORPUSCULAR VOLUME 79.8 fL (80.0-94.0); MEAN PLATELET VOLUME 8.8 fl (7.4-10.4); RED CELL DISTRIBUTION WIDTH 27.3 % (11.6-14.6)
[2020-02-28 01:32] LABS: PLATELET 20 x1000/uL (130-400)
[2020-02-28 03:54] LABS: INR 1.3; PROTHROMBIN TIME 13.5 sec (9.6-11.0)
[2020-02-28 04:13] LABS: CLARITY URINE CLEAR (CLEAR); COLOR URINE YELLOW (YELLOW); KETONES URINE NEGATIVE (NEGATIVE); LEUKOCYTE ESTERASE URINE NEGATIVE (NEGATIVE); NITRITE URINE NEGATIVE (NEGATIVE); OCCULT BLOOD URINE NEGATIVE (NEGATIVE); PROTEIN URINE NEGATIVE (NEGATIVE); SPECIFIC GRAVITY URINE 1.017 (1.005-1.030)
[2020-02-28 05:11] LABS: PLATELET ESTIMATE MARKEDLY DECREASED
[2020-02-28 07:14] VITALS: BP 123/56
== END 2020-02-28 07:15 | disposition home or self-care (01) ==
LOC: ER 17:29
DX: K29.20 Alcoholic gastritis without bleeding (principal); Y90.9 Presence of alcohol in blood, level not specified; F10.20 Alcohol dependence, uncomplicated; K70.31 Alcoholic cirrhosis of liver with ascites; D61.818 Other pancytopenia; R03.0 Elevated blood-pressure reading, without diagnosis of hypertension
CPT/HCPCS: 36415; 80053; 81003; 83690; 85025; 85610; 93005; 96374; 96375; 99285; J2270; J2405; J3490

== ENCOUNTER 2020-03-03 09:22 | Emergency (ER) | payer MEDICAID ==
[~2020-03-03] VITALS: Ht 162.6 cm; Wt 65.0 kg
[2020-03-03 10:21] LABS: HEMATOCRIT. 23.9 % (42.0-52.0); HEMOGLOBIN. 7.7 g/dL (14.0-18.0); MEAN CORPUSCULAR HEMOGLOBIN 25.4 pg (28.0-32.0); MEAN CORPUSCULAR VOLUME 78.8 fL (80.0-94.0); MEAN PLATELET VOLUME 8.9 fl (7.4-10.4); RED BLOOD CELL COUNT 3.03 mill/uL (4.7-6.1); RED CELL DISTRIBUTION WIDTH 25.4 % (11.6-14.6)
[2020-03-03 10:28] LABS: CHLORIDE 109 mEq/L (98-107)
[2020-03-03 10:31] LABS: PLATELET 21 x1000/uL (130-400)
[2020-03-03 11:23] VITALS: BP 127/65
[2020-03-03 11:26] LABS: CLARITY URINE CLEAR (CLEAR); COLOR URINE YELLOW (YELLOW); KETONES URINE NEGATIVE (NEGATIVE); LEUKOCYTE ESTERASE URINE NEGATIVE (NEGATIVE); NITRITE URINE NEGATIVE (NEGATIVE); OCCULT BLOOD URINE NEGATIVE (NEGATIVE); PH URINE 6.5 (4.5-8.0); PROTEIN URINE NEGATIVE (NEGATIVE); SPECIFIC GRAVITY URINE 1.009 (1.005-1.030)
[2020-03-03 11:48] LABS: PLATELET ESTIMATE MARKEDLY DECREASED
== END 2020-03-03 11:24 | disposition home or self-care (01) ==
LOC: ER 09:22
DX: R07.89 Other chest pain (principal); R10.9 Unspecified abdominal pain; R19.7 Diarrhea, unspecified; F10.20 Alcohol dependence, uncomplicated; Y90.0 Blood alcohol level of less than 20 mg/100 ml; Z79.899 Other long term (current) drug therapy; Z88.6 Allergy status to analgesic agent
CPT/HCPCS: 36415; 71045; 80053; 81003; 83880; 84484; 85025; 93005; 99285

== ENCOUNTER 2020-03-13 12:11 | Emergency (ER) | payer MEDICAID ==
[~2020-03-13] VITALS: Ht 162.6 cm; Wt 70.0 kg
[2020-03-13 12:23] VITALS: BP 106/61
[2020-03-13] MEDS ORDERED: ONDANSETRON 4MG ODT PO ONE (15:30)
[2020-03-13] MEDS ORDERED: OMEPRAZOLE 20MG CAPSULE EXTENDED RELEASE PO ONE (15:30)
[2020-03-13 16:15] LABS: CHLORIDE 114 mEq/L (98-107)
[2020-03-13 16:17] LABS: BASOPHILS % 0.8 % (0.0-2.0); EOSINOPHILS % 0.6 % (0.0-5.0); HEMATOCRIT. 31.1 % (42.0-52.0); HEMOGLOBIN. 9.7 g/dL (14.0-18.0); INR 1.2; LYMPHOCYTES % 34.9 % (20.0-50.0); MEAN CORPUSCULAR HEMOGLOBIN 24.3 pg (28.0-32.0); MEAN CORPUSCULAR VOLUME 77.6 fL (80.0-94.0); MEAN PLATELET VOLUME 9.9 fl (7.4-10.4); MONOCYTES % 6.7 % (2.0-8.0); PARTIAL THROMBOPLASTIN TIME 34.5 sec (23.4-31.0); PROTHROMBIN TIME 12.6 sec (9.6-11.0); RED BLOOD CELL COUNT 4.01 mill/uL (4.7-6.1); RED CELL DISTRIBUTION WIDTH 23.7 % (11.6-14.6)
[2020-03-14 09:35] LABS: PLATELET 41 x1000/uL (130-400)
== END 2020-03-13 18:17 | disposition home or self-care (01) ==
LOC: ER 12:11
DX: K70.9 Alcoholic liver disease, unspecified (principal); S70.02XA Contusion of left hip, initial encounter; G89.29 Other chronic pain; R10.13 Epigastric pain; R94.8 Abnormal results of function studies of other organs and systems; D61.818 Other pancytopenia; Z88.6 Allergy status to analgesic agent; X58.XXXA Exposure to other specified factors, initial encounter; Y93.89 Activity, other specified; Y92.018 Other place in single-family (private) house as the place of occurrence of the external cause
CPT/HCPCS: 36415; 80053; 83690; 85025; 85610; 85730; 99283; Q0162

== ENCOUNTER 2020-03-17 12:14 | Emergency (ER) | payer MEDICAID ==
[~2020-03-17] VITALS: Ht 162.6 cm; Wt 82.0 kg
[2020-03-17] MEDS ORDERED: ACETAMINOPHEN 325MG TABLET PO SCH (13:01)
[2020-03-17] MEDS ORDERED: ONDANSETRON HCL 4MG/2ML INJ IV SCH (13:01)
[2020-03-17] MEDS ORDERED: SODIUM CHLORIDE 0.9% 1,000 ML IV SCH (13:01)
[2020-03-17] MEDS ORDERED: FAMOTIDINE 20MG/2ML VIAL IV SCH (13:01)
[2020-03-17 15:05] LABS: CHLORIDE 112 mEq/L (98-107)
[2020-03-17 15:07] LABS: BASOPHILS % 0.6 % (0.0-2.0); EOSINOPHILS % 0.3 % (0.0-5.0); HEMATOCRIT. 27.7 % (42.0-52.0); HEMOGLOBIN. 8.9 g/dL (14.0-18.0); LYMPHOCYTES % 30.4 % (20.0-50.0); MEAN CORPUSCULAR HEMOGLOBIN 24.3 pg (28.0-32.0); MEAN CORPUSCULAR VOLUME 75.6 fL (80.0-94.0); MEAN PLATELET VOLUME 9.9 fl (7.4-10.4); NEUTROPHILS % 64.7 % (40.0-76.0); RED BLOOD CELL COUNT 3.66 mill/uL (4.7-6.1); RED CELL DISTRIBUTION WIDTH 23.5 % (11.6-14.6)
[2020-03-17 15:09] LABS: CLARITY URINE CLEAR (CLEAR); COLOR URINE YELLOW (YELLOW); KETONES URINE NEGATIVE (NEGATIVE); LEUKOCYTE ESTERASE URINE NEGATIVE (NEGATIVE); NITRITE URINE NEGATIVE (NEGATIVE); OCCULT BLOOD URINE NEGATIVE (NEGATIVE); PROTEIN URINE NEGATIVE (NEGATIVE); SPECIFIC GRAVITY URINE 1.013 (1.005-1.030)
[2020-03-17 15:24] LABS: PLATELET 30 x1000/uL (130-400)
[2020-03-17 16:49] VITALS: BP 98/51
== END 2020-03-17 16:53 | disposition home or self-care (01) ==
LOC: ER 12:14
DX: K29.20 Alcoholic gastritis without bleeding (principal); D61.818 Other pancytopenia; F10.10 Alcohol abuse, uncomplicated; Z88.6 Allergy status to analgesic agent; Z88.8 Allergy status to other drugs, medicaments and biological substances; Z98.890 Other specified postprocedural states
CPT/HCPCS: 36415; 71045; 80053; 81003; 83690; 85025; 96361; 96374; 96375; 99284; J2405; J3490

== ENCOUNTER 2020-03-18 11:03 | Inpatient (IN) | payer MEDICAID ==
[~2020-03-18] VITALS: Ht 167.6 cm; Wt 68.5 kg
[2020-03-18 12:28] LABS: HEMATOCRIT. 27.8 % (42.0-52.0); HEMOGLOBIN. 8.9 g/dL (14.0-18.0); MEAN CORPUSCULAR HEMOGLOBIN 24.3 pg (28.0-32.0); MEAN CORPUSCULAR VOLUME 75.8 fL (80.0-94.0); MEAN PLATELET VOLUME 8.6 fl (7.4-10.4); RED BLOOD CELL COUNT 3.67 mill/uL (4.7-6.1)
[2020-03-18 12:29] LABS: PLATELET 28 x1000/uL (130-400)
[2020-03-18 12:32] LABS: CHLORIDE 114 mEq/L (98-107)
[2020-03-18 12:33] LABS: INR 1.2; PROTHROMBIN TIME 12.4 sec (9.6-11.0)
[2020-03-18 12:55] LABS: ETHANOL BLOOD 420 mg/dL
[2020-03-18] MEDS ORDERED: FOLIC ACID 1 MG, THIAMINE HCL 100 MG, MVI, ADULT NO.1 10 ML in DEXTROSE 5% WATER 1,000 ML IV ONE ×4 (13:00)
[2020-03-18] MEDS ORDERED: PANTOPRAZOLE SODIUM 40 MG/VIAL IV ONE (13:00)
[2020-03-18 13:23] LABS: *BARBITURATES SCREEN URINE NEGATIVE (NEGATIVE); *BENZODIAZEPINES SCREEN URINE NEGATIVE (NEGATIVE); *COCAINE SCREEN URINE NEGATIVE (NEGATIVE)
[2020-03-18 13:24] LABS: *AMPHETAMINES SCREEN URINE NEGATIVE (NEGATIVE); CANNABINOID URINE SCREEN NEGATIVE (NEGATIVE); METHADONE URINE SCREEN NEGATIVE (NEGATIVE); OPIATES URINE SCREEN NEGATIVE (NEGATIVE); PHENCYCLIDINE URINE SCREEN NEGATIVE (NEGATIVE)
[2020-03-18 13:29] LABS: PLATELET ESTIMATE MARKEDLY DECREASED
[2020-03-18 18:10] VITALS: BP 136/83
[2020-03-18 18:26] VITALS: BP 136/83
[2020-03-18 20:00] VITALS: BP 140/68
[2020-03-18] MEDS ORDERED: OCTREOTIDE 1,000 MCG in SODIUM CHLORIDE 0.9% 98 ML IV SCH (20:00)
[2020-03-18] MEDS ORDERED: PANTOPRAZOLE 80 MG in SODIUM CHLORIDE 0.9% 100 ML IV SCH (20:00)
[2020-03-18] MEDS: MORPHINE SULFATE 2 MG/ML CPJ (NOT FOR IM USE) IV PRN (20:31)
[2020-03-18] MEDS: ONDANSETRON HCL 4MG/2ML INJ IV PRN (20:31)
[2020-03-19] VITALS: BP 116/63
[2020-03-19] MEDS: DEXT 5%/0.45% NACL KCL 20MEQ/L 1,000 ML IV SCH ×2 (00:20→11:30)
[2020-03-19 04:00] VITALS: BP 121/72
[2020-03-19] MEDS: MORPHINE SULFATE 2 MG/ML CPJ (NOT FOR IM USE) IV PRN (04:46)
[2020-03-19 06:08] LABS: CHLORIDE 110 mEq/L (98-107); HEMATOCRIT. 27.1 % (42.0-52.0); HEMOGLOBIN. 8.6 g/dL (14.0-18.0); MEAN CORPUSCULAR HEMOGLOBIN 24.1 pg (28.0-32.0); MEAN CORPUSCULAR VOLUME 75.8 fL (80.0-94.0); MEAN PLATELET VOLUME 8.7 fl (7.4-10.4); RED BLOOD CELL COUNT 3.58 mill/uL (4.7-6.1); RED CELL DISTRIBUTION WIDTH 22.8 % (11.6-14.6)
[2020-03-19 06:34] LABS: PLATELET 20 x1000/uL (130-400)
[2020-03-19 08:00] VITALS: BP 121/64
[2020-03-19] MEDS ORDERED: POTASSIUM CHLORIDE 20MEQ TABLET SR PO NR (09:30)
[2020-03-19] MEDS: PANTOPRAZOLE SODIUM 40 MG/VIAL IV SCH (10:56)
[2020-03-19] MEDS ORDERED: MORPHINE SULFATE 2 MG/ML CPJ (NOT FOR IM USE) IV PRN (11:15)
[2020-03-19] MEDS: HYDROCODONE/ACETAMINOPHEN 5/325MG TABLET PO PRN ×3 (11:30→20:10)
[2020-03-19 11:47] VITALS: BP 136/70
[2020-03-19 13:49] LABS: PLATELET ESTIMATE MARKEDLY DECREASED
[2020-03-19] MEDS: CHLORDIAZEPOXIDE 25MG CAPSULE PO SCH ×2 (14:59→22:05)
[2020-03-19] MEDS: ONDANSETRON HCL 4MG/2ML INJ IV PRN ×2 (15:56→20:11)
[2020-03-19 16:00] VITALS: BP 127/59
[2020-03-19] MEDS ORDERED: LORAZEPAM 2MG/ML CPJ IV PRN (16:15)
[2020-03-19] MEDS ORDERED: FOLIC ACID 1 MG, THIAMINE HCL 100 MG, MVI, ADULT NO.1 10 ML in DEXTROSE 5% WATER 1,000 ML IV NR ×4 (18:00)
[2020-03-19 20:00] VITALS: BP 125/63
[2020-03-20] VITALS: BP 126/60
[2020-03-20 03:29] LABS: CLARITY URINE CLEAR (CLEAR); COLOR URINE YELLOW (YELLOW); KETONES URINE NEGATIVE (NEGATIVE); LEUKOCYTE ESTERASE URINE NEGATIVE (NEGATIVE); NITRITE URINE NEGATIVE (NEGATIVE); OCCULT BLOOD URINE NEGATIVE (NEGATIVE); PROTEIN URINE NEGATIVE (NEGATIVE); SPECIFIC GRAVITY URINE 1.005 (1.005-1.030)
[2020-03-20 04:00] VITALS: BP 131/60
[2020-03-20] MEDS: CHLORDIAZEPOXIDE 25MG CAPSULE PO SCH (05:15)
[2020-03-20 06:11] LABS: HEMATOCRIT. 27.2 % (42.0-52.0); HEMOGLOBIN. 8.6 g/dL (14.0-18.0); MEAN CORPUSCULAR HEMOGLOBIN 23.9 pg (28.0-32.0); MEAN CORPUSCULAR VOLUME 75.6 fL (80.0-94.0); MEAN PLATELET VOLUME 9.8 fl (7.4-10.4)
[2020-03-20 06:49] LABS: CHLORIDE 104 mEq/L (98-107)
[2020-03-20 07:47] LABS: PLATELET 17 x1000/uL (130-400)
[2020-03-20] MEDS ORDERED: FOLI-43 MT (08:46)
[2020-03-20] MEDS ORDERED: THIA100T72 PO (08:46)
[2020-03-20 09:00] VITALS: BP 128/76
[2020-03-20] MEDS: ONDANSETRON HCL 4MG/2ML INJ IV PRN (10:01)
[2020-03-20] MEDS: PANTOPRAZOLE SODIUM 40 MG/VIAL IV SCH (10:01)
[2020-03-20] MEDS: HYDROCODONE/ACETAMINOPHEN 5/325MG TABLET PO PRN (10:01)
[2020-03-20 12:09] LABS: PLATELET ESTIMATE MARKEDLY DECREASED
[2020-03-20 13:41] VITALS: BP 133/79
[2020-03-20 13:51] VITALS: BP 133/79
== END 2020-03-20 14:25 | disposition home or self-care (01) | DRG 254 ==
LOC: ER 11:03 → 5WST 15:47 → EDBEDREQ 15:56 → EDBEDREQTM 15:56 → ENRESERV 16:07
PROVIDERS: ADMIT Internal Medicine; ATTEND Internal Medicine
DX: K92.1 Melena (principal); D61.818 Other pancytopenia; Y90.8 Blood alcohol level of 240 mg/100 ml or more; K74.60 Unspecified cirrhosis of liver; R42 Dizziness and giddiness; F10.229 Alcohol dependence with intoxication, unspecified; E44.1 Mild protein-calorie malnutrition; E87.8 Other disorders of electrolyte and fluid balance, not elsewhere classified; F17.200 Nicotine dependence, unspecified, uncomplicated; D72.825 Bandemia; Z68.24 Body mass index [BMI] 24.0-24.9, adult; Z79.899 Other long term (current) drug therapy; Z88.8 Allergy status to other drugs, medicaments and biological substances
CPT/HCPCS: 36415; 71045; 76700; 80048; 80053; 80305; 80320; 81003; 82962; 84145; 85025; 86850; 86900; 93005; 96365; 99285; C9113; J2270; J2354; J2405; J3411; J3490; J7050; J7070; G0480

== ENCOUNTER 2020-03-23 16:08 | Inpatient (IN) | payer MEDICAID ==
[~2020-03-23] VITALS: Ht 160 cm; Wt 71.8 kg
[~2020-03-23 16:08] MED LIST changes: -CEPH-569 MT
[2020-03-23 20:01] LABS: BASOPHILS % 0.5 % (0.0-2.0); EOSINOPHILS % 0.7 % (0.0-5.0); HEMATOCRIT. 27.6 % (42.0-52.0); HEMOGLOBIN. 8.8 g/dL (14.0-18.0); LYMPHOCYTES % 34.8 % (20.0-50.0); MEAN CORPUSCULAR HEMOGLOBIN 24.6 pg (28.0-32.0); MEAN PLATELET VOLUME 8.6 fl (7.4-10.4); MONOCYTES % 7.3 % (2.0-8.0); NEUTROPHILS % 56.7 % (40.0-76.0); RED BLOOD CELL COUNT 3.58 mill/uL (4.7-6.1); RED CELL DISTRIBUTION WIDTH 24.2 % (11.6-14.6)
[2020-03-23 20:06] LABS: CHLORIDE 115 mEq/L (98-107)
[2020-03-23 20:08] LABS: INR 1.2; PROTHROMBIN TIME 12.8 sec (9.6-11.0)
[2020-03-23 20:11] LABS: PLATELET 28 x1000/uL (130-400)
[2020-03-23 20:28] LABS: CLARITY URINE CLEAR (CLEAR); COLOR URINE DARK YELLOW (YELLOW); KETONES URINE TRACE (NEGATIVE); LEUKOCYTE ESTERASE URINE NEGATIVE (NEGATIVE); NITRITE URINE NEGATIVE (NEGATIVE); OCCULT BLOOD URINE NEGATIVE (NEGATIVE); PROTEIN URINE NEGATIVE (NEGATIVE); SPECIFIC GRAVITY URINE 1.026 (1.005-1.030)
[2020-03-23 20:44] LABS: METHADONE URINE SCREEN NEGATIVE (NEGATIVE); OPIATES URINE SCREEN NEGATIVE (NEGATIVE)
[2020-03-23 20:45] LABS: *AMPHETAMINES SCREEN URINE NEGATIVE (NEGATIVE); *BARBITURATES SCREEN URINE NEGATIVE (NEGATIVE); *BENZODIAZEPINES SCREEN URINE PRESUMTIVE POSITIVE (NEGATIVE); *COCAINE SCREEN URINE NEGATIVE (NEGATIVE); CANNABINOID URINE SCREEN NEGATIVE (NEGATIVE); PHENCYCLIDINE URINE SCREEN NEGATIVE (NEGATIVE)
[2020-03-23 21:30] VITALS: BP 144/92
[2020-03-23 21:53] VITALS: BP 144/92
[2020-03-23] MEDS ORDERED: SODIUM CHLORIDE 0.9% 1,000 ML IV SCH (23:15)
[2020-03-23] MEDS: MORPHINE SULFATE 2 MG/ML CPJ (NOT FOR IM USE) IV PRN (23:54)
[2020-03-23] MEDS: PANTOPRAZOLE SODIUM 40 MG/VIAL IV SCH (23:54)
[2020-03-23] MEDS: ONDANSETRON HCL 4MG/2ML INJ IV PRN (23:54)
[2020-03-24] VITALS (12 sets, daily range): BP systolic 91–138; BP diastolic 56–83
[2020-03-24 03:45] LABS: *AMPHETAMINES SCREEN URINE NEGATIVE (NEGATIVE); *BARBITURATES SCREEN URINE NEGATIVE (NEGATIVE); *BENZODIAZEPINES SCREEN URINE PRESUMTIVE POSITIVE (NEGATIVE); *COCAINE SCREEN URINE NEGATIVE (NEGATIVE); METHADONE URINE SCREEN NEGATIVE (NEGATIVE); OPIATES URINE SCREEN NEGATIVE (NEGATIVE)
[2020-03-24 03:47] LABS: CANNABINOID URINE SCREEN NEGATIVE (NEGATIVE); PHENCYCLIDINE URINE SCREEN NEGATIVE (NEGATIVE)
[2020-03-24 06:21] LABS: HEMATOCRIT. 24.9 % (42.0-52.0); HEMOGLOBIN. 7.8 g/dL (14.0-18.0); MEAN CORPUSCULAR HEMOGLOBIN 24.3 pg (28.0-32.0); MEAN CORPUSCULAR VOLUME 77.1 fL (80.0-94.0); MEAN PLATELET VOLUME 8.4 fl (7.4-10.4); RED BLOOD CELL COUNT 3.23 mill/uL (4.7-6.1); RED CELL DISTRIBUTION WIDTH 24.4 % (11.6-14.6)
[2020-03-24 07:10] LABS: CHLORIDE 114 mEq/L (98-107)
[2020-03-24 07:22] LABS: CREATINE KINASE 170 IU/L (39-308)
[2020-03-24 07:24] LABS: CREATINE KINASE MB FRACTION 1.1 ng/mL (0.5-3.6)
[2020-03-24] MEDS: PANTOPRAZOLE SODIUM 40 MG/VIAL IV SCH ×2 (08:12→16:40)
[2020-03-24] MEDS ORDERED: POTASSIUM CHLORIDE INJ 40 MEQ in DEXT 5% WATER 250 ML IV ONE (10:00)
[2020-03-24 10:32] LABS: TOTAL IRON BINDING CAPACITY 376 ug/dL (250-450)
[2020-03-24 10:57] LABS: FOLIC ACID (FOLATE) SERUM 11.6 ng/mL (>5.38)
[2020-03-24] MEDS: SODIUM CHLORIDE 0.45% 1,000 ML IV SCH (10:57)
[2020-03-24] MEDS: MORPHINE SULFATE 2 MG/ML CPJ (NOT FOR IM USE) IV PRN ×2 (11:07→20:45)
[2020-03-24] MEDS: LACTULOSE 20G/30ML UDC PO SCH ×2 (13:20→21:54)
[2020-03-24 13:27] LABS: ATYPICAL LYMPHOCYTES 1
[2020-03-24 13:28] LABS: PLATELET 14 x1000/uL (130-400); PLATELET ESTIMATE MARKEDLY DECREASED
[2020-03-24 15:43] LABS: HEMATOCRIT 23.9 % (42.0-52.0); HEMOGLOBIN 7.7 g/dL (14.0-18.0)
[2020-03-24 16:10] LABS: CREATINE KINASE 144 IU/L (39-308)
[2020-03-24 16:11] LABS: CREATINE KINASE MB FRACTION < 1.0 ng/mL (0.5-3.6)
[2020-03-24] MEDS: ONDANSETRON HCL 4MG/2ML INJ IV PRN (20:45)
[2020-03-24 23:12] LABS: HEMATOCRIT 24.9 % (42.0-52.0); HEMOGLOBIN 7.9 g/dL (14.0-18.0)
[2020-03-25] VITALS (12 sets, daily range): BP systolic 105–143; BP diastolic 48–78
[2020-03-25] MEDS: LACTULOSE 20G/30ML UDC PO SCH ×3 (05:58→23:07)
[2020-03-25] MEDS: SODIUM CHLORIDE 0.45% 1,000 ML IV SCH ×2 (05:58→18:01)
[2020-03-25] MEDS: PANTOPRAZOLE SODIUM 40 MG/VIAL IV SCH ×2 (09:19→17:59)
[2020-03-25] MEDS: MORPHINE SULFATE 2 MG/ML CPJ (NOT FOR IM USE) IV PRN ×3 (09:20→18:34)
[2020-03-25 13:33] LABS: HEMATOCRIT. 27.4 % (42.0-52.0); HEMOGLOBIN. 8.6 g/dL (14.0-18.0); MEAN CORPUSCULAR HEMOGLOBIN 24.5 pg (28.0-32.0); MEAN CORPUSCULAR VOLUME 77.5 fL (80.0-94.0); MEAN PLATELET VOLUME 10.6 fl (7.4-10.4); RED BLOOD CELL COUNT 3.53 mill/uL (4.7-6.1)
[2020-03-25 13:35] LABS: PLATELET 17 x1000/uL (130-400)
[2020-03-25 13:45] LABS: CHLORIDE 106 mEq/L (98-107)
[2020-03-25 14:14] LABS: PLATELET ESTIMATE MARKEDLY DECREASED
[2020-03-25] MEDS ORDERED: POTASSIUM CHLORIDE INJ 40 MEQ in DEXT 5% WATER 250 ML IV ONE (17:30)
[2020-03-25] MEDS: ONDANSETRON HCL 4MG/2ML INJ IV PRN (17:59)
[2020-03-26] VITALS (17 sets, daily range): BP systolic 96–126; BP diastolic 37–74
[2020-03-26] MEDS: MORPHINE SULFATE 2 MG/ML CPJ (NOT FOR IM USE) IV PRN ×4 (05:09→20:55)
[2020-03-26] MEDS: LACTULOSE 20G/30ML UDC PO SCH ×3 (06:35→22:03)
[2020-03-26 07:44] LABS: HEMATOCRIT. 24.9 % (42.0-52.0); HEMOGLOBIN. 7.9 g/dL (14.0-18.0); MEAN CORPUSCULAR HEMOGLOBIN 24.4 pg (28.0-32.0); MEAN CORPUSCULAR VOLUME 76.7 fL (80.0-94.0); MEAN PLATELET VOLUME 8.9 fl (7.4-10.4); RED BLOOD CELL COUNT 3.25 mill/uL (4.7-6.1); RED CELL DISTRIBUTION WIDTH 22.9 % (11.6-14.6)
[2020-03-26 07:54] LABS: PLATELET 14 x1000/uL (130-400)
[2020-03-26 09:26] LABS: CHLORIDE 108 mEq/L (98-107)
[2020-03-26] MEDS: ONDANSETRON HCL 4MG/2ML INJ IV PRN (09:29)
[2020-03-26] MEDS: PANTOPRAZOLE SODIUM 40 MG/VIAL IV SCH ×2 (09:29→17:11)
[2020-03-26] MEDS: SODIUM CHLORIDE 0.45% 1,000 ML IV SCH ×2 (09:51→23:21)
[2020-03-26 09:58] LABS: PLATELET ESTIMATE MARKEDLY DECREASED
[2020-03-26] MEDS: IRON SUCROSE COMPLEX 100 MG/5 ML ML IV SCH (15:12)
[2020-03-27] VITALS (8 sets, daily range): BP systolic 112–130; BP diastolic 50–68
[2020-03-27] MEDS: MORPHINE SULFATE 2 MG/ML CPJ (NOT FOR IM USE) IV PRN (03:54)
[2020-03-27] MEDS: LACTULOSE 20G/30ML UDC PO SCH ×2 (06:02→14:35)
[2020-03-27 08:35] LABS: HEMATOCRIT. 24.6 % (42.0-52.0); HEMOGLOBIN. 7.8 g/dL (14.0-18.0); MEAN CORPUSCULAR HEMOGLOBIN 24.4 pg (28.0-32.0); MEAN CORPUSCULAR VOLUME 76.8 fL (80.0-94.0); MEAN PLATELET VOLUME 8.5 fl (7.4-10.4); RED CELL DISTRIBUTION WIDTH 23.4 % (11.6-14.6)
[2020-03-27 08:41] LABS: CHLORIDE 108 mEq/L (98-107)
[2020-03-27] MEDS: PANTOPRAZOLE SODIUM 40 MG/VIAL IV SCH (08:52)
[2020-03-27] MEDS ORDERED: FOLI-43 MT (09:27)
[2020-03-27] MEDS ORDERED: MULT-230 MT (09:27)
[2020-03-27] MEDS ORDERED: FERR325T6 MT (09:27)
[2020-03-27] MEDS ORDERED: PANT40TA4 MT (09:27)
[2020-03-27] MEDS ORDERED: LACT10SO7 MT (09:27)
[2020-03-27] MEDS ORDERED: THIA100T72 MT (09:27)
[2020-03-27] MEDS ORDERED: POTASSIUM CHLORIDE 20MEQ TABLET SR PO SCH (09:30)
[2020-03-27] MEDS ORDERED: HYDROCODONE/ACETAMINOPHEN 5/325MG TABLET PO PRN (09:45)
[2020-03-27 10:59] LABS: PLATELET ESTIMATE MARKEDLY DECREASED
[2020-03-27 11:00] LABS: PLATELET 22 x1000/uL (130-400)
[2020-03-27] MEDS: IRON SUCROSE COMPLEX 100 MG/5 ML ML IV SCH (14:35)
== END 2020-03-27 15:30 | disposition home or self-care (01) | DRG 280 ==
LOC: ER 16:08 → 5EST 19:16 → EDBEDREQ 19:19 → ENRESERV 19:26
PROVIDERS: ADMIT Internal Medicine; ATTEND Internal Medicine
PROC: 30233R1 Transfusion of Nonautologous Platelets into Peripheral Vein, Percutaneous Approach (ICD-10-PCS; principal; 2020-03-26)
DX: K70.30 Alcoholic cirrhosis of liver without ascites (principal); K85.90 Acute pancreatitis without necrosis or infection, unspecified; K76.6 Portal hypertension; K92.2 Gastrointestinal hemorrhage, unspecified; Y90.8 Blood alcohol level of 240 mg/100 ml or more; E88.09 Other disorders of plasma-protein metabolism, not elsewhere classified; D61.818 Other pancytopenia; D50.0 Iron deficiency anemia secondary to blood loss (chronic); E83.51 Hypocalcemia; E87.6 Hypokalemia; R73.9 Hyperglycemia, unspecified; D68.9 Coagulation defect, unspecified; Y90.9 Presence of alcohol in blood, level not specified; F10.129 Alcohol abuse with intoxication, unspecified; K31.9 Disease of stomach and duodenum, unspecified; Z88.6 Allergy status to analgesic agent; Z88.8 Allergy status to other drugs, medicaments and biological substances; Z79.2 Long term (current) use of antibiotics; Z79.899 Other long term (current) drug therapy; Z59.0 Homelessness; Z87.19 Personal history of other diseases of the digestive system
CPT/HCPCS: 36415; 76700; 80048; 80053; 80305; 80320; 81003; 82140; 82270; 82550; 82553; 82607; 82728; 82746; 83540; 83550; 83605; 84075; 84145; 84450; 84460; 84484; 85014; 85018; 85025; 85049; 86850; 86900; 87493; 93005; 99285; C9113; J2270; J2405; J3480; J7060; P9034; G0480

== ENCOUNTER 2020-03-30 19:43 | Emergency (ER) | payer MEDICAID ==
[~2020-03-30] VITALS: Ht 162.6 cm; Wt 70.0 kg
[~2020-03-30 19:43] MED LIST changes: +FERR325T6 MT; +LACT10SO7 MT; +MULT-230 MT; +PANT40TA4 MT; +THIA100T72 MT; -THIA100T72 PO
[2020-03-30] MEDS ORDERED: SODIUM CHLORIDE 0.9% 1,000 ML IV ONE (19:57)
[2020-03-30 21:40] LABS: HEMATOCRIT. 27.8 % (42.0-52.0); MEAN CORPUSCULAR HEMOGLOBIN 25.4 pg (28.0-32.0); MEAN CORPUSCULAR VOLUME 78.1 fL (80.0-94.0); MEAN PLATELET VOLUME 8.4 fl (7.4-10.4); RED BLOOD CELL COUNT 3.56 mill/uL (4.7-6.1); RED CELL DISTRIBUTION WIDTH 25.3 % (11.6-14.6)
[2020-03-30 21:47] LABS: CHLORIDE 114 mEq/L (98-107)
[2020-03-30 21:48] LABS: PLATELET 26 x1000/uL (130-400)
[2020-03-30 22:06] LABS: ETHANOL BLOOD 405 mg/dL
[2020-03-30 22:56] LABS: PLATELET ESTIMATE MARKEDLY DECREASED
[2020-03-30] MEDS ORDERED: POTASSIUM CHLORIDE 20MEQ TABLET SR PO NR (23:15)
[2020-03-31] MEDS ORDERED: ONDANSETRON HCL 4MG/2ML INJ IV ONE (00:30)
[2020-03-31 01:33] VITALS: BP 144/82
== END 2020-03-31 01:43 | disposition home or self-care (01) ==
LOC: ER 19:43
DX: F10.229 Alcohol dependence with intoxication, unspecified (principal); Y90.8 Blood alcohol level of 240 mg/100 ml or more; Z79.899 Other long term (current) drug therapy; Z88.6 Allergy status to analgesic agent
CPT/HCPCS: 36415; 80053; 80320; 85025; 93005; 96374; 99284; J2405; J7030; G0480

== ENCOUNTER 2020-04-02 12:01 | Emergency (ER) | payer MEDICAID ==
[~2020-04-02] VITALS: Ht 167.6 cm; Wt 65.0 kg
[2020-04-02] MEDS ORDERED: SODIUM CHLORIDE 0.9% 1,000 ML IV ONE (13:21)
[2020-04-02] MEDS ORDERED: MAGNESIUM/ALUMINUM HYDROXIDE/SIMETHICONE 30ML UDC PO STA (13:21)
[2020-04-02] MEDS ORDERED: MORPHINE SULFATE 4 MG/ML CPJ (NOT FOR IM USE) IV STA (13:21)
[2020-04-02 13:33] LABS: HEMATOCRIT. 27.4 % (42.0-52.0); HEMOGLOBIN. 8.9 g/dL (14.0-18.0); MEAN CORPUSCULAR HEMOGLOBIN 25.6 pg (28.0-32.0); MEAN CORPUSCULAR VOLUME 79.1 fL (80.0-94.0); MEAN PLATELET VOLUME 10.6 fl (7.4-10.4); RED BLOOD CELL COUNT 3.46 mill/uL (4.7-6.1); RED CELL DISTRIBUTION WIDTH 27.4 % (11.6-14.6)
[2020-04-02 13:40] LABS: CHLORIDE 111 mEq/L (98-107)
[2020-04-02 13:41] LABS: CLARITY URINE CLEAR (CLEAR); COLOR URINE YELLOW (YELLOW); KETONES URINE NEGATIVE (NEGATIVE); LEUKOCYTE ESTERASE URINE NEGATIVE (NEGATIVE); NITRITE URINE NEGATIVE (NEGATIVE); OCCULT BLOOD URINE NEGATIVE (NEGATIVE); PROTEIN URINE NEGATIVE (NEGATIVE); SPECIFIC GRAVITY URINE 1.011 (1.005-1.030)
[2020-04-02 13:43] LABS: INR 1.3
[2020-04-02 14:29] LABS: PLATELET ESTIMATE MARKEDLY DECREASED
[2020-04-02 14:30] LABS: PLATELET 17 x1000/uL (130-400)
[2020-04-02] MEDS ORDERED: ONDANSETRON HCL 4MG/2ML INJ IV ONE (15:15)
[2020-04-02 15:51] VITALS: BP 103/51
== END 2020-04-02 15:55 | disposition home or self-care (01) ==
LOC: ER 12:09
DX: R10.11 Right upper quadrant pain (principal); D69.6 Thrombocytopenia, unspecified; D72.819 Decreased white blood cell count, unspecified; F17.200 Nicotine dependence, unspecified, uncomplicated; F15.20 Other stimulant dependence, uncomplicated; Z79.899 Other long term (current) drug therapy; Z88.3 Allergy status to other anti-infective agents; Z88.6 Allergy status to analgesic agent
CPT/HCPCS: 36415; 80053; 81003; 83605; 83690; 84484; 85025; 85610; 93005; 96361; 96374; 96375; 99284; J2270; J2405; J7030

== ENCOUNTER 2020-04-03 18:13 | Emergency (ER) | payer MEDICAID ==
[~2020-04-03] VITALS: Ht 170.2 cm; Wt 70.0 kg
[2020-04-03] MEDS ORDERED: FAMOTIDINE 20MG/2ML VIAL IV STA (19:39)
[2020-04-03] MEDS ORDERED: ONDANSETRON HCL 4MG/2ML INJ IV STA (19:39)
[2020-04-03] MEDS ORDERED: SODIUM CHLORIDE 0.9% 1,000 ML IV ONE (19:39)
[2020-04-03] MEDS ORDERED: MAGNESIUM/ALUMINUM HYDROXIDE/SIMETHICONE 30ML UDC PO STA (19:39)
[2020-04-03 19:52] LABS: CLARITY URINE CLEAR (CLEAR); COLOR URINE YELLOW (YELLOW); KETONES URINE NEGATIVE (NEGATIVE); LEUKOCYTE ESTERASE URINE NEGATIVE (NEGATIVE); NITRITE URINE NEGATIVE (NEGATIVE); OCCULT BLOOD URINE NEGATIVE (NEGATIVE); PH URINE 6.5 (4.5-8.0); PROTEIN URINE NEGATIVE (NEGATIVE); SPECIFIC GRAVITY URINE 1.006 (1.005-1.030); UROBILINOGEN URINE 0.2 E.U./dL (0.2-1.0)
[2020-04-03 20:09] LABS: *AMPHETAMINES SCREEN URINE NEGATIVE (NEGATIVE); *BARBITURATES SCREEN URINE NEGATIVE (NEGATIVE); *BENZODIAZEPINES SCREEN URINE NEGATIVE (NEGATIVE); *COCAINE SCREEN URINE NEGATIVE (NEGATIVE); METHADONE URINE SCREEN NEGATIVE (NEGATIVE); OPIATES URINE SCREEN NEGATIVE (NEGATIVE)
[2020-04-03 20:10] LABS: CANNABINOID URINE SCREEN NEGATIVE (NEGATIVE); PHENCYCLIDINE URINE SCREEN NEGATIVE (NEGATIVE)
[2020-04-03 20:20] LABS: BASOPHILS % 0.7 % (0.0-2.0); EOSINOPHILS % 0.4 % (0.0-5.0); HEMATOCRIT. 37.9 % (42.0-52.0); LYMPHOCYTES % 35.9 % (20.0-50.0); MEAN CORPUSCULAR HEMOGLOBIN 25.5 pg (28.0-32.0); MEAN CORPUSCULAR VOLUME 80.8 fL (80.0-94.0); MEAN PLATELET VOLUME 9.7 fl (7.4-10.4); MONOCYTES % 6.8 % (2.0-8.0); NEUTROPHILS % 56.2 % (40.0-76.0); RED BLOOD CELL COUNT 4.69 mill/uL (4.7-6.1); RED CELL DISTRIBUTION WIDTH 27.7 % (11.6-14.6)
[2020-04-03 20:27] LABS: CHLORIDE 112 mEq/L (98-107)
[2020-04-03 20:32] LABS: PLATELET 20 x1000/uL (130-400)
[2020-04-03 21:20] LABS: ETHANOL BLOOD 391 mg/dL
[2020-04-03 21:59] VITALS: BP 136/70
== END 2020-04-03 22:03 | disposition home or self-care (01) ==
LOC: ER 18:13
DX: K70.30 Alcoholic cirrhosis of liver without ascites (principal); F10.229 Alcohol dependence with intoxication, unspecified; D69.6 Thrombocytopenia, unspecified; D72.819 Decreased white blood cell count, unspecified; Y90.8 Blood alcohol level of 240 mg/100 ml or more; F15.10 Other stimulant abuse, uncomplicated; F17.210 Nicotine dependence, cigarettes, uncomplicated; Z88.6 Allergy status to analgesic agent
CPT/HCPCS: 36415; 71045; 74018; 80053; 80305; 80320; 81003; 83690; 85025; 96361; 96374; 96375; 99284; J2405; J3490; J7030; G0480

== ENCOUNTER 2020-04-05 11:25 | Emergency (ER) | payer MEDICAID ==
[~2020-04-05] VITALS: Ht 170.2 cm; Wt 76.0 kg
[2020-04-05] MEDS ORDERED: MORPHINE SULFATE 4 MG/ML CPJ (NOT FOR IM USE) IV STA (12:19)
[2020-04-05] MEDS ORDERED: METOCLOPRAMIDE HCL 10MG/2ML VIAL IV STA (12:19)
[2020-04-05] MEDS ORDERED: PANTOPRAZOLE SODIUM 40 MG/VIAL IV STA (12:19)
[2020-04-05] MEDS ORDERED: MAGNESIUM/ALUMINUM HYDROXIDE/SIMETHICONE 30ML UDC PO STA (12:19)
[2020-04-05 13:02] LABS: CLARITY URINE CLEAR (CLEAR); COLOR URINE YELLOW (YELLOW); KETONES URINE NEGATIVE (NEGATIVE); LEUKOCYTE ESTERASE URINE NEGATIVE (NEGATIVE); NITRITE URINE NEGATIVE (NEGATIVE); OCCULT BLOOD URINE NEGATIVE (NEGATIVE); PH URINE 6.5 (4.5-8.0); PROTEIN URINE NEGATIVE (NEGATIVE); SPECIFIC GRAVITY URINE 1.007 (1.005-1.030)
[2020-04-05 13:09] LABS: HEMATOCRIT. 29.7 % (42.0-52.0); HEMOGLOBIN. 9.6 g/dL (14.0-18.0); MEAN CORPUSCULAR HEMOGLOBIN 26.2 pg (28.0-32.0); MEAN PLATELET VOLUME 8.9 fl (7.4-10.4); RED BLOOD CELL COUNT 3.67 mill/uL (4.7-6.1); RED CELL DISTRIBUTION WIDTH 28.3 % (11.6-14.6)
[2020-04-05 13:11] LABS: CHLORIDE 111 mEq/L (98-107)
[2020-04-05 13:18] LABS: PLATELET 18 x1000/uL (130-400)
[2020-04-05 13:41] LABS: PLATELET ESTIMATE MARKEDLY DECREASED
[2020-04-05 14:10] LABS: ETHANOL BLOOD 432 mg/dL
[2020-04-05] MEDS ORDERED: POTASSIUM CHLORIDE 20MEQ TABLET SR PO ONE (15:45)
[2020-04-05 17:40] VITALS: BP 123/64
== END 2020-04-05 18:13 | disposition home or self-care (01) ==
LOC: ER 11:25
DX: F10.129 Alcohol abuse with intoxication, unspecified (principal); K29.20 Alcoholic gastritis without bleeding; Z88.3 Allergy status to other anti-infective agents; Z88.6 Allergy status to analgesic agent; Z79.899 Other long term (current) drug therapy; Y90.8 Blood alcohol level of 240 mg/100 ml or more
CPT/HCPCS: 36415; 80053; 80320; 81003; 83690; 85025; 96374; 96375; 99285; C9113; J2270; J2765; G0480

== ENCOUNTER 2020-04-08 12:45 | Inpatient (IN) | payer MEDICAID ==
[~2020-04-08] VITALS: Ht 162.6 cm; Wt 66.2 kg
[2020-04-08] MEDS ORDERED: MAGNESIUM/ALUMINUM HYDROXIDE/SIMETHICONE 30ML UDC PO STA (13:17)
[2020-04-08] MEDS ORDERED: FAMOTIDINE 20MG/2ML VIAL IV STA (13:17)
[2020-04-08] MEDS ORDERED: SODIUM CHLORIDE 0.9% 1,000 ML IV ONE (13:17)
[2020-04-08 13:52] LABS: HEMATOCRIT. 31.3 % (42.0-52.0); HEMOGLOBIN. 10.2 g/dL (14.0-18.0); MEAN CORPUSCULAR HEMOGLOBIN 26.5 pg (28.0-32.0); MEAN CORPUSCULAR VOLUME 80.9 fL (80.0-94.0); MEAN PLATELET VOLUME 8.8 fl (7.4-10.4); RED BLOOD CELL COUNT 3.86 mill/uL (4.7-6.1)
[2020-04-08 13:57] LABS: CHLORIDE 108 mEq/L (98-107); PLATELET 21 x1000/uL (130-400)
[2020-04-08 14:02] LABS: INR 1.4; PARTIAL THROMBOPLASTIN TIME 34.9 sec (23.4-31.0); PROTHROMBIN TIME 14.5 sec (9.6-11.0)
[2020-04-08 14:17] LABS: ETHANOL BLOOD 476 mg/dL
[2020-04-08 14:39] LABS: PLATELET ESTIMATE MARKEDLY DECREASED
[2020-04-08 15:01] LABS: CLARITY URINE CLEAR (CLEAR); COLOR URINE DARK YELLOW (YELLOW); KETONES URINE TRACE (NEGATIVE); LEUKOCYTE ESTERASE URINE NEGATIVE (NEGATIVE); NITRITE URINE NEGATIVE (NEGATIVE); OCCULT BLOOD URINE NEGATIVE (NEGATIVE); PH URINE 6.5 (4.5-8.0); PROTEIN URINE 1+ (NEGATIVE); SPECIFIC GRAVITY URINE 1.013 (1.005-1.030)
[2020-04-08 15:24] LABS: *AMPHETAMINES SCREEN URINE NEGATIVE (NEGATIVE); *BARBITURATES SCREEN URINE NEGATIVE (NEGATIVE); *BENZODIAZEPINES SCREEN URINE PRESUMTIVE POSITIVE (NEGATIVE)
[2020-04-08 15:25] LABS: *COCAINE SCREEN URINE NEGATIVE (NEGATIVE); CANNABINOID URINE SCREEN NEGATIVE (NEGATIVE); METHADONE URINE SCREEN NEGATIVE (NEGATIVE); OPIATES URINE SCREEN NEGATIVE (NEGATIVE); PHENCYCLIDINE URINE SCREEN NEGATIVE (NEGATIVE)
[2020-04-08] MEDS ORDERED: CEFTRIAXONE 1 G PREMIX 50 ML IV ONE (17:00)
[2020-04-08] MEDS ORDERED: AZITHROMYCIN 500 MG in DEXT 5% WATER 250 ML IV ONE (17:00)
[2020-04-09] VITALS (7 sets, daily range): BP systolic 111–148; BP diastolic 60–77
[2020-04-09] MEDS ORDERED: MORPHINE SULFATE 2 MG/ML CPJ (NOT FOR IM USE) IV PRN (01:30)
[2020-04-09] MEDS: ONDANSETRON HCL 4MG/2ML INJ IV PRN ×3 (02:19→19:56)
[2020-04-09 04:26] LABS: CHLORIDE 112 mEq/L (98-107)
[2020-04-09 06:31] LABS: HEMATOCRIT. 29.5 % (42.0-52.0); HEMOGLOBIN. 9.6 g/dL (14.0-18.0); MEAN CORPUSCULAR HEMOGLOBIN 26.4 pg (28.0-32.0); MEAN CORPUSCULAR VOLUME 81.3 fL (80.0-94.0); MEAN PLATELET VOLUME 10.9 fl (7.4-10.4); RED BLOOD CELL COUNT 3.63 mill/uL (4.7-6.1); RED CELL DISTRIBUTION WIDTH 29.5 % (11.6-14.6)
[2020-04-09 06:43] LABS: PLATELET 15 x1000/uL (130-400)
[2020-04-09] MEDS: OMEPRAZOLE 20MG CAPSULE EXTENDED RELEASE PO SCH ×2 (08:33→16:37)
[2020-04-09] MEDS ORDERED: LORAZEPAM 2MG/ML CPJ IV PRN (08:45)
[2020-04-09] MEDS ORDERED: TRAMADOL 50MG TABLET PO PRN (08:45)
[2020-04-09] MEDS: HYDROCODONE/ACETAMINOPHEN 5/325MG TABLET PO PRN (09:17)
[2020-04-09] MEDS: FOLIC ACID 1 MG, THIAMINE HCL 100 MG, MVI, ADULT NO.1 10 ML in DEXTROSE 5% WATER 1,000 ML IV SCH ×4 (12:18)
[2020-04-09] MEDS ORDERED: ALBUTEROL 6.7GM HFA INHALER ORI PRN (13:15)
[2020-04-09] MEDS ORDERED: POTASSIUM CHLORIDE 20MEQ TABLET SR PO SCH (13:15)
[2020-04-09] MEDS: CHLORDIAZEPOXIDE 25MG CAPSULE PO SCH ×2 (13:29→19:49)
[2020-04-09] MEDS ORDERED: CEFTRIAXONE 1,000 MG in DEXTROSE 5% WATER 50 ML IV SCH (18:00)
[2020-04-09] MEDS ORDERED: AZITHROMYCIN 500 MG in DEXT 5% WATER 250 ML IV SCH (19:00)
[2020-04-09 23:01] LABS: PLATELET ESTIMATE MARKEDLY DECREASED
[2020-04-10 04:00] VITALS: BP 102/60
[2020-04-10] MEDS: CHLORDIAZEPOXIDE 25MG CAPSULE PO SCH ×2 (05:40→14:15)
[2020-04-10 07:06] LABS: CHLORIDE 104 mEq/L (98-107)
[2020-04-10 07:11] LABS: HEMATOCRIT. 28.1 % (42.0-52.0); HEMOGLOBIN. 9.2 g/dL (14.0-18.0); MEAN CORPUSCULAR HEMOGLOBIN 26.4 pg (28.0-32.0); MEAN CORPUSCULAR VOLUME 80.7 fL (80.0-94.0); RED BLOOD CELL COUNT 3.48 mill/uL (4.7-6.1); RED CELL DISTRIBUTION WIDTH 28.1 % (11.6-14.6)
[2020-04-10 08:00] VITALS: BP 121/65
[2020-04-10 08:47] LABS: PLATELET 11 x1000/uL (130-400)
[2020-04-10] MEDS ORDERED: POTASSIUM CHLORIDE 20MEQ TABLET SR PO SCH (09:30)
[2020-04-10] MEDS: ONDANSETRON HCL 4MG/2ML INJ IV PRN (09:33)
[2020-04-10] MEDS: OMEPRAZOLE 20MG CAPSULE EXTENDED RELEASE PO SCH (09:33)
[2020-04-10] MEDS: HYDROCODONE/ACETAMINOPHEN 5/325MG TABLET PO PRN (09:34)
[2020-04-10] MEDS: FOLIC ACID 1 MG, THIAMINE HCL 100 MG, MVI, ADULT NO.1 10 ML in DEXTROSE 5% WATER 1,000 ML IV SCH ×4 (09:35)
[2020-04-10 12:00] VITALS: BP 97/48
[2020-04-10 12:09] LABS: PLATELET ESTIMATE MARKEDLY DECREASED
[2020-04-10] MEDS ORDERED: FERR325T6 MT (13:53)
[2020-04-10] MEDS ORDERED: PANT40TA4 MT (13:53)
[2020-04-10] MEDS ORDERED: ONDA4TAB5 MT (13:53)
[2020-04-10] MEDS ORDERED: FOLI-43 MT (13:53)
[2020-04-10] MEDS ORDERED: THIA100T72 MT (13:53)
[2020-04-10] MEDS ORDERED: MULT-230 MT (13:53)
[2020-04-10] MEDS ORDERED: LACT10SO7 MT (13:53)
[2020-04-10 15:49] VITALS: BP 115/71
== END 2020-04-10 17:15 | disposition home or self-care (01) ==
LOC: ER 12:45 → MICUSO 17:02 → EDBEDREQ 17:12 → EDBEDREQTM 17:12 → 7WST 22:59
PROVIDERS: ADMIT Internal Medicine; ATTEND Internal Medicine
DX: K74.60 Unspecified cirrhosis of liver (principal); E44.1 Mild protein-calorie malnutrition; Y90.8 Blood alcohol level of 240 mg/100 ml or more; E87.8 Other disorders of electrolyte and fluid balance, not elsewhere classified; I27.20 Pulmonary hypertension, unspecified; Z20.828 Contact with and (suspected) exposure to other viral communicable diseases; I35.0 Nonrheumatic aortic (valve) stenosis; D61.818 Other pancytopenia; G89.29 Other chronic pain; F41.9 Anxiety disorder, unspecified; F32.9 Major depressive disorder, single episode, unspecified; R16.1 Splenomegaly, not elsewhere classified; K82.8 Other specified diseases of gallbladder; K56.7 Ileus, unspecified; F10.129 Alcohol abuse with intoxication, unspecified; J96.00 Acute respiratory failure, unspecified whether with hypoxia or hypercapnia; Z79.1 Long term (current) use of non-steroidal anti-inflammatories (NSAID); Z79.899 Other long term (current) drug therapy; Z68.25 Body mass index [BMI] 25.0-25.9, adult; E87.70 Fluid overload, unspecified
CPT/HCPCS: 36415; 71045; 74018; 74176; 80048; 80053; 80305; 80320; 81003; 82270; 83605; 83880; 84484; 85025; 87015; 87045; 87427; 87449; 87635; 93005; 99291; J0456; J0696; J2270; J2405; J3411; J3490; J7030; J7060; J7070; G0480

== ENCOUNTER 2020-04-21 10:50 | Emergency (ER) | payer MEDICAID ==
[~2020-04-21] VITALS: Ht 165.1 cm; Wt 67.0 kg
[2020-04-21 12:58] LABS: HEMATOCRIT. 29.5 % (42.0-52.0); HEMOGLOBIN. 9.5 g/dL (14.0-18.0); MEAN CORPUSCULAR HEMOGLOBIN 26.6 pg (28.0-32.0); MEAN CORPUSCULAR VOLUME 82.2 fL (80.0-94.0); MEAN PLATELET VOLUME 8.2 fl (7.4-10.4); RED BLOOD CELL COUNT 3.59 mill/uL (4.7-6.1); RED CELL DISTRIBUTION WIDTH 28.5 % (11.6-14.6)
[2020-04-21 13:06] LABS: CHLORIDE 110 mEq/L (98-107)
[2020-04-21 13:16] LABS: PLATELET 23 x1000/uL (130-400)
[2020-04-21 13:36] LABS: ETHANOL BLOOD 433 mg/dL
[2020-04-21 13:37] LABS: *AMPHETAMINES SCREEN URINE PRESUMTIVE POSITIVE (NEGATIVE); *BARBITURATES SCREEN URINE NEGATIVE (NEGATIVE); *BENZODIAZEPINES SCREEN URINE PRESUMTIVE POSITIVE (NEGATIVE)
[2020-04-21 13:38] LABS: *COCAINE SCREEN URINE NEGATIVE (NEGATIVE); METHADONE URINE SCREEN NEGATIVE (NEGATIVE); OPIATES URINE SCREEN NEGATIVE (NEGATIVE); PHENCYCLIDINE URINE SCREEN NEGATIVE (NEGATIVE)
[2020-04-21 13:39] LABS: CANNABINOID URINE SCREEN NEGATIVE (NEGATIVE)
[2020-04-21 14:08] LABS: PLATELET ESTIMATE MARKEDLY DECREASED
[2020-04-21] MEDS ORDERED: POTASSIUM CHLORIDE 20MEQ TABLET SR PO ONE (16:45)
[2020-04-21 22:10] VITALS: BP 125/53
== END 2020-04-21 22:33 | disposition home or self-care (01) ==
LOC: ER 10:50
DX: F10.229 Alcohol dependence with intoxication, unspecified (principal); Y90.8 Blood alcohol level of 240 mg/100 ml or more; E87.6 Hypokalemia; D69.6 Thrombocytopenia, unspecified; D72.819 Decreased white blood cell count, unspecified; Z79.899 Other long term (current) drug therapy
CPT/HCPCS: 36415; 71045; 80053; 80305; 80320; 83880; 84484; 85025; 87635; 93005; 99285; G0480; U0003-CS

== ENCOUNTER 2020-04-22 20:54 | Emergency (ER) | payer MEDICAID ==
[~2020-04-22] VITALS: Ht 170.2 cm; Wt 68.0 kg
[2020-04-22 21:26] VITALS: BP 122/66
[2020-04-22] MEDS ORDERED: ACETAMINOPHEN 325MG TABLET PO ONE (22:30)
== END 2020-04-23 00:03 | disposition home or self-care (01) ==
LOC: ER 20:54
DX: S80.02XA Contusion of left knee, initial encounter (principal); S80.01XA Contusion of right knee, initial encounter; W18.39XA Other fall on same level, initial encounter; Y93.89 Activity, other specified; Y92.89 Other specified places as the place of occurrence of the external cause; Y99.8 Other external cause status; F15.10 Other stimulant abuse, uncomplicated; Z79.899 Other long term (current) drug therapy; Z88.6 Allergy status to analgesic agent
CPT/HCPCS: 73562; 99283

== ENCOUNTER 2021-01-02 01:24 | Emergency (ER) | payer MEDICAID ==
[~2021-01-02] VITALS: Ht 162.6 cm; Wt 78.5 kg
[~2021-01-02 01:24] MED LIST changes: +DOCU250C14 MT; -PANT40TA4 MT; +PANT40TA51 MT
[2021-01-02] MEDS ORDERED: VISCOUS LIDOCAINE 2% 15 ML UDC PO STA (02:26)
[2021-01-02] MEDS ORDERED: MAGNESIUM/ALUMINUM HYDROXIDE/SIMETHICONE 30ML UDC PO STA (02:26)
[2021-01-02] MEDS ORDERED: FAMOTIDINE 20MG TABLET PO ONE (02:30)
[2021-01-02 02:48] LABS: HEMATOCRIT. 38.6 % (42.0-52.0); HEMOGLOBIN. 13.4 g/dL (14.0-18.0); MEAN CORPUSCULAR HEMOGLOBIN 29.1 pg (28.0-32.0); MEAN CORPUSCULAR VOLUME 83.9 fL (80.0-94.0); MEAN PLATELET VOLUME 8.4 fl (7.4-10.4); RED CELL DISTRIBUTION WIDTH 21.1 % (11.6-14.6)
[2021-01-02 02:54] LABS: CHLORIDE 112 mEq/L (98-107)
[2021-01-02 03:12] LABS: ETHANOL BLOOD 319 mg/dL
[2021-01-02] MEDS ORDERED: LACTULOSE 20G/30ML UDC PO ONE (03:30)
[2021-01-02 03:34] LABS: CLARITY URINE CLEAR (CLEAR); COLOR URINE YELLOW (YELLOW); KETONES URINE NEGATIVE (NEGATIVE); LEUKOCYTE ESTERASE URINE NEGATIVE (NEGATIVE); NITRITE URINE NEGATIVE (NEGATIVE); OCCULT BLOOD URINE NEGATIVE (NEGATIVE); PH URINE 6.5 (4.5-8.0); PROTEIN URINE NEGATIVE (NEGATIVE); SPECIFIC GRAVITY URINE 1.004 (1.005-1.030)
[2021-01-02 04:27] LABS: PLATELET ESTIMATE MARKEDLY DECREASED
[2021-01-02 05:03] VITALS: BP 125/77
[2021-01-02 14:11] LABS: PLATELET 28 x1000/uL (130-400)
== END 2021-01-02 05:10 | disposition home or self-care (01) ==
LOC: ER 01:24
DX: F10.229 Alcohol dependence with intoxication, unspecified (principal); Y90.8 Blood alcohol level of 240 mg/100 ml or more; K70.30 Alcoholic cirrhosis of liver without ascites; D69.6 Thrombocytopenia, unspecified; E87.6 Hypokalemia; E72.20 Disorder of urea cycle metabolism, unspecified; D72.819 Decreased white blood cell count, unspecified; H26.9 Unspecified cataract; Z87.11 Personal history of peptic ulcer disease; Z88.8 Allergy status to other drugs, medicaments and biological substances; Z79.899 Other long term (current) drug therapy
CPT/HCPCS: 36415; 80053; 80320; 81003; 82140; 85025; 99284; G0480

== ENCOUNTER 2021-02-10 11:46 | Inpatient (IN) | payer MEDICAID, OTHER ==
[~2021-02-10] VITALS: Ht 165.1 cm; Wt 76.5 kg
[2021-02-10 12:39] LABS: BASOPHILS % 0.2 % (0.0-2.0); EOSINOPHILS % 0.3 % (0.0-5.0); HEMATOCRIT. 38.8 % (42.0-52.0); HEMOGLOBIN. 13.7 g/dL (14.0-18.0); MEAN CORPUSCULAR HEMOGLOBIN 31.1 pg (28.0-32.0); MEAN CORPUSCULAR VOLUME 88.2 fL (80.0-94.0); MEAN PLATELET VOLUME 8.9 fl (7.4-10.4); MONOCYTES % 6.8 % (2.0-8.0); NEUTROPHILS % 60.7 % (40.0-76.0)
[2021-02-10 12:46] LABS: CHLORIDE 115 mEq/L (98-107)
[2021-02-10 13:03] LABS: INR 1.3; PROTHROMBIN TIME 13.9 sec (9.6-11.0)
[2021-02-10 13:12] LABS: ETHANOL BLOOD 336 mg/dL
[2021-02-10] MEDS ORDERED: SODIUM CHLORIDE 0.9% 1,000 ML IV ONE (13:15)
[2021-02-10] MEDS ORDERED: CHLORDIAZEPOXIDE 5 MG CAPSULE PO ONE (15:45)
[2021-02-10] MEDS ORDERED: LORAZEPAM 2MG/ML CPJ IV ONE (15:45)
[2021-02-10] MEDS ORDERED: CHLORDIAZEPOXIDE 25MG CAPSULE PO ONE (15:45)
[2021-02-10 16:28] LABS: CLARITY URINE CLEAR (CLEAR); COLOR URINE DARK YELLOW (YELLOW); KETONES URINE 1+ (NEGATIVE); LEUKOCYTE ESTERASE URINE TRACE (NEGATIVE); NITRITE URINE NEGATIVE (NEGATIVE); OCCULT BLOOD URINE NEGATIVE (NEGATIVE); PROTEIN URINE NEGATIVE (NEGATIVE); SPECIFIC GRAVITY URINE 1.022 (1.005-1.030)
[2021-02-10 16:55] LABS: *AMPHETAMINES SCREEN URINE NEGATIVE (NEGATIVE); *BARBITURATES SCREEN URINE NEGATIVE (NEGATIVE); *BENZODIAZEPINES SCREEN URINE PRESUMTIVE POSITIVE (NEGATIVE); *COCAINE SCREEN URINE NEGATIVE (NEGATIVE)
[2021-02-10 16:56] LABS: CANNABINOID URINE SCREEN NEGATIVE (NEGATIVE); METHADONE URINE SCREEN NEGATIVE (NEGATIVE); OPIATES URINE SCREEN NEGATIVE (NEGATIVE); PHENCYCLIDINE URINE SCREEN NEGATIVE (NEGATIVE)
[2021-02-11 08:00] VITALS: BP 113/73
[2021-02-11 10:00] VITALS: BP 142/72
[2021-02-11] MEDS ORDERED: DOCUSATE SODIUM 100MG CAPSULE PO PRN (11:45)
[2021-02-11] MEDS ORDERED: CLONIDINE 0.1MG TABLET PO PRN (11:45)
[2021-02-11] MEDS ORDERED: ONDANSETRON HCL 4MG/2ML INJ IV PRN (11:45)
[2021-02-11] MEDS ORDERED: IPRATROPIUM/ALBUTEROL 0.5-3(2.5)MG/3ML NEB HHN PRN (11:45)
[2021-02-11] MEDS ORDERED: MAGNESIUM/ALUMINUM HYDROXIDE/SIMETHICONE 30ML UDC PO PRN (11:45)
[2021-02-11 12:00] VITALS: BP 122/73
[2021-02-11 13:03] LABS: PLATELET 31 x1000/uL (130-400)
[2021-02-11] MEDS ORDERED: MELA5TAB19 PO (13:07)
[2021-02-11] MEDS ORDERED: MAGN500C4 PO (13:07)
[2021-02-11] MEDS ORDERED: FOLI1TAB87 MT (13:07)
[2021-02-11] MEDS ORDERED: TRAM50TA3 MT (13:07)
[2021-02-11] MEDS ORDERED: ESCI20TA37 PO (13:07)
[2021-02-11] MEDS ORDERED: KCL 20MEQ/100ML PREMIX 100 ML IV SCH (14:00)
[2021-02-11] MEDS: PANTOPRAZOLE SODIUM 40 MG/VIAL IV SCH (14:43)
[2021-02-11] MEDS: SODIUM CHLORIDE 0.45% 1,000 ML IV SCH (14:44)
[2021-02-11] MEDS: METOCLOPRAMIDE HCL 10MG/2ML VIAL IV SCH ×2 (14:44→18:47)
[2021-02-11] MEDS: CHLORDIAZEPOXIDE 5 MG CAPSULE PO SCH ×2 (15:09→21:00)
[2021-02-11] MEDS ORDERED: IOHEXOL-300 100 ML BOTTLE ONE (15:16)
[2021-02-11 16:00] VITALS: BP 124/54
[2021-02-11 16:15] LABS: TOTAL IRON BINDING CAPACITY 323 ug/dL (250-450)
[2021-02-11 20:00] VITALS: BP 114/63
[2021-02-12] VITALS (8 sets, daily range): BP systolic 102–135; BP diastolic 54–75
[2021-02-12] MEDS: METOCLOPRAMIDE HCL 10MG/2ML VIAL IV SCH ×4 (00:44→18:40)
[2021-02-12] MEDS: SODIUM CHLORIDE 0.45% 1,000 ML IV SCH ×2 (00:53→13:36)
[2021-02-12 04:35] LABS: CHLORIDE 106 mEq/L (98-107)
[2021-02-12 04:41] LABS: PHOSPHORUS 2.7 mg/dL (2.5-4.9)
[2021-02-12] MEDS: CHLORDIAZEPOXIDE 5 MG CAPSULE PO SCH ×3 (05:07→21:02)
[2021-02-12 07:19] LABS: HEMATOCRIT. 36.8 % (42.0-52.0); HEMOGLOBIN. 12.8 g/dL (14.0-18.0); MEAN PLATELET VOLUME 9.4 fl (7.4-10.4); RED BLOOD CELL COUNT 4.13 mill/uL (4.7-6.1); RED CELL DISTRIBUTION WIDTH 17.8 % (11.6-14.6)
[2021-02-12 09:00] LABS: PLATELET 22 x1000/uL (130-400)
[2021-02-12] MEDS ORDERED: PANTOPRAZOLE SODIUM 40 MG/VIAL IV SCH (09:00)
[2021-02-12] MEDS: MULTIVITAMINS,THER W-MINERALS TABLET PO SCH (09:32)
[2021-02-12] MEDS: FOLIC ACID 1MG TABLET PO SCH (09:32)
[2021-02-12] MEDS: THIAMINE HCL 100MG TABLET PO SCH (09:32)
[2021-02-12] MEDS: PANTOPRAZOLE SODIUM 40 MG/VIAL IV SCH (09:32)
[2021-02-12] MEDS ORDERED: LACTULOSE 20G/30ML UDC PO PRN (11:15)
[2021-02-12] MEDS ORDERED: MAGNESIUM 2 G PREMIX 50 ML IV NR (12:30)
[2021-02-12 12:42] LABS: PLATELET ESTIMATE MARKEDLY DECREASED
[2021-02-12] MEDS ORDERED: KETAMINE HCL 50 MG/ML 10ML ONE (14:44)
[2021-02-12] MEDS ORDERED: MIDAZOLAM HCL 5 MG/5 ML VIAL ONE (14:45)
[2021-02-12] MEDS ORDERED: PROPOFOL 200MG/20ML VIAL IV ONE (14:45)
[2021-02-12] MEDS ORDERED: LIDOCAINE HCL 1% 20ML VIAL (Pyxis) INJ ONE (14:45)
[2021-02-12 21:52] LABS: INR 1.7; PROTHROMBIN TIME 17.2 sec (9.6-11.0)
[2021-02-13] VITALS (7 sets, daily range): BP systolic 99–136; BP diastolic 51–78
[2021-02-13] MEDS: METOCLOPRAMIDE HCL 10MG/2ML VIAL IV SCH ×4 (00:28→17:35)
[2021-02-13 01:31] LABS: HEMOGLOBIN 12.7 g/dL (14.0-18.0)
[2021-02-13 01:38] LABS: INR 1.6; PROTHROMBIN TIME 16.7 sec (9.6-11.0)
[2021-02-13] MEDS: SODIUM CHLORIDE 0.45% 1,000 ML IV SCH ×2 (02:34→17:35)
[2021-02-13] MEDS: CHLORDIAZEPOXIDE 5 MG CAPSULE PO SCH ×3 (06:16→22:00)
[2021-02-13] MEDS: MULTIVITAMINS,THER W-MINERALS TABLET PO SCH (09:41)
[2021-02-13] MEDS: PANTOPRAZOLE SODIUM 40 MG/VIAL IV SCH (09:41)
[2021-02-13] MEDS: THIAMINE HCL 100MG TABLET PO SCH (09:41)
[2021-02-13] MEDS: FOLIC ACID 1MG TABLET PO SCH (09:41)
[2021-02-13 15:06] LABS: HEMATOCRIT. 34.6 % (42.0-52.0); HEMOGLOBIN. 12.5 g/dL (14.0-18.0); MEAN CORPUSCULAR HEMOGLOBIN 31.6 pg (28.0-32.0); MEAN CORPUSCULAR VOLUME 87.8 fL (80.0-94.0); MEAN PLATELET VOLUME 9.9 fl (7.4-10.4); RED BLOOD CELL COUNT 3.94 mill/uL (4.7-6.1); RED CELL DISTRIBUTION WIDTH 17.9 % (11.6-14.6)
[2021-02-13 15:12] LABS: CHLORIDE 105 mEq/L (98-107)
[2021-02-13 15:26] LABS: PHOSPHORUS 2.1 mg/dL (2.5-4.9)
[2021-02-13 15:31] LABS: PLATELET 32 x1000/uL (130-400)
[2021-02-13] MEDS ORDERED: POTASSIUM CHLORIDE 20MEQ TABLET SR PO NR (15:45)
[2021-02-13 16:31] LABS: PLATELET ESTIMATE MARKEDLY DECREASED
[2021-02-13] MEDS ORDERED: POTASSIUM PHOS,M-BASIC-D-BASIC 20 MMOL in DEXT 5% WATER 243.3333 ML IV NR (20:30)
[2021-02-13] MEDS ORDERED: MAGNESIUM 2 G PREMIX 50 ML IV NR (20:30)
[2021-02-13] MEDS: VANCOMYCIN HCL 1000 MG/20 ML ORAL PO SCH (21:58)
[2021-02-14] VITALS: BP 96/52
[2021-02-14] MEDS: METOCLOPRAMIDE HCL 10MG/2ML VIAL IV SCH ×3 (00:20→10:23)
[2021-02-14] MEDS: VANCOMYCIN HCL 1000 MG/20 ML ORAL PO SCH ×2 (02:18→10:24)
[2021-02-14 04:00] VITALS: BP 111/70
[2021-02-14] MEDS: CHLORDIAZEPOXIDE 5 MG CAPSULE PO SCH ×2 (06:14→13:38)
[2021-02-14] MEDS: SODIUM CHLORIDE 0.45% 1,000 ML IV SCH (06:15)
[2021-02-14 06:48] LABS: CHLORIDE 109 mEq/L (98-107)
[2021-02-14 06:50] LABS: HEMATOCRIT. 37.1 % (42.0-52.0); HEMOGLOBIN. 12.8 g/dL (14.0-18.0); MEAN CORPUSCULAR HEMOGLOBIN 30.9 pg (28.0-32.0); MEAN CORPUSCULAR VOLUME 89.9 fL (80.0-94.0); MEAN PLATELET VOLUME 9.6 fl (7.4-10.4); RED BLOOD CELL COUNT 4.13 mill/uL (4.7-6.1)
[2021-02-14 06:58] LABS: PLATELET 33 x1000/uL (130-400)
[2021-02-14 08:00] VITALS: BP 97/58
[2021-02-14] MEDS ORDERED: THIA100T72 MT (08:01)
[2021-02-14] MEDS ORDERED: VANC250C12 MT (08:01)
[2021-02-14] MEDS: MULTIVITAMINS,THER W-MINERALS TABLET PO SCH (10:23)
[2021-02-14] MEDS: PANTOPRAZOLE SODIUM 40 MG/VIAL IV SCH (10:23)
[2021-02-14] MEDS: THIAMINE HCL 100MG TABLET PO SCH (10:23)
[2021-02-14] MEDS: FOLIC ACID 1MG TABLET PO SCH (10:23)
[2021-02-14 12:00] VITALS: BP 132/86
[2021-02-14 13:01] VITALS: BP 132/86
[2021-02-15 11:26] LABS: PLATELET ESTIMATE MARKEDLY DECREASED
== END 2021-02-14 14:00 | disposition home or self-care (01) | DRG 241 ==
LOC: ER 11:46 → MICUSO 21:07 → 8WST 02-11 07:58
PROVIDERS: ADMIT Internal Medicine; ATTEND Internal Medicine
PROC: 0DJ08ZZ Inspection of Upper Intestinal Tract, Via Natural or Artificial Opening Endoscopic (ICD-10-PCS; principal; 2021-02-10)
PROC: 30233R1 Transfusion of Nonautologous Platelets into Peripheral Vein, Percutaneous Approach (ICD-10-PCS; 2021-02-12)
DX: K29.21 Alcoholic gastritis with bleeding (principal); I81 Portal vein thrombosis; D61.818 Other pancytopenia; E72.20 Disorder of urea cycle metabolism, unspecified; E87.0 Hyperosmolality and hypernatremia; E83.42 Hypomagnesemia; K76.6 Portal hypertension; I85.00 Esophageal varices without bleeding; K70.30 Alcoholic cirrhosis of liver without ascites; E87.8 Other disorders of electrolyte and fluid balance, not elsewhere classified; E87.6 Hypokalemia; F32.9 Major depressive disorder, single episode, unspecified; F41.9 Anxiety disorder, unspecified; Y90.8 Blood alcohol level of 240 mg/100 ml or more; F10.129 Alcohol abuse with intoxication, unspecified; F10.139 Alcohol abuse with withdrawal, unspecified; Z20.822 Contact with and (suspected) exposure to COVID-19; K44.9 Diaphragmatic hernia without obstruction or gangrene; K31.89 Other diseases of stomach and duodenum; B96.89 Other specified bacterial agents as the cause of diseases classified elsewhere; Z88.6 Allergy status to analgesic agent; Z88.8 Allergy status to other drugs, medicaments and biological substances; Z79.899 Other long term (current) drug therapy; R16.1 Splenomegaly, not elsewhere classified; K92.1 Melena
CPT/HCPCS: 36415; 74177; 76700; 80048; 80053; 80076; 80305; 80320; 81003; 82140; 82248; 83540; 83550; 83735; 84100; 85014; 85018; 85025; 85049; 85384; 86850; 86900; 87015; 87045; 87426; 87427; 87449; 87493; 89055; 93005; 93970; 97161; 99285; C9113; J2060; J2250; J2704; J2765; J3370; J3475; J3480; J3490; J7030; J7060; P9034; Q9967; G0480

== ENCOUNTER 2021-02-18 15:47 | Emergency (ER) | payer OTHER ==
[~2021-02-18] VITALS: Ht 167.6 cm; Wt 75.0 kg
[~2021-02-18 15:47] MED LIST changes: +ESCI20TA37 PO; +FOLI1TAB87 MT; +MAGN500C4 PO; +MELA5TAB19 PO; +TRAM50TA3 MT; +VANC250C12 MT
[2021-02-18] MEDS ORDERED: SODIUM CHLORIDE 0.9% 1,000 ML IV ONE (17:30)
[2021-02-18] MEDS ORDERED: MAGNESIUM/ALUMINUM HYDROXIDE/SIMETHICONE 30ML UDC PO ONE (17:30)
[2021-02-18 17:46] LABS: HEMATOCRIT. 34.5 % (42.0-52.0); HEMOGLOBIN. 11.6 g/dL (14.0-18.0); MEAN CORPUSCULAR HEMOGLOBIN 30.7 pg (28.0-32.0); MEAN CORPUSCULAR VOLUME 91.5 fL (80.0-94.0); MEAN PLATELET VOLUME 9.5 fl (7.4-10.4); RED BLOOD CELL COUNT 3.77 mill/uL (4.7-6.1); RED CELL DISTRIBUTION WIDTH 19.7 % (11.6-14.6)
[2021-02-18 17:50] LABS: CHLORIDE 119 mEq/L (98-107)
[2021-02-18 17:55] LABS: ETHANOL BLOOD 298 mg/dL
[2021-02-18 18:01] LABS: INR 1.3; PROTHROMBIN TIME 13.9 sec (9.6-11.0)
[2021-02-18 18:19] LABS: CLARITY URINE CLEAR (CLEAR); COLOR URINE DARK YELLOW (YELLOW); KETONES URINE TRACE (NEGATIVE); LEUKOCYTE ESTERASE URINE NEGATIVE (NEGATIVE); NITRITE URINE NEGATIVE (NEGATIVE); OCCULT BLOOD URINE NEGATIVE (NEGATIVE); PROTEIN URINE NEGATIVE (NEGATIVE); SPECIFIC GRAVITY URINE 1.023 (1.005-1.030)
[2021-02-18 18:20] LABS: PLATELET ESTIMATE MARKEDLY DECREASED
[2021-02-18 23:30] VITALS: BP 113/64
[2021-02-19 10:28] LABS: PLATELET 24 x1000/uL (130-400)
== END 2021-02-18 23:42 | disposition home or self-care (01) ==
LOC: ER 15:47
DX: R10.9 Unspecified abdominal pain (principal); T51.91XA Toxic effect of unspecified alcohol, accidental (unintentional), initial encounter; I10 Essential (primary) hypertension; Z88.6 Allergy status to analgesic agent; Z88.3 Allergy status to other anti-infective agents; Z79.899 Other long term (current) drug therapy; Y90.8 Blood alcohol level of 240 mg/100 ml or more; Y92.9 Unspecified place or not applicable
CPT/HCPCS: 36415; 80053; 80320; 81003; 83690; 85025; 85610; 93005; 99285; Z7610; J7030; G0480

== ENCOUNTER 2021-02-26 12:32 | Emergency (ER) | payer OTHER ==
[~2021-02-26] VITALS: Ht 165.1 cm; Wt 75.0 kg
[2021-02-26] MEDS ORDERED: ONDA4TAB11 PO (12:59)
[2021-02-26] MEDS ORDERED: TRAM50TA3 MT (13:00)
[2021-02-26] MEDS ORDERED: MAG355OR21 MT (13:10)
[2021-02-26] MEDS ORDERED: FAMO20TA8 MT (13:10)
[2021-02-26] MEDS ORDERED: FAMO40TA7 MT (13:10)
[2021-02-26 13:29] VITALS: BP 100/61
== END 2021-02-26 13:34 | disposition home or self-care (01) ==
LOC: ER 12:32
DX: K29.20 Alcoholic gastritis without bleeding (principal); F41.9 Anxiety disorder, unspecified; K70.9 Alcoholic liver disease, unspecified; F32.9 Major depressive disorder, single episode, unspecified; F10.20 Alcohol dependence, uncomplicated; Y90.9 Presence of alcohol in blood, level not specified; Z88.6 Allergy status to analgesic agent
CPT/HCPCS: 99283

== ENCOUNTER 2021-02-27 17:58 | Emergency (ER) | payer OTHER ==
[~2021-02-27] VITALS: Ht 162.6 cm; Wt 79.0 kg
[~2021-02-27 17:58] MED LIST changes: +FAMO20TA8 MT; +FAMO40TA7 MT; +MAG355OR21 MT; +ONDA4TAB11 PO
[2021-02-27] MEDS ORDERED: MAGNESIUM/ALUMINUM HYDROXIDE/SIMETHICONE 30ML UDC PO STA (18:41)
[2021-02-27 19:18] LABS: CLARITY URINE CLEAR (CLEAR); COLOR URINE YELLOW (YELLOW); KETONES URINE NEGATIVE (NEGATIVE); LEUKOCYTE ESTERASE URINE NEGATIVE (NEGATIVE); NITRITE URINE NEGATIVE (NEGATIVE); OCCULT BLOOD URINE NEGATIVE (NEGATIVE); PH URINE 6.5 (4.5-8.0); PROTEIN URINE NEGATIVE (NEGATIVE); SPECIFIC GRAVITY URINE 1.006 (1.005-1.030); UROBILINOGEN URINE 0.2 E.U./dL (0.2-1.0)
[2021-02-27 19:35] LABS: *AMPHETAMINES SCREEN URINE NEGATIVE (NEGATIVE); *BARBITURATES SCREEN URINE NEGATIVE (NEGATIVE); *BENZODIAZEPINES SCREEN URINE PRESUMTIVE POSITIVE (NEGATIVE); CANNABINOID URINE SCREEN NEGATIVE (NEGATIVE); METHADONE URINE SCREEN NEGATIVE (NEGATIVE); OPIATES URINE SCREEN NEGATIVE (NEGATIVE); PHENCYCLIDINE URINE SCREEN NEGATIVE (NEGATIVE)
[2021-02-27 19:36] LABS: *COCAINE SCREEN URINE NEGATIVE (NEGATIVE)
[2021-02-27 19:36] LABS: CHLORIDE 122 mEq/L (98-107)
[2021-02-27 19:37] LABS: HEMOGLOBIN. 11.5 g/dL (14.0-18.0); MEAN CORPUSCULAR HEMOGLOBIN 31.1 pg (28.0-32.0); MEAN CORPUSCULAR VOLUME 89.1 fL (80.0-94.0); MEAN PLATELET VOLUME 10.2 fl (7.4-10.4); RED CELL DISTRIBUTION WIDTH 18.6 % (11.6-14.6)
[2021-02-27 20:08] LABS: PLATELET 35 x1000/uL (130-400)
[2021-02-27 20:12] LABS: ETHANOL BLOOD 368 mg/dL
[2021-02-27 20:46] LABS: PLATELET ESTIMATE MARKEDLY DECREASED
[2021-02-27 23:40] VITALS: BP 142/78
== END 2021-02-28 00:08 | disposition home or self-care (01) ==
LOC: ER 18:18
DX: T51.0X1A Toxic effect of ethanol, accidental (unintentional), initial encounter (principal); D69.6 Thrombocytopenia, unspecified; I10 Essential (primary) hypertension; Z88.6 Allergy status to analgesic agent; Z88.3 Allergy status to other anti-infective agents; Z79.899 Other long term (current) drug therapy; Z98.890 Other specified postprocedural states; Z86.59 Personal history of other mental and behavioral disorders; Y92.9 Unspecified place or not applicable
CPT/HCPCS: 36415; 80053; 80305; 80307; 80320; 80329; 81003; 85025; 99291; G0480

== ENCOUNTER 2021-02-28 13:35 | Inpatient (IN) | payer OTHER ==
[~2021-02-28] VITALS: Ht 162.6 cm; Wt 80.3 kg
[2021-02-28] MEDS ORDERED: HYDROCODONE/ACETAMINOPHEN 5/325MG TABLET PO STA (14:14)
[2021-02-28] MEDS ORDERED: ONDANSETRON 4MG ODT PO STA (14:14)
[2021-02-28] MEDS ORDERED: OXYCODONE HCL 5MG TABLET PO ONE (14:15)
[2021-02-28 14:49] LABS: CHLORIDE 120 mEq/L (98-107)
[2021-02-28 14:52] LABS: HEMATOCRIT. 33.6 % (42.0-52.0); HEMOGLOBIN. 11.5 g/dL (14.0-18.0); MEAN CORPUSCULAR HEMOGLOBIN 31.1 pg (28.0-32.0); MEAN CORPUSCULAR VOLUME 90.4 fL (80.0-94.0); MEAN PLATELET VOLUME 9.5 fl (7.4-10.4); RED BLOOD CELL COUNT 3.71 mill/uL (4.7-6.1); RED CELL DISTRIBUTION WIDTH 18.1 % (11.6-14.6)
[2021-02-28 14:54] LABS: INR 1.2; PLATELET 35 x1000/uL (130-400); PROTHROMBIN TIME 12.4 sec (9.6-11.0)
[2021-02-28 15:05] LABS: CLARITY URINE CLEAR (CLEAR); COLOR URINE YELLOW (YELLOW); KETONES URINE NEGATIVE (NEGATIVE); LEUKOCYTE ESTERASE URINE NEGATIVE (NEGATIVE); NITRITE URINE NEGATIVE (NEGATIVE); OCCULT BLOOD URINE NEGATIVE (NEGATIVE); PROTEIN URINE NEGATIVE (NEGATIVE); SPECIFIC GRAVITY URINE 1.009 (1.005-1.030); UROBILINOGEN URINE 0.2 E.U./dL (0.2-1.0)
[2021-02-28 15:13] LABS: ETHANOL BLOOD 312 mg/dL
[2021-02-28 15:23] LABS: *AMPHETAMINES SCREEN URINE NEGATIVE (NEGATIVE); *BARBITURATES SCREEN URINE NEGATIVE (NEGATIVE); *BENZODIAZEPINES SCREEN URINE PRESUMTIVE POSITIVE (NEGATIVE); *COCAINE SCREEN URINE NEGATIVE (NEGATIVE)
[2021-02-28 15:24] LABS: CANNABINOID URINE SCREEN NEGATIVE (NEGATIVE); METHADONE URINE SCREEN NEGATIVE (NEGATIVE); OPIATES URINE SCREEN NEGATIVE (NEGATIVE); PHENCYCLIDINE URINE SCREEN NEGATIVE (NEGATIVE)
[2021-02-28] MEDS ORDERED: FOLIC ACID 1 MG, THIAMINE HCL 100 MG, MVI, ADULT NO.1 10 ML in DEXTROSE 5% WATER 1,000 ML IV ONE (15:45)
[2021-02-28 17:09] LABS: PLATELET ESTIMATE MARKEDLY DECREASED
[2021-02-28] MEDS ORDERED: ACETAMINOPHEN 325MG TABLET PO ONE (21:00)
[2021-03-01] VITALS (9 sets, daily range): BP systolic 109–143; BP diastolic 67–89
[2021-03-01] MEDS ORDERED: ONDANSETRON HCL 4MG/2ML INJ IV PRN (05:45)
[2021-03-01] MEDS ORDERED: HYDROCODONE/ACETAMINOPHEN 5/325MG TABLET PO PRN (05:45)
[2021-03-01] MEDS: CHLORDIAZEPOXIDE 5 MG CAPSULE PO SCH ×2 (08:37→16:46)
[2021-03-01] MEDS: FOLIC ACID 1MG TABLET PO SCH (08:38)
[2021-03-01] MEDS: MULTIVITAMINS,THER W-MINERALS TABLET PO SCH (08:38)
[2021-03-01] MEDS: THIAMINE HCL 100MG TABLET PO SCH (08:38)
[2021-03-01] MEDS: FAMOTIDINE 20MG TABLET PO SCH ×2 (08:38→20:24)
[2021-03-01 09:31] LABS: HEMATOCRIT. 32.6 % (42.0-52.0); HEMOGLOBIN. 11.1 g/dL (14.0-18.0); MEAN CORPUSCULAR HEMOGLOBIN 30.7 pg (28.0-32.0); MEAN CORPUSCULAR VOLUME 89.9 fL (80.0-94.0); MEAN PLATELET VOLUME 9.7 fl (7.4-10.4); RED BLOOD CELL COUNT 3.63 mill/uL (4.7-6.1); RED CELL DISTRIBUTION WIDTH 17.8 % (11.6-14.6)
[2021-03-01 09:38] LABS: CHLORIDE 111 mEq/L (98-107)
[2021-03-01 09:59] LABS: PLATELET 25 x1000/uL (130-400)
[2021-03-01 10:30] LABS: PLATELET ESTIMATE MARKEDLY DECREASED
[2021-03-01] MEDS: LORAZEPAM 2MG/ML CPJ IV PRN (21:58)
[2021-03-02] VITALS: BP 106/58
[2021-03-02 04:00] VITALS: BP 140/81
[2021-03-02 08:00] VITALS: BP 128/71
[2021-03-02] MEDS: FOLIC ACID 1MG TABLET PO SCH (09:34)
[2021-03-02] MEDS: LORAZEPAM 2MG/ML CPJ IV PRN (09:34)
[2021-03-02] MEDS: MULTIVITAMINS,THER W-MINERALS TABLET PO SCH (09:34)
[2021-03-02] MEDS: FAMOTIDINE 20MG TABLET PO SCH (09:34)
[2021-03-02] MEDS: CHLORDIAZEPOXIDE 5 MG CAPSULE PO SCH (09:34)
[2021-03-02] MEDS: THIAMINE HCL 100MG TABLET PO SCH (09:34)
[2021-03-02 12:00] VITALS: BP 116/69
[2021-03-02 14:09] VITALS: BP 116/69
== END 2021-03-02 14:55 | disposition home or self-care (01) | DRG 282 ==
LOC: ER 13:35 → MICUSO 15:33 → 8WST 03-01 00:12
PROVIDERS: ADMIT Internal Medicine; ATTEND Internal Medicine
DX: K85.90 Acute pancreatitis without necrosis or infection, unspecified (principal); I81 Portal vein thrombosis; D61.818 Other pancytopenia; E44.1 Mild protein-calorie malnutrition; E87.8 Other disorders of electrolyte and fluid balance, not elsewhere classified; K74.60 Unspecified cirrhosis of liver; F20.9 Schizophrenia, unspecified; I10 Essential (primary) hypertension; F32.9 Major depressive disorder, single episode, unspecified; Y90.8 Blood alcohol level of 240 mg/100 ml or more; F10.129 Alcohol abuse with intoxication, unspecified; E87.1 Hypo-osmolality and hyponatremia; Z88.6 Allergy status to analgesic agent; Z79.899 Other long term (current) drug therapy; Z88.8 Allergy status to other drugs, medicaments and biological substances; Z68.30 Body mass index [BMI] 30.0-30.9, adult; Z71.41 Alcohol abuse counseling and surveillance of alcoholic
CPT/HCPCS: 36415; 76700; 80053; 80305; 80320; 81003; 83605; 85025; 99291; J2060; J3411; J3490; J7070; Q0162; G0480

== ENCOUNTER 2021-03-15 18:53 | Emergency (ER) | payer OTHER ==
[~2021-03-15] VITALS: Ht 157.5 cm; Wt 73.0 kg
[~2021-03-15 18:53] MED LIST changes: -VANC250C12 MT
[2021-03-15 18:58] VITALS: BP 121/72
[2021-03-15 21:06] LABS: CLARITY URINE CLEAR (CLEAR); COLOR URINE YELLOW (YELLOW); KETONES URINE NEGATIVE (NEGATIVE); LEUKOCYTE ESTERASE URINE NEGATIVE (NEGATIVE); NITRITE URINE NEGATIVE (NEGATIVE); OCCULT BLOOD URINE NEGATIVE (NEGATIVE); PROTEIN URINE NEGATIVE (NEGATIVE); SPECIFIC GRAVITY URINE 1.004 (1.005-1.030); UROBILINOGEN URINE 0.2 E.U./dL (0.2-1.0)
[2021-03-15 21:07] LABS: BASOPHILS % 0.7 % (0.0-2.0); HEMATOCRIT. 36.1 % (42.0-52.0); HEMOGLOBIN. 12.5 g/dL (14.0-18.0); MEAN CORPUSCULAR HEMOGLOBIN 30.4 pg (28.0-32.0); MEAN CORPUSCULAR VOLUME 88.2 fL (80.0-94.0); MEAN PLATELET VOLUME 9.1 fl (7.4-10.4); MONOCYTES % 7.5 % (2.0-8.0); NEUTROPHILS % 59.8 % (40.0-76.0); RED CELL DISTRIBUTION WIDTH 17.4 % (11.6-14.6)
[2021-03-15 21:14] LABS: INR 1.2; PARTIAL THROMBOPLASTIN TIME 34.5 sec (23.4-31.0); PLATELET 35 x1000/uL (130-400); PROTHROMBIN TIME 12.4 sec (9.6-11.0)
[2021-03-15 21:16] LABS: CHLORIDE 113 mEq/L (98-107)
[2021-03-15 21:21] LABS: ETHANOL BLOOD 292 mg/dL
[2021-03-17] MEDS ORDERED: FAMO-135 PO (16:51)
== END 2021-03-16 01:05 | disposition home or self-care (01) ==
LOC: ER 18:53
DX: K70.9 Alcoholic liver disease, unspecified (principal); F10.129 Alcohol abuse with intoxication, unspecified; D69.6 Thrombocytopenia, unspecified; I10 Essential (primary) hypertension; D64.9 Anemia, unspecified; Z79.899 Other long term (current) drug therapy; Y90.9 Presence of alcohol in blood, level not specified
CPT/HCPCS: 36415; 80048; 80076; 80320; 81003; 84484; 85025; 99283; G0480

== ENCOUNTER 2021-03-16 11:49 | Emergency (ER) | payer OTHER ==
[~2021-03-16] VITALS: Ht 165.1 cm; Wt 82.0 kg
[2021-03-16] MEDS ORDERED: SODIUM CHLORIDE 0.9% 1,000 ML IV ONE (12:30)
[2021-03-16] MEDS ORDERED: ONDANSETRON HCL 4MG/2ML INJ IV ONE (12:30)
[2021-03-16 12:51] LABS: BASOPHILS % 0.7 % (0.0-2.0); HEMATOCRIT. 34.7 % (42.0-52.0); HEMOGLOBIN. 11.5 g/dL (14.0-18.0); LYMPHOCYTES % 31.1 % (20.0-50.0); MEAN CORPUSCULAR HEMOGLOBIN 29.3 pg (28.0-32.0); MEAN CORPUSCULAR VOLUME 88.6 fL (80.0-94.0); MEAN PLATELET VOLUME 10.1 fl (7.4-10.4); MONOCYTES % 12.2 % (2.0-8.0); RED BLOOD CELL COUNT 3.91 mill/uL (4.7-6.1); RED CELL DISTRIBUTION WIDTH 17.7 % (11.6-14.6)
[2021-03-16 12:57] LABS: CHLORIDE 114 mEq/L (98-107)
[2021-03-16 13:13] LABS: PLATELET 35 x1000/uL (130-400)
[2021-03-16 14:22] LABS: INR 1.3; PROTHROMBIN TIME 13.5 sec (9.6-11.0)
[2021-03-16 15:58] LABS: CLARITY URINE CLEAR (CLEAR); COLOR URINE YELLOW (YELLOW); KETONES URINE NEGATIVE (NEGATIVE); LEUKOCYTE ESTERASE URINE NEGATIVE (NEGATIVE); NITRITE URINE NEGATIVE (NEGATIVE); OCCULT BLOOD URINE NEGATIVE (NEGATIVE); PROTEIN URINE NEGATIVE (NEGATIVE); SPECIFIC GRAVITY URINE 1.008 (1.005-1.030); UROBILINOGEN URINE 0.2 E.U./dL (0.2-1.0)
[2021-03-16 17:36] VITALS: BP 113/65
[2021-03-17] MEDS ORDERED: FAMO-135 PO (16:51)
== END 2021-03-16 18:06 | disposition home or self-care (01) ==
LOC: ER 12:00
DX: K29.70 Gastritis, unspecified, without bleeding (principal); F10.229 Alcohol dependence with intoxication, unspecified; D64.9 Anemia, unspecified; F41.9 Anxiety disorder, unspecified; F31.9 Bipolar disorder, unspecified; I10 Essential (primary) hypertension; Z79.899 Other long term (current) drug therapy; Y90.0 Blood alcohol level of less than 20 mg/100 ml
CPT/HCPCS: 36415; 80053; 81003; 83690; 85025; 85610; 96361; 96374; 99285; J2405; J7030; Z7610

== ENCOUNTER 2021-03-17 13:29 | Emergency (ER) | payer OTHER ==
[~2021-03-17] VITALS: Ht 165.1 cm; Wt 79.0 kg
[2021-03-17] MEDS ORDERED: ONDANSETRON HCL 4MG/2ML INJ IV STA (14:13)
[2021-03-17] MEDS ORDERED: FAMOTIDINE 20MG/2ML VIAL IV STA (14:13)
[2021-03-17] MEDS ORDERED: SODIUM CHLORIDE 0.9% 1,000 ML IV ONE (14:15)
[2021-03-17 14:56] LABS: BASOPHILS % 0.4 % (0.0-2.0); EOSINOPHILS % 0.7 % (0.0-5.0); HEMATOCRIT. 33.9 % (42.0-52.0); HEMOGLOBIN. 11.6 g/dL (14.0-18.0); LYMPHOCYTES % 30.1 % (20.0-50.0); MEAN CORPUSCULAR HEMOGLOBIN 30.2 pg (28.0-32.0); MEAN CORPUSCULAR VOLUME 88.3 fL (80.0-94.0); MONOCYTES % 7.7 % (2.0-8.0); NEUTROPHILS % 61.1 % (40.0-76.0); RED BLOOD CELL COUNT 3.84 mill/uL (4.7-6.1); RED CELL DISTRIBUTION WIDTH 17.5 % (11.6-14.6)
[2021-03-17 14:59] LABS: CHLORIDE 116 mEq/L (98-107)
[2021-03-17] MEDS ORDERED: KETOROLAC 15MG/ML VIAL IV ONE (15:00)
[2021-03-17 15:04] LABS: INR 1.2; PROTHROMBIN TIME 13.1 sec (9.6-11.0)
[2021-03-17] MEDS ORDERED: FAMO-135 PO (16:51)
[2021-03-17 16:52] LABS: MEAN PLATELET VOLUME 9.8 fl (7.4-10.4); PLATELET 34 x1000/uL (130-400)
[2021-03-17 18:00] VITALS: BP 105/60
== END 2021-03-17 18:27 | disposition home or self-care (01) ==
LOC: ER 13:34
DX: R10.31 Right lower quadrant pain (principal); F10.129 Alcohol abuse with intoxication, unspecified; D69.6 Thrombocytopenia, unspecified; D72.819 Decreased white blood cell count, unspecified; F17.200 Nicotine dependence, unspecified, uncomplicated; Z79.899 Other long term (current) drug therapy; Z88.8 Allergy status to other drugs, medicaments and biological substances; Z88.6 Allergy status to analgesic agent; Y90.9 Presence of alcohol in blood, level not specified
CPT/HCPCS: 36415; 74176; 80053; 80320; 83690; 85025; 85610; 96361; 96374; 96375; 99284; J1885; J2405; J3490; J7030; G0480

== ENCOUNTER 2021-03-17 20:52 | Emergency (ER) | payer OTHER ==
[~2021-03-17] VITALS: Ht 165.1 cm; Wt 82.0 kg
[~2021-03-17 20:52] MED LIST changes: +FAMO-135 PO
[2021-03-17] MEDS ORDERED: MAGNESIUM/ALUMINUM HYDROXIDE/SIMETHICONE 30ML UDC PO STA (21:29)
[2021-03-17 23:47] LABS: BASOPHILS % 0.6 % (0.0-2.0); EOSINOPHILS % 1.1 % (0.0-5.0); HEMATOCRIT. 36.2 % (42.0-52.0); HEMOGLOBIN. 12.5 g/dL (14.0-18.0); LYMPHOCYTES % 46.3 % (20.0-50.0); MEAN CORPUSCULAR HEMOGLOBIN 29.8 pg (28.0-32.0); MEAN CORPUSCULAR VOLUME 86.7 fL (80.0-94.0); MEAN PLATELET VOLUME 9.2 fl (7.4-10.4); MONOCYTES % 8.6 % (2.0-8.0); NEUTROPHILS % 43.4 % (40.0-76.0); RED BLOOD CELL COUNT 4.18 mill/uL (4.7-6.1); RED CELL DISTRIBUTION WIDTH 17.4 % (11.6-14.6)
[2021-03-17 23:51] LABS: PLATELET 35 x1000/uL (130-400)
[2021-03-17 23:54] LABS: CHLORIDE 118 mEq/L (98-107)
[2021-03-18 00:26] LABS: ETHANOL BLOOD 402 mg/dL
[2021-03-18] MEDS ORDERED: CHLORDIAZEPOXIDE 25MG CAPSULE PO ONE (00:45)
[2021-03-18] MEDS ORDERED: CHLORDIAZEPOXIDE 10MG CAPSULE PO NR (01:00)
[2021-03-18 03:30] VITALS: BP 136/42
== END 2021-03-18 03:41 | disposition home or self-care (01) ==
LOC: ER 20:52
DX: T51.0X1A Toxic effect of ethanol, accidental (unintentional), initial encounter (principal); Y92.89 Other specified places as the place of occurrence of the external cause; F41.9 Anxiety disorder, unspecified; F32.9 Major depressive disorder, single episode, unspecified; Z79.899 Other long term (current) drug therapy
CPT/HCPCS: 36415; 80053; 80320; 85025; 93005; 99284; G0480

== ENCOUNTER 2021-03-19 11:41 | Emergency (ER) | payer OTHER ==
[~2021-03-19] VITALS: Ht 167.6 cm; Wt 79.0 kg
[2021-03-19] MEDS ORDERED: ONDANSETRON HCL 4MG/2ML INJ IV ONE (12:45)
[2021-03-19] MEDS ORDERED: PANTOPRAZOLE SODIUM 40 MG/VIAL IV ONE (12:45)
[2021-03-19 12:54] LABS: BASOPHILS % 0.6 % (0.0-2.0); EOSINOPHILS % 0.1 % (0.0-5.0); HEMATOCRIT. 31.9 % (42.0-52.0); HEMOGLOBIN. 10.7 g/dL (14.0-18.0); LYMPHOCYTES % 23.7 % (20.0-50.0); MEAN CORPUSCULAR HEMOGLOBIN 29.8 pg (28.0-32.0); MEAN CORPUSCULAR VOLUME 88.4 fL (80.0-94.0); MEAN PLATELET VOLUME 9.3 fl (7.4-10.4); MONOCYTES % 10.8 % (2.0-8.0); NEUTROPHILS % 64.8 % (40.0-76.0); RED BLOOD CELL COUNT 3.61 mill/uL (4.7-6.1); RED CELL DISTRIBUTION WIDTH 17.2 % (11.6-14.6)
[2021-03-19 12:58] LABS: PLATELET 25 x1000/uL (130-400)
[2021-03-19 13:01] LABS: CHLORIDE 119 mEq/L (98-107)
[2021-03-19 13:04] LABS: ETHANOL BLOOD 262 mg/dL; INR 1.3; PROTHROMBIN TIME 13.6 sec (9.6-11.0)
[2021-03-19 13:50] LABS: PLATELET ESTIMATE MARKEDLY DECREASED
[2021-03-19 14:15] LABS: CLARITY URINE CLEAR (CLEAR); COLOR URINE YELLOW (YELLOW); KETONES URINE NEGATIVE (NEGATIVE); LEUKOCYTE ESTERASE URINE NEGATIVE (NEGATIVE); NITRITE URINE NEGATIVE (NEGATIVE); OCCULT BLOOD URINE NEGATIVE (NEGATIVE); PH URINE 6.5 (4.5-8.0); PROTEIN URINE NEGATIVE (NEGATIVE); SPECIFIC GRAVITY URINE 1.003 (1.005-1.030); UROBILINOGEN URINE 0.2 E.U./dL (0.2-1.0)
[2021-03-19] MEDS ORDERED: SODIUM CHLORIDE 0.9% 500 ML IV NR (14:30)
[2021-03-19 14:32] LABS: *AMPHETAMINES SCREEN URINE NEGATIVE (NEGATIVE); *BARBITURATES SCREEN URINE NEGATIVE (NEGATIVE); *BENZODIAZEPINES SCREEN URINE PRESUMTIVE POSITIVE (NEGATIVE); *COCAINE SCREEN URINE NEGATIVE (NEGATIVE); METHADONE URINE SCREEN NEGATIVE (NEGATIVE); OPIATES URINE SCREEN NEGATIVE (NEGATIVE)
[2021-03-19 14:33] LABS: CANNABINOID URINE SCREEN NEGATIVE (NEGATIVE); PHENCYCLIDINE URINE SCREEN NEGATIVE (NEGATIVE)
[2021-03-19] MEDS ORDERED: THIAMINE HCL 100MG TABLET PO ONE (15:00)
[2021-03-19] MEDS ORDERED: POTASSIUM CHLORIDE 20MEQ TABLET SR PO ONE (15:00)
[2021-03-19 18:44] VITALS: BP 129/80
== END 2021-03-19 18:47 | disposition home or self-care (01) ==
LOC: ER 11:41
DX: R10.30 Lower abdominal pain, unspecified (principal); K92.1 Melena; D61.818 Other pancytopenia; F10.229 Alcohol dependence with intoxication, unspecified; F15.90 Other stimulant use, unspecified, uncomplicated; Y90.8 Blood alcohol level of 240 mg/100 ml or more; K70.30 Alcoholic cirrhosis of liver without ascites; I10 Essential (primary) hypertension; K21.9 Gastro-esophageal reflux disease without esophagitis; Z86.59 Personal history of other mental and behavioral disorders; Z79.899 Other long term (current) drug therapy
CPT/HCPCS: 36415; 71045; 80053; 80305; 80320; 81003; 83605; 83690; 84145; 85025; 85610; 86850; 86900; 86901; 87040; 87086; 93005; 96374; 96375; 99285; C9113; J2405; Z7610; G0480

== ENCOUNTER 2021-03-20 10:04 | Emergency (ER) | payer OTHER ==
[~2021-03-20] VITALS: Ht 165.1 cm; Wt 82.0 kg
[2021-03-20 10:55] LABS: HEMATOCRIT. 31.3 % (42.0-52.0); HEMOGLOBIN. 10.9 g/dL (14.0-18.0); MEAN CORPUSCULAR HEMOGLOBIN 30.1 pg (28.0-32.0); MEAN CORPUSCULAR VOLUME 86.8 fL (80.0-94.0); MEAN PLATELET VOLUME 10.5 fl (7.4-10.4); RED BLOOD CELL COUNT 3.61 mill/uL (4.7-6.1); RED CELL DISTRIBUTION WIDTH 17.3 % (11.6-14.6)
[2021-03-20 10:56] LABS: CHLORIDE 117 mEq/L (98-107)
[2021-03-20 11:01] LABS: INR 1.3; PROTHROMBIN TIME 13.4 sec (9.6-11.0)
[2021-03-20 11:11] LABS: CLARITY URINE CLEAR (CLEAR); COLOR URINE YELLOW (YELLOW); KETONES URINE NEGATIVE (NEGATIVE); LEUKOCYTE ESTERASE URINE NEGATIVE (NEGATIVE); NITRITE URINE NEGATIVE (NEGATIVE); OCCULT BLOOD URINE NEGATIVE (NEGATIVE); PROTEIN URINE NEGATIVE (NEGATIVE); SPECIFIC GRAVITY URINE 1.004 (1.005-1.030); UROBILINOGEN URINE 0.2 E.U./dL (0.2-1.0)
[2021-03-20 11:16] LABS: ETHANOL BLOOD 355 mg/dL
[2021-03-20 11:32] LABS: PLATELET 31 x1000/uL (130-400); PLATELET ESTIMATE MARKEDLY DECREASED
[2021-03-20 16:30] VITALS: BP 114/67
== END 2021-03-20 17:09 | disposition home or self-care (01) ==
LOC: ER 10:04
DX: F10.229 Alcohol dependence with intoxication, unspecified (principal); D61.818 Other pancytopenia; F41.9 Anxiety disorder, unspecified; K70.30 Alcoholic cirrhosis of liver without ascites; F32.9 Major depressive disorder, single episode, unspecified; Y90.8 Blood alcohol level of 240 mg/100 ml or more; Z88.6 Allergy status to analgesic agent
CPT/HCPCS: 36415; 80053; 80320; 81003; 85025; 99285; G0480

== ENCOUNTER 2021-04-08 15:38 | Inpatient (IN) | payer OTHER ==
[~2021-04-08] VITALS: Ht 162.6 cm; Wt 78.5 kg
[2021-04-08] MEDS ORDERED: ONDANSETRON HCL 4MG/2ML INJ IV STA (16:18)
[2021-04-08] MEDS ORDERED: MORPHINE SULFATE 4 MG/ML CPJ (NOT FOR IM USE) IV STA (16:18)
[2021-04-08] MEDS ORDERED: FAMOTIDINE 20MG/2ML VIAL IV STA (16:18)
[2021-04-08] MEDS ORDERED: SODIUM CHLORIDE 0.9% 1,000 ML IV ONE (16:30)
[2021-04-08 16:33] LABS: BASOPHILS % 0.5 % (0.0-2.0); EOSINOPHILS % 0.5 % (0.0-5.0); HEMATOCRIT. 34.3 % (42.0-52.0); HEMOGLOBIN. 11.4 g/dL (14.0-18.0); LYMPHOCYTES % 38.2 % (20.0-50.0); MEAN CORPUSCULAR HEMOGLOBIN 29.3 pg (28.0-32.0); MONOCYTES % 8.8 % (2.0-8.0); RED CELL DISTRIBUTION WIDTH 18.1 % (11.6-14.6)
[2021-04-08 16:40] LABS: CHLORIDE 116 mEq/L (98-107)
[2021-04-08 16:41] LABS: INR 1.3; PROTHROMBIN TIME 13.6 sec (9.6-11.0)
[2021-04-08 16:52] LABS: ETHANOL BLOOD 400 mg/dL
[2021-04-08] MEDS ORDERED: MORPHINE SULFATE 2 MG/ML CPJ (NOT FOR IM USE) IV NR (17:00)
[2021-04-08 17:19] LABS: PLATELET ESTIMATE MARKEDLY DECREASED
[2021-04-08 17:23] LABS: PLATELET 44 x1000/uL (130-400)
[2021-04-08 18:07] LABS: CLARITY URINE CLEAR (CLEAR); COLOR URINE YELLOW (YELLOW); KETONES URINE NEGATIVE (NEGATIVE); LEUKOCYTE ESTERASE URINE NEGATIVE (NEGATIVE); NITRITE URINE NEGATIVE (NEGATIVE); OCCULT BLOOD URINE NEGATIVE (NEGATIVE); PH URINE 6.5 (4.5-8.0); PROTEIN URINE NEGATIVE (NEGATIVE); SPECIFIC GRAVITY URINE 1.007 (1.005-1.030); UROBILINOGEN URINE 0.2 E.U./dL (0.2-1.0)
[2021-04-09] MEDS ORDERED: FOLIC ACID 1 MG, THIAMINE HCL 100 MG, MVI, ADULT NO.1 10 ML in DEXTROSE 5% WATER 1,000 ML IV ONE (09:30)
[2021-04-09] MEDS ORDERED: LORAZEPAM 2MG/ML CPJ IV PRN (09:30)
[2021-04-09] MEDS ORDERED: NALOXONE HCL 0.4MG/ML VIAL IV PRN (10:00)
[2021-04-09] MEDS ORDERED: TRAMADOL 50MG TABLET PO PRN (10:00)
[2021-04-09] MEDS ORDERED: OCTREOTIDE ACETATE 100 MCG/ML 1ML IV ONE (12:45)
[2021-04-09] MEDS: PANTOPRAZOLE SODIUM 40 MG/VIAL IV SCH (13:00)
[2021-04-09] MEDS ORDERED: OCTREOTIDE 1,000 MCG in SODIUM CHLORIDE 0.9% 100 ML IV SCH (14:00)
[2021-04-09 16:20] VITALS: BP 139/75
[2021-04-09 16:23] VITALS: BP 139/75
[2021-04-09] MEDS ORDERED: PNEUMOCOCCAL 23-VAL P-SAC VAC 0.5 ML IM ONE ×2 (17:15→19:15)
[2021-04-09] MEDS: METOCLOPRAMIDE HCL 10MG/2ML VIAL IV SCH (17:56)
[2021-04-09 20:00] VITALS: BP 113/62
[2021-04-10] VITALS: BP 140/76
[2021-04-10] MEDS: METOCLOPRAMIDE HCL 10MG/2ML VIAL IV SCH ×2 (00:02→06:22)
[2021-04-10 04:00] VITALS: BP 128/81
[2021-04-10 06:36] LABS: CHLORIDE 105 mEq/L (98-107)
[2021-04-10 07:34] LABS: HEMATOCRIT. 35.8 % (42.0-52.0); HEMOGLOBIN. 11.9 g/dL (14.0-18.0); MEAN CORPUSCULAR HEMOGLOBIN 28.9 pg (28.0-32.0); MEAN CORPUSCULAR VOLUME 86.9 fL (80.0-94.0); MEAN PLATELET VOLUME 9.8 fl (7.4-10.4); RED BLOOD CELL COUNT 4.12 mill/uL (4.7-6.1); RED CELL DISTRIBUTION WIDTH 17.9 % (11.6-14.6)
[2021-04-10] MEDS ORDERED: MIDAZOLAM HCL 5 MG/5 ML VIAL ONE (08:31)
[2021-04-10] MEDS ORDERED: PROPOFOL 200MG/20ML VIAL IV ONE (08:31)
[2021-04-10] MEDS ORDERED: LIDOCAINE HCL 1% 20ML VIAL (Pyxis) INJ ONE (08:32)
[2021-04-10] MEDS ORDERED: KETAMINE HCL 50 MG/ML 10ML ONE (08:36)
[2021-04-10] MEDS ORDERED: PHENYLEPHRINE HCL 10 MG/ML 1ML (IV VIAL) IV ONE (08:36)
[2021-04-10] MEDS ORDERED: EPHEDRINE SULFATE 50MG/ML VIAL ONE (08:37)
[2021-04-10] MEDS ORDERED: SODIUM CHLORIDE 0.9% 10ML VIAL ONE (08:38)
[2021-04-10] MEDS ORDERED: POTASSIUM CHLORIDE 20MEQ TABLET SR PO NR (09:09)
[2021-04-10] MEDS ORDERED: OCTREOTIDE 1,000 MCG in SODIUM CHLORIDE 0.9% 100 ML IV SCH (10:00)
[2021-04-10 10:13] VITALS: BP_SYST 120; BP_SYST 131; BP_DIAS 69; BP_DIAS 76
[2021-04-10] MEDS: PANTOPRAZOLE SODIUM 40 MG/VIAL IV SCH (10:40)
[2021-04-10 11:26] LABS: PLATELET ESTIMATE MARKEDLY DECREASED
[2021-04-10 11:27] LABS: PLATELET 31 x1000/uL (130-400)
[2021-04-10] MEDS ORDERED: CEFAZOLIN 1000MG PREMIX 50 ML IV SCH (12:00)
== END 2021-04-10 13:12 | disposition home health service (06) | DRG 241 ==
LOC: ER 15:38 → MICUSO 22:00 → EDBEDREQ 22:22 → 6WST 04-09 16:02
PROVIDERS: ADMIT Internal Medicine; ATTEND Internal Medicine
PROC: 0DB78ZX Excision of Stomach, Pylorus, Via Natural or Artificial Opening Endoscopic, Diagnostic (ICD-10-PCS; principal; 2021-04-10)
DX: K29.61 Other gastritis with bleeding (principal); D61.818 Other pancytopenia; K76.6 Portal hypertension; E44.0 Moderate protein-calorie malnutrition; E87.1 Hypo-osmolality and hyponatremia; I85.10 Secondary esophageal varices without bleeding; E87.8 Other disorders of electrolyte and fluid balance, not elsewhere classified; E87.6 Hypokalemia; F41.9 Anxiety disorder, unspecified; F32.9 Major depressive disorder, single episode, unspecified; K31.89 Other diseases of stomach and duodenum; K74.60 Unspecified cirrhosis of liver; F10.129 Alcohol abuse with intoxication, unspecified; Y90.8 Blood alcohol level of 240 mg/100 ml or more; Z20.822 Contact with and (suspected) exposure to COVID-19; Z87.11 Personal history of peptic ulcer disease; Z68.29 Body mass index [BMI] 29.0-29.9, adult; Z88.6 Allergy status to analgesic agent; Z88.8 Allergy status to other drugs, medicaments and biological substances; Z79.899 Other long term (current) drug therapy; Z71.41 Alcohol abuse counseling and surveillance of alcoholic
CPT/HCPCS: 36415; 74176; 80048; 80053; 80320; 81003; 82270; 85025; 86850; 86900; 87426; 88305; 88312; 88313; 90732; 99285; C9113; J0690; J2060; J2250; J2270; J2354; J2370; J2405; J2704; J2765; J3411; J3490; J7030; J7050; J7070; G0480

== ENCOUNTER 2021-04-12 12:37 | Emergency (ER) | payer OTHER ==
[~2021-04-12] VITALS: Ht 170.2 cm; Wt 75.0 kg
[2021-04-12] MEDS ORDERED: ONDANSETRON HCL 4MG/2ML INJ IV STA (14:44)
[2021-04-12] MEDS ORDERED: SODIUM CHLORIDE 0.9% 1,000 ML IV ONE (14:45)
[2021-04-12] MEDS ORDERED: FOLIC ACID 1 MG, THIAMINE HCL 100 MG, MVI, ADULT NO.1 10 ML in DEXTROSE 5% WATER 1,000 ML IV ONE (14:45)
[2021-04-12 15:45] LABS: CLARITY URINE CLEAR (CLEAR); COLOR URINE YELLOW (YELLOW); KETONES URINE NEGATIVE (NEGATIVE); LEUKOCYTE ESTERASE URINE NEGATIVE (NEGATIVE); NITRITE URINE NEGATIVE (NEGATIVE); OCCULT BLOOD URINE NEGATIVE (NEGATIVE); PROTEIN URINE NEGATIVE (NEGATIVE); SPECIFIC GRAVITY URINE 1.006 (1.005-1.030); UROBILINOGEN URINE 0.2 E.U./dL (0.2-1.0)
[2021-04-12 15:45] LABS: BASOPHILS % 0.4 % (0.0-2.0); EOSINOPHILS % 0.2 % (0.0-5.0); HEMATOCRIT. 36.2 % (42.0-52.0); LYMPHOCYTES % 29.8 % (20.0-50.0); MEAN CORPUSCULAR HEMOGLOBIN 28.7 pg (28.0-32.0); MEAN CORPUSCULAR VOLUME 86.5 fL (80.0-94.0); MONOCYTES % 6.1 % (2.0-8.0); NEUTROPHILS % 63.5 % (40.0-76.0); RED BLOOD CELL COUNT 4.18 mill/uL (4.7-6.1); RED CELL DISTRIBUTION WIDTH 18.2 % (11.6-14.6)
[2021-04-12 15:49] LABS: CHLORIDE 113 mEq/L (98-107)
[2021-04-12 15:57] LABS: INR 1.2; PROTHROMBIN TIME 12.4 sec (9.6-11.0)
[2021-04-12 16:10] LABS: PLATELET 39 x1000/uL (130-400)
[2021-04-12] MEDS ORDERED: LORAZEPAM 2MG/ML CPJ IV ONE (16:45)
[2021-04-12 17:15] VITALS: BP 128/82
== END 2021-04-12 18:00 | disposition home or self-care (01) ==
LOC: ER 12:37
DX: F10.231 Alcohol dependence with withdrawal delirium (principal); Y90.9 Presence of alcohol in blood, level not specified; E87.0 Hyperosmolality and hypernatremia; D69.6 Thrombocytopenia, unspecified; D72.819 Decreased white blood cell count, unspecified; E87.8 Other disorders of electrolyte and fluid balance, not elsewhere classified; E80.6 Other disorders of bilirubin metabolism; Z63.4 Disappearance and death of family member; F41.9 Anxiety disorder, unspecified; Z88.6 Allergy status to analgesic agent; Z88.8 Allergy status to other drugs, medicaments and biological substances; Z79.899 Other long term (current) drug therapy
CPT/HCPCS: 36415; 80053; 81003; 83690; 85025; 85610; 96365; 96375; 99284; J2060; J2405; J3411; J3490; J7030; J7070

== ENCOUNTER 2021-04-14 10:33 | Emergency (ER) | payer OTHER ==
[~2021-04-14] VITALS: Ht 165.1 cm; Wt 91.0 kg
[2021-04-14 16:30] LABS: CLARITY URINE CLEAR (CLEAR); COLOR URINE YELLOW (YELLOW); KETONES URINE NEGATIVE (NEGATIVE); LEUKOCYTE ESTERASE URINE NEGATIVE (NEGATIVE); NITRITE URINE NEGATIVE (NEGATIVE); OCCULT BLOOD URINE TRACE (NEGATIVE); PROTEIN URINE NEGATIVE (NEGATIVE); SPECIFIC GRAVITY URINE 1.008 (1.005-1.030)
[2021-04-14 16:33] LABS: BASOPHILS % 0.5 % (0.0-2.0); EOSINOPHILS % 0.3 % (0.0-5.0); HEMOGLOBIN. 12.2 g/dL (14.0-18.0); LYMPHOCYTES % 42.8 % (20.0-50.0); MEAN CORPUSCULAR HEMOGLOBIN 28.3 pg (28.0-32.0); MEAN CORPUSCULAR VOLUME 86.3 fL (80.0-94.0); MEAN PLATELET VOLUME 8.4 fl (7.4-10.4); MONOCYTES % 6.3 % (2.0-8.0); NEUTROPHILS % 50.1 % (40.0-76.0); RED BLOOD CELL COUNT 4.29 mill/uL (4.7-6.1)
[2021-04-14 16:36] LABS: CHLORIDE 112 mEq/L (98-107)
[2021-04-14 17:20] LABS: ETHANOL BLOOD 362 mg/dL
[2021-04-14 17:35] LABS: *AMPHETAMINES SCREEN URINE NEGATIVE (NEGATIVE); *BARBITURATES SCREEN URINE NEGATIVE (NEGATIVE); *BENZODIAZEPINES SCREEN URINE NEGATIVE (NEGATIVE)
[2021-04-14 17:36] LABS: *COCAINE SCREEN URINE NEGATIVE (NEGATIVE); CANNABINOID URINE SCREEN NEGATIVE (NEGATIVE); METHADONE URINE SCREEN NEGATIVE (NEGATIVE); OPIATES URINE SCREEN NEGATIVE (NEGATIVE); PHENCYCLIDINE URINE SCREEN NEGATIVE (NEGATIVE)
[2021-04-14] MEDS ORDERED: DICY20TA11 MT (20:31)
[2021-04-14 20:54] VITALS: BP 129/67
[2021-04-15 16:15] LABS: PLATELET 30 x1000/uL (130-400)
== END 2021-04-14 20:55 | disposition home or self-care (01) ==
LOC: ER 10:45
DX: R10.31 Right lower quadrant pain (principal); F10.229 Alcohol dependence with intoxication, unspecified; Y90.8 Blood alcohol level of 240 mg/100 ml or more; M25.559 Pain in unspecified hip; E87.6 Hypokalemia; D69.6 Thrombocytopenia, unspecified; D72.819 Decreased white blood cell count, unspecified; I10 Essential (primary) hypertension; K70.30 Alcoholic cirrhosis of liver without ascites; F14.11 Cocaine abuse, in remission; F15.11 Other stimulant abuse, in remission; F12.11 Cannabis abuse, in remission; Z87.891 Personal history of nicotine dependence; Z79.899 Other long term (current) drug therapy; Z86.59 Personal history of other mental and behavioral disorders
CPT/HCPCS: 36415; 74177; 80053; 80305; 80320; 81003; 85025; 99285; G0480

== ENCOUNTER 2021-04-18 11:59 | Emergency (ER) | payer OTHER ==
[~2021-04-18] VITALS: Ht 167.6 cm; Wt 75.0 kg
[~2021-04-18 11:59] MED LIST changes: +DICY20TA11 MT
[2021-04-18] MEDS ORDERED: SODIUM CHLORIDE 0.9% 1,000 ML IV ONE (12:15)
[2021-04-18 12:45] LABS: BASOPHILS % 0.4 % (0.0-2.0); EOSINOPHILS % 0.4 % (0.0-5.0); HEMATOCRIT. 34.7 % (42.0-52.0); HEMOGLOBIN. 11.8 g/dL (14.0-18.0); LYMPHOCYTES % 27.6 % (20.0-50.0); MEAN CORPUSCULAR HEMOGLOBIN 29.4 pg (28.0-32.0); MEAN CORPUSCULAR VOLUME 86.8 fL (80.0-94.0); MEAN PLATELET VOLUME 10.3 fl (7.4-10.4); NEUTROPHILS % 65.6 % (40.0-76.0); RED CELL DISTRIBUTION WIDTH 18.2 % (11.6-14.6)
[2021-04-18 12:48] LABS: CHLORIDE 111 mEq/L (98-107)
[2021-04-18 12:51] LABS: PLATELET 39 x1000/uL (130-400)
[2021-04-18 12:52] LABS: INR 1.3; PARTIAL THROMBOPLASTIN TIME 34.9 sec (23.4-31.0); PROTHROMBIN TIME 13.8 sec (9.6-11.0)
[2021-04-18 13:19] LABS: ETHANOL BLOOD 386 mg/dL
[2021-04-18 13:38] LABS: PLATELET ESTIMATE MARKEDLY DECREASED
[2021-04-18 15:58] VITALS: BP 110/78
== END 2021-04-18 15:59 | disposition home or self-care (01) ==
LOC: ER 11:59
DX: K70.30 Alcoholic cirrhosis of liver without ascites (principal); D69.6 Thrombocytopenia, unspecified; F10.129 Alcohol abuse with intoxication, unspecified; Z88.6 Allergy status to analgesic agent; Z88.3 Allergy status to other anti-infective agents; Z79.899 Other long term (current) drug therapy; Z98.890 Other specified postprocedural states; Y90.8 Blood alcohol level of 240 mg/100 ml or more
CPT/HCPCS: 36415; 80053; 80320; 83690; 85025; 85610; 85730; 93005; 99284; J7030; G0480

== ENCOUNTER 2021-04-18 17:52 | Emergency (ER) | payer OTHER ==
[~2021-04-18] VITALS: Ht 167.6 cm; Wt 80.0 kg
[2021-04-19 01:17] VITALS: BP 125/68
== END 2021-04-19 01:32 | disposition home or self-care (01) ==
LOC: ER 17:52
DX: F10.229 Alcohol dependence with intoxication, unspecified (principal); Y90.9 Presence of alcohol in blood, level not specified; F41.9 Anxiety disorder, unspecified; F32.A Depression, unspecified; Z88.6 Allergy status to analgesic agent; Z87.11 Personal history of peptic ulcer disease
CPT/HCPCS: 82962; 99284

== ENCOUNTER 2021-07-09 09:33 | Emergency (ER) | payer MEDICAID ==
[~2021-07-09] VITALS: Ht 162.6 cm; Wt 78.0 kg
[2021-07-09 09:45] VITALS: BP 140/80
[2021-07-09 13:14] LABS: BASOPHILS % 0.2 % (0.0-2.0); HEMATOCRIT. 35.8 % (42.0-52.0); LYMPHOCYTES % 24.5 % (20.0-50.0); MEAN CORPUSCULAR HEMOGLOBIN 26.7 pg (28.0-32.0); MEAN CORPUSCULAR VOLUME 79.7 fL (80.0-94.0); MEAN PLATELET VOLUME 8.6 fl (7.4-10.4); MONOCYTES % 9.9 % (2.0-8.0); NEUTROPHILS % 64.4 % (40.0-76.0); RED BLOOD CELL COUNT 4.49 mill/uL (4.7-6.1); RED CELL DISTRIBUTION WIDTH 17.7 % (11.6-14.6)
[2021-07-09 13:19] LABS: CHLORIDE 116 mEq/L (98-107)
[2021-07-09 13:21] LABS: INR 1.2; PROTHROMBIN TIME 12.5 sec (9.6-11.0)
[2021-07-09 13:27] LABS: ETHANOL BLOOD < 10 mg/dL
[2021-07-09 13:44] LABS: PLATELET ESTIMATE MARKEDLY DECREASED
[2021-07-09 13:45] LABS: PLATELET 29 x1000/uL (130-400)
[2021-07-09] MEDS ORDERED: OMEP40CA20 MT (16:58)
[2021-07-09] MEDS ORDERED: FAMO-135 MT (16:58)
== END 2021-07-09 17:10 | disposition home or self-care (01) ==
LOC: ER 09:33
DX: K92.2 Gastrointestinal hemorrhage, unspecified (principal); D61.818 Other pancytopenia; Z87.19 Personal history of other diseases of the digestive system
CPT/HCPCS: 36415; 80053; 80320; 85025; 99283; G0480

== ENCOUNTER 2021-07-25 19:47 | Emergency (ER) | payer MEDICAID ==
[~2021-07-25] VITALS: Ht 160 cm; Wt 73.0 kg
[~2021-07-25 19:47] MED LIST changes: +FAMO-135 MT; +OMEP40CA20 MT
[2021-07-25] MEDS ORDERED: ONDANSETRON 4MG ODT PO STA (20:38)
[2021-07-25] MEDS ORDERED: FAMOTIDINE 20MG TABLET PO ONE (20:45)
[2021-07-25 23:23] LABS: CHLORIDE 110 mEq/L (98-107)
[2021-07-25 23:28] LABS: ETHANOL BLOOD 240 mg/dL
[2021-07-25 23:36] LABS: BASOPHILS % 0.3 % (0.0-2.0); EOSINOPHILS % 0.7 % (0.0-5.0); HEMATOCRIT. 44.1 % (42.0-52.0); HEMOGLOBIN. 14.6 g/dL (14.0-18.0); LYMPHOCYTES % 31.8 % (20.0-50.0); MEAN CORPUSCULAR HEMOGLOBIN 26.2 pg (28.0-32.0); MEAN CORPUSCULAR VOLUME 79.3 fL (80.0-94.0); MEAN PLATELET VOLUME 8.5 fl (7.4-10.4); MONOCYTES % 6.1 % (2.0-8.0); NEUTROPHILS % 61.1 % (40.0-76.0); RED BLOOD CELL COUNT 5.56 mill/uL (4.7-6.1); RED CELL DISTRIBUTION WIDTH 17.9 % (11.6-14.6)
[2021-07-25 23:44] LABS: PLATELET 39 x1000/uL (130-400)
[2021-07-26 00:02] LABS: CLARITY URINE CLEAR (CLEAR); COLOR URINE DARK YELLOW (YELLOW); KETONES URINE NEGATIVE (NEGATIVE); LEUKOCYTE ESTERASE URINE NEGATIVE (NEGATIVE); NITRITE URINE NEGATIVE (NEGATIVE); OCCULT BLOOD URINE NEGATIVE (NEGATIVE); PH URINE 5.5 (4.5-8.0); PROTEIN URINE NEGATIVE (NEGATIVE); SPECIFIC GRAVITY URINE 1.026 (1.005-1.030)
[2021-07-26 00:23] LABS: CANNABINOID URINE SCREEN NEGATIVE (NEGATIVE); PHENCYCLIDINE URINE SCREEN NEGATIVE (NEGATIVE)
[2021-07-26 00:24] LABS: *AMPHETAMINES SCREEN URINE NEGATIVE (NEGATIVE); *BARBITURATES SCREEN URINE NEGATIVE (NEGATIVE); *BENZODIAZEPINES SCREEN URINE NEGATIVE (NEGATIVE); *COCAINE SCREEN URINE NEGATIVE (NEGATIVE); METHADONE URINE SCREEN NEGATIVE (NEGATIVE); OPIATES URINE SCREEN PRESUMTIVE POSITIVE (NEGATIVE)
[2021-07-26] MEDS ORDERED: IOHEXOL-300 100 ML BOTTLE ONE (03:46)
[2021-07-26 12:07] VITALS: BP 120/71
== END 2021-07-26 12:31 | disposition home or self-care (01) ==
LOC: ER 19:47
DX: R45.851 Suicidal ideations (principal); T51.0X1A Toxic effect of ethanol, accidental (unintentional), initial encounter; K25.9 Gastric ulcer, unspecified as acute or chronic, without hemorrhage or perforation; F33.1 Major depressive disorder, recurrent, moderate; F10.229 Alcohol dependence with intoxication, unspecified; Y90.8 Blood alcohol level of 240 mg/100 ml or more; F11.90 Opioid use, unspecified, uncomplicated; K74.60 Unspecified cirrhosis of liver; D72.819 Decreased white blood cell count, unspecified; D75.839 Thrombocytosis, unspecified; Y92.89 Other specified places as the place of occurrence of the external cause; Z88.6 Allergy status to analgesic agent; Z88.8 Allergy status to other drugs, medicaments and biological substances; Z91.51 Personal history of suicidal behavior
CPT/HCPCS: 36415; 74177; 80053; 80305; 80307; 80320; 80329; 81003; 83690; 85025; 99285; Q0162; Q9967; G0480

== ENCOUNTER 2021-08-20 09:37 | Emergency (ER) | payer MEDICAID ==
[~2021-08-20] VITALS: Ht 162.6 cm; Wt 79.0 kg
[2021-08-20] MEDS ORDERED: ONDANSETRON HCL 4MG/2ML INJ IV STA (10:28)
[2021-08-20] MEDS ORDERED: FAMOTIDINE 20MG/2ML VIAL IV STA (10:28)
[2021-08-20] MEDS ORDERED: MAGNESIUM/ALUMINUM HYDROXIDE/SIMETHICONE 30ML UDC PO STA (10:28)
[2021-08-20 10:49] LABS: BASOPHILS % 0.5 % (0.0-2.0); EOSINOPHILS % 1.8 % (0.0-5.0); HEMATOCRIT. 37.2 % (42.0-52.0); HEMOGLOBIN. 12.3 g/dL (14.0-18.0); MEAN CORPUSCULAR HEMOGLOBIN 27.5 pg (28.0-32.0); MEAN CORPUSCULAR VOLUME 82.9 fL (80.0-94.0); MEAN PLATELET VOLUME 9.4 fl (7.4-10.4); MONOCYTES % 6.6 % (2.0-8.0); NEUTROPHILS % 63.1 % (40.0-76.0); RED BLOOD CELL COUNT 4.49 mill/uL (4.7-6.1); RED CELL DISTRIBUTION WIDTH 20.9 % (11.6-14.6)
[2021-08-20 10:54] LABS: CHLORIDE 113 mEq/L (98-107)
[2021-08-20 11:16] LABS: PLATELET ESTIMATE MARKEDLY DECREASED
[2021-08-20 11:17] LABS: PLATELET 41 x1000/uL (130-400)
[2021-08-20 11:41] LABS: CLARITY URINE CLEAR (CLEAR); COLOR URINE YELLOW (YELLOW); KETONES URINE NEGATIVE (NEGATIVE); LEUKOCYTE ESTERASE URINE NEGATIVE (NEGATIVE); NITRITE URINE NEGATIVE (NEGATIVE); OCCULT BLOOD URINE NEGATIVE (NEGATIVE); PROTEIN URINE NEGATIVE (NEGATIVE); SPECIFIC GRAVITY URINE 1.003 (1.005-1.030); UROBILINOGEN URINE 0.2 E.U./dL (0.2-1.0)
[2021-08-20 15:39] VITALS: BP 129/78
== END 2021-08-20 15:50 | disposition home or self-care (01) ==
LOC: ER 09:37
DX: R10.31 Right lower quadrant pain (principal); F41.9 Anxiety disorder, unspecified; F32.A Depression, unspecified; K76.9 Liver disease, unspecified; F10.21 Alcohol dependence, in remission; Z87.11 Personal history of peptic ulcer disease; Z88.6 Allergy status to analgesic agent
CPT/HCPCS: 36415; 71045; 74176; 80053; 81003; 83605; 83690; 83880; 84484; 85025; 93005; 96374; 96375; 99285; J2405; J3490

== ENCOUNTER 2021-08-27 14:11 | Emergency (ER) | payer MEDICAID ==
[~2021-08-27] VITALS: Ht 162.6 cm; Wt 85.0 kg
[2021-08-27 15:31] LABS: BASOPHILS % 0.2 % (0.0-2.0); EOSINOPHILS % 0.7 % (0.0-5.0); HEMATOCRIT. 40.8 % (42.0-52.0); HEMOGLOBIN. 13.9 g/dL (14.0-18.0); LYMPHOCYTES % 28.7 % (20.0-50.0); MEAN CORPUSCULAR HEMOGLOBIN 28.1 pg (28.0-32.0); MEAN CORPUSCULAR VOLUME 82.5 fL (80.0-94.0); MEAN PLATELET VOLUME 9.1 fl (7.4-10.4); MONOCYTES % 6.4 % (2.0-8.0); RED BLOOD CELL COUNT 4.94 mill/uL (4.7-6.1); RED CELL DISTRIBUTION WIDTH 19.9 % (11.6-14.6)
[2021-08-27 15:36] LABS: CHLORIDE 113 mEq/L (98-107)
[2021-08-27 15:41] LABS: ETHANOL BLOOD 207 mg/dL
[2021-08-27] MEDS ORDERED: VISCOUS LIDOCAINE 2% 15 ML UDC PO STA (16:41)
[2021-08-27] MEDS ORDERED: MAGNESIUM/ALUMINUM HYDROXIDE/SIMETHICONE 30ML UDC PO STA (16:41)
[2021-08-27] MEDS ORDERED: POTASSIUM CHLORIDE 20MEQ TABLET SR PO ONE (16:45)
[2021-08-27 17:05] LABS: CLARITY URINE CLEAR (CLEAR); COLOR URINE YELLOW (YELLOW); KETONES URINE NEGATIVE (NEGATIVE); LEUKOCYTE ESTERASE URINE NEGATIVE (NEGATIVE); NITRITE URINE NEGATIVE (NEGATIVE); OCCULT BLOOD URINE NEGATIVE (NEGATIVE); PH URINE 5.5 (4.5-8.0); PROTEIN URINE NEGATIVE (NEGATIVE); SPECIFIC GRAVITY URINE 1.005 (1.005-1.030); UROBILINOGEN URINE 0.2 E.U./dL (0.2-1.0)
[2021-08-27 17:20] LABS: *AMPHETAMINES SCREEN URINE NEGATIVE (NEGATIVE); *BARBITURATES SCREEN URINE NEGATIVE (NEGATIVE); *BENZODIAZEPINES SCREEN URINE NEGATIVE (NEGATIVE); *COCAINE SCREEN URINE NEGATIVE (NEGATIVE); METHADONE URINE SCREEN NEGATIVE (NEGATIVE); OPIATES URINE SCREEN NEGATIVE (NEGATIVE)
[2021-08-27 17:21] LABS: CANNABINOID URINE SCREEN NEGATIVE (NEGATIVE); PHENCYCLIDINE URINE SCREEN NEGATIVE (NEGATIVE)
[2021-08-27] MEDS ORDERED: ACTIVATED CHARCOAL 50 G/240 ML TUBE PO ONE (17:30)
[2021-08-27 20:03] LABS: CHLORIDE 115 mEq/L (98-107)
[2021-08-28 09:03] VITALS: BP 131/75
[2021-08-28 10:07] LABS: PLATELET 34 x1000/uL (130-400)
== END 2021-08-28 09:36 | disposition home or self-care (01) ==
LOC: ER 14:37
DX: T50.992A Poisoning by other drugs, medicaments and biological substances, intentional self-harm, initial encounter (principal); K70.30 Alcoholic cirrhosis of liver without ascites; F10.229 Alcohol dependence with intoxication, unspecified; I10 Essential (primary) hypertension; F32.A Depression, unspecified; F41.9 Anxiety disorder, unspecified; R45.851 Suicidal ideations; Z88.6 Allergy status to analgesic agent; Z87.11 Personal history of peptic ulcer disease; Y90.7 Blood alcohol level of 200-239 mg/100 ml; D69.6 Thrombocytopenia, unspecified; Z87.442 Personal history of urinary calculi; Z20.822 Contact with and (suspected) exposure to COVID-19; Y92.018 Other place in single-family (private) house as the place of occurrence of the external cause
CPT/HCPCS: 36415; 80053; 80305; 80307; 80320; 80329; 81003; 83690; 85025; 93005; 99284; C9803; U0003; U0005; G0480

== ENCOUNTER 2021-08-29 21:38 | Emergency (ER) | payer MEDICAID ==
[~2021-08-29] VITALS: Ht 165.1 cm; Wt 66.0 kg
[2021-08-30] MEDS ORDERED: ONDANSETRON HCL 4MG/2ML INJ IV STA (00:01)
[2021-08-30] MEDS ORDERED: MORPHINE SULFATE 4 MG/ML CPJ (NOT FOR IM USE) IV STA (00:01)
[2021-08-30] MEDS ORDERED: SODIUM CHLORIDE 0.9% 1,000 ML IV ONE (00:15)
[2021-08-30 00:49] LABS: CLARITY URINE CLEAR (CLEAR); COLOR URINE YELLOW (YELLOW); KETONES URINE NEGATIVE (NEGATIVE); LEUKOCYTE ESTERASE URINE NEGATIVE (NEGATIVE); NITRITE URINE NEGATIVE (NEGATIVE); OCCULT BLOOD URINE NEGATIVE (NEGATIVE); PH URINE 6.5 (4.5-8.0); PROTEIN URINE NEGATIVE (NEGATIVE); SPECIFIC GRAVITY URINE 1.004 (1.005-1.030); UROBILINOGEN URINE 0.2 E.U./dL (0.2-1.0)
[2021-08-30 00:57] LABS: *BARBITURATES SCREEN URINE NEGATIVE (NEGATIVE); *COCAINE SCREEN URINE NEGATIVE (NEGATIVE); CANNABINOID URINE SCREEN NEGATIVE (NEGATIVE); METHADONE URINE SCREEN NEGATIVE (NEGATIVE); OPIATES URINE SCREEN NEGATIVE (NEGATIVE); PHENCYCLIDINE URINE SCREEN NEGATIVE (NEGATIVE)
[2021-08-30 00:58] LABS: *AMPHETAMINES SCREEN URINE NEGATIVE (NEGATIVE); *BENZODIAZEPINES SCREEN URINE NEGATIVE (NEGATIVE)
[2021-08-30 02:49] LABS: BASOPHILS % 0.2 % (0.0-2.0); EOSINOPHILS % 0.6 % (0.0-5.0); HEMATOCRIT. 41.5 % (42.0-52.0); HEMOGLOBIN. 14.1 g/dL (14.0-18.0); LYMPHOCYTES % 36.9 % (20.0-50.0); MEAN CORPUSCULAR HEMOGLOBIN 28.1 pg (28.0-32.0); MEAN CORPUSCULAR VOLUME 82.5 fL (80.0-94.0); MEAN PLATELET VOLUME 9.2 fl (7.4-10.4); MONOCYTES % 6.8 % (2.0-8.0); NEUTROPHILS % 55.5 % (40.0-76.0); RED BLOOD CELL COUNT 5.03 mill/uL (4.7-6.1); RED CELL DISTRIBUTION WIDTH 19.8 % (11.6-14.6)
[2021-08-30 02:54] LABS: CHLORIDE 109 mEq/L (98-107)
[2021-08-30 02:59] LABS: ETHANOL BLOOD 271 mg/dL; INR 1.2; PARTIAL THROMBOPLASTIN TIME 32.8 sec (23.4-31.0); PROTHROMBIN TIME 12.6 sec (9.6-11.0)
[2021-08-30 03:00] LABS: PLATELET 46 x1000/uL (130-400)
[2021-08-30 05:31] VITALS: BP 150/79
== END 2021-08-30 05:34 | disposition home or self-care (01) ==
LOC: ER 21:38
DX: R10.84 Generalized abdominal pain (principal); F10.229 Alcohol dependence with intoxication, unspecified; K70.30 Alcoholic cirrhosis of liver without ascites; Y90.8 Blood alcohol level of 240 mg/100 ml or more; D69.6 Thrombocytopenia, unspecified; R03.0 Elevated blood-pressure reading, without diagnosis of hypertension; R16.1 Splenomegaly, not elsewhere classified; Z71.41 Alcohol abuse counseling and surveillance of alcoholic; Z86.59 Personal history of other mental and behavioral disorders
CPT/HCPCS: 36415; 71045; 74176; 80053; 80305; 80320; 81003; 83690; 85025; 85610; 85730; 93005; 96361; 96374; 96375; 99285; J2270; J2405; J7030; G0480

== ENCOUNTER 2021-11-04 09:58 | Emergency (ER) | payer MEDICAID, OTHER ==
[~2021-11-04] VITALS: Ht 162.6 cm; Wt 81.0 kg
[2021-11-04 10:24] VITALS: BP 134/52
[2021-11-04 11:15] LABS: BASOPHILS % 0.2 % (0.0-2.0); EOSINOPHILS % 0.7 % (0.0-5.0); HEMATOCRIT. 37.5 % (42.0-52.0); HEMOGLOBIN. 12.7 g/dL (14.0-18.0); LYMPHOCYTES % 19.1 % (20.0-50.0); MEAN CORPUSCULAR HEMOGLOBIN 30.6 pg (28.0-32.0); MEAN CORPUSCULAR VOLUME 90.1 fL (80.0-94.0); MONOCYTES % 9.1 % (2.0-8.0); NEUTROPHILS % 70.9 % (40.0-76.0); RED BLOOD CELL COUNT 4.16 mill/uL (4.7-6.1); RED CELL DISTRIBUTION WIDTH 16.4 % (11.6-14.6)
[2021-11-04 11:21] LABS: CHLORIDE 112 mEq/L (98-107)
[2021-11-04 11:40] LABS: PLATELET 34 x1000/uL (130-400)
[2021-11-04 12:54] LABS: PLATELET ESTIMATE MARKEDLY DECREASED
== END 2021-11-04 18:13 | disposition left against medical advice (07) ==
LOC: ER 09:58
DX: Z53.21 Procedure and treatment not carried out due to patient leaving prior to being seen by health care provider (principal); I49.9 Cardiac arrhythmia, unspecified
CPT/HCPCS: 36415; 80053; 85025; 93005; 99284

== ENCOUNTER 2021-11-19 13:18 | Emergency (ER) | payer MEDICAID, OTHER ==
[~2021-11-19] VITALS: Ht 172.7 cm; Wt 89.0 kg
[2021-11-19 15:42] VITALS: BP 111/62
[2021-11-19 15:51] LABS: BASOPHILS % 0.2 % (0.0-2.0); EOSINOPHILS % 1.7 % (0.0-5.0); HEMATOCRIT. 46.2 % (42.0-52.0); HEMOGLOBIN. 16.2 g/dL (14.0-18.0); MEAN CORPUSCULAR HEMOGLOBIN 31.8 pg (28.0-32.0); MEAN CORPUSCULAR VOLUME 90.8 fL (80.0-94.0); MONOCYTES % 7.2 % (2.0-8.0); NEUTROPHILS % 68.9 % (40.0-76.0); RED BLOOD CELL COUNT 5.09 mill/uL (4.7-6.1)
[2021-11-19 16:00] LABS: CHLORIDE 107 mEq/L (98-107)
[2021-11-19 16:07] LABS: ETHANOL BLOOD 85 mg/dL
[2021-11-19 16:33] LABS: MEAN PLATELET VOLUME 8.8 fl (7.4-10.4); PLATELET 61 x1000/uL (130-400)
== END 2021-11-19 18:17 | disposition home or self-care (01) ==
LOC: ER 13:18
DX: D69.6 Thrombocytopenia, unspecified (principal); F10.129 Alcohol abuse with intoxication, unspecified; F41.9 Anxiety disorder, unspecified; F32.A Depression, unspecified; Y90.4 Blood alcohol level of 80-99 mg/100 ml; Z87.442 Personal history of urinary calculi; Z87.11 Personal history of peptic ulcer disease
CPT/HCPCS: 36415; 80053; 80320; 85025; 86850; 86900; 99283; G0480

== ENCOUNTER 2021-11-20 12:17 | Emergency (ER) | payer MEDICAID, OTHER ==
[~2021-11-20] VITALS: Ht 170.2 cm; Wt 69.0 kg
[~2021-11-20 12:17] MED LIST changes: -DICY20TA11 MT; -DOCU250C14 MT; -FAMO-135 MT; -FAMO-135 PO; -FAMO20TA8 MT; -LACT10SO7 MT; -MAG355OR21 MT; -MAGN500C4 PO; -MELA5TAB19 PO; -OMEP40CA20 MT; -ONDA4TAB11 PO; -ONDA4TAB5 MT; -PANT40TA51 MT
[2021-11-20 12:23] VITALS: BP 103/63
[2021-11-20] MEDS ORDERED: ACETAMINOPHEN 325MG TABLET PO STA (12:34)
[2021-11-20 12:58] LABS: BASOPHILS % 0.4 % (0.0-2.0); EOSINOPHILS % 1.5 % (0.0-5.0); HEMATOCRIT. 38.7 % (42.0-52.0); LYMPHOCYTES % 30.9 % (20.0-50.0); MEAN CORPUSCULAR HEMOGLOBIN 31.8 pg (28.0-32.0); MEAN CORPUSCULAR VOLUME 87.7 fL (80.0-94.0); MEAN PLATELET VOLUME 8.5 fl (7.4-10.4); MONOCYTES % 8.6 % (2.0-8.0); NEUTROPHILS % 58.6 % (40.0-76.0); RED BLOOD CELL COUNT 4.41 mill/uL (4.7-6.1); RED CELL DISTRIBUTION WIDTH 16.2 % (11.6-14.6)
[2021-11-20 13:06] LABS: CHLORIDE 105 mEq/L (98-107)
[2021-11-20 13:16] LABS: ETHANOL BLOOD 261 mg/dL
[2021-11-20 13:52] LABS: PLATELET ESTIMATE MARKEDLY DECREASED
[2021-11-20 14:53] LABS: CLARITY URINE CLEAR (CLEAR); COLOR URINE YELLOW (YELLOW); KETONES URINE NEGATIVE (NEGATIVE); LEUKOCYTE ESTERASE URINE NEGATIVE (NEGATIVE); NITRITE URINE NEGATIVE (NEGATIVE); OCCULT BLOOD URINE NEGATIVE (NEGATIVE); PH URINE 6.5 (4.5-8.0); PROTEIN URINE NEGATIVE (NEGATIVE); SPECIFIC GRAVITY URINE 1.005 (1.005-1.030); UROBILINOGEN URINE 0.2 E.U./dL (0.2-1.0)
[2021-11-20 15:33] LABS: *AMPHETAMINES SCREEN URINE NEGATIVE (NEGATIVE); *BARBITURATES SCREEN URINE NEGATIVE (NEGATIVE); *BENZODIAZEPINES SCREEN URINE NEGATIVE (NEGATIVE); *COCAINE SCREEN URINE NEGATIVE (NEGATIVE); CANNABINOID URINE SCREEN NEGATIVE (NEGATIVE); METHADONE URINE SCREEN NEGATIVE (NEGATIVE); OPIATES URINE SCREEN NEGATIVE (NEGATIVE); PHENCYCLIDINE URINE SCREEN NEGATIVE (NEGATIVE)
[2021-11-21 12:48] LABS: PLATELET 46 x1000/uL (130-400)
== END 2021-11-20 18:30 | disposition home or self-care (01) ==
LOC: ER 12:17
DX: T51.0X1A Toxic effect of ethanol, accidental (unintentional), initial encounter (principal); M79.18 Myalgia, other site; F10.229 Alcohol dependence with intoxication, unspecified; Y90.8 Blood alcohol level of 240 mg/100 ml or more; Y92.89 Other specified places as the place of occurrence of the external cause
CPT/HCPCS: 36415; 80053; 80305; 80320; 81003; 85025; 99283; G0480

== ENCOUNTER 2022-01-07 10:22 | Emergency (ER) | payer MEDICAID, OTHER ==
[~2022-01-07] VITALS: Ht 162.6 cm; Wt 84.0 kg
[2022-01-07 10:37] VITALS: BP 115/74
[2022-01-07] MEDS ORDERED: MAGNESIUM/ALUMINUM HYDROXIDE/SIMETHICONE 30ML UDC PO STA (11:08)
[2022-01-07] MEDS ORDERED: FAMOTIDINE 20MG TABLET PO ONE (11:15)
[2022-01-07] MEDS ORDERED: ONDANSETRON 4MG ODT PO ONE (11:15)
[2022-01-07 11:50] LABS: BASOPHILS % 0.2 % (0.0-2.0); EOSINOPHILS % 0.5 % (0.0-5.0); HEMATOCRIT. 41.1 % (42.0-52.0); HEMOGLOBIN. 14.5 g/dL (14.0-18.0); LYMPHOCYTES % 20.7 % (20.0-50.0); MEAN CORPUSCULAR HEMOGLOBIN 32.7 pg (28.0-32.0); MEAN CORPUSCULAR VOLUME 92.9 fL (80.0-94.0); MEAN PLATELET VOLUME 9.3 fl (7.4-10.4); MONOCYTES % 7.8 % (2.0-8.0); NEUTROPHILS % 70.8 % (40.0-76.0); RED BLOOD CELL COUNT 4.42 mill/uL (4.7-6.1); RED CELL DISTRIBUTION WIDTH 15.3 % (11.6-14.6)
[2022-01-07 11:58] LABS: CHLORIDE 107 mEq/L (98-107)
[2022-01-07] MEDS ORDERED: POTASSIUM CHLORIDE 20MEQ TABLET SR PO SCH (12:15)
[2022-01-07 13:00] LABS: PLATELET ESTIMATE MARKEDLY DECREASED
[2022-01-07 13:01] LABS: PLATELET 34 x1000/uL (130-400)
[2022-01-07] MEDS ORDERED: ONDA4TAB11 PO (13:37)
[2022-01-07] MEDS ORDERED: FAMO20TA8 MT (13:37)
== END 2022-01-07 14:06 | disposition home or self-care (01) ==
LOC: ER 10:22
DX: R10.84 Generalized abdominal pain (principal); K70.30 Alcoholic cirrhosis of liver without ascites; D69.6 Thrombocytopenia, unspecified; F32.A Depression, unspecified; F41.9 Anxiety disorder, unspecified; F17.210 Nicotine dependence, cigarettes, uncomplicated; F10.21 Alcohol dependence, in remission; Z87.11 Personal history of peptic ulcer disease; Z88.6 Allergy status to analgesic agent
CPT/HCPCS: 36415; 74176; 80053; 83690; 83735; 85025; 93005; 99285; Q0162

== ENCOUNTER 2022-01-07 20:39 | Emergency (ER) | payer OTHER ==
[~2022-01-07] VITALS: Ht 162.6 cm; Wt 82.0 kg
[~2022-01-07 20:39] MED LIST changes: +FAMO20TA8 MT; +ONDA4TAB11 PO
[2022-01-07 22:28] VITALS: BP 129/73
== END 2022-01-07 22:31 | disposition home or self-care (01) ==
LOC: ER 20:39
DX: G89.29 Other chronic pain (principal); R10.31 Right lower quadrant pain; F41.9 Anxiety disorder, unspecified; F32.A Depression, unspecified; K70.30 Alcoholic cirrhosis of liver without ascites; F10.21 Alcohol dependence, in remission; Z87.11 Personal history of peptic ulcer disease; Z88.6 Allergy status to analgesic agent
CPT/HCPCS: 99283

== ENCOUNTER 2022-01-08 13:01 | Emergency (ER) | payer OTHER ==
[~2022-01-08] VITALS: Ht 165.1 cm; Wt 82.0 kg
[2022-01-08] MEDS ORDERED: FAMOTIDINE 20MG TABLET PO ONE (15:00)
[2022-01-08] MEDS ORDERED: LORAZEPAM 1MG TABLET PO ONE (15:00)
[2022-01-08] MEDS ORDERED: MAGNESIUM/ALUMINUM HYDROXIDE/SIMETHICONE 30ML UDC PO ONE (15:00)
[2022-01-08 15:26] LABS: BASOPHILS % 0.2 % (0.0-2.0); EOSINOPHILS % 0.5 % (0.0-5.0); HEMATOCRIT. 40.5 % (42.0-52.0); HEMOGLOBIN. 14.6 g/dL (14.0-18.0); LYMPHOCYTES % 22.7 % (20.0-50.0); MEAN CORPUSCULAR HEMOGLOBIN 32.7 pg (28.0-32.0); MONOCYTES % 7.2 % (2.0-8.0); NEUTROPHILS % 69.4 % (40.0-76.0); RED BLOOD CELL COUNT 4.46 mill/uL (4.7-6.1); RED CELL DISTRIBUTION WIDTH 15.8 % (11.6-14.6)
[2022-01-08 15:32] LABS: CHLORIDE 111 mEq/L (98-107)
[2022-01-08 15:39] LABS: ETHANOL BLOOD 179 mg/dL
[2022-01-08] MEDS: POTASSIUM CHLORIDE 20MEQ TABLET SR PO NR (19:20)
[2022-01-08 19:22] LABS: CLARITY URINE CLEAR (CLEAR); COLOR URINE DARK YELLOW (YELLOW); KETONES URINE TRACE (NEGATIVE); LEUKOCYTE ESTERASE URINE NEGATIVE (NEGATIVE); NITRITE URINE NEGATIVE (NEGATIVE); OCCULT BLOOD URINE NEGATIVE (NEGATIVE); PH URINE 5.5 (4.5-8.0); PROTEIN URINE NEGATIVE (NEGATIVE); SPECIFIC GRAVITY URINE 1.016 (1.005-1.030)
[2022-01-08 20:34] LABS: *AMPHETAMINES SCREEN URINE NEGATIVE (NEGATIVE); *BARBITURATES SCREEN URINE NEGATIVE (NEGATIVE); *BENZODIAZEPINES SCREEN URINE NEGATIVE (NEGATIVE); *COCAINE SCREEN URINE NEGATIVE (NEGATIVE); CANNABINOID URINE SCREEN NEGATIVE (NEGATIVE); METHADONE URINE SCREEN NEGATIVE (NEGATIVE); OPIATES URINE SCREEN NEGATIVE (NEGATIVE); PHENCYCLIDINE URINE SCREEN NEGATIVE (NEGATIVE)
[2022-01-08] MEDS ORDERED: CLONAZEPAM 0.5MG TABLET PO ONE (22:30)
[2022-01-08] MEDS ORDERED: TRAMADOL 50MG TABLET PO ONE (23:00)
[2022-01-09] MEDS: ARIPIPRAZOLE 5MG TABLET PO SCH (11:15)
[2022-01-09] MEDS: FLUOXETINE HCL 10 MG CAPSULE PO SCH (11:15)
[2022-01-09 12:43] LABS: PLATELET 32 x1000/uL (130-400)
[2022-01-09] MEDS: POTASSIUM CHLORIDE 20MEQ TABLET SR PO NR (18:30)
[2022-01-09] MEDS ORDERED: TRAZODONE HCL 50MG TABLET PO SCH (21:00)
[2022-01-10] MEDS: FLUOXETINE HCL 10 MG CAPSULE PO SCH (09:03)
[2022-01-10] MEDS: ARIPIPRAZOLE 5MG TABLET PO SCH (09:03)
[2022-01-10] MEDS ORDERED: TRAZ-251 MT (12:38)
[2022-01-10] MEDS ORDERED: ABIL5 MT (12:38)
[2022-01-10] MEDS ORDERED: FLUO10CA25 MT (12:38)
[2022-01-10 13:30] VITALS: BP 142/82
== END 2022-01-10 13:48 | disposition home or self-care (01) ==
LOC: ER 13:01
DX: R45.851 Suicidal ideations (principal); F41.9 Anxiety disorder, unspecified; F10.229 Alcohol dependence with intoxication, unspecified; D69.6 Thrombocytopenia, unspecified; D64.9 Anemia, unspecified; K70.30 Alcoholic cirrhosis of liver without ascites; Z20.822 Contact with and (suspected) exposure to COVID-19; Z88.6 Allergy status to analgesic agent; Y90.6 Blood alcohol level of 120-199 mg/100 ml
CPT/HCPCS: 36415; 80053; 80305; 80320; 81003; 85025; 99285; C9803; U0003; U0005; G0480

== ENCOUNTER 2022-01-11 14:45 | Inpatient (IN) | payer OTHER ==
[~2022-01-11] VITALS: Ht 162.6 cm; Wt 83.9 kg
[~2022-01-11 14:45] MED LIST changes: +ABIL5 MT; +FLUO10CA25 MT; +TRAZ-251 MT
[2022-01-11] MEDS ORDERED: MORPHINE SULFATE 4 MG/ML CPJ (NOT FOR IM USE) IV STA (15:41)
[2022-01-11] MEDS ORDERED: SODIUM CHLORIDE 0.9% 1,000 ML IV ONE (15:45)
[2022-01-11 16:29] LABS: INR 1.2; PROTHROMBIN TIME 12.8 sec (9.6-11.0)
[2022-01-11 16:30] LABS: BASOPHILS % 0.2 % (0.0-2.0); EOSINOPHILS % 1.3 % (0.0-5.0); HEMATOCRIT. 40.5 % (42.0-52.0); HEMOGLOBIN. 14.1 g/dL (14.0-18.0); LYMPHOCYTES % 31.7 % (20.0-50.0); MEAN CORPUSCULAR HEMOGLOBIN 32.6 pg (28.0-32.0); MEAN CORPUSCULAR VOLUME 93.4 fL (80.0-94.0); MEAN PLATELET VOLUME 9.5 fl (7.4-10.4); MONOCYTES % 7.2 % (2.0-8.0); NEUTROPHILS % 59.6 % (40.0-76.0); RED BLOOD CELL COUNT 4.33 mill/uL (4.7-6.1); RED CELL DISTRIBUTION WIDTH 15.3 % (11.6-14.6)
[2022-01-11 16:31] LABS: CHLORIDE 111 mEq/L (98-107)
[2022-01-11 16:39] LABS: PLATELET 34 x1000/uL (130-400)
[2022-01-11] MEDS ORDERED: CLINDAMYCIN 600 MG in DEXTROSE 5% WATER 50 ML IV ONE (17:45)
[2022-01-11] MEDS ORDERED: CLINDAMYCIN 600 MG PREMIX 50 ML IV NR (18:00)
[2022-01-11] MEDS ORDERED: IOHEXOL-300 100 ML BOTTLE ONE (18:33)
[2022-01-12 09:45] VITALS: BP 148/92
[2022-01-12] MEDS ORDERED: ONDANSETRON HCL 4MG/2ML INJ IV PRN (10:00)
[2022-01-12] MEDS ORDERED: NALOXONE HCL 0.4MG/ML VIAL IV PRN (10:00)
[2022-01-12] MEDS ORDERED: TRAMADOL 50MG TABLET PO PRN (10:00)
[2022-01-12] MEDS ORDERED: CLINDAMYCIN 600 MG PREMIX 50 ML IV SCH (11:00)
[2022-01-12] MEDS ORDERED: CLIN-194 MT (11:08)
[2022-01-12] MEDS ORDERED: DIPHENHYDRAMINE 25MG CAPSULE PO NR (11:15)
[2022-01-12 16:52] VITALS: BP 148/92
[2022-01-12] MEDS ORDERED: DOCUSATE SODIUM 100MG CAPSULE PO SCH (17:00)
== END 2022-01-12 17:20 | disposition home or self-care (01) | DRG 254 ==
LOC: ER 15:00 → 6EST 18:46 → EDBEDREQ 18:53 → EDBEDREQTM 18:53 → EDBEDREQSVC 18:53 → ENRESERV 01-12 07:18
PROVIDERS: ADMIT Internal Medicine; ATTEND Internal Medicine
DX: K61.0 Anal abscess (principal); D61.818 Other pancytopenia; E44.1 Mild protein-calorie malnutrition; E87.8 Other disorders of electrolyte and fluid balance, not elsewhere classified; I10 Essential (primary) hypertension; K74.60 Unspecified cirrhosis of liver; F10.10 Alcohol abuse, uncomplicated; F32.A Depression, unspecified; F41.9 Anxiety disorder, unspecified; Z88.6 Allergy status to analgesic agent; Z88.8 Allergy status to other drugs, medicaments and biological substances; Z79.899 Other long term (current) drug therapy; Z87.11 Personal history of peptic ulcer disease; Z87.442 Personal history of urinary calculi; Z82.49 Family history of ischemic heart disease and other diseases of the circulatory system; Z71.41 Alcohol abuse counseling and surveillance of alcoholic; Z68.31 Body mass index [BMI] 31.0-31.9, adult
CPT/HCPCS: 36415; 74177; 80053; 85025; 86850; 86900; 99285; J2270; J3490; J7030; J7060; Q0163; Q9967

== ENCOUNTER 2022-01-15 12:27 | Emergency (ER) | payer OTHER ==
[~2022-01-15] VITALS: Ht 162.6 cm; Wt 81.0 kg
[~2022-01-15 12:27] MED LIST changes: +CLIN-194 MT
[2022-01-15] MEDS ORDERED: ONDANSETRON HCL 4MG/2ML INJ IV STA (12:38)
[2022-01-15] MEDS ORDERED: KETOROLAC 15MG/ML VIAL IV ONE (12:45)
[2022-01-15 13:28] LABS: CLARITY URINE CLEAR (CLEAR); COLOR URINE YELLOW (YELLOW); KETONES URINE NEGATIVE (NEGATIVE); LEUKOCYTE ESTERASE URINE NEGATIVE (NEGATIVE); NITRITE URINE NEGATIVE (NEGATIVE); OCCULT BLOOD URINE NEGATIVE (NEGATIVE); PROTEIN URINE NEGATIVE (NEGATIVE); SPECIFIC GRAVITY URINE 1.004 (1.005-1.030); UROBILINOGEN URINE 0.2 E.U./dL (0.2-1.0)
[2022-01-15 14:23] LABS: BASOPHILS % 0.3 % (0.0-2.0); EOSINOPHILS % 0.2 % (0.0-5.0); HEMATOCRIT. 42.3 % (42.0-52.0); HEMOGLOBIN. 14.8 g/dL (14.0-18.0); LYMPHOCYTES % 24.7 % (20.0-50.0); MEAN CORPUSCULAR HEMOGLOBIN 32.5 pg (28.0-32.0); MEAN CORPUSCULAR VOLUME 92.7 fL (80.0-94.0); MEAN PLATELET VOLUME 9.1 fl (7.4-10.4); MONOCYTES % 7.2 % (2.0-8.0); NEUTROPHILS % 67.6 % (40.0-76.0); RED BLOOD CELL COUNT 4.56 mill/uL (4.7-6.1)
[2022-01-15 14:26] LABS: CHLORIDE 108 mEq/L (98-107)
[2022-01-15 14:37] LABS: ETHANOL BLOOD 279 mg/dL
[2022-01-15 15:00] LABS: PLATELET ESTIMATE MARKEDLY DECREASED
[2022-01-15 15:01] LABS: PLATELET 31 x1000/uL (130-400)
[2022-01-15 17:00] VITALS: BP 112/61
== END 2022-01-15 17:12 | disposition home or self-care (01) ==
LOC: ER 12:27
DX: F10.229 Alcohol dependence with intoxication, unspecified (principal); R19.7 Diarrhea, unspecified; K70.30 Alcoholic cirrhosis of liver without ascites; Y90.8 Blood alcohol level of 240 mg/100 ml or more; K25.7 Chronic gastric ulcer without hemorrhage or perforation
CPT/HCPCS: 36415; 71045; 80053; 80320; 81003; 83605; 83690; 84484; 85025; 93005; 96374; 96375; 99285; J1885; J2405; G0480

== ENCOUNTER 2022-01-26 14:45 | Emergency (ER) | payer OTHER ==
[~2022-01-26] VITALS: Ht 162.6 cm; Wt 84.0 kg
[2022-01-26 15:04] VITALS: BP 105/69
[2022-01-26 20:21] LABS: BASOPHILS % 0.6 % (0.0-2.0); EOSINOPHILS % 1.2 % (0.0-5.0); HEMATOCRIT. 43.5 % (42.0-52.0); HEMOGLOBIN. 15.1 g/dL (14.0-18.0); LYMPHOCYTES % 26.1 % (20.0-50.0); MEAN CORPUSCULAR HEMOGLOBIN 33.2 pg (28.0-32.0); MEAN CORPUSCULAR VOLUME 95.3 fL (80.0-94.0); MEAN PLATELET VOLUME 9.1 fl (7.4-10.4); MONOCYTES % 13.6 % (2.0-8.0); NEUTROPHILS % 58.5 % (40.0-76.0); RED BLOOD CELL COUNT 4.56 mill/uL (4.7-6.1); RED CELL DISTRIBUTION WIDTH 17.1 % (11.6-14.6)
[2022-01-26 20:24] LABS: CHLORIDE 105 mEq/L (98-107)
[2022-01-26 20:28] LABS: PLATELET 40 x1000/uL (130-400)
[2022-01-26] MEDS ORDERED: PANT40TA51 MT (21:19)
[2022-01-27] MEDS ORDERED: MAG355OR21 MT (17:26)
[2022-01-27] MEDS ORDERED: ONDA4TAB50 MT (17:26)
== END 2022-01-26 21:18 | disposition home or self-care (01) ==
LOC: ER 14:45
DX: K29.20 Alcoholic gastritis without bleeding (principal); F10.20 Alcohol dependence, uncomplicated; Y90.9 Presence of alcohol in blood, level not specified; K70.30 Alcoholic cirrhosis of liver without ascites; Z71.41 Alcohol abuse counseling and surveillance of alcoholic; Z88.6 Allergy status to analgesic agent; Z88.8 Allergy status to other drugs, medicaments and biological substances
CPT/HCPCS: 36415; 80053; 85025; 93005; 99284

== ENCOUNTER 2022-01-27 12:48 | Emergency (ER) | payer OTHER ==
[~2022-01-27] VITALS: Ht 167.6 cm; Wt 77.0 kg
[~2022-01-27 12:48] MED LIST changes: +PANT40TA51 MT
[2022-01-27] MEDS ORDERED: ONDANSETRON HCL 4MG/2ML INJ IV STA (13:11)
[2022-01-27] MEDS ORDERED: MAGNESIUM/ALUMINUM HYDROXIDE/SIMETHICONE 30ML UDC PO STA (13:11)
[2022-01-27] MEDS ORDERED: PANTOPRAZOLE SODIUM 40 MG/VIAL IV STA ×2 (13:11→17:29)
[2022-01-27] MEDS ORDERED: VISCOUS LIDOCAINE 2% 15 ML UDC PO STA (13:11)
[2022-01-27] MEDS ORDERED: MORPHINE SULFATE 4 MG/ML CPJ (NOT FOR IM USE) IV ONE (13:45)
[2022-01-27 15:32] LABS: CLARITY URINE CLEAR (CLEAR); COLOR URINE YELLOW (YELLOW); KETONES URINE NEGATIVE (NEGATIVE); LEUKOCYTE ESTERASE URINE NEGATIVE (NEGATIVE); NITRITE URINE NEGATIVE (NEGATIVE); OCCULT BLOOD URINE NEGATIVE (NEGATIVE); PROTEIN URINE NEGATIVE (NEGATIVE); SPECIFIC GRAVITY URINE 1.006 (1.005-1.030); UROBILINOGEN URINE 0.2 E.U./dL (0.2-1.0)
[2022-01-27 15:57] LABS: *AMPHETAMINES SCREEN URINE NEGATIVE (NEGATIVE); *BARBITURATES SCREEN URINE NEGATIVE (NEGATIVE); *BENZODIAZEPINES SCREEN URINE NEGATIVE (NEGATIVE); *COCAINE SCREEN URINE NEGATIVE (NEGATIVE); CANNABINOID URINE SCREEN NEGATIVE (NEGATIVE); METHADONE URINE SCREEN NEGATIVE (NEGATIVE); OPIATES URINE SCREEN NEGATIVE (NEGATIVE); PHENCYCLIDINE URINE SCREEN NEGATIVE (NEGATIVE)
[2022-01-27 16:04] LABS: BASOPHILS % 0.4 % (0.0-2.0); EOSINOPHILS % 0.7 % (0.0-5.0); HEMATOCRIT. 42.7 % (42.0-52.0); LYMPHOCYTES % 38.9 % (20.0-50.0); MEAN CORPUSCULAR HEMOGLOBIN 33.5 pg (28.0-32.0); MEAN CORPUSCULAR VOLUME 95.5 fL (80.0-94.0); MONOCYTES % 8.3 % (2.0-8.0); NEUTROPHILS % 51.7 % (40.0-76.0); RED BLOOD CELL COUNT 4.47 mill/uL (4.7-6.1); RED CELL DISTRIBUTION WIDTH 16.9 % (11.6-14.6)
[2022-01-27 16:11] LABS: INR 1.2; PROTHROMBIN TIME 12.7 sec (9.6-11.0)
[2022-01-27 16:16] LABS: CHLORIDE 111 mEq/L (98-107)
[2022-01-27 17:18] LABS: ETHANOL BLOOD 301 mg/dL
[2022-01-27] MEDS ORDERED: ONDA4TAB50 MT (17:26)
[2022-01-27] MEDS ORDERED: MAG355OR21 MT (17:26)
[2022-01-27] MEDS ORDERED: MAGNESIUM/ALUMINUM HYDROXIDE/SIMETHICONE 30ML UDC PO NR (17:30)
[2022-01-27] MEDS ORDERED: MORPHINE SULFATE 4 MG/ML CPJ (NOT FOR IM USE) IV NR (17:30)
[2022-01-27] MEDS ORDERED: ONDANSETRON HCL 4MG/2ML INJ IV NR (17:30)
[2022-01-27] MEDS ORDERED: VISCOUS LIDOCAINE 2% 15 ML UDC PO NR (17:45)
[2022-01-27] MEDS ORDERED: PANTOPRAZOLE SODIUM 40 MG/VIAL IV NR (17:45)
[2022-01-27 18:10] VITALS: BP 109/71
[2022-01-29 11:37] LABS: PLATELET 37 x1000/uL (130-400)
== END 2022-01-27 19:48 | disposition home or self-care (01) ==
LOC: ER 12:48
DX: K70.30 Alcoholic cirrhosis of liver without ascites (principal); F10.20 Alcohol dependence, uncomplicated; Z13.9 Encounter for screening, unspecified; Z88.6 Allergy status to analgesic agent; Z88.3 Allergy status to other anti-infective agents; Z79.899 Other long term (current) drug therapy; Z98.890 Other specified postprocedural states; Y90.8 Blood alcohol level of 240 mg/100 ml or more
CPT/HCPCS: 36415; 71045; 74176; 76705; 80053; 80305; 80320; 81003; 83690; 84484; 85025; 85610; 96374; 96375; 99285; C9113; J2270; J2405; G0480

== ENCOUNTER 2022-02-09 19:34 | Emergency (ER) | payer OTHER ==
[~2022-02-09] VITALS: Ht 165.1 cm; Wt 88.1 kg
[~2022-02-09 19:34] MED LIST changes: +MAG355OR21 MT; +ONDA4TAB50 MT
[2022-02-09 23:52] LABS: HEMATOCRIT. 38.9 % (42.0-52.0); HEMOGLOBIN. 13.3 g/dL (14.0-18.0); MEAN CORPUSCULAR HEMOGLOBIN 33.6 pg (28.0-32.0); MEAN CORPUSCULAR VOLUME 98.2 fL (80.0-94.0); MEAN PLATELET VOLUME 8.7 fl (7.4-10.4); RED BLOOD CELL COUNT 3.96 mill/uL (4.7-6.1); RED CELL DISTRIBUTION WIDTH 17.3 % (11.6-14.6)
[2022-02-09 23:57] LABS: CLARITY URINE CLEAR (CLEAR); COLOR URINE DARK YELLOW (YELLOW); KETONES URINE TRACE (NEGATIVE); LEUKOCYTE ESTERASE URINE TRACE (NEGATIVE); NITRITE URINE NEGATIVE (NEGATIVE); OCCULT BLOOD URINE NEGATIVE (NEGATIVE); PH URINE 6.5 (4.5-8.0); PROTEIN URINE TRACE (NEGATIVE)
[2022-02-10 00:01] LABS: CHLORIDE 109 mEq/L (98-107)
[2022-02-10 00:06] LABS: PLATELET 25 x1000/uL (130-400)
[2022-02-10 00:11] LABS: ETHANOL BLOOD 21 mg/dL
[2022-02-10 02:59] VITALS: BP 129/72
[2022-02-10 05:37] LABS: PLATELET ESTIMATE DECREASED
== END 2022-02-10 03:00 | disposition home or self-care (01) ==
LOC: ER 19:34
DX: R10.11 Right upper quadrant pain (principal); D72.819 Decreased white blood cell count, unspecified; D69.6 Thrombocytopenia, unspecified; F10.229 Alcohol dependence with intoxication, unspecified; D64.9 Anemia, unspecified; F41.9 Anxiety disorder, unspecified; F32.9 Major depressive disorder, single episode, unspecified; F17.290 Nicotine dependence, other tobacco product, uncomplicated; Y90.0 Blood alcohol level of less than 20 mg/100 ml
CPT/HCPCS: 36415; 71045; 80053; 80320; 81003; 85025; 99284; G0480

== ENCOUNTER 2022-02-23 14:09 | Emergency (ER) | payer OTHER ==
[~2022-02-23] VITALS: Ht 162.6 cm; Wt 85.0 kg
[2022-02-23] MEDS ORDERED: MAGNESIUM/ALUMINUM HYDROXIDE/SIMETHICONE 30ML UDC PO STA (14:17)
[2022-02-23 15:29] LABS: BASOPHILS % 0.6 % (0.0-2.0); EOSINOPHILS % 0.7 % (0.0-5.0); HEMATOCRIT. 40.2 % (42.0-52.0); LYMPHOCYTES % 32.2 % (20.0-50.0); MEAN CORPUSCULAR HEMOGLOBIN 34.2 pg (28.0-32.0); MEAN CORPUSCULAR VOLUME 98.1 fL (80.0-94.0); MEAN PLATELET VOLUME 9.7 fl (7.4-10.4); MONOCYTES % 8.5 % (2.0-8.0); RED CELL DISTRIBUTION WIDTH 15.6 % (11.6-14.6)
[2022-02-23 15:34] LABS: CHLORIDE 115 mEq/L (98-107)
[2022-02-23 16:11] LABS: ETHANOL BLOOD 338 mg/dL
[2022-02-23] MEDS ORDERED: MAGNESIUM/ALUMINUM HYDROXIDE/SIMETHICONE 30ML UDC PO ONE (17:00)
[2022-02-23 17:30] VITALS: BP 114/62
[2022-02-23] MEDS ORDERED: ACETAMINOPHEN 325MG TABLET PO ONE (17:30)
[2022-02-25 11:48] LABS: PLATELET 23 x1000/uL (130-400)
== END 2022-02-23 17:56 | disposition home or self-care (01) ==
LOC: ER 14:09
DX: T51.0X1A Toxic effect of ethanol, accidental (unintentional), initial encounter (principal); R10.13 Epigastric pain; F10.229 Alcohol dependence with intoxication, unspecified; Y90.8 Blood alcohol level of 240 mg/100 ml or more; D69.6 Thrombocytopenia, unspecified; D72.819 Decreased white blood cell count, unspecified; Y92.89 Other specified places as the place of occurrence of the external cause
CPT/HCPCS: 36415; 80053; 80320; 85025; 93005; 99284; G0480

== ENCOUNTER 2022-02-24 12:56 | Emergency (ER) | payer OTHER ==
[~2022-02-24] VITALS: Ht 162.6 cm; Wt 87.0 kg
[2022-02-24 14:55] LABS: BASOPHILS % 0.4 % (0.0-2.0); EOSINOPHILS % 0.2 % (0.0-5.0); HEMOGLOBIN. 14.2 g/dL (14.0-18.0); LYMPHOCYTES % 25.8 % (20.0-50.0); MEAN CORPUSCULAR HEMOGLOBIN 34.2 pg (28.0-32.0); MEAN CORPUSCULAR VOLUME 98.6 fL (80.0-94.0); MEAN PLATELET VOLUME 8.8 fl (7.4-10.4); MONOCYTES % 8.6 % (2.0-8.0); RED BLOOD CELL COUNT 4.16 mill/uL (4.7-6.1); RED CELL DISTRIBUTION WIDTH 15.3 % (11.6-14.6)
[2022-02-24 15:01] LABS: CHLORIDE 109 mEq/L (98-107)
[2022-02-24 15:10] LABS: PLATELET 25 x1000/uL (130-400)
[2022-02-24 15:44] LABS: ETHANOL BLOOD 310 mg/dL
[2022-02-24 16:39] LABS: CLARITY URINE CLEAR (CLEAR); COLOR URINE YELLOW (YELLOW); KETONES URINE NEGATIVE (NEGATIVE); LEUKOCYTE ESTERASE URINE NEGATIVE (NEGATIVE); NITRITE URINE NEGATIVE (NEGATIVE); OCCULT BLOOD URINE TRACE (NEGATIVE); PH URINE 6.5 (4.5-8.0); PROTEIN URINE NEGATIVE (NEGATIVE); SPECIFIC GRAVITY URINE 1.005 (1.005-1.030); UROBILINOGEN URINE 0.2 E.U./dL (0.2-1.0)
[2022-02-24 16:54] LABS: *AMPHETAMINES SCREEN URINE NEGATIVE (NEGATIVE); *BARBITURATES SCREEN URINE NEGATIVE (NEGATIVE); *BENZODIAZEPINES SCREEN URINE NEGATIVE (NEGATIVE); *COCAINE SCREEN URINE NEGATIVE (NEGATIVE); CANNABINOID URINE SCREEN NEGATIVE (NEGATIVE); METHADONE URINE SCREEN NEGATIVE (NEGATIVE); OPIATES URINE SCREEN NEGATIVE (NEGATIVE); PHENCYCLIDINE URINE SCREEN NEGATIVE (NEGATIVE)
[2022-02-24 17:05] LABS: PLATELET ESTIMATE MARKEDLY DECREASED
[2022-02-24 17:56] VITALS: BP 118/71
== END 2022-02-24 18:33 | disposition home or self-care (01) ==
LOC: ER 13:03
DX: R45.851 Suicidal ideations (principal); D69.6 Thrombocytopenia, unspecified; D72.819 Decreased white blood cell count, unspecified; Z88.6 Allergy status to analgesic agent; Z88.3 Allergy status to other anti-infective agents; Z79.899 Other long term (current) drug therapy; Z98.890 Other specified postprocedural states
CPT/HCPCS: 36415; 80053; 80305; 80307; 80320; 80329; 81003; 85025; 99283; G0480

== ENCOUNTER 2022-03-11 12:08 | Emergency (ER) | payer OTHER ==
[~2022-03-11] VITALS: Ht 167.6 cm; Wt 84.0 kg
[2022-03-11] MEDS ORDERED: KETOROLAC 15MG/ML VIAL IV ONE (12:30)
[2022-03-11] MEDS ORDERED: SODIUM CHLORIDE 0.9% 1,000 ML IV ONE (12:30)
[2022-03-11 13:20] LABS: BASOPHILS % 0.8 % (0.0-2.0); EOSINOPHILS % 0.4 % (0.0-5.0); HEMATOCRIT. 40.3 % (42.0-52.0); HEMOGLOBIN. 14.3 g/dL (14.0-18.0); LYMPHOCYTES % 23.1 % (20.0-50.0); MEAN CORPUSCULAR HEMOGLOBIN 35.2 pg (28.0-32.0); MEAN CORPUSCULAR VOLUME 99.2 fL (80.0-94.0); MEAN PLATELET VOLUME 8.7 fl (7.4-10.4); MONOCYTES % 10.8 % (2.0-8.0); NEUTROPHILS % 64.9 % (40.0-76.0); RED BLOOD CELL COUNT 4.07 mill/uL (4.7-6.1); RED CELL DISTRIBUTION WIDTH 14.9 % (11.6-14.6)
[2022-03-11 13:22] LABS: CLARITY URINE CLEAR (CLEAR); COLOR URINE DARK YELLOW (YELLOW); KETONES URINE TRACE (NEGATIVE); LEUKOCYTE ESTERASE URINE NEGATIVE (NEGATIVE); NITRITE URINE NEGATIVE (NEGATIVE); OCCULT BLOOD URINE TRACE (NEGATIVE); PH URINE 6.5 (4.5-8.0); PROTEIN URINE TRACE (NEGATIVE); SPECIFIC GRAVITY URINE 1.015 (1.005-1.030)
[2022-03-11 13:32] LABS: CHLORIDE 107 mEq/L (98-107)
[2022-03-11 13:35] LABS: *AMPHETAMINES SCREEN URINE NEGATIVE (NEGATIVE); *BARBITURATES SCREEN URINE NEGATIVE (NEGATIVE); *BENZODIAZEPINES SCREEN URINE NEGATIVE (NEGATIVE); *COCAINE SCREEN URINE NEGATIVE (NEGATIVE); CANNABINOID URINE SCREEN NEGATIVE (NEGATIVE); METHADONE URINE SCREEN NEGATIVE (NEGATIVE); OPIATES URINE SCREEN NEGATIVE (NEGATIVE); PHENCYCLIDINE URINE SCREEN NEGATIVE (NEGATIVE)
[2022-03-11 14:07] LABS: ETHANOL BLOOD 312 mg/dL
[2022-03-11 14:13] LABS: PLATELET ESTIMATE MARKEDLY DECREASED
[2022-03-11 14:14] LABS: PLATELET 27 x1000/uL (130-400)
[2022-03-11] MEDS ORDERED: POTASSIUM CHLORIDE 20MEQ TABLET SR PO ONE (14:30)
[2022-03-11 14:36] VITALS: BP 121/73
== END 2022-03-11 16:18 | disposition home or self-care (01) ==
LOC: ER 12:08
DX: D69.6 Thrombocytopenia, unspecified (principal); F10.129 Alcohol abuse with intoxication, unspecified; F12.10 Cannabis abuse, uncomplicated; Z79.899 Other long term (current) drug therapy; Z88.6 Allergy status to analgesic agent; Z98.890 Other specified postprocedural states; Y90.8 Blood alcohol level of 240 mg/100 ml or more
CPT/HCPCS: 36415; 71045; 74176; 80053; 80305; 80320; 81003; 83690; 83735; 85025; 86850; 86900; 86901; 93005; 96374; 99285; J1885; J7030; Z7610; G0480

== ENCOUNTER 2022-03-24 16:18 | Inpatient (IN) | payer MEDICAID, OTHER ==
[~2022-03-24] VITALS: Ht 162.6 cm; Wt 81.6 kg
[2022-03-24] MEDS ORDERED: MORPHINE SULFATE 4 MG/ML CPJ (NOT FOR IM USE) IV NR (19:30)
[2022-03-24] MEDS ORDERED: MORPHINE SULFATE 4 MG/ML CPJ (NOT FOR IM USE) IV ONE (19:30)
[2022-03-24 20:43] LABS: BASOPHILS % 0.5 % (0.0-2.0); EOSINOPHILS % 0.6 % (0.0-5.0); HEMATOCRIT. 45.9 % (42.0-52.0); HEMOGLOBIN. 15.8 g/dL (14.0-18.0); LYMPHOCYTES % 39.7 % (20.0-50.0); MEAN CORPUSCULAR HEMOGLOBIN 34.1 pg (28.0-32.0); MEAN CORPUSCULAR VOLUME 98.9 fL (80.0-94.0); MEAN PLATELET VOLUME 9.4 fl (7.4-10.4); NEUTROPHILS % 52.2 % (40.0-76.0); RED BLOOD CELL COUNT 4.65 mill/uL (4.7-6.1); RED CELL DISTRIBUTION WIDTH 14.8 % (11.6-14.6)
[2022-03-24 20:51] LABS: CHLORIDE 115 mEq/L (98-107)
[2022-03-24 20:52] LABS: PLATELET 31 x1000/uL (130-400)
[2022-03-24 21:15] LABS: ETHANOL BLOOD 334 mg/dL
[2022-03-24] MEDS ORDERED: SODIUM CHLORIDE 0.9% 1,000 ML IV ONE (22:30)
[2022-03-25 02:19] LABS: CLARITY URINE CLEAR (CLEAR); COLOR URINE DARK YELLOW (YELLOW); KETONES URINE TRACE (NEGATIVE); LEUKOCYTE ESTERASE URINE NEGATIVE (NEGATIVE); NITRITE URINE NEGATIVE (NEGATIVE); OCCULT BLOOD URINE TRACE (NEGATIVE); PROTEIN URINE TRACE (NEGATIVE); SPECIFIC GRAVITY URINE 1.021 (1.005-1.030)
[2022-03-25] MEDS ORDERED: CEFTRIAXONE 1 G PREMIX 50 ML IV ONE (02:45)
[2022-03-25] MEDS ORDERED: MORPHINE SULFATE 2 MG/ML CPJ (NOT FOR IM USE) IV PRN (03:45)
[2022-03-25 08:00] VITALS: BP 113/58
[2022-03-25] MEDS ORDERED: ONDANSETRON HCL 4MG/2ML INJ IV PRN (08:15)
[2022-03-25] MEDS ORDERED: HYDROCODONE/ACETAMINOPHEN 5/325MG TABLET PO PRN (08:15)
[2022-03-25] MEDS ORDERED: FOLIC ACID 1 MG, THIAMINE HCL 100 MG, MVI, ADULT NO.1 10 ML in DEXTROSE 5% WATER 1,000 ML IV NR ×4 (09:30)
[2022-03-25 10:00] VITALS: BP 113/58
[2022-03-25] MEDS ORDERED: NALOXONE HCL 0.4MG/ML VIAL IV PRN (10:15)
[2022-03-25] MEDS: TRAMADOL 50MG TABLET PO PRN ×2 (10:24→21:35)
[2022-03-25] MEDS ORDERED: OMEPRAZOLE 20MG CAPSULE EXTENDED RELEASE PO SCH (11:30)
[2022-03-25 12:00] VITALS: BP 137/78
[2022-03-25] MEDS: PANTOPRAZOLE SODIUM 40 MG/VIAL IV SCH (12:05)
[2022-03-25 13:23] LABS: TOTAL IRON BINDING CAPACITY 349 ug/dL (250-450)
[2022-03-25 14:17] LABS: VITAMIN B12 SERUM 1141 pg/mL (211-911)
[2022-03-25 14:39] LABS: FERRITIN 28 ng/mL (22-322)
[2022-03-25 14:53] LABS: HEPATITIS B SURFACE ANTIGEN NEGATIVE
[2022-03-25 16:00] VITALS: BP 135/66
[2022-03-25] MEDS: METOCLOPRAMIDE HCL 10MG/2ML VIAL IV SCH ×2 (17:45→21:35)
[2022-03-25] MEDS: SORBITOL 70% SOLN 30ML PO SCH ×2 (18:35→21:36)
[2022-03-25] MEDS: BISACODYL 5MG TABLET PO SCH ×2 (18:36→21:35)
[2022-03-25 19:55] LABS: HEMATOCRIT 41.1 % (42.0-52.0); HEMOGLOBIN 14.3 g/dL (14.0-18.0)
[2022-03-25 20:00] VITALS: BP 168/81
[2022-03-25] MEDS: CARVEDILOL 3.125 MG TABLET PO SCH (21:33)
[2022-03-26] VITALS (9 sets, daily range): BP systolic 109–145; BP diastolic 61–83
[2022-03-26] MEDS: METOCLOPRAMIDE HCL 10MG/2ML VIAL IV SCH ×2 (02:27→06:43)
[2022-03-26] MEDS: BISACODYL 5MG TABLET PO SCH ×2 (02:28→06:43)
[2022-03-26] MEDS: SORBITOL 70% SOLN 30ML PO SCH ×4 (02:29→21:38)
[2022-03-26 03:46] LABS: INR 1.2; PROTHROMBIN TIME 13.2 sec (9.6-11.0)
[2022-03-26 03:47] LABS: CHLORIDE 106 mEq/L (98-107)
[2022-03-26 03:58] LABS: HEMATOCRIT. 43.1 % (42.0-52.0); MEAN CORPUSCULAR HEMOGLOBIN 33.5 pg (28.0-32.0); MEAN CORPUSCULAR VOLUME 96.1 fL (80.0-94.0); MEAN PLATELET VOLUME 10.4 fl (7.4-10.4); RED BLOOD CELL COUNT 4.49 mill/uL (4.7-6.1)
[2022-03-26 04:18] LABS: PLATELET 27 x1000/uL (130-400)
[2022-03-26] MEDS ORDERED: OMEPRAZOLE 20MG CAPSULE EXTENDED RELEASE PO SCH (07:20)
[2022-03-26] MEDS: CARVEDILOL 3.125 MG TABLET PO SCH ×2 (08:35→21:00)
[2022-03-26] MEDS: PANTOPRAZOLE SODIUM 40 MG/VIAL IV SCH (08:48)
[2022-03-26 13:33] LABS: NUCLEATED RED BLOOD CELLS 1 /100 WBC; PLATELET ESTIMATE MARKEDLY DECREASED
[2022-03-26] MEDS: TRAMADOL 50MG TABLET PO PRN (21:43)
[2022-03-27] VITALS (10 sets, daily range): BP systolic 112–138; BP diastolic 50–69
[2022-03-27] MEDS: SORBITOL 70% SOLN 30ML PO SCH ×3 (00:22→08:42)
[2022-03-27 00:42] LABS: HEMATOCRIT 43.5 % (42.0-52.0); HEMOGLOBIN 14.5 g/dL (14.0-18.0)
[2022-03-27 07:17] LABS: CHLORIDE 105 mEq/L (98-107)
[2022-03-27 07:20] LABS: BASOPHILS % 0.5 % (0.0-2.0); HEMATOCRIT. 42.4 % (42.0-52.0); HEMOGLOBIN. 14.9 g/dL (14.0-18.0); LYMPHOCYTES % 20.3 % (20.0-50.0); MEAN CORPUSCULAR HEMOGLOBIN 34.2 pg (28.0-32.0); MEAN CORPUSCULAR VOLUME 97.3 fL (80.0-94.0); MEAN PLATELET VOLUME 10.8 fl (7.4-10.4); MONOCYTES % 10.3 % (2.0-8.0); NEUTROPHILS % 67.9 % (40.0-76.0); RED BLOOD CELL COUNT 4.36 mill/uL (4.7-6.1); RED CELL DISTRIBUTION WIDTH 13.8 % (11.6-14.6)
[2022-03-27 08:13] LABS: PLATELET 26 x1000/uL (130-400)
[2022-03-27] MEDS: PANTOPRAZOLE SODIUM 40 MG/VIAL IV SCH (08:42)
[2022-03-27] MEDS: CARVEDILOL 3.125 MG TABLET PO SCH ×2 (08:42→21:00)
[2022-03-27] MEDS ORDERED: KCL 20MEQ/100ML PREMIX 100 ML IV SCH (12:00)
[2022-03-27] MEDS ORDERED: PROPOFOL 200MG/20ML VIAL IV ONE ×2 (12:48→13:34)
[2022-03-27] MEDS ORDERED: VERAPAMIL HCL 2.5 MG/1 ML 2ML VIAL IV ONE (12:48)
[2022-03-27] MEDS ORDERED: MIDAZOLAM HCL 5 MG/5 ML VIAL ONE (12:49)
[2022-03-27] MEDS ORDERED: GLYCOPYRROLATE 0.2 MG/ML 2ML VIAL ONE (13:15)
[2022-03-27] MEDS ORDERED: FENTANYL CITRATE/PF 50MCG/ML 2ML VIAL ONE (13:35)
[2022-03-27 17:50] LABS: HEMOGLOBIN 14.3 g/dL (14.0-18.0); MEAN CORPUSCULAR HEMOGLOBIN 33.9 pg (28.0-32.0); MEAN CORPUSCULAR VOLUME 97.6 fL (80.0-94.0); RED BLOOD CELL COUNT 4.21 mill/uL (4.7-6.1); RED CELL DISTRIBUTION WIDTH 14.1 % (11.6-14.6)
[2022-03-27 17:52] LABS: BASOPHILS % 0.6 % (0.0-2.0); EOSINOPHILS % 1.7 % (0.0-5.0); HEMOGLOBIN. 14.2 g/dL (14.0-18.0); LYMPHOCYTES % 22.5 % (20.0-50.0); MEAN CORPUSCULAR HEMOGLOBIN 34.2 pg (28.0-32.0); MEAN CORPUSCULAR VOLUME 96.6 fL (80.0-94.0); MEAN PLATELET VOLUME 9.6 fl (7.4-10.4); MONOCYTES % 9.6 % (2.0-8.0); NEUTROPHILS % 65.6 % (40.0-76.0); RED BLOOD CELL COUNT 4.14 mill/uL (4.7-6.1); RED CELL DISTRIBUTION WIDTH 14.2 % (11.6-14.6)
[2022-03-27 18:18] LABS: PLATELET 27 x1000/uL (130-400)
[2022-03-27 18:21] LABS: PLATELET 26 x1000/uL (130-400)
[2022-03-27] MEDS: TRAMADOL 50MG TABLET PO PRN (21:39)
[2022-03-28] VITALS (7 sets, daily range): BP systolic 114–123; BP diastolic 60–70
[2022-03-28 06:35] LABS: CHLORIDE 105 mEq/L (98-107)
[2022-03-28] MEDS: CARVEDILOL 3.125 MG TABLET PO SCH (09:00)
[2022-03-28] MEDS: PANTOPRAZOLE SODIUM 40 MG/VIAL IV SCH (09:53)
== END 2022-03-28 11:57 | disposition home or self-care (01) | DRG 253 ==
LOC: ER 16:18 → 6EST 03-25 02:32
PROVIDERS: ADMIT Internal Medicine; ATTEND Internal Medicine
PROC: 30233R1 Transfusion of Nonautologous Platelets into Peripheral Vein, Percutaneous Approach (ICD-10-PCS; 2022-03-26)
PROC: 0DJD8ZZ Inspection of Lower Intestinal Tract, Via Natural or Artificial Opening Endoscopic (ICD-10-PCS; principal; 2022-03-27)
DX: K92.2 Gastrointestinal hemorrhage, unspecified (principal); I81 Portal vein thrombosis; K76.6 Portal hypertension; D69.59 Other secondary thrombocytopenia; K64.8 Other hemorrhoids; D70.9 Neutropenia, unspecified; I86.8 Varicose veins of other specified sites; E87.8 Other disorders of electrolyte and fluid balance, not elsewhere classified; F31.9 Bipolar disorder, unspecified; F41.9 Anxiety disorder, unspecified; Y90.8 Blood alcohol level of 240 mg/100 ml or more; F10.129 Alcohol abuse with intoxication, unspecified; K70.30 Alcoholic cirrhosis of liver without ascites; R16.1 Splenomegaly, not elsewhere classified; Z20.822 Contact with and (suspected) exposure to COVID-19; Z87.11 Personal history of peptic ulcer disease; Z87.442 Personal history of urinary calculi; Z87.891 Personal history of nicotine dependence; Z88.6 Allergy status to analgesic agent; Z79.899 Other long term (current) drug therapy; Z71.41 Alcohol abuse counseling and surveillance of alcoholic
CPT/HCPCS: 36415; 74176; 76700; 80048; 80053; 80076; 80320; 81003; 82140; 82248; 82270; 82607; 82728; 82746; 83540; 83550; 83605; 83880; 84484; 85014; 85018; 85025; 85027; 85044; 85049; 86705; 86709; 86803; 86850; 86900; 87340; 87426; 93976; 99285; C1893; C9113; J0696; J2250; J2270; J2405; J2704; J2765; J3010; J3411; J3480; J3490; J7030; J7070; P9034; G0480